=== PATIENT | female | born 1965 | race Caucasian/White ===

== ENCOUNTER 2017-07-16 14:09 | Emergency (ER) | payer OTHER ==
[~2017-07-16] VITALS: Ht 154.9 cm; Wt 77.1 kg
[2017-07-16 14:36] VITALS: BP 155/98
== END 2017-07-16 15:03 | disposition home or self-care (01) ==
LOC: ER 14:09
DX: G89.29 Other chronic pain (principal); M25.511 Pain in right shoulder; Z76.0 Encounter for issue of repeat prescription

== ENCOUNTER 2023-04-21 19:34 | Emergency (ER) | payer MEDICAID, OTHER ==
[~2023-04-21] VITALS: Ht 154.9 cm; Wt 75.0 kg
[2023-04-21 21:37] VITALS: BP 176/98; PULSE 89; RESP 16; TEMP 99.2; O2SAT 98
[2023-04-21] MEDS ORDERED: ACE3T PO (23:33)
[2023-04-21] MEDS: HYDROcodone-ACET 5/325MG TAB PO ONE (23:33)
[2023-04-21] MEDS: BENZOCAINE (DENTAL) 20 % SPRAY 60ML MT ONE (23:33)
[2023-04-21] MEDS ORDERED: CYCL-837 PO (23:33)
[2023-04-21] MEDS ORDERED: DICY10CA PO (23:33)
[2023-04-21] MEDS: ONDANSETRON ODT 4 MG TAB PO ONE (23:33)
[2023-04-21] MEDS ORDERED: AMOX875T4 PO (23:33)
== END 2023-04-21 23:42 | disposition home or self-care (01) ==
LOC: ER 19:34
DX: S02.5XXA Fracture of tooth (traumatic), initial encounter for closed fracture (principal); S16.1XXA Strain of muscle, fascia and tendon at neck level, initial encounter; S29.012A Strain of muscle and tendon of back wall of thorax, initial encounter; I10 Essential (primary) hypertension; Z90.710 Acquired absence of both cervix and uterus; V43.62XA Car passenger injured in collision with other type car in traffic accident, initial encounter; Y93.89 Activity, other specified; Y92.89 Other specified places as the place of occurrence of the external cause; Y99.8 Other external cause status
CPT/HCPCS: 99283; Q0162

== ENCOUNTER 2023-05-04 06:46 | Emergency (ER) | payer MEDICAID, OTHER ==
[~2023-05-04] VITALS: Ht 157.5 cm; Wt 68.0 kg
[~2023-05-04 06:46] MED LIST: ACE3T PO; AMOX875T4 PO; CYCL-837 PO; DICY10CA PO
[2023-05-04] MEDS: SODIUM CHLORIDE 0.9% 1,000 ML IV ONE (07:15)
[2023-05-04 07:40] VITALS: PULSE 71; RESP 14; O2SAT 98
[2023-05-04 07:42] LABS: Hemoglobin 13.2 g/dL (12.2-16.2); Neutrophils # (auto) 4.7 10 ^3/uL (1.6-8.6); White Blood Cell 6.2 10^3/uL (4.4-10.8)
[2023-05-04 07:53] LABS: Basophils # (auto) 0 10 ^3/uL (0-0.2); Basophils % (auto) 0.3 % (0.0-2.0); Eosinophils # (auto) 0.1 10 ^3/uL (0-0.8); Hematocrit 38.8 % (36.0-46.0); Lymphocytes # (auto) 1.1 10 ^3/uL (0.4-5.4); Lymphocytes % (auto) 17.9 % (10.0-50.0); Monocytes # (auto) 0.3 10 ^3/uL (0-1.3); Monocytes % (auto) 5.3 % (0.0-12.0); Neutrophils % (auto) 75.5 % (37.0-80.0); Nucleated Red Blood Cells % 0.1 %; Red Blood Cells 3.66 10^6/uL (4.0-5.20); Red Cell Distribution Width 19.8 % (11.8-14.3)
[2023-05-04 07:59] LABS: Chloride 100 mmol/L (98-107); Potassium 3.6 mmol/L (3.5-5.1); Sodium 136 mmol/L (136-145)
[2023-05-04 08:00] LABS: Anion Gap 11 (5-15); Calcium 9.2 mg/dL (8.5-10.1); Carbon Dioxide 25 mmol/L (20-30)
[2023-05-04 08:05] LABS: BUN/Creatinine Ratio 12.5 (10.0-20.0); Blood Urea Nitrogen 9 mg/dL (9-23); Glucose 84 mg/dL (74-106)
[2023-05-04] MEDS: THIAMINE 100mg/ml INJ (200mg/2ml VIAL) IV ONE (08:06)
[2023-05-04] MEDS: LABETALOL HCL 5 MG/ML 4ML SYRINGE IV ONE (08:06)
[2023-05-04] MEDS: DIPHENOXYLATE W/ATROPINE 2.5 MG TAB PO ONE (08:07)
[2023-05-04] MEDS: LORazepam 2MG/ML-1ML VIAL IV ONE (09:10)
[2023-05-04] MEDS: hydrALAZINE HCL 20 MG/ML VL IV ONE (09:47)
[2023-05-04] MEDS: HYDROcodone-ACET 10/325MG TAB PO ONE (11:10)
[2023-05-04 11:45] VITALS: BP 163/90; PULSE 91; RESP 19; O2SAT 97
[2023-05-06] MEDS ORDERED: ZOFR4T PO (23:04)
[2023-05-06] MEDS ORDERED: ALPR0.25 PO (23:04)
== END 2023-05-04 12:10 | disposition home or self-care (01) ==
LOC: ER 06:46 → EDBD 06:46 → ER 11:58
DX: F10.10 Alcohol abuse, uncomplicated (principal); R10.84 Generalized abdominal pain; R19.7 Diarrhea, unspecified; I10 Essential (primary) hypertension; Z90.710 Acquired absence of both cervix and uterus; Z79.2 Long term (current) use of antibiotics; Z79.899 Other long term (current) drug therapy; Y90.6 Blood alcohol level of 120-199 mg/100 ml
CPT/HCPCS: 36415; 80048; 80320; 85025; 96361; 96374; 96375; 99284; J0360; J2060; J3411; J3490; J7030

== ENCOUNTER 2023-05-19 06:24 | Inpatient (IN) | payer OTHER ==
[~2023-05-19] VITALS: Ht 154.9 cm; Wt 72.7 kg
[~2023-05-19 06:24] MED LIST changes: +ALPR0.25 PO; +ZOFR4T PO
[2023-05-19 07:04] VITALS: PULSE 74; RESP 21; O2SAT 96
[2023-05-19 07:11] LABS: Chloride 103 mmol/L (98-107); Potassium 4.2 mmol/L (3.5-5.1); Sodium 136 mmol/L (136-145)
[2023-05-19 07:12] LABS: Anion Gap 8 (5-15); Calcium 9.2 mg/dL (8.5-10.1); Carbon Dioxide 25 mmol/L (20-30)
[2023-05-19 07:14] LABS: Basophils # (auto) 0 10 ^3/uL (0-0.2); Hemoglobin 12.4 g/dL (12.2-16.2); Monocytes # (auto) 0.7 10 ^3/uL (0-1.3)
[2023-05-19 07:16] LABS: Basophils % (auto) 0.5 % (0.0-2.0); Eosinophils # (auto) 0.2 10 ^3/uL (0-0.8); Eosinophils % (auto) 1.9 % (0.0-7.0); Lymphocytes # (auto) 0.9 10 ^3/uL (0.4-5.4); Lymphocytes % (auto) 10.9 % (10.0-50.0); Mean Corpuscular Hemoglobin 35.8 pg (28.0-32.0); Mean Corpuscular Hgb Conc. 33.5 g/dL (32.0-36.0); Mean Corpuscular Volume 106.7 fL (80.0-100.0); Monocytes % (auto) 8.1 % (0.0-12.0); Neutrophils # (auto) 6.8 10 ^3/uL (1.6-8.6); Neutrophils % (auto) 78.6 % (37.0-80.0); Red Blood Cells 3.46 10^6/uL (4.0-5.20); Red Cell Distribution Width 18.7 % (11.8-14.3); White Blood Cell 8.7 10^3/uL (4.4-10.8)
[2023-05-19 07:17] LABS: Glucose 108 mg/dL (74-106)
[2023-05-19 07:22] LABS: BUN/Creatinine Ratio 6.1 (10.0-20.0); Blood Urea Nitrogen < 5 mg/dL (9-23)
[2023-05-19 07:38] LABS: Lipase 28 U/L (12-53)
[2023-05-19] MEDS: hydrALAZINE HCL 20 MG/ML VL IV ONE (07:38)
[2023-05-19 08:06] LABS: Urine Bacteria None Seen /hpf (None Seen)
[2023-05-19 08:11] LABS: Urine Blood Negative /uL (Negative); Urine Clarity Clear (Clear); Urine Color Colorless (Yellow); Urine Protein, UAD Negative (Negative); Urine Specific Gravity 1.008 (1.001-1.035); Urine Urobilinogen Normal (Negative); Urine WBC 1 /hpf (0 - 5)
[2023-05-19 08:20] VITALS: BP 194/90; RESP 18; O2SAT 98
[2023-05-19 08:22] VITALS: PULSE 65
[2023-05-19] MEDS: PROCHLORPERAZINE EDISYLATE 5 MG/ML 2ML VIAL ONE (08:38)
[2023-05-19] MEDS: hydrALAZINE HCL 20 MG/ML VL ONE (08:38)
[2023-05-19] MEDS: PANTOPRAZOLE 40 MG/10 ML VIAL INJ IV ONE ×2 (08:38→08:40)
[2023-05-19] MEDS: PROCHLORPERAZINE EDISYLATE 5 MG/ML 2ML VIAL IV ONE (08:40)
[2023-05-19] MEDS: SODIUM CHLORIDE 0.9% 1,000 ML IVB ONE (08:41)
[2023-05-19] MEDS ORDERED: NITROGLYCERIN 0.4 MG SL TAB SL PRN (09:15)
[2023-05-19] MEDS ORDERED: LORazepam 2MG/ML-1ML VIAL IV PRN (09:15)
[2023-05-19] MEDS ORDERED: ACETAMINOPHEN 325 MG TAB PO PRN (09:15)
[2023-05-19] MEDS ORDERED: HYDROcodone-ACET 5/325MG TAB PO PRN (09:15)
[2023-05-19] MEDS ORDERED: ONDANSETRON HCL 4 MG/2 ML VIAL IV PRN (09:15)
[2023-05-19] MEDS ORDERED: MORPHINE SULFATE INJ 2 MG/ml SYRG IV PRN (09:15)
[2023-05-19] MEDS ORDERED: hydrALAZINE HCL 20 MG/ML VL IV PRN (09:15)
[2023-05-19] MEDS: ALPRAZolam 0.5 MG TAB ONE (09:26)
[2023-05-19] MEDS: ALPRAZolam 0.25 MG TAB PO SCH (09:30)
[2023-05-19] MEDS: LISINOPRIL 5 MG TAB PO ONE (09:30)
[2023-05-19] MEDS ORDERED: PANTOPRAZOLE 40 MG/10 ML VIAL INJ IV ONE (09:45)
[2023-05-19] MEDS ORDERED: ENOXAPARIN SOD 40 MG/0.4 ML SYRINGE SC SCH (10:00)
[2023-05-19 10:20] LABS: Magnesium 1.8 mg/dL (1.6-2.6)
[2023-05-19] MEDS ORDERED: DICYCLOMINE HCL 10 MG CAP PO SCH (12:00)
[2023-05-19] MEDS ORDERED: CYCLOBENZAPRINE HCL 10 MG TAB PO PRN (18:00)
[2023-05-19] MEDS ORDERED: FOLIC ACID 1 MG, MAGNESIUM SULF SDV 50% 8 MEQ, MULTIPLE VITAMIN 10 ML, THIAMINE INJ 100... INJ SCH (18:00)
[2023-05-20] MEDS ORDERED: LISINOPRIL 5 MG TAB PO SCH (10:00)
[2023-05-20] MEDS ORDERED: PANTOPRAZOLE 40 MG/10 ML VIAL INJ IV SCH (10:00)
== END 2023-05-19 10:59 | disposition left against medical advice (07) | DRG 199 ==
LOC: EDUNIT# 06:24 → EDBD 06:24 → ER 06:24 → TELE 09:04
PROVIDERS: ADMIT Nurse Practitioner Family; ATTEND Nurse Practitioner Family
DX: I16.9 Hypertensive crisis, unspecified (principal); E66.01 Morbid (severe) obesity due to excess calories; K58.9 Irritable bowel syndrome, unspecified; Z53.29 Procedure and treatment not carried out because of patient's decision for other reasons; F10.10 Alcohol abuse, uncomplicated; G89.4 Chronic pain syndrome; T44.3X5A Adverse effect of other parasympatholytics [anticholinergics and antimuscarinics] and spasmolytics, initial encounter; Z68.30 Body mass index [BMI] 30.0-30.9, adult; Z90.710 Acquired absence of both cervix and uterus; Y92.89 Other specified places as the place of occurrence of the external cause
CPT/HCPCS: 36415; 70450; 74176; 80048; 80061; 80320; 81001; 82962; 83690; 83735; 84443; 85025; 93005; C9113; G0378

== ENCOUNTER 2023-05-27 05:41 | Emergency (ER) | payer OTHER ==
[~2023-05-27] VITALS: Ht 154.9 cm; Wt 68.2 kg
[2023-05-27 06:08] VITALS: PULSE 65; RESP 16; O2SAT 98
[2023-05-27] MEDS: hydrALAZINE HCL 20 MG/ML VL IV ONE ×2 (06:15→08:03)
[2023-05-27] MEDS: PROCHLORPERAZINE EDISYLATE 5 MG/ML 2ML VIAL IV ONE (06:24)
[2023-05-27 06:40] LABS: Basophils # (auto) 0.1 10 ^3/uL (0-0.2); Basophils % (auto) 0.9 % (0.0-2.0); Eosinophils # (auto) 0.1 10 ^3/uL (0-0.8); Eosinophils % (auto) 1.6 % (0.0-7.0); Hematocrit 33.2 % (36.0-46.0); Hemoglobin 11.3 g/dL (12.2-16.2); Lymphocytes # (auto) 1.2 10 ^3/uL (0.4-5.4); Lymphocytes % (auto) 16.6 % (10.0-50.0); Mean Corpuscular Hemoglobin 36.4 pg (28.0-32.0); Mean Corpuscular Hgb Conc. 34.1 g/dL (32.0-36.0); Mean Corpuscular Volume 106.6 fL (80.0-100.0); Monocytes # (auto) 0.7 10 ^3/uL (0-1.3); Monocytes % (auto) 9.4 % (0.0-12.0); Neutrophils # (auto) 5.1 10 ^3/uL (1.6-8.6); Neutrophils % (auto) 71.5 % (37.0-80.0); Red Blood Cells 3.12 10^6/uL (4.0-5.20); Red Cell Distribution Width 18.5 % (11.8-14.3); White Blood Cell 7.1 10^3/uL (4.4-10.8)
[2023-05-27 06:51] LABS: Chloride 103 mmol/L (98-107); Potassium 3.9 mmol/L (3.5-5.1); Sodium 135 mmol/L (136-145)
[2023-05-27 06:52] LABS: Anion Gap 10 (5-15); Calcium 9.2 mg/dL (8.7-10.4); Carbon Dioxide 22 mmol/L (20-30)
[2023-05-27 06:55] LABS: INR 1.07 (0.9-1.15); Partial Thromboplastin Time 29.4 SEC (24.5-34.5); Prothrombin Time 11.2 sec (9.3-11.8)
[2023-05-27 06:57] LABS: BUN/Creatinine Ratio 6.4 (10.0-20.0); Blood Urea Nitrogen 9 mg/dL (9-23); Glucose 101 mg/dL (74-106)
[2023-05-27 07:30] VITALS: PULSE 73; RESP 17; O2SAT 98
[2023-05-27] MEDS: MORPHINE SULFATE 4 MG/ML SYR/VIAL IV ONE (08:02)
[2023-05-27 08:14] LABS: Urine Bacteria None Seen /hpf (None Seen)
[2023-05-27] MEDS ORDERED: CHL10C PO (08:40)
[2023-05-27 08:55] LABS: Urine Blood Negative /uL (Negative); Urine Clarity Clear (Clear); Urine Protein, UAD Negative (Negative); Urine Specific Gravity 1.008 (1.001-1.035); Urine Urobilinogen Normal (Negative); Urine WBC 3 /hpf (0 - 5)
[2023-05-27 08:56] LABS: Urine Color Straw (Yellow)
[2023-05-27 09:37] VITALS: BP 158/77; PULSE 80; RESP 17; O2SAT 95
== END 2023-05-27 11:39 | disposition home or self-care (01) ==
LOC: EDBD 05:41 → ER 05:41
DX: R51.9 Headache, unspecified (principal); I10 Essential (primary) hypertension; F10.10 Alcohol abuse, uncomplicated; Z79.899 Other long term (current) drug therapy; Z79.01 Long term (current) use of anticoagulants
CPT/HCPCS: 36415; 70450; 71045; 80048; 81001; 83880; 84484; 85025; 85610; 85730; 93005; 96374; 96375; 96376; 99285; J0360; J0780; J2270

== ENCOUNTER 2023-08-05 03:45 | Emergency (ER) | payer OTHER ==
[~2023-08-05] VITALS: Ht 170.2 cm; Wt 88.6 kg
[~2023-08-05 03:45] MED LIST changes: +CHL10C PO
[2023-08-05 04:41] LABS: Chloride 98 mmol/L (98-107); Potassium 3.4 mmol/L (3.5-5.1); Sodium 133 mmol/L (136-145)
[2023-08-05 04:42] LABS: Anion Gap 16 (5-15); Carbon Dioxide 19 mmol/L (20-30)
[2023-08-05] MEDS: ONDANSETRON HCL 4 MG/2 ML VIAL IV ONE (04:42)
[2023-08-05 04:43] LABS: Calcium 9.6 mg/dL (8.7-10.4)
[2023-08-05] MEDS: SODIUM CHLORIDE 0.9% 1,000 ML IV ONE (04:43)
[2023-08-05] MEDS: LORazepam 2MG/ML-1ML VIAL IV ONE (04:43)
[2023-08-05 04:47] LABS: BUN/Creatinine Ratio 9.1 (10.0-20.0); Blood Urea Nitrogen 7 mg/dL (9-23); Glucose 89 mg/dL (74-106)
[2023-08-05 04:58] LABS: Blood Alcohol 78.4 mg/dL (<10)
[2023-08-05 05:00] VITALS: PULSE 73; RESP 20; O2SAT 92
[2023-08-05 07:30] VITALS: PULSE 96; RESP 21; O2SAT 96
[2023-08-05] MEDS: FOLIC ACID 1 MG, MAGNESIUM SULF SDV 50% 8 MEQ, MULTIPLE VITAMIN 10 ML, THIAMINE INJ 100... INJ ONE (08:55)
[2023-08-05] MEDS: METOPROLOL SUCCINATE XL 50 MG TAB PO ONE (09:33)
[2023-08-05 11:34] VITALS: TEMP 99
[2023-08-05] MEDS ORDERED: CHL25C PO (13:50)
[2023-08-05 15:10] VITALS: BP 189/91; PULSE 71; RESP 16; O2SAT 95
[2023-08-05] MEDS ORDERED: FOLIC ACID 1 MG, MAGNESIUM SULF SDV 50% 8 MEQ, MULTIPLE VITAMIN 10 ML, THIAMINE INJ 100... INJ SCH (18:00)
== END 2023-08-05 15:08 | disposition home or self-care (01) ==
LOC: EDBD 03:45 → EDUNIT# 03:45 → ER 03:48
DX: F10.239 Alcohol dependence with withdrawal, unspecified (principal); I10 Essential (primary) hypertension; Z90.710 Acquired absence of both cervix and uterus; Y90.8 Blood alcohol level of 240 mg/100 ml or more
CPT/HCPCS: 36415; 80048; 80320; 93005; 96361; 96365; 96375; 99284; J2060; J2405; J3411; J3475; J7030

== ENCOUNTER 2023-08-23 15:10 | Emergency (ER) | payer OTHER ==
[~2023-08-23] VITALS: Ht 154.9 cm; Wt 77.0 kg
[~2023-08-23 15:10] MED LIST changes: +CHL25C PO
[2023-08-23 15:24] VITALS: BP 170/97; PULSE 103; RESP 20; O2SAT 98
[2023-08-23] MEDS: SODIUM CHLORIDE 0.9% 1,000 ML IV ONE (15:37)
[2023-08-23 15:58] LABS: Basophils # (auto) 0.2 10 ^3/uL (0-0.2); Eosinophils # (auto) 0.1 10 ^3/uL (0-0.8); Lymphocytes # (auto) 1.6 10 ^3/uL (0.4-5.4); Monocytes # (auto) 0.6 10 ^3/uL (0-1.3)
[2023-08-23 15:59] LABS: Basophils % (auto) 2.1 % (0.0-2.0); Hematocrit 39.2 % (36.0-46.0); Hemoglobin 13.4 g/dL (12.2-16.2); Lymphocytes % (auto) 18.8 % (10.0-50.0); Mean Corpuscular Hemoglobin 39.4 pg (28.0-32.0); Mean Corpuscular Hgb Conc. 34.3 g/dL (32.0-36.0); Mean Corpuscular Volume 114.9 fL (80.0-100.0); Monocytes % (auto) 6.5 % (0.0-12.0); Neutrophils # (auto) 6.1 10 ^3/uL (1.6-8.6); Neutrophils % (auto) 71.6 % (37.0-80.0); Nucleated Red Blood Cells % 0.2 %; Red Blood Cells 3.41 10^6/uL (4.0-5.20); Red Cell Distribution Width 19.4 % (11.8-14.3); White Blood Cell 8.6 10^3/uL (4.4-10.8)
[2023-08-23 16:04] LABS: Chloride 105 mmol/L (98-107); Potassium 4.4 mmol/L (3.5-5.1); Sodium 138 mmol/L (136-145)
[2023-08-23 16:05] LABS: Anion Gap 12 (5-15); Carbon Dioxide 21 mmol/L (20-30)
[2023-08-23 16:06] LABS: Calcium 8.9 mg/dL (8.7-10.4)
[2023-08-23 16:11] LABS: Glucose 112 mg/dL (74-106)
[2023-08-23 16:21] LABS: Blood Alcohol 318.8 mg/dL (<10)
[2023-08-23 16:24] LABS: Anisocytosis Moderate; Macrocytosis Moderate; Polychromasia Slight; Stomatocytes Few
[2023-08-23 16:25] LABS: Large Platelets FEW; Platelet Estimate Adequa
[2023-08-23 16:59] LABS: BUN/Creatinine Ratio 6.5 (10.0-20.0); Blood Urea Nitrogen < 5 mg/dL (9-23)
== END 2023-08-23 19:05 | disposition home or self-care (01) ==
LOC: EDBD 15:10 → ER 15:10
DX: T67.5XXA Heat exhaustion, unspecified, initial encounter (principal); F10.10 Alcohol abuse, uncomplicated; I10 Essential (primary) hypertension; M19.90 Unspecified osteoarthritis, unspecified site; Z90.710 Acquired absence of both cervix and uterus; Z98.890 Other specified postprocedural states; Z79.899 Other long term (current) drug therapy; X58.XXXA Exposure to other specified factors, initial encounter; Y93.89 Activity, other specified; Y92.89 Other specified places as the place of occurrence of the external cause; Y99.8 Other external cause status; Y90.0 Blood alcohol level of less than 20 mg/100 ml
CPT/HCPCS: 36415; 80048; 80320; 85025; 96360; 96361; 99283; J7030

== ENCOUNTER 2023-09-05 14:00 | Inpatient (IN) | payer OTHER ==
[~2023-09-05] VITALS: Ht 162.6 cm; Wt 80.8 kg
[2023-09-05] MEDS: SODIUM CHLORIDE 0.9% 1,000 ML IV ONE ×2 (14:15→20:00)
[2023-09-05 14:53] LABS: Basophils # (auto) 0 10 ^3/uL (0-0.2); Eosinophils # (auto) 0 10 ^3/uL (0-0.8); Mean Corpuscular Volume 113.7 fL (80.0-100.0); Monocytes # (auto) 0.5 10 ^3/uL (0-1.3); Nucleated Red Blood Cells % 0.4 %
[2023-09-05 14:54] LABS: Basophils % (auto) 0.2 % (0.0-2.0); Hematocrit 36.7 % (36.0-46.0); Hemoglobin 13.2 g/dL (12.2-16.2); Lymphocytes # (auto) 0.4 10 ^3/uL (0.4-5.4); Lymphocytes % (auto) 3.7 % (10.0-50.0); Mean Corpuscular Hemoglobin 40.8 pg (28.0-32.0); Mean Corpuscular Hgb Conc. 35.9 g/dL (32.0-36.0); Monocytes % (auto) 4.8 % (0.0-12.0); Neutrophils # (auto) 8.8 10 ^3/uL (1.6-8.6); Neutrophils % (auto) 91.3 % (37.0-80.0); Red Blood Cells 3.23 10^6/uL (4.0-5.20); Red Cell Distribution Width 16.4 % (11.8-14.3); White Blood Cell 9.6 10^3/uL (4.4-10.8)
[2023-09-05 15:08] LABS: Alanine Aminotransferase 87 U/L (7-40); Albumin 4.5 g/dL (3.2-4.8); Alkaline Phosphatase 229 U/L (46-116); Anion Gap 26 (5-15); Aspartate Aminotransferase 471 U/L (13-40); BUN/Creatinine Ratio 12.2 (10.0-20.0); Blood Alcohol 158.2 mg/dL (<10); Blood Urea Nitrogen 12 mg/dL (9-23); Calcium 9.7 mg/dL (8.7-10.4); Carbon Dioxide 12 mmol/L (20-30); Chloride 77 mmol/L (98-107); Glucose 116 mg/dL (74-106); Potassium 3.7 mmol/L (3.5-5.1); Total Protein 7.7 g/dL (5.7-8.2)
[2023-09-05 15:18] LABS: Lactic Acid w/Reflex 5.8 mmol/L (0.4-2.0); Sodium 115 mmol/L (136-145)
[2023-09-05 15:28] LABS: Lipase 69 U/L (12-53)
[2023-09-05 15:40] VITALS: PULSE 89; RESP 18; O2SAT 94
[2023-09-05] MEDS ORDERED: ACETAMINOPHEN 325 MG TAB PO PRN (15:45)
[2023-09-05] MEDS ORDERED: DOCUSATE SOD 100 MG CAP PO PRN (15:45)
[2023-09-05] MEDS ORDERED: HYDROcodone-ACET 5/325MG TAB PO PRN (15:45)
[2023-09-05 16:16] LABS: Chloride 75 mmol/L (98-107); Potassium 3.9 mmol/L (3.5-5.1)
[2023-09-05 16:17] LABS: Anion Gap 27 (5-15); Carbon Dioxide 12 mmol/L (20-30)
[2023-09-05 16:18] LABS: Calcium 9.5 mg/dL (8.7-10.4)
[2023-09-05 16:23] LABS: BUN/Creatinine Ratio 13.1 (10.0-20.0); Blood Urea Nitrogen 13 mg/dL (9-23); Glucose 111 mg/dL (74-106)
[2023-09-05 16:26] LABS: Sodium 114 mmol/L (136-145)
[2023-09-05] MEDS: LACTULOSE 20Gm/30ML SOLN PO ONE (17:12)
[2023-09-05] MEDS: ONDANSETRON HCL 4 MG/2 ML VIAL IV PRN (17:12)
[2023-09-05] MEDS: ENOXAPARIN SOD 40 MG/0.4 ML SYRINGE SC ONE (17:12)
[2023-09-05] MEDS: SODIUM CHL 3% 50 ML IV ONE (17:24)
[2023-09-05 19:41] LABS: Lactic Acid w/Reflex 4.3 mmol/L (0.4-2.0)
[2023-09-05] MEDS: PIPERACILLIN-TAZOB 3.375GM 100 ML IV ONE (20:13)
[2023-09-05] MEDS: SODIUM CHLOR 0.9% PF (SALINE LOCK) 10ML VIAL/SYR IV SCH (21:04)
[2023-09-05 21:23] LABS: Chloride 80 mmol/L (98-107); Potassium 3.5 mmol/L (3.5-5.1)
[2023-09-05 21:24] LABS: Anion Gap 23 (5-15); Carbon Dioxide 15 mmol/L (20-30)
[2023-09-05 21:25] LABS: Calcium 9.6 mg/dL (8.7-10.4)
[2023-09-05 21:30] LABS: Blood Urea Nitrogen 12 mg/dL (9-23); Glucose 91 mg/dL (74-106)
[2023-09-05 21:35] LABS: Sodium 118 mmol/L (136-145)
[2023-09-05] MEDS: LABETALOL HCL 20 MG/4 ML VL IV ONE (21:43)
[2023-09-05] MEDS: ONDANSETRON HCL 4 MG/2 ML VIAL IV ONE (21:43)
[2023-09-05] MEDS: metroNIDAZOLE 500MG/100ML 100 ML IV SCH (22:15)
[2023-09-05 23:11] LABS: Amphetamine Screen, Urine Neg (NEGATIVE); Barbiturate Scree,Urine Neg (NEGATIVE); Benzodiazephine Screen, Urine Pos (NEGATIVE); Cocaine Screen, Urine Neg (NEGATIVE)
[2023-09-05 23:12] LABS: Cannabinoid Screen, Urine Neg (NEGATIVE); Opiate Scree,Urine Neg (NEGATIVE); Phencyclidine Screen, Urine Neg (NEGATIVE)
[2023-09-05 23:13] LABS: Urine Bacteria FEW /hpf (None Seen); Urine Blood 2+ /uL (Negative); Urine Clarity Turbid (Clear); Urine Color Dark-Yellow (Yellow); Urine Hyaline Cast MANY /lpf (0 - 2); Urine Mucus FEW (None Seen); Urine Protein, UAD 2+ (Negative); Urine Urobilinogen OVER mg/dL (Negative); Urine WBC 6 /hpf (0 - 5)
[2023-09-06] MEDS: LORazepam 2MG/ML-1ML VIAL IV PRN (01:44)
[2023-09-06] MEDS: diphenhdrAMINE HCL 50 MG/1 ML VL IV ONE (02:51)
[2023-09-06] MEDS: SODIUM CHLORIDE 1 GM TAB PO ONE (03:24)
[2023-09-06] MEDS: SODIUM CHLORIDE 0.9% 1,000 ML IV SCH (03:30)
[2023-09-06 03:50] LABS: Chloride 84 mmol/L (98-107); Potassium 3.2 mmol/L (3.5-5.1)
[2023-09-06 03:51] LABS: Anion Gap 17 (5-15); Calcium 9.1 mg/dL (8.7-10.4); Carbon Dioxide 18 mmol/L (20-30)
[2023-09-06 03:56] LABS: BUN/Creatinine Ratio 12.3 (10.0-20.0); Blood Urea Nitrogen 14 mg/dL (9-23); Glucose 106 mg/dL (74-106)
[2023-09-06 04:25] LABS: Sodium 119 mmol/L (136-145)
[2023-09-06 07:50] VITALS: PULSE 86; RESP 20; O2SAT 91
[2023-09-06 09:42] LABS: Chloride 87 mmol/L (98-107); Potassium 3.6 mmol/L (3.5-5.1); Sodium 122 mmol/L (136-145)
[2023-09-06 09:43] LABS: Anion Gap 15 (5-15); Carbon Dioxide 20 mmol/L (20-30)
[2023-09-06] MEDS: PANTOPRAZOLE 40 MG/10 ML VIAL INJ IV SCH (09:45)
[2023-09-06] MEDS: cefTRIAXone 1GM/50ML D5W 50 ML IV SCH (09:45)
[2023-09-06 09:48] LABS: BUN/Creatinine Ratio 12.7 (10.0-20.0); Blood Urea Nitrogen 13 mg/dL (9-23); Glucose 103 mg/dL (74-106)
[2023-09-06 11:57] LABS: Alkaline Phosphatase 195 U/L (46-116)
[2023-09-06 11:59] LABS: Alanine Aminotransferase 74 U/L (7-40); Albumin 3.9 g/dL (3.2-4.8); Aspartate Aminotransferase 403 U/L (13-40); Bilirubin, Total 5.1 mg/dL (0.2-1.0); Total Protein 6.8 g/dL (5.7-8.2)
[2023-09-06 12:20] LABS: Basophils # (auto) 0 10 ^3/uL (0-0.2); Basophils % (auto) 0.4 % (0.0-2.0); Eosinophils # (auto) 0 10 ^3/uL (0-0.8); Eosinophils % (auto) 0.1 % (0.0-7.0); Hematocrit 31.4 % (36.0-46.0); Hemoglobin 11.1 g/dL (12.2-16.2); Lymphocytes # (auto) 0.3 10 ^3/uL (0.4-5.4); Mean Corpuscular Hemoglobin 40.1 pg (28.0-32.0); Mean Corpuscular Hgb Conc. 35.5 g/dL (32.0-36.0); Monocytes # (auto) 0.3 10 ^3/uL (0-1.3); Monocytes % (auto) 6.4 % (0.0-12.0); Neutrophils % (auto) 87.1 % (37.0-80.0); Nucleated Red Blood Cells % 0.6 %; Red Blood Cells 2.77 10^6/uL (4.0-5.20); Red Cell Distribution Width 16.1 % (11.8-14.3); White Blood Cell 4.6 10^3/uL (4.4-10.8)
[2023-09-06 12:35] LABS: INR 1.14 (0.9-1.15)
[2023-09-06] MEDS: amLODIPine BESYLATE 5 MG TAB PO ONE ×2 (13:21→19:22)
[2023-09-06 16:44] LABS: Chloride 89 mmol/L (98-107); Potassium 3.2 mmol/L (3.5-5.1); Sodium 120 mmol/L (136-145)
[2023-09-06 16:45] LABS: Anion Gap 16 (5-15); Calcium 8.9 mg/dL (8.7-10.4); Carbon Dioxide 15 mmol/L (20-30)
[2023-09-06 16:50] LABS: BUN/Creatinine Ratio 7.1 (10.0-20.0); Blood Urea Nitrogen 7 mg/dL (9-23); Glucose 114 mg/dL (74-106)
[2023-09-06 17:22] VITALS: BP 147/83; PULSE 78; RESP 16; TEMP 98.9; O2SAT 98
[2023-09-06] MEDS: FOLIC ACID 1 MG, MAGNESIUM SULF SDV 50% 8 MEQ, MULTIPLE VITAMIN 10 ML, THIAMINE INJ 100... INJ SCH (18:36)
[2023-09-06] MEDS ORDERED: SODIUM CHL 3% 500 ML IV ONE (18:45)
[2023-09-06 18:53] VITALS: PULSE 86; RESP 16; O2SAT 96
[2023-09-06 19:30] VITALS: PULSE 93
[2023-09-06 19:40] LABS: Magnesium 2.1 mg/dL (1.6-2.6)
[2023-09-06 19:42] LABS: Phosphorus 0.7 mg/dL (2.4-5.1)
[2023-09-06] MEDS: SODIUM CHL 3% 500 ML IV ONE (19:59)
[2023-09-06 20:00] VITALS: PULSE 100; RESP 19; O2SAT 97
[2023-09-06 21:00] VITALS: BP 157/73; PULSE 93; RESP 21; TEMP 98.4; O2SAT 98
[2023-09-06] MEDS: NEUTRA-PHOS TABLET PO ONE (21:30)
[2023-09-07] VITALS (8 sets, daily range): BP systolic 122–148; BP diastolic 76–86; PULSE 81–104; RESP 18–21; TEMP 98–98.6; O2SAT 96–100
[2023-09-07 01:08] LABS: Chloride 91 mmol/L (98-107); Potassium 2.9 mmol/L (3.5-5.1)
[2023-09-07 01:09] LABS: Anion Gap 15 (5-15); Calcium 8.9 mg/dL (8.7-10.4); Carbon Dioxide 19 mmol/L (20-30)
[2023-09-07 01:14] LABS: BUN/Creatinine Ratio 10.1 (10.0-20.0); Blood Urea Nitrogen 9 mg/dL (9-23); Glucose 107 mg/dL (74-106)
[2023-09-07 01:17] LABS: Sodium 125 mmol/L (136-145)
[2023-09-07] MEDS: SODIUM CHLORIDE 0.9% 1,000 ML IV SCH ×2 (02:46→16:37)
[2023-09-07] MEDS: LACTULOSE 20Gm/30ML SOLN PO SCH ×2 (05:28→10:45)
[2023-09-07 07:30] LABS: Calcium 8.8 mg/dL (8.7-10.4); Chloride 92 mmol/L (98-107); Potassium 2.7 mmol/L (3.5-5.1)
[2023-09-07 07:31] LABS: Anion Gap 18 (5-15); Carbon Dioxide 20 mmol/L (20-30)
[2023-09-07 07:36] LABS: BUN/Creatinine Ratio 11.6 (10.0-20.0); Blood Urea Nitrogen 10 mg/dL (9-23); Glucose 104 mg/dL (74-106)
[2023-09-07 07:38] LABS: Sodium 130 mmol/L (136-145)
[2023-09-07] MEDS: POTASSIUM EFFERVESENT TAB 25 MEQ PO SCH (08:34)
[2023-09-07] MEDS: MULTIPLE VITAMIN TAB PO SCH (08:35)
[2023-09-07] MEDS: FOLIC ACID 1 MG TAB PO SCH (08:35)
[2023-09-07] MEDS: THIAMINE HCL 100 MG TAB PO SCH (08:35)
[2023-09-07 08:41] LABS: Hepatitis B Surface Antigen Negative (Negative)
[2023-09-07] MEDS: amLODIPine BESYLATE 5 MG TAB PO SCH (08:42)
[2023-09-07 09:02] LABS: Hepatitis A Ab IgM Negative
[2023-09-07 09:03] LABS: Hepatitis B Core IgM Negative; Hepatitis C Antibody Negative (Negative)
[2023-09-07] MEDS ORDERED: LORazepam 2MG/ML-1ML VIAL IV PRN (09:30)
[2023-09-07 09:44] LABS: Albumin 3.5 g/dL (3.2-4.8); Bilirubin, Direct 4.1 mg/dL (<0.3); Magnesium 2.1 mg/dL (1.6-2.6); Phosphorus 0.8 mg/dL (2.4-5.1)
[2023-09-07 09:45] LABS: Total Protein 5.8 g/dL (5.7-8.2)
[2023-09-07] MEDS: DESMOPRESSIN ACET 4 MCG/1 ML AMPULE IV SCH (09:45)
[2023-09-07 09:48] LABS: Basophils # (auto) 0 10 ^3/uL (0-0.2); Eosinophils # (auto) 0 10 ^3/uL (0-0.8); Monocytes # (auto) 0.3 10 ^3/uL (0-1.3)
[2023-09-07 09:51] LABS: Basophils % (auto) 0.4 % (0.0-2.0); Eosinophils % (auto) 0.9 % (0.0-7.0); Hematocrit 30.5 % (36.0-46.0); Hemoglobin 10.8 g/dL (12.2-16.2); Lymphocytes # (auto) 0.5 10 ^3/uL (0.4-5.4); Lymphocytes % (auto) 10.6 % (10.0-50.0); Mean Corpuscular Hemoglobin 40.5 pg (28.0-32.0); Mean Corpuscular Hgb Conc. 35.3 g/dL (32.0-36.0); Mean Corpuscular Volume 114.5 fL (80.0-100.0); Monocytes % (auto) 6.4 % (0.0-12.0); Neutrophils # (auto) 4.2 10 ^3/uL (1.6-8.6); Neutrophils % (auto) 81.7 % (37.0-80.0); Nucleated Red Blood Cells % 0.5 %; Red Blood Cells 2.66 10^6/uL (4.0-5.20); Red Cell Distribution Width 16.2 % (11.8-14.3); White Blood Cell 5.2 10^3/uL (4.4-10.8)
[2023-09-07] MEDS: D5W 5% 1,000 ML IV SCH (09:56)
[2023-09-07] MEDS ORDERED: amLODIPine BESYLATE 5 MG TAB PO SCH (10:00)
[2023-09-07] MEDS: POTASSIUM CHLORIDE 60 MEQ, LIDOCAINE 1% (LOCAL ANESTH.) 6 ML in SODIUM CHL 0.9% 500 ML IV ONE (10:04)
[2023-09-07] MEDS: POTASSIUM PHOSPHATE 26.4 MEQ in SODIUM CHL 0.9% 100 ML IV ONE (14:44)
[2023-09-07] MEDS: POTASSIUM EFFERVESENT TAB 25 MEQ GT ONE (14:44)
[2023-09-07 14:45] LABS: Chloride 94 mmol/L (98-107); Potassium 3.9 mmol/L (3.5-5.1); Sodium 130 mmol/L (136-145)
[2023-09-07 14:46] LABS: Anion Gap 14 (5-15); Carbon Dioxide 22 mmol/L (20-30)
[2023-09-07 14:51] LABS: Glucose 110 mg/dL (74-106)
[2023-09-07 14:52] LABS: BUN/Creatinine Ratio 8.4 (10.0-20.0); Blood Urea Nitrogen 7 mg/dL (9-23)
[2023-09-07] MEDS: FOLIC ACID 1 MG, MAGNESIUM SULF SDV 50% 8 MEQ, MULTIPLE VITAMIN 10 ML, THIAMINE INJ 100... INJ SCH (18:50)
[2023-09-07 19:27] LABS: Chloride 96 mmol/L (98-107); Potassium 4.5 mmol/L (3.5-5.1); Sodium 131 mmol/L (136-145)
[2023-09-07 19:28] LABS: Anion Gap 10 (5-15); Calcium 9.1 mg/dL (8.7-10.4); Carbon Dioxide 25 mmol/L (20-30)
[2023-09-07 19:33] LABS: BUN/Creatinine Ratio 7.2 (10.0-20.0); Blood Urea Nitrogen 6 mg/dL (9-23); Glucose 109 mg/dL (74-106)
[2023-09-08] VITALS (8 sets, daily range): BP systolic 138–155; BP diastolic 80–91; PULSE 80–107; RESP 16–19; TEMP 97.9–98.3; O2SAT 94–98
[2023-09-08 06:18] LABS: Alanine Aminotransferase 71 U/L (7-40); Alkaline Phosphatase 206 U/L (46-116); Anion Gap 11 (5-15); Carbon Dioxide 26 mmol/L (20-30); Chloride 96 mmol/L (98-107); Glucose 86 mg/dL (74-106); Potassium 3.4 mmol/L (3.5-5.1); Sodium 133 mmol/L (136-145); White Blood Cell 5.2 10^3/uL (4.4-10.8)
[2023-09-08 06:20] LABS: Albumin 3.5 g/dL (3.2-4.8); Aspartate Aminotransferase 336 U/L (13-40); Bilirubin, Total 5.4 mg/dL (0.2-1.0); Total Protein 6.2 g/dL (5.7-8.2)
[2023-09-08 06:22] LABS: Blood Urea Nitrogen < 5 mg/dL (9-23)
[2023-09-08 06:23] LABS: Hematocrit 29.3 % (36.0-46.0); Hemoglobin 10.3 g/dL (12.2-16.2); Mean Corpuscular Hemoglobin 40.8 pg (28.0-32.0); Mean Corpuscular Hgb Conc. 35.2 g/dL (32.0-36.0); Mean Corpuscular Volume 115.7 fL (80.0-100.0); Red Blood Cells 2.53 10^6/uL (4.0-5.20); Red Cell Distribution Width 16.6 % (11.8-14.3)
[2023-09-08 06:31] LABS: Band Neutrophils % (manual) 0; Basophils % (manual) 0 (0.0-2.0); Blast Cells 0; Eosinophils % (manual) 0 (0-7); Metamyelocytes % 0; Myelocytes % 0; Promyelocytes % 0; Reactive Lymphocytes 0
[2023-09-08 07:36] LABS: Lymphocytes % (manual) 7 (10.0-50.0); Macrocytosis Marked; Monocytes % (manual) 4 (0-12); Platelet Estimate Adequate
[2023-09-08] MEDS: POTASSIUM EFFERVESENT TAB 25 MEQ PO ONE (09:15)
[2023-09-08 09:46] LABS: Magnesium 2.2 mg/dL (1.6-2.6); Phosphorus < 0.3 mg/dL (2.4-5.1)
[2023-09-08] MEDS: ALPRAZolam 0.25 MG TAB PO PRN (10:42)
[2023-09-08] MEDS: LACTULOSE 20Gm/30ML SOLN PO SCH (10:50)
[2023-09-08] MEDS: NEUTRA-PHOS TABLET PO ONE (13:26)
[2023-09-08] MEDS: SODIUM PHOSPHATES 40 MEQ in D5W 5% 250 ML IV ONE (13:26)
[2023-09-08] MEDS: cloNIDine HCL 0.1 MG TAB PO SCH (14:54)
[2023-09-09 05:00] VITALS: BP 137/80; PULSE 93; RESP 18; TEMP 98.2; O2SAT 97
[2023-09-09 08:45] VITALS: BP 130/81; PULSE 89; RESP 16; TEMP 97.7; O2SAT 94
[2023-09-09] MEDS: CEPHALEXIN 250 MG CAP PO SCH (10:44)
[2023-09-09] MEDS: MULTIPLE VITAMINS W/ MINERALS TAB PO SCH (10:44)
[2023-09-09] MEDS: THIAMINE HCL 100 MG TAB PO SCH (10:44)
[2023-09-09] MEDS: FLUoxetine HCL 20 MG CAP PO SCH (10:44)
[2023-09-09] MEDS: FOLIC ACID 1 MG TAB PO SCH (10:44)
[2023-09-09 11:36] LABS: Alanine Aminotransferase 70 U/L (7-40); Alkaline Phosphatase 207 U/L (46-116); Anion Gap 9 (5-15); Calcium 8.6 mg/dL (8.7-10.4); Carbon Dioxide 27 mmol/L (20-30); Chloride 97 mmol/L (98-107); Glucose 133 mg/dL (74-106); Magnesium 1.8 mg/dL (1.6-2.6); Potassium 2.8 mmol/L (3.5-5.1); Sodium 133 mmol/L (136-145)
[2023-09-09 11:37] LABS: Albumin 3.2 g/dL (3.2-4.8); Aspartate Aminotransferase 232 U/L (13-40); Bilirubin, Total 4.8 mg/dL (0.2-1.0); Phosphorus 0.9 mg/dL (2.4-5.1); Total Protein 5.4 g/dL (5.7-8.2)
[2023-09-09 11:46] LABS: BUN/Creatinine Ratio 9.4 (10.0-20.0); Blood Urea Nitrogen < 5 mg/dL (9-23)
[2023-09-09 13:00] VITALS: BP 129/76; PULSE 94; RESP 16; TEMP 97.9; O2SAT 97
[2023-09-09] MEDS: metroNIDAZOLE 500 MG TAB PO SCH (13:57)
[2023-09-09] MEDS ORDERED: POTASSIUM PHOSPHATE 44 MEQ in D5W 5% 250 ML IV ONE (15:00)
[2023-09-09] MEDS: MAGNESIUM SULFATE 1GM/100ML 100 ML IV SCH (16:40)
[2023-09-09 16:56] VITALS: BP 103/72; PULSE 87; RESP 16; TEMP 98.3; O2SAT 99
[2023-09-09] MEDS: POTASSIUM EFFERVESENT TAB 25 MEQ PO ONE (18:30)
[2023-09-09] MEDS: POTASSIUM PHOSPHATE 44 MEQ in SODIUM CHL 0.9% 250 ML IV ONE (18:54)
[2023-09-09 21:00] VITALS: BP 127/74; PULSE 90; RESP 19; TEMP 97.6; O2SAT 98
[2023-09-10] VITALS (7 sets, daily range): BP systolic 92–145; BP diastolic 62–80; PULSE 76–87; RESP 16–18; TEMP 36.4; O2SAT 95–100
[2023-09-10] MEDS: PANTOPRAZOLE 40 MG TAB PO SCH (06:14)
[2023-09-10 06:22] LABS: Alanine Aminotransferase 70 U/L (7-40); Albumin 3.1 g/dL (3.2-4.8); Alkaline Phosphatase 210 U/L (46-116); Anion Gap 6 (5-15); Aspartate Aminotransferase 198 U/L (13-40); Calcium 8.6 mg/dL (8.7-10.4); Carbon Dioxide 27 mmol/L (20-30); Chloride 99 mmol/L (98-107); Glucose 100 mg/dL (74-106); Magnesium 2.2 mg/dL (1.6-2.6); Potassium 3.4 mmol/L (3.5-5.1); Sodium 132 mmol/L (136-145)
[2023-09-10 06:23] LABS: Phosphorus 2.2 mg/dL (2.4-5.1); Total Protein 5.5 g/dL (5.7-8.2)
[2023-09-10 06:26] LABS: BUN/Creatinine Ratio 9.4 (10.0-20.0); Blood Urea Nitrogen < 5 mg/dL (9-23)
[2023-09-10] MEDS: POTASSIUM EFFERVESENT TAB 25 MEQ PO ONE (09:49)
[2023-09-10] MEDS: levoFLOXacin 500 MG TAB PO SCH (09:50)
[2023-09-10] MEDS: LACTULOSE 20Gm/30ML SOLN PO SCH (09:51)
[2023-09-10] MEDS ORDERED: MULTTAB99 PO (12:44)
[2023-09-10] MEDS ORDERED: LEVO500T91 PO (12:44)
[2023-09-10] MEDS ORDERED: MET500T PO (12:44)
[2023-09-10] MEDS ORDERED: FAMO20TA10 PO (12:44)
[2023-09-10] MEDS ORDERED: FLUO1TAB14 PO (12:44)
[2023-09-10] MEDS: SODIUM PHOSPHATES 24 MEQ in SODIUM CHL 0.9% 100 ML IV ONE (12:52)
== END 2023-09-10 18:00 | disposition home or self-care (01) | DRG 812 ==
LOC: ER 14:00 → EDBD 14:00 → TELE 15:40 → TELE-WESTW 09-06 17:12 → WEST WING 09-08 23:21
PROVIDERS: ADMIT Internal Medicine; ATTEND Emergency Medicine
DX: T40.411A Poisoning by fentanyl or fentanyl analogs, accidental (unintentional), initial encounter (principal); G93.40 Encephalopathy, unspecified; D69.6 Thrombocytopenia, unspecified; E87.20 Acidosis, unspecified; S36.119A Unspecified injury of liver, initial encounter; E87.1 Hypo-osmolality and hyponatremia; F10.139 Alcohol abuse with withdrawal, unspecified; F11.10 Opioid abuse, uncomplicated; I10 Essential (primary) hypertension; F41.9 Anxiety disorder, unspecified; E87.6 Hypokalemia; G40.909 Epilepsy, unspecified, not intractable, without status epilepticus; K52.9 Noninfective gastroenteritis and colitis, unspecified; F10.129 Alcohol abuse with intoxication, unspecified; X58.XXXA Exposure to other specified factors, initial encounter; K70.10 Alcoholic hepatitis without ascites; D53.9 Nutritional anemia, unspecified; Z79.2 Long term (current) use of antibiotics; Z79.1 Long term (current) use of non-steroidal anti-inflammatories (NSAID); Z79.899 Other long term (current) drug therapy; Z71.41 Alcohol abuse counseling and surveillance of alcoholic; Y92.89 Other specified places as the place of occurrence of the external cause; Y93.89 Activity, other specified; Y99.8 Other external cause status; Z90.710 Acquired absence of both cervix and uterus; Y90.6 Blood alcohol level of 120-199 mg/100 ml
CPT/HCPCS: 36415; 70450; 74176; 76705; 80048; 80053; 80074; 80076; 80307; 80320; 81001; 82010; 82140; 82248; 82607; 83036; 83605; 83690; 83735; 83930; 83935; 84100; 84132; 84443; 84484; 85007; 85025; 85027; 85610; 87081; 93306; 96360; 96361; 97110; 97116; 97163; 97530; 99291; G0378; J2001; J2405; J2470; J2543; J3490; J7060

== ENCOUNTER 2023-12-04 12:22 | Emergency (ER) | payer MEDICAID ==
[~2023-12-04] VITALS: Ht 154.9 cm; Wt 68.1 kg
[~2023-12-04 12:22] MED LIST changes: -ACE3T PO; -ALPR0.25 PO; -AMOX875T4 PO; -CHL10C PO; -CHL25C PO; -CYCL-837 PO; -DICY10CA PO; +FLUO1TAB14 PO; +HYDR-4902 PO; +LORA-655 PO; +METO1TAB9 PO; +MULTTAB99 PO; +PANT40TA2 PO; -ZOFR4T PO
[2023-12-04 13:01] VITALS: PULSE 96; RESP 16; TEMP 98.7; O2SAT 96
[2023-12-04] MEDS: ASPirin 81 mg TAB PO ONE (13:19)
[2023-12-04] MEDS: SODIUM CHLORIDE 0.9% 1,000 ML IV ONE (13:31)
[2023-12-04 14:14] LABS: Alanine Aminotransferase 58 U/L (7-40); Albumin 3.9 g/dL (3.2-4.8); Alkaline Phosphatase 299 U/L (46-116); Anion Gap 12 (5-15); Aspartate Aminotransferase 284 U/L (13-40); Calcium 9.8 mg/dL (8.7-10.4); Carbon Dioxide 25 mmol/L (20-31); Chloride 94 mmol/L (98-107); Glucose 112 mg/dL (74-106); Potassium 3.3 mmol/L (3.5-5.1); Sodium 131 mmol/L (136-145); Total Protein 7.6 g/dL (5.7-8.2)
[2023-12-04 14:19] LABS: BUN/Creatinine Ratio 6.8 (10.0-20.0); Blood Urea Nitrogen < 5 mg/dL (9-23)
[2023-12-04 14:26] LABS: Basophils # (auto) 0.1 10 ^3/uL (0-0.2); Basophils % (auto) 0.8 % (0.0-2.0); Eosinophils # (auto) 0 10 ^3/uL (0-0.8); Eosinophils % (auto) 0.4 % (0.0-7.0); Hematocrit 40.3 % (36.0-46.0); Lymphocytes # (auto) 0.5 10 ^3/uL (0.4-5.4); Lymphocytes % (auto) 6.8 % (10.0-50.0); Mean Corpuscular Hemoglobin 38.9 pg (28.0-32.0); Mean Corpuscular Hgb Conc. 32.2 g/dL (32.0-36.0); Monocytes # (auto) 0.5 10 ^3/uL (0-1.3); Monocytes % (auto) 7.4 % (0.0-12.0); Neutrophils # (auto) 6.2 10 ^3/uL (1.6-8.6); Neutrophils % (auto) 84.6 % (37.0-80.0); Nucleated Red Blood Cells % 0.5 %; Platelet Count (auto) 269 10^3/uL (140-450); Red Blood Cells 3.33 10^6/uL (4.0-5.20); Red Cell Distribution Width 19.2 % (11.8-14.3); White Blood Cell 7.4 10^3/uL (4.4-10.8)
[2023-12-04 15:18] LABS: Urine Bacteria None Seen /hpf (None Seen)
[2023-12-04] MEDS ORDERED: OMEP20TA PO (15:25)
[2023-12-04] MEDS ORDERED: PROC10TA6 PO (15:25)
[2023-12-04 15:44] LABS: Urine Blood Negative /uL (Negative); Urine Clarity Clear (Clear); Urine Color Light-Yellow (Yellow); Urine Protein, UAD Negative (Negative); Urine Specific Gravity 1.002 (1.001-1.035); Urine Urobilinogen Normal (Negative); Urine WBC <1 /hpf (0 - 5); Urine pH 6.5 (5.0-9.0)
[2023-12-04] MEDS ORDERED: CHL25C PO (16:01)
[2023-12-04] MEDS: ACETAMINOPHEN 325 MG TAB PO ONE (16:07)
[2023-12-04] MEDS: POTASSIUM EFFERVESENT TAB 25 MEQ PO ONE (16:07)
[2023-12-04 16:20] VITALS: BP 157/87; PULSE 95; RESP 17; O2SAT 96
== END 2023-12-04 16:31 | disposition home or self-care (01) ==
LOC: ER 12:22
DX: R07.89 Other chest pain (principal); K52.9 Noninfective gastroenteritis and colitis, unspecified; E87.6 Hypokalemia; R74.8 Abnormal levels of other serum enzymes; F10.239 Alcohol dependence with withdrawal, unspecified; I10 Essential (primary) hypertension; I25.2 Old myocardial infarction; M19.90 Unspecified osteoarthritis, unspecified site; Z79.899 Other long term (current) drug therapy; Z90.710 Acquired absence of both cervix and uterus; Z91.141 Patient's other noncompliance with medication regimen due to financial hardship
CPT/HCPCS: 36415; 71046; 80053; 81001; 83735; 84484; 85025; 93005; 96360; 96361; 99285; J7030

== ENCOUNTER 2024-01-23 02:55 | Emergency (ER) | payer MEDICAID ==
[~2024-01-23] VITALS: Ht 154.9 cm; Wt 68.2 kg
[~2024-01-23 02:55] MED LIST changes: +CHL25C PO; +OMEP20TA PO; +PROC10TA6 PO
--- NOTE | 2024-01-23 03:26 | ED.PDOC ---
Psychiatric HPI Comments 58-year-old female who came to ER via EMS for alcohol withdrawals. Patient is a daily alcohol drinker. Does have history of hypertension and irritable bowel syndrome. States she has been trying to wean off her alcohol, usually takes 6-8 shots of vodka everyday, now she is down to 2-3 shots of vodka daily. For the past few hours she has been having tremors and diarrhea. Blood pressure upon arrival was 203/113 mm Hg. Patient claims she has good compliance to her medications Chief Complaint: Withdrawal Time Seen by MD: 03:25 Primary Care Provider: UNKNOWN Reviewed Notes: Director Camp Notes Information Source: Patient, Emergency Med Personnel Mode of Arrival: EMS Severity: Unable to Care for Self, Unable to Control Self Severity of Pain: Moderate Severity of Mental Status: Moderate Severity of Symptoms: Moderate Timing: Hours Duration: Since onset Prehospital treatment: None Presents with: Anxiety, Unclear Thinking, Alcohol Intoxication Ingestion: ETOH Circumstance: Withdrawal Symptoms Current substance abuse: ETOH History of: ETOH Withdrawl Associated signs and symptoms: Intoxication, ETOH, Agitation, Tremors Past Medical History PAST MEDICAL HISTORY: Arthritis, HTN, Seizures Past Medical History (Other): Irritable bowel syndrome Surgical History: Hysterectomy ENAMEL SPRAYER History: No Pertinent ENAMEL SPRAYER History Family History Family History: Family hx of heart ellen Social History Smoker: Non-Smoker Alcohol: Heavy Drugs: Denies Drug Use Lives In: Home Constitutional: denies: chills, diaphoresis, fatigue, fever, malaise, sweats, weakness, others EENTM: denies: blurred vision, double vision, ear bleeding, ear discharge, ear drainage, ear pain, ear ringing, eye pain, eye redness, hearing loss, mouth pain, mouth swelling, nasal discharge, nose bleeding, nose congestion, nose pain, photophobia, tearing, throat pain, throat swelling, voice changes, others Respiratory: denies: cough, hemoptysis, orthopnea, SOB at rest, shortness of breath, SOB with excertion, stridor, wheezing, others Cardiovascular: denies: chest pain, dizzy spells, diaphoresis, Dyspnea on exertion, edema, irregular heart beat, left arm pain, lightheadedness, palpitations, PND, syncope, others Gastrointestinal: reports: diarrhea; denies: abdomen distended, abdominal pain, blood streaked bowels, constipated, dysphagia, difficulty swallowing, hematemesis, melena, nausea, poor appetite, poor fluid intake, rectal bleeding, rectal pain, vomiting, others Genitourinary: denies: abnormal vagina bleeding, burning, dyspareunia, dysuria, flank pain, frequency, hematuria, incontinence, pain, , vagina discharge, urgency, others Neurological: reports: tremors; denies: dizziness, fainting, headache, left sided numbness, left sided weakness, numbness, paresthesia, pre-existing deficit, right sided numbness, right sided weakness, seizure, speech problems, tingling, weakness, others Musculoskeletal: denies: back pain, gout, joint pain, joint swelling, muscle pain, muscle stiffness, neck pain, others Integumetry: denies: bruises, change in color, change in hair/nails, dryness, laceration, lesions, lumps, rash, wounds, others Allergic/Immunocompromised: denies: Difficulty Healing, Frequent Infections, Hives, Itching, others Hematologic/Lymphatic: denies: anemia, blood clots, easy bleeding, easy bruising, swollen glands, others Endocrine: denies: excessive hunger, excessive sweating, excessive thirst, excessive urination, flushing, intolerance to cold, intolerance to heat, unexplained weight gain, unexplained weight loss, others Psychiatric: denies: anxiety, bipolar disorder, depression, hopeless, panic disorder, schizophrenia, sleepless, suicidal, others Physical Exam General Appearance: Mild Distress, Normal HEENT: Normal ENT Inspection, Pharynx Normal, TMs Normal Neck: Full Range of Motion, Non-Tender, Normal, Normal Inspection Respiratory: Chest Non-Tender, Lungs Clear, No Accessory Muscle Use, No Respiratory Distress, Normal Breath Sounds Cardiovascular: No Edema, No JVD, No Murmur, No Gallop, Normal Peripheral Pulses, Regular Rate/Rhythm Breast Exam: Deferred Gastrointestinal: No Organomegaly, Non Tender, No Pulsatile Mass, Normal Bowel Sounds, Soft Genitalia: Deferred Pelvic: Deferred Rectal: Deferred Extremities: No calf tenderness, Normal capillary refill, Normal inspection, Normal range of motion, Non-tender, No pedal edema Musculoskeletal : Apperance: Normal Neurologic: Alert, other sports official II-XII nml as Tested, No Motor Deficits, Normal Affect, Normal Mood, No Sensory Deficits Cerebellar Function: Normal Reflexes: Normal Skin: Dry, Normal Color, Warm Lymphatic: No Adenopathy EKG EKG : Pulse Rate (adult): 72 Cardiac Rhythm: NSR Was a procedure done? Was a procedure done?: No Psych Differential Dx OD Differential Dx: Alcohol Abuse Intoxication Differential Dx: Alcohol Withdraw Syndrome, Delerium Tremens X-Ray, Labs, Meds, VS Vital Signs Date Time Temp Pulse Resp B/P (MAP) Pulse Ox O2 Delivery O2 Flow Rate FiO2 01/23/24 05:13 69 13 130/80 01/23/24 05:00 98.5 69 13 130/80 (97) 97 98.5 01/23/24 04:36 73 18 159/88 01/23/24 04:00 98.5 71 19 159/88 (111) 96 98.5 01/23/24 03:30 98.5 68 21 181/91 (121) 94 98.5 01/23/24 03:30 68 21 94 Room Air* 0 21 01/23/24 03:26 72 01/23/24 03:06 98.7 81 18 188/100 (129) 99 01/23/24 03:03 72 Lab Test 01/23/24 04:30 Range/Units White Blood Count 7.9 4.4-10.8 10^3/uL Red Blood Count 2.87 L 4.0-5.20 10^6/uL Hemoglobin 11.9 L 12.2-16.2 g/dL Hematocrit 34.1 L 36.0-46.0 % Mean Corpuscular Volume 119.1 H 80.0-100.0 fL Mean Corpuscular Hemoglobin 41.4 H 28.0-32.0 pg Mean Corpuscular Hemoglobin Concent 34.8 32.0-36.0 g/dL Red Cell Distribution Width 20.2 H 11.8-14.3 % Platelet Count 215 140-450 10^3/uL Mean Platelet Volume 7.1 6.9-10.8 fL Neutrophils (%) (Auto) 82.2 H 37.0-80.0 % Lymphocytes (%) (Auto) 10.5 10.0-50.0 % Monocytes (%) (Auto) 5.0 0.0-12.0 % Eosinophils (%) (Auto) 1.6 0.0-7.0 % Basophils (%) (Auto) 0.7 0.0-2.0 % Neutrophils # (Auto) 6.5 1.6-8.6 10 ^3/uL Lymphocytes # (Auto) 0.8 0.4-5.4 10 ^3/uL Monocytes # (Auto) 0.4 0-1.3 10 ^3/uL Eosinophils # (Auto) 0.1 0-0.8 10 ^3/uL Basophils # (Auto) 0.1 0-0.2 10 ^3/uL Nucleated Red Blood Cells 0.1 % Platelet Estimate Adequate Macrocytosis Slight Stomatocytes Few Sodium Level 135 L 136-145 mmol/L Potassium Level 3.6 3.5-5.1 mmol/L Chloride Level 98 98-107 mmol/L Carbon Dioxide Level 26 20-31 mmol/L Anion Gap 11 5-15 Blood Urea Nitrogen 6 L 9-23 mg/dL Creatinine 0.61 0.550-1.02 mg/dL Glomerular Filtration Rate Calc 103 >90 mL/min BUN/Creatinine Ratio 9.8 L 10.0-20.0 Serum Glucose 96 74-106 mg/dL Calcium Level 10.0 8.7-10.4 mg/dL Total Bilirubin 1.6 H 0.2-1.0 mg/dL Aspartate Amino Transferase (AST) 166 H 13-40 U/L Alanine Aminotransferase (ALT) 37 7-40 U/L Alkaline Phosphatase 145 H 46-116 U/L Troponin I High Sensitivity < 3 L </=34 ng/L Total Protein 7.4 5.7-8.2 g/dL Albumin 4.2 3.2-4.8 g/dL Plasma/Serum Blood Alcohol < 3.0 <10 mg/dL Current Medications Medications (Trade) Dose Ordered Sig/Alena Route Start Time Stop Time Status Last Admin Ondansetron HCl (Zofran) 4 mg ONCE ONCE IV 01/23/24 04:15 01/23/24 04:16 DC 01/23/24 04:36 Morphine Sulfate 4 mg ONCE ONCE IV 01/23/24 04:15 01/23/24 04:16 DC 01/23/24 04:36 Chlordiazepoxide HCl (Librium Capsule) 50 mg ONCE ONCE PO 01/23/24 04:15 01/23/24 04:16 DC 01/23/24 04:36 Sodium Chloride 1,450 ml @ 1,450 mls/hr ONCE ONCE IV 01/23/24 04:15 01/23/24 05:14 DC 01/23/24 04:31 Hemoglobin is 12. CMP is normal. Alcohol level is three Troponin is three. EKG shows no signs of ischemia. Patient will be discharged home with Librium Blood pressure is normal Time of 1ST Reevaluation: 03:21 Reevaluation 1ST: Unchanged Patient Education/Counseling: Diagnosis, Treatment Family Education/Counseling: No Family Present Departure 1 Departure Time of Disposition: 05:52 Impression: Primary Impression: Alcohol abuse Additional Impressions: Alcohol withdrawal syndrome Qualified Codes: F10.939 - Alcohol use, unspecified with withdrawal, unspecified Headache due to hypertension Disposition: HOME / SELF CARE / HOMELESS Condition: Stable Additional Instructions: Reassessed patient, vital signs stable. Denies any new symptoms. Patient is able to tolerate PO and ambulate/be mobile at their baseline without concern. Risks and benefits of all medications given or prescribed, if any, discussed. All lab work, imaging and diagnostic studies were reviewed by me. The patient was counseled extensively on my clinical impression, diagnosis, expected course of the disease, and plan, including their follow-up care. Will discharge patient. Patient instructed to follow up with Primary Care Physician within 24-48 hours. Strict return precautions given for further exacerbation of symptoms or for new symptoms. The patient was given the opportunity to ask questions and all questions were answered by myself and the nursing/tech staff. Patient is in agreement with the care plan. The patient verbally expressed understanding of the discharge instructions, including the reasons to return to the Emergency Department. e-Prescriptions Chlordiazepoxide Hcl (Ni-1) (I (Librium) 10 Mg Cap 25 MG PO QIDPRN, #30 CAP Prov: PAULINE HOUSER MD 01/23/24 Discharged With: Self Critical Care Note Critical Care Time?: No Stability Stability form required: No Heart Score Heart Score: Heart Score Response (Comments) Value History N/A 0 EKG N/A 0 Age N/A 0 Risk Factors N/A 0 Troponin N/A 0 Total 0 I personally scribed for PAULINE HOUSER MD ([email or web address]) on 01/23/24 at 03:26. Electronically submitted by Ez Sevilla ([email or web address]). PAULINE HOUSER MD Jan 23, 2024 03:26
[2024-01-23 03:30] VITALS: PULSE 68; RESP 21; O2SAT 94
[2024-01-23] MEDS: SODIUM CHLORIDE 0.9% 1,450 ML IV ONE (04:31)
[2024-01-23] MEDS: MORPHINE SULFATE 4 MG/ML SYR/VIAL IV ONE (04:36)
[2024-01-23] MEDS: chlordiazePOXIDE HCL 25 MG CAP PO ONE (04:36)
[2024-01-23] MEDS: ONDANSETRON HCL 4 MG/2 ML VIAL IV ONE (04:36)
[2024-01-23 04:59] LABS: Basophils # (auto) 0.1 10 ^3/uL (0-0.2); Basophils % (auto) 0.7 % (0.0-2.0); Eosinophils # (auto) 0.1 10 ^3/uL (0-0.8); Hemoglobin 11.9 g/dL (12.2-16.2); Lymphocytes # (auto) 0.8 10 ^3/uL (0.4-5.4); Monocytes # (auto) 0.4 10 ^3/uL (0-1.3); Neutrophils # (auto) 6.5 10 ^3/uL (1.6-8.6); Nucleated Red Blood Cells % 0.1 %
[2024-01-23 05:00] VITALS: TEMP 98.5
[2024-01-23 05:01] LABS: Eosinophils % (auto) 1.6 % (0.0-7.0); Hematocrit 34.1 % (36.0-46.0); Lymphocytes % (auto) 10.5 % (10.0-50.0); Mean Corpuscular Hemoglobin 41.4 pg (28.0-32.0); Mean Corpuscular Hgb Conc. 34.8 g/dL (32.0-36.0); Mean Corpuscular Volume 119.1 fL (80.0-100.0); Neutrophils % (auto) 82.2 % (37.0-80.0); Platelet Count (auto) 215 10^3/uL (140-450); Red Blood Cells 2.87 10^6/uL (4.0-5.20); Red Cell Distribution Width 20.2 % (11.8-14.3); White Blood Cell 7.9 10^3/uL (4.4-10.8)
[2024-01-23 05:13] LABS: Macrocytosis Slight; Platelet Estimate Adequate; Stomatocytes Few
[2024-01-23 05:17] LABS: Alanine Aminotransferase 37 U/L (7-40); Albumin 4.2 g/dL (3.2-4.8); Anion Gap 11 (5-15); BUN/Creatinine Ratio 9.8 (10.0-20.0); Carbon Dioxide 26 mmol/L (20-31); Chloride 98 mmol/L (98-107); Glucose 96 mg/dL (74-106); Potassium 3.6 mmol/L (3.5-5.1); Total Protein 7.4 g/dL (5.7-8.2)
[2024-01-23 05:18] LABS: Alkaline Phosphatase 145 U/L (46-116); Aspartate Aminotransferase 166 U/L (13-40); Bilirubin, Total 1.6 mg/dL (0.2-1.0); Blood Alcohol < 3.0 mg/dL (<10); Blood Urea Nitrogen 6 mg/dL (9-23); Sodium 135 mmol/L (136-145)
[2024-01-23] MEDS ORDERED: CHL10C PO (05:54)
[2024-01-23] MEDS: SODIUM CHLORIDE 0.9% 2,000 ML IV ONE (07:07)
[2024-01-23 07:30] VITALS: BP 149/91; PULSE 70; RESP 16; O2SAT 100
--- NOTE | 2024-01-27 09:43 | ECG ---
[facility] Test Date: 2024-01-23 Test Time: 03:03:25 Pat Name: СЕРГЕЙ RAMIREZ Department: ED Room: Gender: F Office Runner: SHUBHAM : 1965 Requested By: PAULINE HOUSER Order Number: [id number] Reading MD: Stan Christianson Measurements Intervals Waterman Rate: 72 P: 22 NE: 164 QRS: -28 QRSD: 92 T: -5 QT: 407 QTc: 446 Interpretive Statements Sinus rhythm LAE, consider biatrial enlargement Borderline left axis deviation Consider anterior infarct Borderline T abnormalities, inferior leads Electronically Signed On 01-29-2024 9:50:58 PST by Stan Christianson Please click the below link to view image of tracing.
== END 2024-01-23 09:42 | disposition home or self-care (01) ==
LOC: ER 02:55 → EDBD 02:55 → ER 09:42
DX: F10.229 Alcohol dependence with intoxication, unspecified (principal); F10.239 Alcohol dependence with withdrawal, unspecified; F41.9 Anxiety disorder, unspecified; I10 Essential (primary) hypertension; M19.90 Unspecified osteoarthritis, unspecified site; Z90.710 Acquired absence of both cervix and uterus; Y90.8 Blood alcohol level of 240 mg/100 ml or more
CPT/HCPCS: 36415; 80053; 80320; 84484; 85025; 93005; 96361; 96374; 96375; 99285; J2270; J2405; J7030; J7040

== ENCOUNTER → 2024-02-11 | Emergency (ER) | payer MEDICAID ==
[~2024-02-11] MED LIST changes: +BACL10TA PO; +CHL10C PO; +CHLO25CA10 PO; +CHLO25CA9 PO; +DICY10CA PO; +FOLI-119 PO; +IBUP-1456 PO; +LORA-1121 PO; +MET500T PO; +METO-289 PO; +MULT-1018 PO; +THIA100T10 GT; +THIA100T13 PO
== END | disposition left against medical advice (07) ==
LOC: ER 15:34
DX: F10.90 Alcohol use, unspecified, uncomplicated (principal); Z53.21 Procedure and treatment not carried out due to patient leaving prior to being seen by health care provider; Y90.0 Blood alcohol level of less than 20 mg/100 ml

== ENCOUNTER 2024-02-13 17:22 | Inpatient (IN) | payer MEDICAID ==
[~2024-02-13] VITALS: Ht 154.9 cm; Wt 58.9 kg
[~2024-02-13 17:22] MED LIST changes: -BACL10TA PO; -CHLO25CA10 PO; -CHLO25CA9 PO; -DICY10CA PO; -FOLI-119 PO; -IBUP-1456 PO; -LORA-1121 PO; -MET500T PO; -METO-289 PO; -MULT-1018 PO; -THIA100T10 GT; -THIA100T13 PO
--- NOTE | 2024-02-13 18:06 | ED.PDOC ---
GI ASSESSMENT HPI Comments HPI: Poor Historian. 58-year-old female with a history of chronic abdominal pain and chronic diarrhea history IBS presents to emergency department for worsening abdominal pain . Patient went to urgent care and had Imodium and Flagyl prescribed to her. She said the Imodium helped a little bit with her diarrhea. Patient states that these are chronic symptoms but got worse in the last couple of days. She has been seen by GI in the past for this.: VITALS: T:97.5 HR:122 RR:20 O2:97 BP:140/88 SOCIAL HX: CONSUMES HEAVY ETOH, DENIES DRUGS AND TOBACCO USAGE SHX: TOTAL HYSTERECTOMY, KNEE REPLACEMENT PMHX: HTN, IBS, CHRONIC, ABD PAIN ALLERGIES: NKA REVIEW OF SYSTEMS: CONSTITUTIONAL: Denies acute: fever, diaphoresis, chills, generalized weakness. HEAD: Denies acute: headache, photophobia Eyes: Denies acute: Double vision, vision loss, eye pain, eye discharge. EARS: Denies acute: tinnitus, hearing loss, ear discharge, ear pain, THROAT: Denies acute: sore throat, swelling, difficulty swallowing , pain with swallowing, change in voice. NECK: Denies acute: neck pain, neck swelling, stiff neck. HEART: Denies acute : chest pain, palpitations, LUNGS: Denies acute: SOB, wheezing, cough, hemoptysis ABDOMEN: Denies acute: , Nausea, Vomiting, diarrhea, melena , hematemesis, hematochezia SKIN: Denies acute: rash, redness, lesions, itchiness. EXTREMITIES: Denies acute: calf pain, numbness, tingling, weakness, denies pain in extremity. Denies acute: Low back pain. Neuro: Denies acute: focal neurological deficit, motor or sensory focal neurological deficit, tremors, seizure like activity, confusion, dizziness, change in mental status, loss of bowel or bladder function, cauda equina like symptoms. : Denies acute: dysuria, hematuria, flank pain, increase in urinary frequency. PSYCH: Denies acute: hallucination, suicidal ideation, homicidal ideation. FEMALE: Denies acute: abnormal vaginal bleeding, foul odor, unusual discharge. PHYSICAL EXAM: General: no acute distress, awake and alert. Head: normocephalic, atraumatic. Neck: supple, trachea is midline, no swelling. Throat: Normal phonation. Eyes:, no erythema, no purulent discharge, no proptosis, no icterus. Heart: regular rate, regular rhythm, no significant murmur appreciated. Lungs: no apparent respiratory distress, Able to speak in full sentences. No wheezing, no rhonchi, no crackles. No stridors Clear to auscultation bilaterally. Abdomen: Right-sided and lower abdominal tender to palpation, non distended, soft, no guarding, no rebound, + bowel sounds. Neuro: Awake, Alert, oriented to name, self, situation, follows commands GCS=15. Speech is normal. Skin: no petechia, no purpura, no cyanosis, non-pale, not jaundice. Lower extremities: --no - Pitting edema no deformity, no focal swelling, no calf TTP. Makes eye contact. moves all four extremities. Face: no apparent facial droop. Ambulating in the ED independently. Chief Complaint: Abdominal Pain Time Seen by MD: 18:00 Primary Care Provider: UNKNOWN Reviewed Notes: Nurses Notes, Medications, Allergies Allergies: Coded Allergies: NO KNOWN ALLERGIES (Unverified , 04/21/23) Home Meds Active Scripts Chlordiazepoxide Hcl (Ni-1) (I (Librium) 10 Mg Cap, 25 MG PO QIDPRN, #30 CAP Prov:PAULINE HOUSER MD 01/23/24 Chlordiazepoxide Hcl (Librium) 25 Mg Cp, 25 MG PO TID PRN for 5 Days, #15 CAP Prov:MICAELA WASHINGTON MD 12/04/23 Prochlorperazine Maleate (Compazine) 10 Mg Tb, 1 TAB PO TID for 5 Days, #15 TAB 3 Refills Prov:MICAELA WASHINGTON MD 12/04/23 Omeprazole (Gnp Omeprazole) 20 Mg Tab, 1 TAB PO BID for 20 Days, #40 TAB 1 Refill Prov:MICAELA WASHINGTON MD 12/04/23 Pantoprazole Sodium Sesquihydr (Protonix) 40 Mg Tab, 40 MG PO DAILY, #30 TAB 5 Refills Prov:MIMA CASTREJON MD 10/31/23 Lorazepam (Ativan) 0.5 Mg Tab, 1 TAB PO TIDPRN PRN, #30 TAB Prov:MIMA CASTREJON MD 10/31/23 Hydrocodone-Acetaminophen (Hydrocodone Bitartrate/AC 5-325 mg) 1 Tab Tab, 1 TAB PO Q6HPRN PRN, #10 TAB Prov:MIMA CASTREJON MD 10/31/23 Fluoxetine HCl (Pmdd) (Fluoxetine HCl) 20 Mg Tab, 20 MG PO DAILY for 30 Days, #30 TAB 3 Refills Prov:MIMA CASTREJON MD 10/31/23 Multiple Vitamin (Mvi Tab) 1 Tab Tb, 1 TAB PO DAILY for 30 Days, #30 TAB Prov:TUTU GARCIA MD 09/10/23 Reported Medications Metoprolol Succinate (Metoprolol Succinate Er) 100 Mg Tab, 100 MG PO DAILY, TAB 10/30/23 Information Source: Patient Mode of Arrival: Ambulatory Duration: Days Quality: Cramping Vomitus: None Stool: Watery Severity: Mild Recent: None Recent Hx of: None Pain Location: Diffuse Associated sign and symptoms: Diarrhea Was a procedure done? Was a procedure done?: No X-Ray, Labs, Meds, VS Vital Signs Date Time Temp Pulse Resp B/P (MAP) Pulse Ox O2 Delivery O2 Flow Rate FiO2 02/13/24 21:02 75 19 140/74 02/13/24 20:14 118 19 162/90 02/13/24 19:57 85 17 98 Room Air* 0 21 02/13/24 19:54 116 20 162/90 (114) 98 02/13/24 17:59 99.0 123 20 140/88 (105) 97 Lab Test 02/13/24 20:30 02/13/24 18:31 02/13/24 00:00 Range/Units Lactic Acid Level 2.0 2.5 *H 0.4-2.0 mmol/L White Blood Count 14.8 H 4.4-10.8 10^3/uL Red Blood Count 2.82 L 4.0-5.20 10^6/uL Hemoglobin 11.6 L 12.2-16.2 g/dL Hematocrit 33.4 L 36.0-46.0 % Mean Corpuscular Volume 118.4 H 80.0-100.0 fL Mean Corpuscular Hemoglobin 41.1 H 28.0-32.0 pg Mean Corpuscular Hemoglobin Concent 34.7 32.0-36.0 g/dL Red Cell Distribution Width 17.8 H 11.8-14.3 % Platelet Count 263 140-450 10^3/uL Mean Platelet Volume 7.5 6.9-10.8 fL Neutrophils (%) (Auto) 84.8 H 37.0-80.0 % Lymphocytes (%) (Auto) 8.2 L 10.0-50.0 % Monocytes (%) (Auto) 6.2 0.0-12.0 % Eosinophils (%) (Auto) 0.3 0.0-7.0 % Basophils (%) (Auto) 0.5 0.0-2.0 % Neutrophils # (Auto) 12.5 H 1.6-8.6 10 ^3/uL Lymphocytes # (Auto) 1.2 0.4-5.4 10 ^3/uL Monocytes # (Auto) 0.9 0-1.3 10 ^3/uL Eosinophils # (Auto) 0 0-0.8 10 ^3/uL Basophils # (Auto) 0.1 0-0.2 10 ^3/uL Nucleated Red Blood Cells 0.0 % Platelet Estimate Adequate Macrocytosis Marked Sodium Level 137 136-145 mmol/L Potassium Level 2.6 L 3.5-5.1 mmol/L Chloride Level 97 L 98-107 mmol/L Carbon Dioxide Level 29 20-31 mmol/L Anion Gap 11 5-15 Blood Urea Nitrogen 8 L 9-23 mg/dL Creatinine 0.78 0.550-1.02 mg/dL Glomerular Filtration Rate Calc 87 >90 mL/min BUN/Creatinine Ratio 10.3 10.0-20.0 Serum Glucose 98 74-106 mg/dL Calcium Level 9.9 8.7-10.4 mg/dL Magnesium Level 1.5 L 1.6-2.6 mg/dL Total Bilirubin 1.1 H 0.2-1.0 mg/dL Aspartate Amino Transferase (AST) 115 H 13-40 U/L Alanine Aminotransferase (ALT) 21 7-40 U/L Alkaline Phosphatase 177 H 46-116 U/L Ammonia 62 H 11-32 umol/L Troponin I High Sensitivity 5 </=34 ng/L Total Protein 6.9 5.7-8.2 g/dL Albumin 4.0 3.2-4.8 g/dL Lipase 33 12-53 U/L Plasma/Serum Blood Alcohol 63.7 H <10 mg/dL Urine Color Light-yellow Yellow Urine Clarity Clear Clear Urine pH 6.5 5.0-9.0 Urine Specific Kiefer 1.007 1.001-1.035 Urine Protein Negative Negative Urine Ketones Negative Negative Urine Blood Negative Negative /uL Urine Nitrite Negative Negative Urine Bilirubin Negative Negative Urine Urobilinogen Normal Negative mg/dL Urine Leukocyte Esterase 2+ Negative /uL Urine RBC 2 0 - 4 /hpf Urine WBC 5 0 - 5 /hpf Urine Squamous Epithelial Cells Few <5 /hpf Urine Bacteria Few H None Seen /hpf Urine Glucose Normal Normal mg/dL Current Medications Medications (Trade) Dose Ordered Sig/Alena Route Start Time Stop Time Status Last Admin Sodium Chloride 1,000 ml @ 1,000 mls/hr Q1H ONCE IV 02/13/24 18:15 02/13/24 19:14 DC 02/13/24 20:21 Magnesium Sulfate/ Dextrose 100 ml @ 100 mls/hr ONCE ONCE IV 02/13/24 19:30 02/13/24 20:29 DC 02/13/24 20:16 Ceftriaxone Sodium 50 ml @ 100 mls/hr ONCE ONCE IV 02/13/24 19:30 02/13/24 19:59 DC 02/13/24 20:16 Potassium Chloride (Klor-Con Tablet) 60 meq ONCE ONCE PO 02/13/24 19:30 02/13/24 19:46 DC 02/13/24 20:15 Lactulose 60 ml ONCE ONCE PO 02/13/24 19:30 02/13/24 19:46 DC 02/13/24 20:15 Morphine Sulfate 2 mg ONCE ONCE IV 02/13/24 20:00 02/13/24 20:01 DC 02/13/24 20:14 Ondansetron HCl (Zofran) 4 mg ONCE ONCE IV 02/13/24 20:00 02/13/24 20:01 DC 02/13/24 20:22 [place] [address] Ph: [phone] DIAGNOSTIC IMAGING Diagnostic Imaging Report : [id number] Signed PATIENT: СЕРГЕЙ RAMIREZ ACCT: [id number] UNIT: [id number] : 1965 LOC: ER ROOM / BED: / AGE / SEX: 58 / F ADM STATUS: REG ER SERVICE [id number] ORDERING PHYSICIAN: AIDEE VARGAS DO PROCEDURE(s): ABPL - CT AB PEL WO CON-NO ORAL OR IV REASON: ABDOMINAL PAIN ORDER NUMBER(s): [id number], ACCESSION NUMBER(s): [id number] Exam: CT CT AB PEL WO CON-NO ORAL OR IV History: ABDOMINAL PAIN Comparison Study: None available at time of dictation. TECHNIQUE: Multidetector CT of the abdomen was performed from lung bases to pubic symphysis. Imaging was performed without IV contrast. Axial, coronal and sagittal multiplanar reformats were obtained from the axial data set by the technologist. Radiation Dose Information: CT Dose: CTDI volume is 10.2 mGy. Dose-length product is 544.15 mGy*cm FINDINGS: Evaluation of solid organs is limited due to lack of intravenous contrast use. Findings: Lung Bases: No acute or significant lung base finding. Normal heart size. No pleural or pericardial effusion. Liver: Heterogeneous appearance to the liver with air areas of fatty infiltration. Can not exclude metastatic disease without IV contrast. Gallbladder and Biliary Tree: Unremarkable Spleen: Unremarkable Pancreas: The pancreas is grossly normal in appearance. Adrenal Glands: Unremarkable Kidneys: Kidneys are grossly normal without calculi or hydronephrosis. Bladder: Grossly unremarkable for degree of distention. Bowel: The stomach is grossly normal in appearance. Small bowel and colon are normal in caliber and distribution. The appendix is not visualized; however, no secondary findings of acute appendicitis identified. Ascites: Absent Lymphadenopathy: No mesenteric, retroperitoneal or periportal lymphadenopathy. Abdominal Wall and Mesentery: Unremarkable. Vasculature: The visualized abdominal aorta is normal in size and caliber. Evaluation of abdominal and pelvic vessels is limited due to lack of intravenous contrast. Pelvic Organs: Unremarkable Musculoskeletal: No aggressive focal bony lesions, acute fractures or dislocation. Soft tissues: Unremarkable IMPRESSION: 1. Genius liver with patchy areas of fatty infiltration. Can not exclude metastatic disease without IV contrast. If patient is unable to tolerate IV contrast consider MRI. Radiation optimization: All CT scans at this facility use at least one of these dose optimization techniques: automated exposure control mA and/or kV adjustment per patient size (includes targeted exams where dose is matched to clinical indication) or iterative reconstruction. HS:Y ATED BY: LEATHA GARAY Jr., DO DICTATED DATE/TIME: 02/13/241842 SIGNED BY: LEATHA GARAY Jr., SIGNED DATE/TIME: 02/13/241842 CC: Time of 1ST Reevaluation: 18:30 Reevaluation 1ST: Unchanged Patient Education/Counseling: Diagnosis, Treatment Family Education/Counseling: No Family Present Comments Patient presented with withdrawals. Patient was found with the above mentioned diagnosis. the following medications were ordered: NS1L the following tests were ordered: LABS, CT Patient ED course and VS have been stabilized. Patient has been reassessed in the ED and remained in a stable condition. Pertinent incidental findings were discussed with the patient and/or family. Patient/family voices understanding and is agreeable with plan. Patient has been observed in the ED adequate length of time to insure improvement/stability. Escalation of care considered: Consideration of escalation to observation or admission Patient was ADMITTED to the medicine team for further evaluation and treatment of their presentation. Patient was discharged. All the reports of any imaging studies that were ordered by myself were reviewed by myself. Departure 1 Departure Time of Disposition: 19:28 Impression: Primary Impression: Urinary tract infection Additional Impressions: Hypokalemia Hypomagnesemia Abnormal finding on CT scan Hyperammonemia Alcohol abuse Disposition: ADMITTED INPATIENT Admit to: [facility] Condition: Guarded Additional Instructions: [place] [address] Ph: [phone] DIAGNOSTIC IMAGING Diagnostic Imaging Report : [id number] Signed PATIENT: СЕРГЕЙ RAMIREZ ACCT: [id number] UNIT: [id number] : 1965 LOC: ER ROOM / BED: / AGE / SEX: 58 / F ADM STATUS: REG ER SERVICE [id number] ORDERING PHYSICIAN: AIDEE VARGAS DO PROCEDURE(s): ABPL - CT AB PEL WO CON-NO ORAL OR IV REASON: ABDOMINAL PAIN ORDER NUMBER(s): [id number], ACCESSION NUMBER(s): [id number] Exam: CT CT AB PEL WO CON-NO ORAL OR IV History: ABDOMINAL PAIN Comparison Study: None available at time of dictation. TECHNIQUE: Multidetector CT of the abdomen was performed from lung bases to pubic symphysis. Imaging was performed without IV contrast. Axial, coronal and sagittal multiplanar reformats were obtained from the axial data set by the technologist. Radiation Dose Information: CT Dose: CTDI volume is 10.2 mGy. Dose-length product is 544.15 mGy*cm FINDINGS: Evaluation of solid organs is limited due to lack of intravenous contrast use. Findings: Lung Bases: No acute or significant lung base finding. Normal heart size. No pleural or pericardial effusion. Liver: Heterogeneous appearance to the liver with air areas of fatty infiltration. Can not exclude metastatic disease without IV contrast. Gallbladder and Biliary Tree: Unremarkable Spleen: Unremarkable Pancreas: The pancreas is grossly normal in appearance. Adrenal Glands: Unremarkable Kidneys: Kidneys are grossly normal without calculi or hydronephrosis. Bladder: Grossly unremarkable for degree of distention. Bowel: The stomach is grossly normal in appearance. Small bowel and colon are normal in caliber and distribution. The appendix is not visualized; however, no secondary findings of acute appendicitis identified. Ascites: Absent Lymphadenopathy: No mesenteric, retroperitoneal or periportal lymphadenopathy. Abdominal Wall and Mesentery: Unremarkable. Vasculature: The visualized abdominal aorta is normal in size and caliber. Evaluation of abdominal and pelvic vessels is limited due to lack of intravenous contrast. Pelvic Organs: Unremarkable Musculoskeletal: No aggressive focal bony lesions, acute fractures or dislocation. Soft tissues: Unremarkable IMPRESSION: 1. Genius liver with patchy areas of fatty infiltration. Can not exclude metastatic disease without IV contrast. If patient is unable to tolerate IV con trast consider MRI. Radiation optimization: All CT scans at this facility use at least one of these dose optimization techniques: automated exposure control mA and/or kV adjustment per patient size (includes targeted exams where dose is matched to cl inical indication) or iterative reconstruction. HS:Y ATED BY: LEATHA GARAY Jr., DO DICTATED DATE/TIME: 02/13/241842 SIGNED BY: LEATHA GARAY Jr., DO SIGNED DATE/TIME: 02/13/241842 CC: Discharged With: Self Critical Care Note Critical Care Time?: No Heart Score Heart Score: Heart Score Response (Comments) Value History Slightly Suspicious 0 EKG Normal 0 Age 45-64 1 Risk Factors 1 or 2 risk factors 1 Troponin Normal limit 0 Total 2 I personally scribed for AIDEE VARGAS DO ([email or web address]) on 02/13/24 at 18:06. Electronically submitted by Daylin Araujo ([email or web address]). I personally scribed for AIDEE VARGAS DO ([email or web address]) on 02/13/24 at 18:56. Electronically submitted by Daylin Araujo ([email or web address]). I personally scribed for AIDEE VARGAS DO ([email or web address]) on 02/13/24 at 19:24. Electronically submitted by Daylin Araujo ([email or web address]). AIDEE VARGAS DO Feb 13, 2024 18:06
--- NOTE | 2024-02-13 18:46 | DVH ---
Exam: CT CT AB PEL WO CON-NO ORAL OR IV History: ABDOMINAL PAIN Comparison Study: None available at time of dictation. TECHNIQUE: Multidetector CT of the abdomen was performed from lung bases to pubic symphysis. Imaging was performed without IV contrast. Axial, coronal and sagittal multiplanar reformats were obtained fr om the axial data set by the technologist. Radiation Dose Information: CT Dose: CTDI volume is 10.2 mGy. Dose-length product is 544.15 mGy*cm FINDINGS: Evaluation of solid organs is limited due to lack of intravenous contrast use. Findings: Lung Bases: No acute or significant lung base finding. Normal heart size. No pleural or pericardial effusion. Liver: Heterogeneous appearance to the liver with air areas of fatty infiltration. Can not exclude me tastatic disease without IV contrast. Gallbladder and Biliary Tree: Unremarkable Spleen: Unremarkable Pancreas: The pancreas is grossly normal in appearance. Adrenal Glands: Unremarkable Kidneys: Kidneys are grossly normal without calculi or hydronephrosis. Bladder: Grossly unremarkable for degree of distention. Bowel: The stomach is grossly normal in appearance. Small bowel and colon are normal in caliber and d istribution. The appendix is not visualized; however, no secondary findings of acute appendicitis id entified. Ascites: Absent Lymphadenopathy: No mesenteric, retroperitoneal or periportal lymphadenopathy. Abdominal Wall and Mesentery: Unremarkable. Vasculature: The visualized abdominal aorta is normal in size and caliber. Evaluation of abdominal a nd pelvic vessels is limited due to lack of intravenous contrast. Pelvic Organs: Unremarkable Musculoskeletal: No aggressive focal bony lesions, acute fractures or dislocation. Soft tissues: Unremarkable IMPRESSION: 1. Genius liver with patchy areas of fatty infiltration. Can not exclude metastatic disease without I V contrast. If patient is unable to tolerate IV contrast consider MRI. Radiation optimization: All CT scans at this facility use at least one of these dose optimization te chniques: automated exposure control mA and/or kV adjustment per patient size (includes targeted exa ms where dose is matched to clinical indication) or iterative reconstruction. HS:Y
[2024-02-13 18:54] LABS: Basophils # (auto) 0.1 10 ^3/uL (0-0.2); Eosinophils # (auto) 0 10 ^3/uL (0-0.8); Eosinophils % (auto) 0.3 % (0.0-7.0); Lymphocytes # (auto) 1.2 10 ^3/uL (0.4-5.4); Monocytes # (auto) 0.9 10 ^3/uL (0-1.3)
[2024-02-13 18:56] LABS: Basophils % (auto) 0.5 % (0.0-2.0); Hematocrit 33.4 % (36.0-46.0); Hemoglobin 11.6 g/dL (12.2-16.2); Lymphocytes % (auto) 8.2 % (10.0-50.0); Mean Corpuscular Hemoglobin 41.1 pg (28.0-32.0); Mean Corpuscular Hgb Conc. 34.7 g/dL (32.0-36.0); Mean Corpuscular Volume 118.4 fL (80.0-100.0); Monocytes % (auto) 6.2 % (0.0-12.0); Neutrophils # (auto) 12.5 10 ^3/uL (1.6-8.6); Neutrophils % (auto) 84.8 % (37.0-80.0); Platelet Count (auto) 263 10^3/uL (140-450); Red Blood Cells 2.82 10^6/uL (4.0-5.20); Red Cell Distribution Width 17.8 % (11.8-14.3); White Blood Cell 14.8 10^3/uL (4.4-10.8)
[2024-02-13 18:59] LABS: Platelet Estimate Adequate
[2024-02-13 18:59] LABS: Urine Bacteria FEW /hpf (None Seen); Urine Blood Negative /uL (Negative); Urine Clarity Clear (Clear); Urine Color Light-Yellow (Yellow); Urine Protein, UAD Negative (Negative); Urine Specific Gravity 1.007 (1.001-1.035); Urine Squamous Epithelial Cell FEW /hpf (<5); Urine Urobilinogen Normal (Negative); Urine WBC 5 /hpf (0 - 5); Urine pH 6.5 (5.0-9.0)
[2024-02-13 19:00] LABS: Macrocytosis Marked
[2024-02-13 19:11] LABS: Alanine Aminotransferase 21 U/L (7-40); Anion Gap 11 (5-15); BUN/Creatinine Ratio 10.3 (10.0-20.0); Blood Alcohol 63.7 mg/dL (<10); Calcium 9.9 mg/dL (8.7-10.4); Carbon Dioxide 29 mmol/L (20-31); Glucose 98 mg/dL (74-106); Sodium 137 mmol/L (136-145)
[2024-02-13 19:12] LABS: Bilirubin, Total 1.1 mg/dL (0.2-1.0); Total Protein 6.9 g/dL (5.7-8.2)
[2024-02-13 19:15] LABS: Alkaline Phosphatase 177 U/L (46-116); Aspartate Aminotransferase 115 U/L (13-40); Blood Urea Nitrogen 8 mg/dL (9-23); Chloride 97 mmol/L (98-107); Magnesium 1.5 mg/dL (1.6-2.6); Potassium 2.6 mmol/L (3.5-5.1)
[2024-02-13 19:16] LABS: Lactic Acid w/Reflex 2.5 mmol/L (0.4-2.0)
[2024-02-13 19:35] LABS: Lipase 33 U/L (12-53)
[2024-02-13 19:57] VITALS: PULSE 85; RESP 17; O2SAT 98
[2024-02-13] MEDS: MORPHINE SULFATE INJ 2 MG/ml SYRG IV ONE (20:14)
[2024-02-13] MEDS: POTASSIUM CHL 20 Meq TABLET PO ONE (20:15)
[2024-02-13] MEDS: LACTULOSE 20Gm/30ML SOLN PO ONE (20:15)
[2024-02-13] MEDS: MAGNESIUM SULFATE 1GM/100ML 100 ML IV ONE (20:16)
[2024-02-13] MEDS: cefTRIAXone 1GM/50ML D5W 50 ML IV ONE (20:16)
[2024-02-13] MEDS: SODIUM CHLORIDE 0.9% 1,000 ML IV ONE (20:21)
[2024-02-13] MEDS: ONDANSETRON HCL 4 MG/2 ML VIAL IV ONE (20:22)
[2024-02-13] MEDS ORDERED: hydrALAZINE HCL 20 MG/ML VL IV PRN (22:00)
[2024-02-13] MEDS ORDERED: MORPHINE SULFATE INJ 2 MG/ml SYRG IV PRN ×2 (22:00→23:00)
[2024-02-13] MEDS ORDERED: DOCUSATE SOD 100 MG CAP PO PRN (22:00)
[2024-02-13] MEDS ORDERED: ACETAMINOPHEN 325 MG TAB PO PRN (22:00)
[2024-02-13] MEDS ORDERED: ONDANSETRON HCL 4 MG/2 ML VIAL IV PRN (22:00)
--- NOTE | 2024-02-13 22:48 | DVHHP2 ---
History of Present Illness Reason for Visit: Acute abdominal pain History of Present Illness The patient is a 58-year-old female with past medical history of IBS, hypertension, chronic diarrhea, and chronic abdominal pain who presented to [facility] ED with complaint of acute abdominal pain. Patient reports she went to urgent care and was prescribed Imodium and Flagyl, but the Imodium help her a little with her diarrhea, getting worse that prompted this visit. Patient was seen and evaluated in the ED, laboratory data shows WBC 14.8, hemoglobin 11.6, hematocrit 13.4, platelets 263, sodium 137, potassium 2.6, BUN 8, creatinine 0.78, GFR 87, glucose 98, AST 115, ALT 21, ammonia 62, lipase 33, troponin 5, lactic acid 2.5 trending down to 2.0, magnesium 1.5, serum alcohol 63.7, urinalysis positive for urinary tract infection, blood pressure 140/74, heart rate 75, temperature 99.0 F, O2 saturation 98% on room air. Patient was started on IV antibiotic regimen Rocephin, please see medication orders section in the computer. On my assessment, patient denies chest pain, no headache, no dizziness, no shortness of breaths, no nausea or vomiting, no fever, no chills. Patient was admitted for further evaluation and medical management. Past Medical History [place], IBS, CHRONIC ABD PAIN, chronic diarrhea. Past Surgical History Total hysterectomy, knee replacement Family History Reviewed, noncontributory to the management of this case. Past Social History Patient lives at home, drinks alcohol heavily, denies smoking or illicit drugs abuse. Review of Systems Constitutional: Yes: Weakness; No: Fever, Chills, Sweats, Malaise, Other Eyes: No: Pain, Vision change, Conjunctivae inflammation, Eyelid inflammation, Other, Redness ENT: No: Ear pain, Ear discharge, Nose pain, Nose discharge, Nose congestion, Mouth pain, Mouth swelling, Throat pain, Throat swelling, Other Respiratory: No: Cough, Dry, Shortness of breath, SOB with excertion, Wheezing, Hemoptysis, Pleuritic Pain, Sputum, Wheezing, Other Cardiovascular: No: Chest Pain, Palpitations, Orthopnea, Paroxysmal Noc. Dyspnea, Edema, Lt Headedness, Other Gastrointestinal: Abdominal Pain, Diarrhea; No: Nausea, Vomiting, Constipation, Melena, Hematochezia, Other Genitourinary: No Dysuria, No Frequency, No Incontinence, No Hematuria, No Retention, No Other Musculoskeletal: No: other, neck pain, shoulder pain, arm pain, back pain, hand pain, leg pain, foot pain Skin: No: Rash, Lesions, Jaundice, Bruising, Other Neurological: No: Weakness, Numbness, Incoordination, Change in speech, Confusion, Seizures, Other Allergies: Coded Allergies: NO KNOWN ALLERGIES (Unverified , 04/21/23) Medications Current Medications Medications Dose Ordered Sig/Alena Route Start Time Stop Time Status Last Admin Dose Admin Pantoprazole Sodium 40 mg DAILY IV 02/14/24 10:00 Hydralazine HCl 10 mg Q6HP PRN IV 02/13/24 22:00 Metoprolol Tartrate 25 mg BID PO 02/13/24 22:00 Ceftriaxone Sodium 50 ml @ 100 mls/hr DAILY@09 IV 02/14/24 09:00 Lactulose 30 ml Q6HR PO 02/14/24 00:00 Thiamine HCl 100 mg DAILY IV 02/14/24 10:00 Folic Acid 1 mg/ Dextrose 50.2 ml @ 200.8 mls/ hr DAILY INJ 02/14/24 10:00 Multivitamins 1 tab DAILY PO 02/14/24 10:00 Dextrose/Sodium Chloride 1,000 ml @ 75 mls/hr [id number] IV 02/13/24 22:00 Acetaminophen/ Hydrocodone Bitart 1 tab Q4HP PRN PO 02/13/24 22:00 Ondansetron HCl 4 mg Q4HP PRN IV 02/13/24 22:00 Docusate Sodium 100 mg BIDPRN PRN PO 02/13/24 22:00 Acetaminophen 650 mg Q6HP PRN PO 02/13/24 22:00 Morphine Sulfate 2 mg Q4HPRN PRN IV 02/13/24 22:00 Exam Vital Signs Vital Signs Date Time Temp Pulse Resp B/P (MAP) Pulse Ox O2 Delivery O2 Flow Rate FiO2 02/13/24 21:02 75 19 140/74 02/13/24 19:57 98 Room Air* 0 21 02/13/24 17:59 99.0 General Appearance: Alert, Oriented X3, Cooperative, No acute distress HEENT: Atraumatic, PERRLA, EOMI, Mucous membr. moist/pink Respiratory: Clear to auscultation, Normal air movement Cardiovascular: Regular rate, Normal S1, Normal S2, No murmurs Abdominal: Normal bowel sounds, Soft, No hepatospenomegaly, No masses, Other (Reports tenderness) Extremities: No clubbing, No cyanosis, No edema, Normal pulses, No tenderness/swelling Skin: No rashes, No breakdown, No significant lesion Neuro: Normal speech, Normal tone, Sensation intact, Cranial nerves 3-12 NL, Reflexes 2+, Other (Generalized weakness) Psych/Mental Status: Mental status NL, Mood NL Labs/Xrays Labs Test 02/13/24 20:30 02/13/24 18:31 02/13/24 00:00 Range/Units Lactic Acid Level 2.0 0.4-2.0 mmol/L White Blood Count 14.8 H 4.4-10.8 10^3/uL Red Blood Count 2.82 L 4.0-5.20 10^6/uL Hemoglobin 11.6 L 12.2-16.2 g/dL Hematocrit 33.4 L 36.0-46.0 % Mean Corpuscular Volume 118.4 H 80.0-100.0 fL Mean Corpuscular Hemoglobin 41.1 H 28.0-32.0 pg Mean Corpuscular Hemoglobin Concent 34.7 32.0-36.0 g/dL Red Cell Distribution Width 17.8 H 11.8-14.3 % Platelet Count 263 140-450 10^3/uL Mean Platelet Volume 7.5 6.9-10.8 fL Neutrophils (%) (Auto) 84.8 H 37.0-80.0 % Lymphocytes (%) (Auto) 8.2 L 10.0-50.0 % Monocytes (%) (Auto) 6.2 0.0-12.0 % Eosinophils (%) (Auto) 0.3 0.0-7.0 % Basophils (%) (Auto) 0.5 0.0-2.0 % Neutrophils # (Auto) 12.5 H 1.6-8.6 10 ^3/uL Lymphocytes # (Auto) 1.2 0.4-5.4 10 ^3/uL Monocytes # (Auto) 0.9 0-1.3 10 ^3/uL Eosinophils # (Auto) 0 0-0.8 10 ^3/uL Basophils # (Auto) 0.1 0-0.2 10 ^3/uL Nucleated Red Blood Cells 0.0 % Platelet Estimate Adequate Macrocytosis Marked Sodium Level 137 136-145 mmol/L Potassium Level 2.6 L 3.5-5.1 mmol/L Chloride Level 97 L 98-107 mmol/L Carbon Dioxide Level 29 20-31 mmol/L Anion Gap 11 5-15 Blood Urea Nitrogen 8 L 9-23 mg/dL Creatinine 0.78 0.550-1.02 mg/dL Glomerular Filtration Rate Calc 87 >90 mL/min BUN/Creatinine Ratio 10.3 10.0-20.0 Serum Glucose 98 74-106 mg/dL Calcium Level 9.9 8.7-10.4 mg/dL Magnesium Level 1.5 L 1.6-2.6 mg/dL Total Bilirubin 1.1 H 0.2-1.0 mg/dL Aspartate Amino Transferase (AST) 115 H 13-40 U/L Alanine Aminotransferase (ALT) 21 7-40 U/L Alkaline Phosphatase 177 H 46-116 U/L Ammonia 62 H 11-32 umol/L Troponin I High Sensitivity 5 </=34 ng/L Total Protein 6.9 5.7-8.2 g/dL Albumin 4.0 3.2-4.8 g/dL Lipase 33 12-53 U/L Plasma/Serum Blood Alcohol 63.7 H <10 mg/dL Urine Color Light-yellow Yellow Urine Clarity Clear Clear Urine pH 6.5 5.0-9.0 Urine Specific [place] 1.007 1.001-1.035 Urine Protein Negative Negative Urine Ketones Negative Negative Urine Blood Negative Negative /uL Urine Nitrite Negative Negative Urine Bilirubin Negative Negative Urine Urobilinogen Normal Negative mg/dL Urine Leukocyte Esterase 2+ Negative /uL Urine RBC 2 0 - 4 /hpf Urine WBC 5 0 - 5 /hpf Urine Squamous Epithelial Cells Few <5 /hpf Urine Bacteria Few H None Seen /hpf Urine Glucose Normal Normal mg/dL PATIENT: СЕРГЕЙ RAMIREZ ACCT: [id number] UNIT: [id number] : 1965 LOC: ER ROOM / BED: / AGE / SEX: 58 / F ADM STATUS: REG ER SERVICE [id number] ORDERING PHYSICIAN: AIDEE VARGAS DO PROCEDURE(s): ABPL - CT AB PEL WO CON-NO ORAL OR IV REASON: ABDOMINAL PAIN ORDER NUMBER(s): [id number], ACCESSION NUMBER(s): [id number] Exam: CT CT AB PEL WO CON-NO ORAL OR IV History: ABDOMINAL PAIN Comparison Study: None available at time of dictation. TECHNIQUE: Multidetector CT of the abdomen was performed from lung bases to pubic symphysis. Imaging was performed without IV contrast. Axial, coronal and sagittal multiplanar reformats were obtained from the axial data set by the technologist. Radiation Dose Information: CT Dose: CTDI volume is 10.2 mGy. Dose-length product is 544.15 mGy*cm FINDINGS: Evaluation of solid organs is limited due to lack of intravenous contrast use. Findings: Lung Bases: No acute or significant lung base finding. Normal heart size. No pleural or pericardial effusion. Liver: Heterogeneous appearance to the liver with air areas of fatty infiltration. Can not exclude metastatic disease without IV contrast. Gallbladder and Biliary Tree: Unremarkable Spleen: Unremarkable Pancreas: The pancreas is grossly normal in appearance. Adrenal Glands: Unremarkable Kidneys: Kidneys are grossly normal without calculi or hydronephrosis. Bladder: Grossly unremarkable for degree of distention. Bowel: The stomach is grossly normal in appearance. Small bowel and colon are normal in caliber and distribution. The appendix is not visualized; however, no secondary findings of acute appendicitis identified. Ascites: Absent Lymphadenopathy: No mesenteric, retroperitoneal or periportal lymphadenopathy. Abdominal Wall and Mesentery: Unremarkable. Vasculature: The visualized abdominal aorta is normal in size and caliber. Evaluation of abdominal and pelvic vessels is limited due to lack of intravenous contrast. Pelvic Organs: Unremarkable Musculoskeletal: No aggressive focal bony lesions, acute fractures or dislocation. Soft tissues: Unremarkable IMPRESSION: 1. Genius liver with patchy areas of fatty infiltration. Can not exclude metastatic disease without IV contrast. If patient is unable to tolerate IV contrast consider MRI. Assessment/Plan Assessment/Plan Acute abdominal pain Urinary tract infection Electrolyte imbalance Abnormal finding on CT scan Hyperammonemia Alcohol abuse Leukocytosis, unspecified Intractable diarrhea Generalized weakness Plan 1. Admit to telemetry unit 2. Breathing treatment 3. Pain control management 4. IV antibiotic management 5. Management of fluids and electrolytes 6. Consultation for GI/hospitalist 7. Diagnostic test abdomen/pelvis CT 8. DVT prophylaxis-on SCDs 9. Repeat labs CBC, CMP in a.m. 10. Home medication reviewed and reconciled 11. Continue with current medical management 12. Treatment plan discussed with patient and RN. Patient verbalized understanding. Plan discussed with: Patient, Other (RN) My Orders Orders - PARKER NEWTON DNP Procedure Category Date Status Time Pantoprazole PHA 02/14/24 In Process (Protonix) 10:00 Hydralazine Injection PHA 02/13/24 In Process (Apresoline Inject 22:00 Metoprolol Tartrate PHA 02/13/24 In Process Tablet (Lopressor Ta 22:00 Ceftriaxone 1gm/50ml PHA 02/14/24 In Process D5w (Rocephin) 09:00 Urine Bacterial KAROLINE 02/13/24 In Process Culture 21:47 Lactulose Oral PHA 02/14/24 In Process 00:00 Thiamine Inj PHA 02/14/24 In Process 10:00 Folic Acid PHA 02/14/24 In Process 10:00 Multiple Vitamin PHA 02/14/24 In Process Tablet (Mvi Tab) 10:00 * Gi Dvh [employer] Hanging Supervisor CONS 02/13/24 Transmitted 21:47 D5w/Sod Chlo 0.9% PHA 02/13/24 In Process (D5w Ns 0.9%) 22:00 Allergies PABLO 02/13/24 In Process 21:47 Code Status CODE 02/13/24 Transmitted 21:47 Oxygen Per Hour RT 02/13/24 Transmitted 21:47 Hydrocodone-Acet PHA 02/13/24 In Process 5/325mg Tab ([place] 22:00 Ondansetron Hcl PHA 02/13/24 In Process (Zofran) 22:00 Docusate Sodium PHA 02/13/24 In Process Capsule (Colace 22:00 Complete Blood Count LAB 02/14/24 Verified 04:00 Comprehensive LAB 02/14/24 Verified Metabolic Panel 04:00 Condition: Serious PABLO 02/13/24 In Process 21:47 Acetaminophen Tablet PHA 02/13/24 In Process (Tylenol Tablet) 22:00 Clear Liq Diet DIET 02/14/24 Transmitted Breakfast Bedrest With Bathroom PABLO 02/13/24 In Process Privileg 21:47 Morphine Sulfate PHA 02/13/24 In Process Injection 22:00 Sequential PABLO 02/13/24 In Process Compression Device Problem List: (1) Acute abdominal pain (2) Intractable diarrhea (3) Electrolyte imbalance (4) Alcohol abuse (5) Urinary tract infection (6) Hypomagnesemia (7) Abnormal finding on CT scan (8) Leukocytosis, unspecified (9) Generalized weakness Date of Service: Feb 13, 2024 Billing Provider: PARKER NEWTON DNP Common Visit Codes: [id number] INP/OBS CARE (HIGH) PARKER NEWTON DNP Feb 13, 2024 22:48
[2024-02-13] MEDS ORDERED: NITROGLYCERIN 0.4 MG SL TAB SL PRN (23:00)
[2024-02-13] MEDS: FOLIC ACID 1 MG in D5W 5% 50 ML INJ ONE (23:41)
[2024-02-13] MEDS: PANTOPRAZOLE 40 MG/10 ML VIAL INJ IV ONE (23:43)
[2024-02-13] MEDS: METOPROLOL TARTRATE 25 MG TAB PO SCH (23:44)
[2024-02-13] MEDS: HYDROcodone-ACET 5/325MG TAB PO PRN (23:47)
[2024-02-13] MEDS: FOLIC ACID 1 MG TAB PO ONE (23:54)
[2024-02-13] MEDS ORDERED: CHLO25CA9 PO (23:54)
[2024-02-13] MEDS: D5W/SOD CHLO 0.9% 1,000 ML IV SCH (23:55)
[2024-02-14] MEDS: THIAMINE 100mg/ml INJ (200mg/2ml VIAL) IV ONE (00:18)
[2024-02-14 01:20] VITALS: PULSE 85; RESP 17; O2SAT 98
[2024-02-14] MEDS: metroNIDAZOLE 500MG/100ML 100 ML IV SCH (03:00)
[2024-02-14 04:24] LABS: Basophils # (auto) 0.1 10 ^3/uL (0-0.2); Eosinophils # (auto) 0.1 10 ^3/uL (0-0.8); Hemoglobin 10.7 g/dL (12.2-16.2); Lymphocytes # (auto) 0.5 10 ^3/uL (0.4-5.4); Mean Corpuscular Volume 119.8 fL (80.0-100.0)
[2024-02-14 04:30] LABS: Basophils % (auto) 0.8 % (0.0-2.0); Hematocrit 31.3 % (36.0-46.0); Lymphocytes % (auto) 4.5 % (10.0-50.0); Mean Corpuscular Hemoglobin 40.8 pg (28.0-32.0); Mean Corpuscular Hgb Conc. 34.1 g/dL (32.0-36.0); Monocytes # (auto) 0.8 10 ^3/uL (0-1.3); Monocytes % (auto) 7.2 % (0.0-12.0); Neutrophils # (auto) 10.1 10 ^3/uL (1.6-8.6); Neutrophils % (auto) 86.5 % (37.0-80.0); Platelet Count (auto) 222 10^3/uL (140-450); Red Blood Cells 2.61 10^6/uL (4.0-5.20); White Blood Cell 11.7 10^3/uL (4.4-10.8)
[2024-02-14 04:50] LABS: Alanine Aminotransferase 20 U/L (7-40); Anion Gap 11 (5-15); Calcium 9.4 mg/dL (8.7-10.4); Carbon Dioxide 27 mmol/L (20-31); Chloride 101 mmol/L (98-107); Glucose 96 mg/dL (74-106); Sodium 139 mmol/L (136-145)
[2024-02-14 04:52] LABS: Albumin 3.8 g/dL (3.2-4.8); Alkaline Phosphatase 167 U/L (46-116); Blood Urea Nitrogen 8 mg/dL (9-23); Potassium 3.3 mmol/L (3.5-5.1); Total Protein 6.7 g/dL (5.7-8.2)
[2024-02-14 04:53] LABS: Aspartate Aminotransferase 109 U/L (13-40); Bilirubin, Total 1.3 mg/dL (0.2-1.0)
[2024-02-14] MEDS: cefTRIAXone 1GM/50ML D5W 50 ML IV SCH (09:00)
[2024-02-14 10:00] VITALS: BP 123/71; PULSE 75; RESP 18; TEMP 98.4; O2SAT 98
[2024-02-14] MEDS: FOLIC ACID 1 MG in D5W 5% 50 ML INJ SCH (10:00)
--- NOTE | 2024-02-14 11:03 | DVHINCON2 ---
Date of service: Feb 14, 2024 Referring Physician Chiquis Smith Reason for Consultation Elevated ammonia and chronic diarrhea History of Present Illness The patient is a 58-year-old female with past medical history of IBS, hypertension, chronic diarrhea, and chronic abdominal pain who presented to [facility] ED with complaint of acute abdominal pain. Patient reports she went to urgent care and was prescribed Imodium and Flagyl, but the Imodium help her a little with her diarrhea, getting worse that prompted this visit. Patient had mild leukocytosis, elevated lactic acid, elevated alcohol level of 63.7 and evidence of UTI. Patient has been admitted for further management and has been started on IV fluid hydration GI was consulted to evaluate her for possible underlying liver disease and elevated ammonia. She also has a history of chronic diarrhea and IBS. Past Medical History Past Medical History IBS, CHRONIC ABD PAIN, chronic diarrhea. Anxiety Alcohol use Past Surgical History Past Surgical History Total hysterectomy, knee replacement Family History: Cardiovascular disease G8 FATHER, , Age: 59 Chronic obstructive pulmonary disease G8 MOTHER, , Age: 98 Allergies: Coded Allergies: NO KNOWN ALLERGIES (Unverified , 04/21/23) Home Meds Active Scripts Chlordiazepoxide Hcl (Ni-1) (I (Librium) 10 Mg Cap, 25 MG PO QIDPRN, #30 CAP Prov:PAULINE HOUSER MD 01/23/24 Chlordiazepoxide Hcl (Librium) 25 Mg Cp, 25 MG PO TID PRN for 5 Days, #15 CAP Prov:MICAELA WASHINGTON MD 12/04/23 Prochlorperazine Maleate (Compazine) 10 Mg Tb, 1 TAB PO TID for 5 Days, #15 TAB 3 Refills Prov:MICAELA WASHINGTON MD 12/04/23 Omeprazole (Gnp Omeprazole) 20 Mg Tab, 1 TAB PO BID for 20 Days, #40 TAB 1 Refill Prov:MICAELA WASHINGTON MD 12/04/23 Pantoprazole Sodium Sesquihydr (Protonix) 40 Mg Tab, 40 MG PO DAILY, #30 TAB 5 Refills Prov:MIMA CASTREJON MD 10/31/23 Lorazepam (Ativan) 0.5 Mg Tab, 1 TAB PO TIDPRN PRN, #30 TAB Prov:MIMA CASTREJON MD 10/31/23 Hydrocodone-Acetaminophen (Hydrocodone Bitartrate/AC 5-325 mg) 1 Tab Tab, 1 TAB PO Q6HPRN PRN, #10 TAB Prov:MIMA CASTREJON MD 10/31/23 Fluoxetine HCl (Pmdd) (Fluoxetine HCl) 20 Mg Tab, 20 MG PO DAILY for 30 Days, #30 TAB 3 Refills Prov:MIMA CASTREJON MD 10/31/23 Multiple Vitamin (Mvi Tab) 1 Tab Tb, 1 TAB PO DAILY for 30 Days, #30 TAB Prov:TUTU GARCIA MD 09/10/23 Reported Medications Chlordiazepoxide Hcl (Ni-1) (I (Chlordiazepoxide Hcl) 25 Mg Cap, 25 MG PO TIDPRN PRN for ANXIETY, CAP 02/13/24 Metoprolol Succinate (Metoprolol Succinate Er) 100 Mg Tab, 100 MG PO DAILY, TAB 10/30/23 Current Medications Current Medications Medications (Trade) Dose Ordered Sig/Alena Route PRN Reason Start Time Stop Time Status Last Admin Pantoprazole Sodium (Protonix) 40 mg DAILY IV 02/14/24 10:00 Hydralazine HCl (Apresoline Injection) 10 mg Q6HP PRN IV SBP>150 02/13/24 22:00 Metoprolol Tartrate (Lopressor Tablet) 25 mg BID PO 02/13/24 22:00 02/13/24 23:44 Ceftriaxone Sodium 50 ml @ 100 mls/hr DAILY@09 IV 02/14/24 09:00 Lactulose 30 ml Q6HR PO 02/14/24 00:00 02/14/24 06:14 Thiamine HCl 100 mg DAILY IV 02/14/24 10:00 Folic Acid 1 mg/ Dextrose 50.2 ml @ 200.8 mls/ hr DAILY INJ 02/14/24 10:00 Multivitamins (Mvi Tab) 1 tab DAILY PO 02/14/24 10:00 Dextrose/Sodium Chloride 1,000 ml @ 75 mls/hr [id number] IV 02/13/24 22:00 02/13/24 23:55 Acetaminophen/ Hydrocodone Bitart ([place] 5/325MG Tab) 1 tab Q4HP PRN PO MODERATE PAIN (4-6 PAIN SCALE) 02/13/24 22:00 02/14/24 09:40 Ondansetron HCl (Zofran) 4 mg Q4HP PRN IV NAUSEA / VOMITING 02/13/24 22:00 Docusate Sodium (Colace Capsule) 100 mg BIDPRN PRN PO FOR CONSTIPATION 02/13/24 22:00 Acetaminophen (Tylenol Tablet) 650 mg Q6HP PRN PO PAIN SCALE 1-3 OR TEMP>100.4 02/13/24 22:00 Morphine Sulfate 2 mg Q4HPRN PRN IV SEVERE PAIN (7-10 PAIN SCALE) 02/13/24 22:00 Nitroglycerin (Ntrostat Sublingual) 0.4 mg Q5MINP PRN SL FOR CHEST PAIN 02/13/24 23:00 Morphine Sulfate 2 mg Q30M PRN IV FOR CHEST PAIN 02/13/24 23:00 Metronidazole 100 ml @ 100 mls/hr Q8HR IV 02/14/24 03:00 02/14/24 03:00 Vital Signs Vital Signs Date Time Temp Pulse Resp B/P (MAP) Pulse Ox O2 Delivery O2 Flow Rate FiO2 02/14/24 06:00 92 18 127/69 (88) 96 02/14/24 01:20 Room Air* 0 21 02/14/24 00:01 98.7 98.7 Physical Exam General Appearance: Alert, Oriented X3, Cooperative, No acute distress HEENT: Atraumatic, PERRLA, EOMI, Mucous membr. moist/pink Respiratory: Clear to auscultation, Normal air movement Cardiovascular: Regular rate, Normal S1, Normal S2, No murmurs Abdominal: Normal bowel sounds, Soft, No hepatospenomegaly, No masses, Other (Reports tenderness) Extremities: No clubbing, No cyanosis, No edema, Normal pulses, No tenderness/swelling Skin: No rashes, No breakdown, No significant lesion Neuro: Nonfocal , Other (Generalized weakness) Psych/Mental Status: Mental status NL, Mood NL Labs/Diagnostic Data Labs Test 02/14/24 03:39 02/13/24 20:30 02/13/24 18:31 02/13/24 00:00 Range/Units White Blood Count 11.7 H 4.4-10.8 10^3/uL Red Blood Count 2.61 L 4.0-5.20 10^6/uL Hemoglobin 10.7 L 12.2-16.2 g/dL Hematocrit 31.3 L 36.0-46.0 % Mean Corpuscular Volume 119.8 H 80.0-100.0 fL Mean Corpuscular Hemoglobin 40.8 H 28.0-32.0 pg Mean Corpuscular Hemoglobin Concent 34.1 32.0-36.0 g/dL Red Cell Distribution Width 18.0 H 11.8-14.3 % Platelet Count 222 140-450 10^3/uL Mean Platelet Volume 7.9 6.9-10.8 fL Neutrophils (%) (Auto) 86.5 H 37.0-80.0 % Lymphocytes (%) (Auto) 4.5 L 10.0-50.0 % Monocytes (%) (Auto) 7.2 0.0-12.0 % Eosinophils (%) (Auto) 1.0 0.0-7.0 % Basophils (%) (Auto) 0.8 0.0-2.0 % Neutrophils # (Auto) 10.1 H 1.6-8.6 10 ^3/uL Lymphocytes # (Auto) 0.5 0.4-5.4 10 ^3/uL Monocytes # (Auto) 0.8 0-1.3 10 ^3/uL Eosinophils # (Auto) 0.1 0-0.8 10 ^3/uL Basophils # (Auto) 0.1 0-0.2 10 ^3/uL Nucleated Red Blood Cells 0.0 % Sodium Level 139 136-145 mmol/L Potassium Level 3.3 L 3.5-5.1 mmol/L Chloride Level 101 98-107 mmol/L Carbon Dioxide Level 27 20-31 mmol/L Anion Gap 11 5-15 Blood Urea Nitrogen 8 L 9-23 mg/dL Creatinine 0.80 0.550-1.02 mg/dL Glomerular Filtration Rate Calc 85 >90 mL/min BUN/Creatinine Ratio 10.0 10.0-20.0 Serum Glucose 96 74-106 mg/dL Calcium Level 9.4 8.7-10.4 mg/dL Total Bilirubin 1.3 H 0.2-1.0 mg/dL Aspartate Amino Transferase (AST) 109 H 13-40 U/L Alanine Aminotransferase (ALT) 20 7-40 U/L Alkaline Phosphatase 167 H 46-116 U/L Troponin I High Sensitivity 5 </=34 ng/L Total Protein 6.7 5.7-8.2 g/dL Albumin 3.8 3.2-4.8 g/dL Lactic Acid Level 2.0 0.4-2.0 mmol/L Platelet Estimate Adequate Macrocytosis Marked Magnesium Level 1.5 L 1.6-2.6 mg/dL Ammonia 62 H 11-32 umol/L Lipase 33 12-53 U/L Plasma/Serum Blood Alcohol 63.7 H <10 mg/dL Urine Color Light-yellow Yellow Urine Clarity Clear Clear Urine pH 6.5 5.0-9.0 Urine Specific [place] 1.007 1.001-1.035 Urine Protein Negative Negative Urine Ketones Negative Negative Urine Blood Negative Negative /uL Urine Nitrite Negative Negative Urine Bilirubin Negative Negative Urine Urobilinogen Normal Negative mg/dL Urine Leukocyte Esterase 2+ Negative /uL Urine RBC 2 0 - 4 /hpf Urine WBC 5 0 - 5 /hpf Urine Squamous Epithelial Cells Few <5 /hpf Urine Bacteria Few H None Seen /hpf Urine Glucose Normal Normal mg/dL Microbiology Date/Time Source Procedure Growth Status 02/13/24 22:30 Voided Urine Urine Culture - Preliminary Resulted CT SCAN ABD PELVIS IMPRESSION: 1. Heterogenous liver with patchy areas of fatty infiltration. Can not exclude metastatic disease without IV contrast. If patient is unable to tolerate IV contrast consider MRI. Problems(with codes): (1) Intractable diarrhea (2) Leukocytosis, unspecified (3) Generalized weakness (4) Acute abdominal pain (5) Abnormal finding on CT scan (6) Alcohol abuse (7) Urinary tract infection (8) Electrolyte imbalance (9) Hyperammonemia (10) Elevated liver enzymes Plan/Recommendation Plan Patient likely has underlying chronic liver disease due to chronic alcohol intake with fatty changes noted on the CT I will order a right upper quadrant ultrasound and then consider ordering an MRI for further evaluation Check hepatitis panel, serum alpha fetoprotein, CEA level Continue to monitor ammonia level. Patient appears to have chronic diarrhea already so we will cut back on lactulose for now Diarrhea possibly related to mucosal edema of the intestinal tract Check stool for WBC Director Inpatient Headache Program patient about discontinuing alcohol intake Plan discussed with: Other (None) SAUNDRA PERRIN MD Feb 14, 2024 11:03
[2024-02-14] MEDS: MULTIPLE VITAMIN TAB PO SCH (11:42)
[2024-02-14] MEDS: THIAMINE 100mg/ml INJ (200mg/2ml VIAL) IV SCH (11:43)
[2024-02-14] MEDS: PANTOPRAZOLE 40 MG/10 ML VIAL INJ IV SCH (11:51)
--- NOTE | 2024-02-14 13:01 | DVH ---
INDICATION: elevated liver tests ; abnormal CT TECHNIQUE: Multiple real-time sonographic images were obtained of the right upper quadrant. COMPARISON: US ABDOMEN LIMITED on DOS: 09/05/23, CT abdomen and pelvis 02/13/2024 FINDINGS: The liver demonstrates increased in echotexture without focal mass lesions. The liver measu res 15.8 cm. There is no intrahepatic or extrahepatic ductal dilatation. The common duct is not seen. Gallbladder sludge is noted. The gallbladder wall measures 0.1 cm and is within normal limits. The right kidney measures 10.4 cm. The right kidney is normal in contour, size, and shape. The echo genicity is normal. There is no hydronephrosis. The pancreas is not well visualized due to overlying bowel gas. IMPRESSION: 1. Gallbladder sludge without evidence of acute cholecystitis. 2. Hepatic steatosis versus parenchymal dysfunction.
[2024-02-14] MEDS: POTASSIUM EFFERVESENT TAB 25 MEQ PO ONE (13:34)
[2024-02-14 14:00] VITALS: BP 106/59; PULSE 64; RESP 18; TEMP 97.7; O2SAT 99
--- NOTE | 2024-02-14 19:48 | DVHPNRES ---
Progress Note Date Seen: Feb 14, 2024 Resident Creating Document: KRISHNA VELEZ RESIDENT Medical Necessity Reason Pt with a Central, PICC or Fol: No Subjective Review of Systems 58-year-old female patient with past medical history of irritable bowel syndrome, hypertension chronic diarrhea, chronic abdominal pain who presented to the emergency department with a chief complaint of acute abdominal pain. Patient reports she went to the urgent care and was prescribed Flagyl and Imodium. Initial labs showed elevated lactic acid, leukocytosis and alcohol level of 63.7 with evidence of UTI for which the patient was started on lactulose, antibiotics. And she was recommended to stay hospitalized to monitor for alcohol withdrawal symptoms. Per patient she was previously hospitalized due to alcohol withdrawal symptoms and delirium tremens 1 year ago at [facility]. GI was consulted to evaluate for possible underlying liver disease and elevated ammonia levels. There is likely an underlying chronic liver disease due to chronic alcohol intake with fatty changes noted on CT 4 which and right upper quadrant up ultrasound and then an MRI were ordered. Hepatitis panel, serum alpha-fetoprotein and CEA level was also ordered. We will continue the monitoring this patient, ammonia levels. Due to chronic diarrhea , we are going to hold lactulose. Patient reports: Feels better Changes from previous H/P or p: Changes Review of Systems: HEENT:Normal, CVS:Normal, RESPIRATORY:Normal, GI:Abnormal, :Normal, NEURO:Normal Objective vital signs Vital Sign Date Time Temp Pulse Resp B/P (MAP) Pulse Ox O2 Delivery O2 Flow Rate FiO2 02/14/24 14:00 97.7 64 18 106/59 (75) 99 97.7 02/14/24 01:20 Room Air* 0 21 Total Intake and Output 02/13/24 02/13/24 02/14/24 15:00 23:00 07:00 Intake Total 1150 ml 631.25 ml Balance 1150 ml 631.25 ml medications Current Medications Medications Dose Ordered Sig/Alena Route Start Time Stop Time Status Last Admin Dose Admin Pantoprazole Sodium 40 mg DAILY IV 02/14/24 10:00 02/14/24 11:51 40 MG Hydralazine HCl 10 mg Q6HP PRN IV 02/13/24 22:00 Metoprolol Tartrate 25 mg BID PO 02/13/24 22:00 02/14/24 11:45 25 MG Ceftriaxone Sodium 50 ml @ 100 mls/hr DAILY@09 IV 02/14/24 09:00 02/14/24 09:00 100 MLS/HR Thiamine HCl 100 mg DAILY IV 02/14/24 10:00 02/14/24 11:43 100 MG Folic Acid 1 mg/ Dextrose 50.2 ml @ 200.8 mls/ hr DAILY INJ 02/14/24 10:00 Multivitamins 1 tab DAILY PO 02/14/24 10:00 02/14/24 11:42 1 TAB Dextrose/Sodium Chloride 1,000 ml @ 75 mls/hr [id number] IV 02/13/24 22:00 02/14/24 11:20 75 MLS/HR Acetaminophen/ Hydrocodone Bitart 1 tab Q4HP PRN PO 02/13/24 22:00 02/14/24 17:09 1 TAB Ondansetron HCl 4 mg Q4HP PRN IV 02/13/24 22:00 Docusate Sodium 100 mg BIDPRN PRN PO 02/13/24 22:00 Acetaminophen 650 mg Q6HP PRN PO 02/13/24 22:00 Morphine Sulfate 2 mg Q4HPRN PRN IV 02/13/24 22:00 Nitroglycerin 0.4 mg Q5MINP PRN SL 02/13/24 23:00 Morphine Sulfate 2 mg Q30M PRN IV 02/13/24 23:00 Metronidazole 100 ml @ 100 mls/hr Q8HR IV 02/14/24 03:00 02/14/24 14:00 100 MLS/HR Lactulose 30 ml BID PO 02/14/24 22:00 Examination: GENERAL:Normal, HEENT:Normal, NECK:Normal, LUNGS:Normal, CVS:Normal, ABDOMEN:Normal, MSK:Normal, SKIN:Normal, NEURO:Normal, :Normal laboratory and microbiology Laboratory Tests 02/14/24 03:39 Test 02/14/24 03:39 Range/Units Serum Glucose 96 74-106 mg/dL Microbiology Date/Time Source Procedure Growth Status 02/13/24 22:30 Voided Urine Urine Culture - Preliminary Resulted Problem List/Assessment/Plan Problem List/Assessment/Plan #Acute abdominal pain likely due to alcoholic liver disease #Steatohepatitis #Acute on chronic diarrhea likely due to irritable bowel syndrome #Hyperammonemia -admit to telemetry -GI consult -monitor for withdrawal symptoms -PT INR -AFP serum -Carcinoembryonic antigen -Abdomen limited ultrasound #History of alcohol abuse -alcohol cessation counseling #Urinary tract infection -IV antibiotics #Abnormal findings on CT . Can not exclude metastatic disease -MRI with and without contrast #Transaminitis likely due to alcohol liver disease -monitor Case discussed with Dr. Meyer Goals of care discussed with the patient for 26 minutes Code status: Full code Plan discussed with: Patient Date of Service: Feb 14, 2024 Billing Provider: ANN NUNEZ MD Common Visit Codes: [id number] INP/OBS CARE(HIGH) KRISHNA VELEZ RESIDENT Feb 14, 2024 19:48 ANN NUNEZ MD Feb 16, 2024 20:28
[2024-02-14] MEDS: LACTULOSE 20Gm/30ML SOLN PO SCH ×2 (22:35)
[2024-02-15 06:52] LABS: INR 1.22 (0.9-1.15); Prothrombin Time 12.7 sec (9.3-11.8)
[2024-02-15 06:54] LABS: Alanine Aminotransferase 16 U/L (7-40); Albumin 3.6 g/dL (3.2-4.8); Anion Gap 8 (5-15); BUN/Creatinine Ratio 7.4 (10.0-20.0); Calcium 9.6 mg/dL (8.7-10.4); Carbon Dioxide 29 mmol/L (20-31); Chloride 100 mmol/L (98-107); Glucose 90 mg/dL (74-106); Potassium 3.5 mmol/L (3.5-5.1); Sodium 137 mmol/L (136-145)
[2024-02-15 06:55] LABS: Bilirubin, Total 1.2 mg/dL (0.2-1.0); Total Protein 6.5 g/dL (5.7-8.2)
[2024-02-15 07:02] LABS: Alkaline Phosphatase 144 U/L (46-116); Aspartate Aminotransferase 70 U/L (13-40); Blood Urea Nitrogen 5 mg/dL (9-23)
[2024-02-15] MEDS: GADOTERATE MEG 10 MMOL/20ml INJ (0.5MMOL/ml) IV ONE (07:59)
[2024-02-15 08:02] LABS: Basophils # (auto) 0 10 ^3/uL (0-0.2); Basophils % (auto) 0.5 % (0.0-2.0); Eosinophils # (auto) 0.2 10 ^3/uL (0-0.8); Eosinophils % (auto) 2.4 % (0.0-7.0); Hematocrit 30.8 % (36.0-46.0); Hemoglobin 10.7 g/dL (12.2-16.2); Lymphocytes # (auto) 0.3 10 ^3/uL (0.4-5.4); Lymphocytes % (auto) 4.1 % (10.0-50.0); Mean Corpuscular Hemoglobin 41.9 pg (28.0-32.0); Mean Corpuscular Hgb Conc. 34.6 g/dL (32.0-36.0); Mean Corpuscular Volume 121.1 fL (80.0-100.0); Monocytes # (auto) 0.5 10 ^3/uL (0-1.3); Monocytes % (auto) 7.8 % (0.0-12.0); Neutrophils # (auto) 5.8 10 ^3/uL (1.6-8.6); Neutrophils % (auto) 85.2 % (37.0-80.0); Nucleated Red Blood Cells % 0.1 %; Platelet Count (auto) 187 10^3/uL (140-450); Red Blood Cells 2.54 10^6/uL (4.0-5.20); Red Cell Distribution Width 17.5 % (11.8-14.3); White Blood Cell 6.8 10^3/uL (4.4-10.8)
[2024-02-15 09:04] VITALS: BP 119/80; PULSE 88; RESP 20; TEMP 97.9; O2SAT 92
[2024-02-15 09:08] LABS: Hepatitis B Core Total AB Negative (Negative)
--- NOTE | 2024-02-15 12:13 | DVH ---
EXAM: MRI ABDOMEN WITH CONTRAST COMPARISON: None INDICATION: abnormal ct poss liver mass . TECHNIQUE: MRI abdomen was performed with and without intravenous contrast. 10 cc of Gadavist given FINDINGS: Visualized lower thorax: Limited imaging of the thorax demonstrates no suspicious pleural or parenchy mal disease. Liver: The liver is normal in size with hypertrophy of the left lobe.. Heterogeneous signal intensit y within the liver fairly well-demarcated between segments 5 and 6 in the remaining portions of the l iver. On postcontrast images no discrete areas of enhancement are present Gallbladder: No evidence of cholelithiasis or gallbladder wall thickening. Biliary system: There is no intrahepatic or extrahepatic bile duct dilatation. Spleen: Normal in morphology and signal intensity. Pancreas: Normal in morphology and signal intensity. Adrenal glands: Normal in morphology and signal intensity. Kidneys: The kidneys are symmetric in size and appearance with no suspicious lesions. No hydronephros is. Urinary tract: The ureters, as visualized, are normal in course and caliber. The bladder is within no rmal limits. GI tract: The bowel, as visualized, is within normal limits. Pelvis: Unremarkable pelvic organs. Peritoneum: No ascites. Lymph nodes: No enlarged lymph nodes. Vascular: Normal caliber of the abdominal aorta. Musculoskeletal: The bone marrow signal intensity is within normal limits. IMPRESSION: 1. Liver is overall normal in size with hypertrophy of the left lobe and heterogeneous signal intensi ty without focally enhancing mass lesions. I favor this representing regional fatty infiltration possibly superimposed upon chronic hepatocellu lar disease.
[2024-02-15] MEDS ORDERED: chlordiazePOXIDE HCL 5 MG CAP PO PRN (12:30)
[2024-02-15 12:43] LABS: Hepatitis A Total Antibody Positive (Negative); Hepatitis B Surface Antibody Negative (Negative); Hepatitis B Surface Antigen Negative (Negative); Hepatitis C Antibody Negative (Negative)
--- NOTE | 2024-02-15 12:50 | DVHPN2 ---
Progress Note - Dictate Date Seen: Feb 15, 2024 Medical Necessity Reason Pt with a Central, PICC or Fol: No Subjective Patient seen at bedside in fast track H 8 She is complaining of some jitteriness and withdrawal symptoms Patient does not want to take too much [place] She has chronic pain issues with the shoulders and that is why she drinks Previously patient had insurance but after her 's she lost her insurance She used to be with pain management in the past She said she has had extensive workup done for her diarrhea including an EGD and colonoscopy in [place] about four years ago Diarrhea is better today but she is moving her bowels due to use of lactulose Leukocytosis has improved Liver enzymes are trending down vital signs Vital Sign Date Time Temp Pulse Resp B/P (MAP) Pulse Ox O2 Delivery O2 Flow Rate FiO2 02/15/24 10:12 87 120/69 02/15/24 09:04 97.9 20 92 97.9 02/14/24 23:15 Room Air* 0 21 Total Intake and Output 02/14/24 02/14/24 02/15/24 15:00 23:00 07:00 Intake Total 400 ml Balance 400 ml medications Current Medications Medications Dose Ordered Sig/Alena Route Start Time Stop Time Status Last Admin Dose Admin Pantoprazole Sodium 40 mg DAILY IV 02/14/24 10:00 02/14/24 11:51 40 MG Hydralazine HCl 10 mg Q6HP PRN IV 02/13/24 22:00 Metoprolol Tartrate 25 mg BID PO 02/13/24 22:00 02/15/24 09:12 25 MG Ceftriaxone Sodium 50 ml @ 100 mls/hr DAILY@09 IV 02/14/24 09:00 02/14/24 09:00 100 MLS/HR Thiamine HCl 100 mg DAILY IV 02/14/24 10:00 02/14/24 11:43 100 MG Folic Acid 1 mg/ Dextrose 50.2 ml @ 200.8 mls/ hr DAILY INJ 02/14/24 10:00 Multivitamins 1 tab DAILY PO 02/14/24 10:00 02/15/24 09:12 1 TAB Dextrose/Sodium Chloride 1,000 ml @ 75 mls/hr [id number] IV 02/13/24 22:00 02/15/24 00:45 75 MLS/HR Acetaminophen/ Hydrocodone Bitart 1 tab Q4HP PRN PO 02/13/24 22:00 02/15/24 06:32 1 TAB Ondansetron HCl 4 mg Q4HP PRN IV 02/13/24 22:00 Docusate Sodium 100 mg BIDPRN PRN PO 02/13/24 22:00 Acetaminophen 650 mg Q6HP PRN PO 02/13/24 22:00 Morphine Sulfate 2 mg Q4HPRN PRN IV 02/13/24 22:00 Nitroglycerin 0.4 mg Q5MINP PRN SL 02/13/24 23:00 Morphine Sulfate 2 mg Q30M PRN IV 02/13/24 23:00 Metronidazole 100 ml @ 100 mls/hr Q8HR IV 02/14/24 03:00 02/15/24 05:49 100 MLS/HR Lactulose 30 ml BID PO 02/14/24 22:00 02/15/24 09:11 30 ML Chlordiazepoxide HCl 10 mg TIDP PRN PO 02/15/24 12:30 objective General Appearance: Alert, Oriented X3, Cooperative, No acute distress HEENT: Atraumatic, PERRLA, EOMI, Mucous membr. moist/pink Respiratory: Clear to auscultation, Normal air movement Cardiovascular: Regular rate, Normal S1, Normal S2, No murmurs Abdominal: Normal bowel sounds, Soft, No hepatospenomegaly, No masses, Other (Reports tenderness) Extremities: No clubbing, No cyanosis, No edema, Normal pulses, No tenderness/swelling Skin: No rashes, No breakdown, No significant lesion Neuro: Nonfocal , Other , mild tremors Psych/Mental Status: Mental status NL, Mood NL laboratory and microbiology Laboratory Tests 02/15/24 05:10 Test 02/15/24 05:10 Range/Units Serum Glucose 90 74-106 mg/dL MRI ABD IMPRESSION: 1. Liver is overall normal in size with hypertrophy of the left lobe and heterogeneous signal intensity without focally enhancing mass lesions. I favor this representing regional fatty infiltration possibly superimposed upon chronic hepatocellular disease. LIVER USG IMPRESSION: 1. Gallbladder sludge without evidence of acute cholecystitis. 2. Hepatic steatosis versus parenchymal dysfunction. Problems(with codes): (1) Diarrhea (2) Elevated liver enzymes (3) Intractable diarrhea (4) Leukocytosis, unspecified (5) Generalized weakness (6) Acute abdominal pain (7) Alcohol abuse (8) Abnormal finding on CT scan Prognosis Plan Patient will be given IV Ativan and then started on Librium 10 mg p.o. Q three times a day as needed for her anxiety and withdrawals Continue supportive care IV fluid hydration Regular diet Monitor labs Patient was counseled about discontinuing alcohol I will review records from [facility] Plan discussed with: Patient, Other (ER Nurse) SAUNDRA PERRIN MD Feb 15, 2024 12:50
[2024-02-15] MEDS: LORazepam 2MG/ML-1ML VIAL IV ONE (13:07)
[2024-02-15] MEDS ORDERED: LORazepam 2MG/ML-1ML VIAL IV PRN (13:15)
--- NOTE | 2024-02-15 18:21 | DVHPNRES ---
Progress Note Date Seen: Feb 15, 2024 Resident Creating Document: KRISHNA VELEZ RESIDENT Medical Necessity Reason Pt with a Central, PICC or Fol: No Subjective Review of Systems 58-year-old female patient with past medical history of irritable bowel syndrome, hypertension chronic diarrhea, chronic abdominal pain who presented to the emergency department with a chief complaint of acute abdominal pain. Patient reports she went to the urgent care and was prescribed Flagyl and Imodium. Initial labs showed elevated lactic acid, leukocytosis and alcohol level of 63.7 with evidence of UTI for which the patient was started on lactulose, antibiotics. And she was recommended to stay hospitalized to monitor for alcohol withdrawal symptoms. Per patient she was previously hospitalized due to alcohol withdrawal symptoms and delirium tremens 1 year ago at [facility]. GI was consulted to evaluate for possible underlying liver disease and elevated ammonia levels. There is likely an underlying chronic liver disease due to chronic alcohol intake with fatty changes noted on CT for which and right upper quadrant up ultrasound and then an MRI were ordered. Hepatitis panel, serum alpha-fetoprotein and CEA level was also ordered. We will continue the monitoring this patient, ammonia levels. Hepatitis a antibodies were positive. MRI of the liver showed: - Liver is overall normal in size with hypertrophy of the left lobe and heterogeneous signal intensity without focally enhancing mass lesions. - Fatty liver infiltration possibly superimposed upon chronic hepatocellular disease. For alcohol withdrawals symptoms: - Patient will be given IV Ativan and then started on Librium 10 mg p.o. Q3 times a day as needed for her anxiety and withdrawals Patient reports: Feels better Changes from previous H/P or p: Changes Objective vital signs Vital Sign Date Time Temp Pulse Resp B/P (MAP) Pulse Ox O2 Delivery O2 Flow Rate FiO2 02/15/24 14:46 Room Air* 0 21 02/15/24 14:00 78 17 115/66 (82) 98 02/15/24 09:04 97.9 97.9 Total Intake and Output 02/14/24 02/14/24 02/15/24 15:00 23:00 07:00 Intake Total 400 ml Balance 400 ml medications Current Medications Medications Dose Ordered Sig/Alena Route Start Time Stop Time Status Last Admin Dose Admin Pantoprazole Sodium 40 mg DAILY IV 02/14/24 10:00 02/14/24 11:51 40 MG Hydralazine HCl 10 mg Q6HP PRN IV 02/13/24 22:00 Metoprolol Tartrate 25 mg BID PO 02/13/24 22:00 02/15/24 09:12 25 MG Ceftriaxone Sodium 50 ml @ 100 mls/hr DAILY@09 IV 02/14/24 09:00 02/14/24 09:00 100 MLS/HR Thiamine HCl 100 mg DAILY IV 02/14/24 10:00 02/15/24 13:24 100 MG Folic Acid 1 mg/ Dextrose 50.2 ml @ 200.8 mls/ hr DAILY INJ 02/14/24 10:00 02/15/24 13:26 200.8 MLS/HR Multivitamins 1 tab DAILY PO 02/14/24 10:00 02/15/24 09:12 1 TAB Dextrose/Sodium Chloride 1,000 ml @ 75 mls/hr [id number] IV 02/13/24 22:00 02/15/24 14:11 75 MLS/HR Acetaminophen/ Hydrocodone Bitart 1 tab Q4HP PRN PO 02/13/24 22:00 02/15/24 17:15 1 TAB Ondansetron HCl 4 mg Q4HP PRN IV 02/13/24 22:00 Docusate Sodium 100 mg BIDPRN PRN PO 02/13/24 22:00 Acetaminophen 650 mg Q6HP PRN PO 02/13/24 22:00 Morphine Sulfate 2 mg Q4HPRN PRN IV 02/13/24 22:00 Nitroglycerin 0.4 mg Q5MINP PRN SL 02/13/24 23:00 Morphine Sulfate 2 mg Q30M PRN IV 02/13/24 23:00 Metronidazole 100 ml @ 100 mls/hr Q8HR IV 02/14/24 03:00 02/15/24 05:49 100 MLS/HR Lactulose 30 ml BID PO 02/14/24 22:00 02/15/24 09:11 30 ML Chlordiazepoxide HCl 10 mg TIDP PRN PO 02/15/24 12:30 Lorazepam 0.5 mg Q4HR PRN IV 02/15/24 13:15 Examination Examination General Appearance: Alert, Oriented X3, Cooperative, No acute distress Respiratory: Clear to auscultation, Normal air movement Cardiovascular: Regular rate, Normal S1, Normal S2 Abdominal: Normal bowel sounds Extremities: No cyanosis, No edema, Normal pulses, No tenderness/swelling Skin: No rashes, No breakdown Neuro: Normal gait, Normal speech, Strength at 5/5 X4 ext, Normal tone, Sensation intact, Cranial nerves 3-12 NL, Reflexes 2+ Psych/Mental Status: Mental status NL, Mood NL laboratory and microbiology Laboratory Tests 02/15/24 05:10 Test 02/15/24 05:10 Range/Units Serum Glucose 90 74-106 mg/dL Microbiology Date/Time Source Procedure Growth Status 02/13/24 22:30 Voided Urine Urine Culture - Preliminary Resulted Problem List/Assessment/Plan Problem List/Assessment/Plan #Acute abdominal pain likely due to alcoholic liver disease #Steatohepatitis #Acute on chronic diarrhea likely due to irritable bowel syndrome #Hyperammonemia - Admit to telemetry - GI consult - Monitor for withdrawal symptoms - Ativan IV for alcohol withdrawal - IV fluids #History of alcohol abuse - Alcohol cessation counseling #Urinary tract infection - IV antibiotics #Abnormal findings on CT . Can not exclude metastatic disease - MRI - Fatty infiltration possibly superimposed upon chronic hepatocellular disease. #Transaminitis likely due to alcohol liver disease - monitor Case discussed with Dr. Orantse Goals of care discussed with the patient for 26 minutes Code status: Full code Plan discussed with: Patient My Orders My Orders Orders - KRISHNA VELEZ Procedure Category Date Status Time Abdomen With Contrast MRI 02/14/24 Resulted 19:28 Lorazepam 2mg/Ml Inj PHA 02/15/24 In Process (Ativan Inj) 13:15 Date of Service: Feb 15, 2024 Billing Provider: ALEX ORANTES MD Common Visit Codes: [id number] INP/OBS CARE(HIGH) Secondary Visit Codes: [id number] CARE PLAN 30 MINUTES KRISHNA VELEZ Feb 15, 2024 18:21 ALEX ORANTES MD Feb 15, 2024 19:42
[2024-02-15 20:00] VITALS: PULSE 93; O2SAT 97
[2024-02-15 20:55] VITALS: BP 116/68; PULSE 93; RESP 18; TEMP 98.1; O2SAT 97
[2024-02-15 21:00] VITALS: BP_SYST 114; BP_SYST 115; BP_DIAS 54; BP_DIAS 77; PULSE 70; PULSE 94; RESP 16; RESP 17; TEMP 98.1; TEMP 98.5; O2SAT 98; O2SAT 99
[2024-02-15] MEDS ORDERED: METO-289 PO (22:53)
[2024-02-15] MEDS ORDERED: DICY10CA PO (22:53)
[2024-02-15] MEDS ORDERED: MET500T PO (22:53)
[2024-02-16 01:00] VITALS: BP 107/72; PULSE 87; RESP 16; TEMP 98.7; O2SAT 96
[2024-02-16 05:00] VITALS: BP 113/77; PULSE 77; RESP 18; TEMP 98.2; O2SAT 97
[2024-02-16 07:35] LABS: Basophils # (auto) 0 10 ^3/uL (0-0.2); Basophils % (auto) 0.6 % (0.0-2.0); Eosinophils # (auto) 0.3 10 ^3/uL (0-0.8); Eosinophils % (auto) 3.4 % (0.0-7.0); Hematocrit 26.6 % (36.0-46.0); Hemoglobin 9.2 g/dL (12.2-16.2); Lymphocytes # (auto) 0.4 10 ^3/uL (0.4-5.4); Lymphocytes % (auto) 5.4 % (10.0-50.0); Mean Corpuscular Hemoglobin 41.9 pg (28.0-32.0); Mean Corpuscular Hgb Conc. 34.7 g/dL (32.0-36.0); Mean Corpuscular Volume 120.8 fL (80.0-100.0); Monocytes # (auto) 0.9 10 ^3/uL (0-1.3); Monocytes % (auto) 11.7 % (0.0-12.0); Neutrophils % (auto) 78.9 % (37.0-80.0); Platelet Count (auto) 177 10^3/uL (140-450); Red Cell Distribution Width 17.6 % (11.8-14.3); White Blood Cell 7.6 10^3/uL (4.4-10.8)
[2024-02-16 07:36] LABS: Macrocytosis Marked; Platelet Estimate Adequate
[2024-02-16 08:00] VITALS: PULSE 74
[2024-02-16 08:04] LABS: Chloride 102 mmol/L (98-107); Potassium 4.1 mmol/L (3.5-5.1); Sodium 137 mmol/L (136-145)
[2024-02-16 08:05] LABS: Anion Gap 9 (5-15); Calcium 8.9 mg/dL (8.7-10.4); Carbon Dioxide 26 mmol/L (20-31)
[2024-02-16 08:10] LABS: Glucose 97 mg/dL (74-106)
[2024-02-16 08:11] LABS: BUN/Creatinine Ratio 7.1 (10.0-20.0)
[2024-02-16 08:21] LABS: Blood Urea Nitrogen 5 mg/dL (9-23)
[2024-02-16 08:44] VITALS: BP 121/61; PULSE 77; RESP 18; TEMP 97.8; O2SAT 94
[2024-02-16] MEDS ORDERED: FOLI-119 PO (12:23)
[2024-02-16] MEDS ORDERED: CHLO25CA10 PO (12:23)
[2024-02-16] MEDS ORDERED: THIA100T13 PO (12:23)
[2024-02-16] MEDS ORDERED: MULTTAB99 PO (12:23)
[2024-02-16 13:11] VITALS: BP 133/83; PULSE 77; RESP 20; TEMP 98.2; O2SAT 99
--- NOTE | 2024-02-16 17:19 | DVHDSRES ---
Discharge Summary Date of Admission Resident Creating Document: KRISHNA VELEZ RESIDENT Feb 13, 2024 at 22:47 Date of Discharge: Feb 16, 2024 Admitting Diagnosis Acute abdominal pain Labs/Diagnostic Data: Laboratory Results Test 02/16/24 06:30 02/16/24 06:29 02/15/24 05:10 02/14/24 03:39 Stool for White Cells Moderate White Blood Count 7.6 10^3/uL (4.4-10.8) Red Blood Count 2.20 10^6/uL (4.0-5.20) Hemoglobin 9.2 g/dL (12.2-16.2) Hematocrit 26.6 % (36.0-46.0) Mean Corpuscular Volume 120.8 fL (80.0-100.0) Mean Corpuscular Hemoglobin 41.9 pg (28.0-32.0) Mean Corpuscular Hemoglobin Concent 34.7 g/dL (32.0-36.0) Red Cell Distribution Width 17.6 % (11.8-14.3) Platelet Count 177 10^3/uL (140-450) Mean Platelet Volume 8.1 fL (6.9-10.8) Neutrophils (%) (Auto) 78.9 % (37.0-80.0) Lymphocytes (%) (Auto) 5.4 % (10.0-50.0) Monocytes (%) (Auto) 11.7 % (0.0-12.0) Eosinophils (%) (Auto) 3.4 % (0.0-7.0) Basophils (%) (Auto) 0.6 % (0.0-2.0) Neutrophils # (Auto) 6.0 10 ^3/uL (1.6-8.6) Lymphocytes # (Auto) 0.4 10 ^3/uL (0.4-5.4) Monocytes # (Auto) 0.9 10 ^3/uL (0-1.3) Eosinophils # (Auto) 0.3 10 ^3/uL (0-0.8) Basophils # (Auto) 0 10 ^3/uL (0-0.2) Nucleated Red Blood Cells 0.0 % Platelet Estimate Adequate Macrocytosis Marked Sodium Level 137 mmol/L (136-145) Potassium Level 4.1 mmol/L (3.5-5.1) Chloride Level 102 mmol/L (98-107) Carbon Dioxide Level 26 mmol/L (20-31) Anion Gap 9 (5-15) Blood Urea Nitrogen 5 mg/dL (9-23) Creatinine 0.70 mg/dL (0.550-1.02) Glomerular Filtration Rate Calc 100 mL/min (>90) BUN/Creatinine Ratio 7.1 (10.0-20.0) Serum Glucose 97 mg/dL (74-106) Calcium Level 8.9 mg/dL (8.7-10.4) Prothrombin Time 12.7 sec (9.3-11.8) Prothrombin Time INR 1.22 (0.9-1.15) Total Bilirubin 1.2 mg/dL (0.2-1.0) Aspartate Amino Transferase (AST) 70 U/L (13-40) Alanine Aminotransferase (ALT) 16 U/L (7-40) Alkaline Phosphatase 144 U/L (46-116) Total Protein 6.5 g/dL (5.7-8.2) Albumin 3.6 g/dL (3.2-4.8) Carcinoembryonic Antigen 3.23 ng/mL (<=5.0) Hepatitis A Antibody Total Positive (Negative) Hepatitis B Surface Antigen Negative (Negative) Hepatitis B Surface Antibody Negative (Negative) Hepatitis B Core Total Antibody Negative (Negative) Hepatitis C Antibody Negative (Negative) Troponin I High Sensitivity 5 ng/L (</=34) Test 02/13/24 20:30 02/13/24 18:31 02/13/24 00:00 Lactic Acid Level 2.0 mmol/L (0.4-2.0) Magnesium Level 1.5 mg/dL (1.6-2.6) Ammonia 62 umol/L (11-32) Lipase 33 U/L (12-53) Plasma/Serum Blood Alcohol 63.7 mg/dL (<10) Urine Color Light-yellow (Yellow) Urine Clarity Clear (Clear) Urine pH 6.5 (5.0-9.0) Urine Specific [place] 1.007 (1.001-1.035) Urine Protein Negative (Negative) Urine Ketones Negative (Negative) Urine Blood Negative /uL (Negative) Urine Nitrite Negative (Negative) Urine Bilirubin Negative (Negative) Urine Urobilinogen Normal mg/dL (Negative) Urine Leukocyte Esterase 2+ /uL (Negative) Urine RBC 2 /hpf (0 - 4) Urine WBC 5 /hpf (0 - 5) Urine Squamous Epithelial Cells Few /hpf (<5) Urine Bacteria Few /hpf (None Seen) Urine Glucose Normal mg/dL (Normal) Other Laboratory Tests 02/16/24 06:29 Brief Hx & Hospital Course: Hospital Course: The patient is a 57-year-old female with a history of irritable bowel syndrome, hypertension, chronic diarrhea, chronic abdominal pain, and chronic alcohol use who presented with acute abdominal pain. Initial labs revealed elevated lactate, leukocytosis, and an ammonia level of 63.7, prompting treatment with lactulose and antibiotics (Flagyl and Imodium). She was admitted for monitoring of alcohol withdrawal symptoms, as she had a history of tremors and withdrawal 1 year ago.Further evaluation with GI consult and imaging suggested chronic liver disease with possible fatty liver. A CT scan showed fatty infiltration superimposed on chronic hepatocellular disease. MRI revealed hepatomegaly with hypertrophy of the left lobe and heterogeneous signal intensity without focal mass lesions. Hepatitis A antibodies were positive, indicating prior exposure. Hepatitis panel, alpha-fetoprotein, and CEA levels were also ordered to further evaluate liver disease. For alcohol withdrawal symptoms, the patient was started on Ativan and transitioned to Librium (10 mg PO every 8 hours as needed). Her symptoms improved during the hospital stay, and she reports feeling better at discharge. Follow-Up Recommendations: 1. GI Clinic: For further evaluation of liver disease and management of chronic hepatic conditions. 2. Primary Care Physician (PCP): For continued monitoring of withdrawal symptoms and management of comorbidities. 3. Alcohol Counseling: Strongly recommend enrollment in an outpatient alcohol cessation program to prevent further hepatic deterioration. Condition at Discharge: Stable and improved. The patient reports feeling better and understands discharge instructions. Case discussed with Goals of care discussed with the patient for 28 minutes. Operations or Procedures [address] [address] Ph: [phone] DIAGNOSTIC IMAGING Diagnostic Imaging Report : [id number] Signed PATIENT: СЕРГЕЙ RAMIREZ ACCT: [id number] UNIT: [id number] : 1965 LOC: ER ROOM / BED: / AGE / SEX: 58 / F ADM STATUS: REG ER SERVICE [id number] ORDERING PHYSICIAN: AIDEE VARGAS DO PROCEDURE(s): ABPL - CT AB PEL WO CON-NO ORAL OR IV REASON: ABDOMINAL PAIN ORDER NUMBER(s): [id number], ACCESSION NUMBER(s): [id number] Exam: CT CT AB PEL WO CON-NO ORAL OR IV History: ABDOMINAL PAIN Comparison Study: None available at time of dictation. TECHNIQUE: Multidetector CT of the abdomen was performed from lung bases to pubic symphysis. Imaging was performed without IV contrast. Axial, coronal and sagittal multiplanar reformats were obtained from the axial data set by the technologist. Radiation Dose Information: CT Dose: CTDI volume is 10.2 mGy. Dose-length product is 544.15 mGy*cm FINDINGS: Evaluation of solid organs is limited due to lack of intravenous contrast use. Findings: Lung Bases: No acute or significant lung base finding. Normal heart size. No pleural or pericardial effusion. Liver: Heterogeneous appearance to the liver with air areas of fatty infiltration. Can not exclude metastatic disease without IV contrast. Gallbladder and Biliary Tree: Unremarkable Spleen: Unremarkable Pancreas: The pancreas is grossly normal in appearance. Adrenal Glands: Unremarkable Kidneys: Kidneys are grossly normal without calculi or hydronephrosis. Bladder: Grossly unremarkable for degree of distention. Bowel: The stomach is grossly normal in appearance. Small bowel and colon are normal in caliber and distribution. The appendix is not visualized; however, no secondary findings of acute appendicitis identified. Ascites: Absent Lymphadenopathy: No mesenteric, retroperitoneal or periportal lymphadenopathy. Abdominal Wall and Mesentery: Unremarkable. Vasculature: The visualized abdominal aorta is normal in size and caliber. Evaluation of abdominal and pelvic vessels is limited due to lack of intravenous contrast. Pelvic Organs: Unremarkable Musculoskeletal: No aggressive focal bony lesions, acute fractures or dislocation. Soft tissues: Unremarkable IMPRESSION: 1. Genius liver with patchy areas of fatty infiltration. Can not exclude metastatic disease without IV contrast. If patient is unable to tolerate IV contrast consider MRI. Radiation optimization: All CT scans at this facility use at least one of these dose optimization techniques: automated exposure control mA and/or kV adjustment per patient size (includes targeted exams where dose is matched to clinical indication) or iterative reconstruction. HS:Y ATED BY: LEATHA GARAY Jr., DO DICTATED DATE/TIME: 02/13/241842 SIGNED BY: LEATHA GARAY Jr., DO SIGNED DATE/TIME: 02/13/241842 CC: [place] [id number] Ph: [phone] DIAGNOSTIC IMAGING Diagnostic Imaging Report : [id number] Signed PATIENT: СЕРГЕЙ RAMIREZ ACCT: [id number] UNIT: [id number] : 1965 LOC: TELE ROOM / BED: [address] [place] [address] AGE / SEX: 58 / F ADM STATUS: ADM IN SERVICE 1054 ORDERING PHYSICIAN: SAUNDRA PERRIN MD PROCEDURE(s): ABDL - ABDOMEN LIMITED REASON: elevated liver tests ; abnormal CT ORDER NUMBER(s): [id number], ACCESSION NUMBER(s): [id number] INDICATION: elevated liver tests ; abnormal CT TECHNIQUE: Multiple real-time sonographic images were obtained of the right upper quadrant. COMPARISON: US ABDOMEN LIMITED on DOS: 09/05/23, CT abdomen and pelvis 02/13/2024 FINDINGS: The liver demonstrates increased in echotexture without focal mass lesions. The liver measures 15.8 cm. There is no intrahepatic or extrahepatic ductal dilatation. The common duct is not seen. Gallbladder sludge is noted. The gallbladder wall measures 0.1 cm and is within normal limits. The right kidney measures 10.4 cm. The right kidney is normal in contour, size, and shape. The echogenicity is normal. There is no hydronephrosis. The pancreas is not well visualized due to overlying bowel gas. IMPRESSION: 1. Gallbladder sludge without evidence of acute cholecystitis. 2. Hepatic steatosis versus parenchymal dysfunction. ATED BY: CARLOS EDUARDO GERBER MD DICTATED DATE/TIME: 02/14/24 125 SIGNED BY: CARLOS EDUARDO GERBER MD SIGNED DATE/TIME: 02/14/241258 CC: [address] [address] Ph: [phone] DIAGNOSTIC IMAGING Diagnostic Imaging Report : [id number] Signed PATIENT: СЕРГЕЙ RAMIREZ ACCT: [id number] UNIT: [id number] : 1965 LOC: TELE ROOM / BED: 1029-ERT / A AGE / SEX: 58 / F ADM STATUS: ADM IN SERVICE 27 ORDERING PHYSICIAN: KRISHNA VELEZ RESIDENT PROCEDURE(s): PAULA - ABDOMEN WITH CONTRAST REASON: ORDER NUMBER(s): [id number], ACCESSION NUMBER(s): [id number] EXAM: MRI ABDOMEN WITH CONTRAST COMPARISON: None INDICATION: abnormal ct poss liver mass . TECHNIQUE: MRI abdomen was performed with and without intravenous contrast. 10 cc of Gadavist given FINDINGS: Visualized lower thorax: Limited imaging of the thorax demonstrates no suspicious pleural or parenchymal disease. Liver: The liver is normal in size with hypertrophy of the left lobe.. Heterogeneous signal intensity within the liver fairly well-demarcated between segments 5 and 6 in the remaining portions of the liver. On postcontrast images no discrete areas of enhancement are present Gallbladder: No evidence of cholelithiasis or gallbladder wall thickening. Biliary system: There is no intrahepatic or extrahepatic bile duct dilatation. Spleen: Normal in morphology and signal intensity. Pancreas: Normal in morphology and signal intensity. Adrenal glands: Normal in morphology and signal intensity. Kidneys: The kidneys are symmetric in size and appearance with no suspicious lesions. No hydronephrosis. Urinary tract: The ureters, as visualized, are normal in course and caliber. The bladder is within normal limits. GI tract: The bowel, as visualized, is within normal limits. Pelvis: Unremarkable pelvic organs. Peritoneum: No ascites. Lymph nodes: No enlarged lymph nodes. Vascular: Normal caliber of the abdominal aorta. Musculoskeletal: The bone marrow signal intensity is within normal limits. IMPRESSION: 1. Liver is overall normal in size with hypertrophy of the left lobe and heterogeneous signal intensity without focally enhancing mass lesions. I favor this representing regional fatty infiltration possibly superimposed upon chronic hepatocellular disease. ATED BY: LEATHA TURK MD DICTATED DATE/TIME: 02/15/241209 SIGNED BY: LEATHA TURK MD SIGNED DATE/TIME: 02/15/24 121 CC: Condition at Discharge: Fair Final Diagnosis/Problems List alcohol withdrawal acute abdominal pain likely due to IBS Chronic diarrhea Hepatic steatosis alcohol abuse Discharge Disposition: Home SNF Discharge Will this Physician continue t: No Discharge Instruct/Medications Diet: Cardiac 2g Na,low cholest Activity: No Restrictions, As Tolerated Follow Up/Referral: follow up wth PCP within 2 weeks follow up with GI within 2 weeks Medications: script to pharmacy Discharge Statement: "Patient was advised to return to the ER or call 911 if any headaches, dizziness, shortness of breath, chest pain, abdominal pain, bleeding, fevers, or worsening of medical condition. Patient was counseled about treatment plan, medications, possible side effects, patientverbalized understanding. All questions were answered to the best of my ability. This discharge took greater then 30 minutes in planning, reviewing documentation, counseling the patient, and discussing with other team members." ASSESSMENT ASSESSMENT Assessment alcohol withdrawal acute abdominal pain likely due to IBS Chronic diarrhea Hepatic steatosis alcohol abuse Date of Service: Feb 16, 2024 Billing Provider: ALEX CORMIER MD Common Visit Codes: 13647-RCP/OBS DISCH DAY >30min KRISHNA VELEZ RESIDENT Feb 16, 2024 17:19 ALEX CORMIER MD Feb 16, 2024 20:27
--- NOTE | 2024-02-16 20:20 | DVHPN2 ---
Progress Note - Dictate Date Seen: Feb 16, 2024 (Late entry Patient seen at 2:00 p.m.) Medical Necessity Reason Pt with a Central, PICC or Fol: No Subjective No new complaints Patient is feeling better She is tolerating a diet She has chronic pain issues with the shoulders and that is why she drinks Previously patient had insurance but after her 's she lost her insurance She used to be with pain management in the past She said she has had extensive workup done for her diarrhea including an EGD and colonoscopy in [place] about four years ago Diarrhea is better today but she is moving her bowels due to use of lactulose Leukocytosis has improved Liver enzymes are trending down vital signs Vital Sign Date Time Temp Pulse Resp B/P (MAP) Pulse Ox O2 Delivery O2 Flow Rate FiO2 02/16/24 13:11 98.2 77 20 133/83 (100) 99 98.2 02/16/24 08:00 Room Air* 0 21 Total Intake and Output 02/15/24 02/15/24 02/16/24 15:00 23:00 07:00 Intake Total 50 ml 225 ml 300 ml Balance 50 ml 225 ml 300 ml objective General Appearance: Alert, Oriented X3, Cooperative, No acute distress HEENT: Atraumatic, PERRLA, EOMI, Mucous membr. moist/pink Respiratory: Clear to auscultation, Normal air movement Cardiovascular: Regular rate, Normal S1, Normal S2, No murmurs Abdominal: Normal bowel sounds, Soft, No hepatospenomegaly, No masses, Other (Reports tenderness) Extremities: No clubbing, No cyanosis, No edema, Normal pulses, No tenderness/swelling Skin: No rashes, No breakdown, No significant lesion Neuro: Nonfocal , Other , mild tremors Psych/Mental Status: Mental status NL, Mood NL laboratory and microbiology Laboratory Tests 02/16/24 06:29 Test 02/16/24 06:29 Range/Units Serum Glucose 97 74-106 mg/dL Problems(with codes): (1) Diarrhea (2) Elevated liver enzymes (3) Leukocytosis, unspecified (4) Generalized weakness (5) Abnormal finding on CT scan (6) Alcohol abuse (7) Urinary tract infection Prognosis Plan Discharge planning is in progress Patient was counseled against drinking alcohol She will follow up in my office in 2-4 weeks for ongoing management of chronic liver disease Reviewed records from [facility] Plan discussed with: Patient SAUNDRA PERRIN MD Feb 16, 2024 20:20
[2024-02-17] MEDS ORDERED: CHLO25CA10 PO (21:12)
[2024-02-17] MEDS ORDERED: MULTTAB99 PO (21:12)
[2024-02-17] MEDS ORDERED: FOLI-119 PO (21:12)
[2024-02-17] MEDS ORDERED: THIA100T13 PO (21:12)
[2024-02-17] MEDS ORDERED: LORA-1121 PO (21:12)
== END 2024-02-16 14:06 | disposition home or self-care (01) | DRG 254 ==
LOC: ER 17:22 → TELE 22:47 → TELE-CENTR 22:48
PROVIDERS: ADMIT Internal Medicine Geriatric Medicine; ATTEND Emergency Medicine
PROC: 05HB33Z Insertion of Infusion Device into Right Basilic Vein, Percutaneous Approach (ICD-10-PCS; principal; 2024-02-15)
PROC: B54MZZA Ultrasonography of Right Upper Extremity Veins, Guidance (ICD-10-PCS; 2024-02-15)
DX: K58.0 Irritable bowel syndrome with diarrhea (principal); E72.20 Disorder of urea cycle metabolism, unspecified; E87.20 Acidosis, unspecified; K75.81 Nonalcoholic steatohepatitis (NASH); E83.42 Hypomagnesemia; N30.00 Acute cystitis without hematuria; I10 Essential (primary) hypertension; E87.6 Hypokalemia; F10.10 Alcohol abuse, uncomplicated; R74.01 Elevation of levels of liver transaminase levels; F41.9 Anxiety disorder, unspecified; G89.29 Other chronic pain; Y90.3 Blood alcohol level of 60-79 mg/100 ml; Z90.710 Acquired absence of both cervix and uterus; Z82.49 Family history of ischemic heart disease and other diseases of the circulatory system; Z82.5 Family history of asthma and other chronic lower respiratory diseases; Z79.899 Other long term (current) drug therapy
CPT/HCPCS: 36415; 74176; 74181; 76705; 80048; 80053; 80320; 81001; 82105; 82140; 82378; 83605; 83690; 83735; 84484; 85025; 85048; 85610; 86704; 86706; 86708; 86803; 87086; 87340; G0378; J2405; J2470; J3490; J7060

== ENCOUNTER 2024-02-17 20:18 | Emergency (ER) | payer MEDICAID, OTHER ==
[~2024-02-17] VITALS: Ht 154.9 cm; Wt 68.2 kg
[~2024-02-17 20:18] MED LIST changes: -CHL10C PO; -CHL25C PO; +CHLO25CA10 PO; -FLUO1TAB14 PO; +FOLI-119 PO; -HYDR-4902 PO; -LORA-655 PO; -METO1TAB9 PO; -OMEP20TA PO; -PANT40TA2 PO; -PROC10TA6 PO; +THIA100T13 PO
--- NOTE | 2024-02-17 21:02 | ED.PDOC ---
History of Present Illness HPI Comments 58 year old female brought in by EMS presents to the ED with a chief complaint of alcohol withdrawal onset today. Patient states she was discharged from [facility] yesterday, was prescribed medication and tried to pick it up last night and this morning and was told they do not have that specific medication. Patient states she got anxious and had 3 vodka shots about 2 hours ago. 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 Patient is also experiencing bilateral shoulder pain and is requesting [place]. Past medical history of HTN, arthritis, seizures. Denies headache, shortness of breath, chest pain, nausea, vomiting, diarrhea, abdominal pain. No other symptoms or modifying factors present at this time. Chief Complaint: Withdrawal Time Seen by MD: 20:48 Primary Care Provider: UNKNOWN Reviewed Notes: Medications, Allergies Allergies: Coded Allergies: NO KNOWN ALLERGIES (Unverified , 04/21/23) Home Meds Active Scripts Lorazepam (ATIVAN TABLET) 0.5 Mg Tb, 1 TAB PO TID PRN, #30 TAB prn alcohol withdrawal symptoms Prov:BERTRAND SIU MD 02/17/24 Multiple Vitamin (Mvi Tab) 1 Tab Tb, 1 TAB PO DAILY, #30 TAB Prov:BERTRAND SIU MD 02/17/24 Folic Acid (Folic Acid) 1 Mg Tab, 1 MG PO DAILY, #30 TAB Prov:BERTRAND SIU MD 02/17/24 Thiamine HCl (Thiamine Hydrochloride) 100 Mg Tab, 100 MG PO DAILY, #30 TAB Prov:BERTRAND SIU MD 02/17/24 Chlordiazepoxide HCl (Chlordiazepoxide Hydrochl) 25 Mg Cap, 25 MG PO Q8HP PRN, #30 CAP prn alcohol withdrawal symptoms Prov:BERTRAND SIU MD 02/17/24 Discontinued Reported Medications Metronidazole (Metronidazole) 500 Mg Tab, 1 TAB PO DAILY 02/15/24 Dicyclomine Hcl (BENTYL CAPSULE) 10 Mg Cp, 10 MG PO DAILY PRN for IBS muscle cramps, CAP 02/15/24 Metoprolol Succinate (Metoprolol Succinate Er) 50 Mg Tab, 1 TAB PO BID 02/15/24 Chlordiazepoxide Hcl (Ni-1) (I (Chlordiazepoxide Hcl) 25 Mg Cap, 25 MG PO TIDPRN PRN for ANXIETY, CAP 02/13/24 Information Source: Patient, Emergency Med Personnel Mode of Arrival: EMS Severity: Moderate Timing: Hours Duration: Intermittent Prehospital treatment: None Past Medical History PAST MEDICAL HISTORY: Arthritis, HTN, Seizures Surgical History: Hysterectomy PATIENT CARE History: No Pertinent PATIENT CARE History Family History Family History: Family hx of heart ellen Social History Smoker: Non-Smoker Alcohol: Heavy Drugs: Denies Drug Use Lives In: Home Constitutional: denies: chills, diaphoresis, fatigue, fever, malaise, sweats, weakness, others EENTM: denies: blurred vision, double vision, ear bleeding, ear discharge, ear drainage, ear pain, ear ringing, eye pain, eye redness, hearing loss, mouth pain, mouth swelling, nasal discharge, nose bleeding, nose congestion, nose pain, photophobia, tearing, throat pain, throat swelling, voice changes, others Respiratory: denies: cough, hemoptysis, orthopnea, SOB at rest, shortness of breath, SOB with excertion, stridor, wheezing, others Cardiovascular: denies: chest pain, dizzy spells, diaphoresis, Dyspnea on exertion, edema, irregular heart beat, left arm pain, lightheadedness, palpitations, PND, syncope, others Gastrointestinal: denies: abdomen distended, abdominal pain, blood streaked bowels, constipated, diarrhea, dysphagia, difficulty swallowing, hematemesis, melena, nausea, poor appetite, poor fluid intake, rectal bleeding, rectal pain, vomiting, others Genitourinary: denies: abnormal vagina bleeding, burning, dyspareunia, dysuria, flank pain, frequency, hematuria, incontinence, pain, , vagina discharge, urgency, others Neurological: denies: dizziness, fainting, headache, left sided numbness, left sided weakness, numbness, paresthesia, pre-existing deficit, right sided numbness, right sided weakness, seizure, speech problems, tingling, tremors, weakness, others Musculoskeletal: reports: others (bilateral shoulder pain); denies: back pain, gout, joint pain, joint swelling, muscle pain, muscle stiffness, neck pain Integumetry: denies: bruises, change in color, change in hair/nails, dryness, laceration, lesions, lumps, rash, wounds, others Allergic/Immunocompromised: denies: Difficulty Healing, Frequent Infections, Hives, Itching, others Hematologic/Lymphatic: denies: anemia, blood clots, easy bleeding, easy bruising, swollen glands, others Endocrine: denies: excessive hunger, excessive sweating, excessive thirst, excessive urination, flushing, intolerance to cold, intolerance to heat, unexplained weight gain, unexplained weight loss, others Psychiatric: reports: anxiety, others (Alcohol withdraw); denies: bipolar disorder, depression, hopeless, panic disorder, schizophrenia, sleepless, suicidal All Other Systems: Reviewed and Negative Physical Exam General Appearance: No Apparent Distress HEENT: Other (Pupils symmetric, no facial asymmetry, moist mucous membranes) Neck: Full Range of Motion, Normal Inspection Respiratory: Lungs Clear, No Accessory Muscle Use, No Respiratory Distress, Normal Breath Sounds Cardiovascular: No Edema, No JVD, Regular Rate/Rhythm Breast Exam: Deferred Gastrointestinal: Non Tender, Soft Genitalia: Deferred Pelvic: Deferred Rectal: Deferred Extremities: Normal inspection, Normal range of motion, Non-tender, No pedal edema Neurologic: Alert (Oriented x4), Normal Affect, Other (Ambulatory without difficulty. Non tremulous. Appears anxious.) Cerebellar Function: NOT DONE Reflexes: NOT DONE Skin: Dry, Normal Color, Warm Lymphatic: NOT DONE Was a procedure done? Was a procedure done?: No Differential Dx Considerations may include: Early alcohol withdrawal, anxiety, among others X-Ray, Labs, Meds, VS Vital Signs Date Time Temp Pulse Resp B/P (MAP) Pulse Ox O2 Delivery O2 Flow Rate FiO2 02/18/24 02:50 88 16 137/75 (95) 98 02/17/24 22:48 98.3 85 16 125/87 (100) 100 98.3 02/17/24 22:47 Room Air* 0 21 02/17/24 20:33 98.0 84 16 131/85 (100) 94 Current Medications Medications (Trade) Dose Ordered Sig/Alena Route Start Time Stop Time Status Last Admin Lorazepam (Ativan Inj) 2 mg ONCE ONCE IM 02/17/24 21:00 02/17/24 21:01 DC 02/17/24 22:57 Chlordiazepoxide HCl (Librium Capsule) 50 mg ONCE ONCE PO 02/17/24 21:00 02/17/24 21:01 DC 02/17/24 22:56 Acetaminophen/ Hydrocodone Bitart ([place] 10/325MG Tab) 1 tab ONCE ONCE PO 02/17/24 21:00 02/17/24 21:01 DC 02/17/24 22:56 X-Ray, Labs, Meds, VS Comment 58-year-old female with a history of alcohol dependence, arthritis, hypertension and seizures brought in by EMS complaining of early alcohol withdrawal symptoms. Patient states she drank 3 shots prior to coming to the hospital. Vitals unremarkable Exam unremarkable. Patient is alert, oriented x4, does not appear tremulous, is not tachycardic, however she does appear anxious. Rhythm strip independently interpreted by me: Sinus rhythm, rate 84, no ectopy. Patient treated with the following in the ED: Ativan 2 mg IM, Librium 50 mg p.o., [place] 5/325 mg p.o. On re-evaluation, patient states she feels better. Vitals were stable. She is not tremulous and otherwise well-appearing. Hospitalization was considered, however patient had rapid improvement of her symptoms with treatment in the ED, and I no longer feel hospitalization is necessary. Patient appears stable for outpatient treatment and close follow-up with her primary physician. I will renew her previous prescription to a [facility] pharmacy so that she may resume her benzodiazepines. Time of 1ST Reevaluation: 21:18 Reevaluation 1ST: Unchanged Patient Education/Counseling: Diagnosis, Treatment, Prognosis Family Education/Counseling: No Family Present Departure 1 Departure Time of Disposition: 22:00 Impression: Primary Impression: Alcohol withdrawal Qualified Codes: F10.930 - Alcohol use, unspecified with withdrawal, uncomplicated Disposition: HOME / SELF CARE / HOMELESS Condition: Stable Additional Instructions: I have renewed your prescription to [facility] pharmacy. Follow-up with your primary doctor in 1-2 days. Return to ER for persistent or worsening symptoms. e-Prescriptions Lorazepam (ATIVAN TABLET) 0.5 Mg Tb 1 TAB PO TID PRN, #30 TAB prn alcohol withdrawal symptoms Prov: BERTRAND SIU MD 02/17/24 Multiple Vitamin (Mvi Tab) 1 Tab Tb 1 TAB PO DAILY, #30 TAB Prov: BERTRAND SIU MD 02/17/24 Folic Acid (Folic Acid) 1 Mg Tab 1 MG PO DAILY, #30 TAB Prov: BERTRAND SIU MD 02/17/24 Thiamine HCl (Thiamine Hydrochloride) 100 Mg Tab 100 MG PO DAILY, #30 TAB Prov: BERTRAND SIU MD 02/17/24 Chlordiazepoxide HCl (Chlordiazepoxide Hydrochl) 25 Mg Cap 25 MG PO Q8HP PRN, #30 CAP prn alcohol withdrawal symptoms Prov: BERTRAND SIU MD 02/17/24 Discharged With: Relative Critical Care Note Critical Care Time?: No Stability Stability form required: No Heart Score Heart Score: Heart Score Response (Comments) Value History N/A 0 EKG N/A 0 Age N/A 0 Risk Factors N/A 0 Troponin N/A 0 Total 0 I personally scribed for BERTRAND SIU MD ([email or web address]) on 02/17/24 at 21:02. Electronically submitted by Ritu Sagastume ([email or web address]). BERTRAND SIU MD Feb 17, 2024 21:02
[2024-02-17] MEDS ORDERED: LORA-1121 PO (21:12)
[2024-02-17] MEDS ORDERED: MULTTAB99 PO (21:12)
[2024-02-17] MEDS ORDERED: CHLO25CA10 PO (21:12)
[2024-02-17] MEDS ORDERED: FOLI-119 PO (21:12)
[2024-02-17] MEDS ORDERED: THIA100T13 PO (21:12)
[2024-02-17 22:48] VITALS: TEMP 98.3
[2024-02-17] MEDS: HYDROcodone-ACET 10/325MG TAB PO ONE (22:56)
[2024-02-17] MEDS: chlordiazePOXIDE HCL 25 MG CAP PO ONE (22:56)
[2024-02-17] MEDS: LORazepam 2MG/ML-1ML VIAL IM ONE (22:57)
[2024-02-18 02:50] VITALS: BP 137/75; PULSE 88; RESP 16; O2SAT 98
== END 2024-02-17 21:19 | disposition home or self-care (01) ==
LOC: ER 20:18 → EDBD 20:18 → ER 21:19
DX: F10.939 Alcohol use, unspecified with withdrawal, unspecified (principal); M25.511 Pain in right shoulder; M25.512 Pain in left shoulder; I10 Essential (primary) hypertension; M19.90 Unspecified osteoarthritis, unspecified site; Z90.710 Acquired absence of both cervix and uterus; Z79.899 Other long term (current) drug therapy; Y90.0 Blood alcohol level of less than 20 mg/100 ml
CPT/HCPCS: 96372; 99283; J2060

== ENCOUNTER 2024-02-25 04:33 | Emergency (ER) | payer MEDICAID ==
[~2024-02-25] VITALS: Ht 152.4 cm; Wt 64.5 kg
[~2024-02-25 04:33] MED LIST changes: +LORA-1121 PO
[2024-02-25 04:50] VITALS: BP 139/83; PULSE 66; RESP 16; O2SAT 94
--- NOTE | 2024-02-25 06:28 | ED.PDOC ---
Juan M. trauma (HPI) HPI Comments A 58 YEAR OLD FEMALE PRESENTS TO THE ED WITH CHIEF COMPLAINT OF FALL. PATIENT REPORTS THAT SHE HAD BEEN SLEEPING ON A TOP BUNK AT HOME, BUT WHEN GETTING OUT OF BED SHE HAD ACCIDENTALLY FELL OFF OF IT AND INJURED HER LEFT LOWER BACK YESTERDAY MORNING. PATIENT RELAYS THAT THE PAIN RADIATES DOWN HER LEFT THIGH. PATIENT STATES SHE ATTEMPTED TO RIDE HER HORSE YESTERDAY, BUT WAS NOT ABLE TO LIFT HER LEG UP. PATIENT DENIES ANY SADDLE ANESTHESIA, NUMBNESS, WEAKNESS, HEAD INJURY, LOC, DIZZINESS, OR NECK INJURY. NO OTHER SYMPTOMS REPORTED AT THIS TIME OF CARE. Chief Complaint: Fall Injury Time Seen by MD: 06:20 Primary Care Provider: UNKNOWN Reviewed notes: Nurses Notes, Medications, Allergies Allergies: Coded Allergies: NO KNOWN ALLERGIES (Unverified , 04/21/23) Home Meds Active Scripts Baclofen (Baclofen) 10 Mg Tab, 10 MG PO BID, #20 TAB Prov:CONCHA MICHEL 02/25/24 Ibuprofen (Ibuprofen) 800 Mg Tab, 1 TAB PO TID, #30 TAB Prov:CONCHA MICHEL 02/25/24 Lorazepam (ATIVAN TABLET) 0.5 Mg Tb, 1 TAB PO TID PRN, #30 TAB prn alcohol withdrawal symptoms Prov:BERTRAND SIU MD 02/17/24 Multiple Vitamin (Mvi Tab) 1 Tab Tb, 1 TAB PO DAILY, #30 TAB Prov:BERTRAND SIU MD 02/17/24 Folic Acid (Folic Acid) 1 Mg Tab, 1 MG PO DAILY, #30 TAB Prov:BERTRAND SIU MD 02/17/24 Thiamine HCl (Thiamine Hydrochloride) 100 Mg Tab, 100 MG PO DAILY, #30 TAB Prov:BERTRAND SIU MD 02/17/24 Chlordiazepoxide HCl (Chlordiazepoxide Hydrochl) 25 Mg Cap, 25 MG PO Q8HP PRN, #30 CAP prn alcohol withdrawal symptoms Prov:BERTRAND SIU MD 02/17/24 Information Source: Patient, Emergency Med Personnel Mode of Arrival: EMS Severity: Moderate Timing: Days Duration: Since onset Prehospital treatment: None Location: Back, (L) Leg Mechanism: Fall Associated signs and symtoms: None Past Medical History PAST MEDICAL HISTORY: Arthritis, HTN, Seizures Surgical History: Hysterectomy IMAGING TECH History: No Pertinent IMAGING TECH History Family History Family History: Reviewed,noncontributory to illness, Family hx of heart ellen Social History Smoker: Non-Smoker Alcohol: Heavy Drugs: Denies Drug Use Lives In: Home Constitutional: denies: chills, diaphoresis, fatigue, fever, malaise, sweats, weakness, others EENTM: denies: blurred vision, double vision, ear bleeding, ear discharge, ear drainage, ear pain, ear ringing, eye pain, eye redness, hearing loss, mouth pain, mouth swelling, nasal discharge, nose bleeding, nose congestion, nose pain, photophobia, tearing, throat pain, throat swelling, voice changes, others Respiratory: denies: cough, hemoptysis, orthopnea, SOB at rest, shortness of breath, SOB with excertion, stridor, wheezing, others Cardiovascular: denies: chest pain, dizzy spells, diaphoresis, Dyspnea on exertion, edema, irregular heart beat, left arm pain, lightheadedness, palpitations, PND, syncope, others Gastrointestinal: denies: abdomen distended, abdominal pain, blood streaked bowels, constipated, diarrhea, dysphagia, difficulty swallowing, hematemesis, melena, nausea, poor appetite, poor fluid intake, rectal bleeding, rectal pain, vomiting, others Genitourinary: denies: abnormal vagina bleeding, burning, dyspareunia, dysuria, flank pain, frequency, hematuria, incontinence, pain, , vagina discharge, urgency, others Neurological: denies: dizziness, fainting, headache, left sided numbness, left sided weakness, numbness, paresthesia, pre-existing deficit, right sided numbness, right sided weakness, seizure, speech problems, tingling, tremors, weakness, others Musculoskeletal: reports: back pain, muscle pain, others (LEFT LEG PAIN); denies: gout, joint pain, joint swelling, muscle stiffness, neck pain Integumetry: denies: bruises, change in color, change in hair/nails, dryness, laceration, lesions, lumps, rash, wounds, others Allergic/Immunocompromised: denies: Difficulty Healing, Frequent Infections, Hives, Itching, others Hematologic/Lymphatic: denies: anemia, blood clots, easy bleeding, easy bruising, swollen glands, others Endocrine: denies: excessive hunger, excessive sweating, excessive thirst, excessive urination, flushing, intolerance to cold, intolerance to heat, unexplained weight gain, unexplained weight loss, others Psychiatric: denies: anxiety, bipolar disorder, depression, hopeless, panic disorder, schizophrenia, sleepless, suicidal, others All Other Systems: Reviewed and Negative Physical Exam General Appearance: No Apparent Distress, Normal HEENT: Normal ENT Inspection, PERRL/EOMI Neck: Full Range of Motion, Non-Tender, Normal, Normal Inspection Respiratory: Chest Non-Tender, Lungs Clear, No Accessory Muscle Use, No Respiratory Distress, Normal Breath Sounds Cardiovascular: No Edema, No JVD, No Murmur, No Gallop, Normal Peripheral Pulses, Regular Rate/Rhythm Breast Exam: Deferred Gastrointestinal: No Organomegaly, Non Tender, No Pulsatile Mass, Normal Bowel Sounds, Soft Genitalia: Deferred Pelvic: Deferred Rectal: Deferred Extremities: No calf tenderness, Normal capillary refill, Normal inspection, Normal range of motion, Non-tender, No pedal edema Musculoskeletal : Location: Left Extremity Location: Back Apperance: Tenderness: Moderate (TENDERNESS AND MUSCLE SPASM ON LOWER BACK, NO BONY TENDERNESS, SWELLING AND DEFORMITY. 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 Was a procedure done?: No Differential Diagnosis Multiple Trauma: Fractures, Spine Injury, Abrasions, Contusion X-Ray, Labs, Meds, VS Vital Signs Date Time Temp Pulse Resp B/P (MAP) Pulse Ox O2 Delivery O2 Flow Rate FiO2 02/25/24 04:50 98.2 66 16 139/83 (101) 94 Current Medications Medications (Trade) Dose Ordered Sig/Alena Route Start Time Stop Time Status Last Admin Acetaminophen/ Hydrocodone Bitart ([place] 5/325MG Tab) 1 tab ONCE ONCE PO 02/25/24 06:30 02/25/24 06:31 DC 02/25/24 06:33 X-Ray, Labs, Meds, VS Comment EXTERNAL MEDICAL RECORDS REVIEWED: 02/17/24 FOR ETOH ABUSE INDEPENDENT HISTORIANS: [NONE] SOCIAL DETERMINANTS OF HEALTH: HEAVY ETOH LABS ORDERED: NONE REVIEWED AND INTERPRETED RESULTS: L-SPINE XR L-SPINE XR: INTERPRETED BY ME. NO ACUTE FINDINGS. NO FRACTURES OR DISLOCATION. DEGENERATIVE CHANGES NOTED FROM L5-S1. PENDING RADIOLOGIST REPORT. IMAGING ORDERED: L-SPINE XR TREATMENTS ORDERED: [place] 5/325 PO PROCEDURES PERFORMED: NONE CRITICAL CARE TIME: NONE BASED ON HISTORY OF PRESENT ILLNESS, AND PHYSICAL EXAM, PATIENT WILL BE DISCHARGED HOME. DISCUSSED PLAN FOR DISCHARGE HOME WITH RX MOTRIN AND BACLOFEN. MEDICATION WARNINGS GIVEN. SHARED DECISION MAKING: DISCUSSED WITH PATIENT THAT THEIR WORKUP WAS NORMAL. PATIENT INSTRUCTED TO FOLLOW UP WITH PRIMARY CARE PROVIDER IN 1-2 DAYS FOR RE- EVALUATION OF SYMPTOMS. PATIENT VERBALIZES UNDERSTANDING TO RETURN TO ED FOR NEW OR WORSENING SYMPTOMS OR IF FOLLOW UP WITH PCP CANNOT BE OBTAINED. PATIENT FEELS COMFORTABLE GOING HOME AT THIS TIME. ALL QUESTIONS ADDRESSED AT TIME OF DISCHARGE. WHEN XR REPORT CAME IN NOTING POSSIBLE LUCENCY THROUGH THE RIGHT L3 TRANSVERSE PROCESS, THE RADIOLOGIST RECOMMENDED CT FOR FURTHER EVALUATION. I ATTEMPTED TO CONTACT THE PATIENT BEFORE THEY LEFT THE ED, BUT THEY HAD ALREADY LEFT. CALLED PATIENT'S NUMBER ON FILE AND SPOKE WITH THE PATIENT'S SISTER, ADVISING THEM TO HAVE THE PATIENT COME BACK INTO THE ED FOR THE CT L-SPINE STUDY. Time of 1ST Reevaluation: 07:00 Reevaluation 1ST: Improved Patient Education/Counseling: Diagnosis, Treatment, Need For Follow Up Family Education/Counseling: Diagnosis, Treatment, Need For Follow Up Medical Screening: No EMC Exist At This Time Departure 1 Departure Time of Disposition: 07:00 Impression: Primary Impression: Low back strain Qualified Codes: S39.012A - Strain of muscle, fascia and tendon of lower back, initial encounter Additional Impressions: Degenerative disc disease at L5-S1 level Lumbar radiculopathy Disposition: HOME / SELF CARE / HOMELESS Condition: Stable Additional Instructions: FOLLOW-UP WITH PCP IN 1 TO 2 DAYS. TAKE MEDICATIONS PRESCRIBED. RETURN TO ED FOR ANY NEW OR WORSENING SYMPTOMS. e-Prescriptions Baclofen (Baclofen) 10 Mg Tab 10 MG PO BID, #20 TAB Prov: CONCHA MICHEL 02/25/24 Ibuprofen (Ibuprofen) 800 Mg Tab 1 TAB PO TID, #30 TAB Prov: CONCHA MICHEL 02/25/24 Discharged With: Self, Relative Critical Care Note Critical Care Time?: No Stability Stability form required: No Heart Score Heart Score: Heart Score Response (Comments) Value History N/A 0 EKG N/A 0 Age N/A 0 Risk Factors N/A 0 Troponin N/A 0 Total 0 I personally scribed for CONCHA MICHEL ([email or web address]) on 02/25/24 at 06:28. Enriqueta ctronically submitted by Miah Wheatley ([email or web address]). I personally scribed for CONCHA MICHEL ([email or web address]) on 02/25/24 at 06:43. Elect ronically submitted by Miah Wheatley ([email or web address]). I personally scribed for CONCHA MICHEL ([email or web address]) on 02/25/24 at 06:53. Electro nically submitted by Miah Wheatley ([email or web address]). CONCHA MICHEL Feb 25, 2024 06:28
[2024-02-25] MEDS: HYDROcodone-ACET 5/325MG TAB PO ONE (06:33)
[2024-02-25] MEDS ORDERED: IBUP-1456 PO (06:53)
[2024-02-25] MEDS ORDERED: BACL10TA PO (06:53)
--- NOTE | 2024-02-25 07:05 | DVH ---
INDICATION: FALL COMPARISON: None TECHNIQUE: 2 views of the lumbar spine were obtained. FINDINGS: There is a lucency through the right L3 transverse process. No evidence of high-grade compression def ormity. The lumbar vertebral alignment is normal. There is intervertebral disc space narrowing at L5-S1. Facet arthropathy at L5-S1. The paravertebral soft tissues are grossly unremarkable. IMPRESSION: 1. Lucency through the right L3 transverse process for which a fracture is not excluded. A CT of the lumbar spine is recommended for further evaluation. 2. Degenerative changes in the lower lumbar spine.
== END 2024-02-25 06:58 | disposition home or self-care (01) ==
LOC: EDBD 04:33 → ER 04:33
DX: S39.012A Strain of muscle, fascia and tendon of lower back, initial encounter (principal); M51.16 Intervertebral disc disorders with radiculopathy, lumbar region; M53.3 Sacrococcygeal disorders, not elsewhere classified; M47.26 Other spondylosis with radiculopathy, lumbar region; I10 Essential (primary) hypertension; R56.9 Unspecified convulsions; M19.90 Unspecified osteoarthritis, unspecified site; Z90.710 Acquired absence of both cervix and uterus; W17.89XA Other fall from one level to another, initial encounter; Y93.89 Activity, other specified; Y92.009 Unspecified place in unspecified non-institutional (private) residence as the place of occurrence of the external cause; Y99.8 Other external cause status
CPT/HCPCS: 72100

== ENCOUNTER 2024-02-25 08:10 | Emergency (ER) | payer MEDICAID ==
[~2024-02-25] VITALS: Ht 152.4 cm; Wt 71.3 kg
[~2024-02-25 08:10] MED LIST changes: +BACL10TA PO; +IBUP-1456 PO
--- NOTE | 2024-02-25 08:49 | ED.PDOC ---
Juan M. trauma (HPI) HPI Comments A 58 YEAR OLD FEMALE PRESENTS TO THE ED WITH CHIEF COMPLAINT OF FALL. PATIENT REPORTS THAT SHE HAD BEEN SLEEPING ON A TOP BUNK AT HOME, BUT WHEN GETTING OUT OF BED SHE HAD ACCIDENTALLY FELL OFF OF IT AND INJURED HER LEFT LOWER BACK YESTERDAY MORNING. PATIENT RELAYS THAT THE PAIN RADIATES DOWN HER LEFT THIGH. PATIENT STATES SHE ATTEMPTED TO RIDE HER HORSE YESTERDAY, BUT WAS NOT ABLE TO LIFT HER LEG UP. PATIENT REPORTS SHE WAS CALLED BACK TO THE ED HAVE A CT PERFORMED TO RULE OUT FRACTURE OF HER SPINE. PATIENT DENIES ANY SADDLE ANESTHESIA, NUMBNESS, WEAKNESS, HEAD INJURY, LOC, DIZZINESS, OR NECK INJURY. NO OTHER SYMPTOMS REPORTED AT THIS TIME OF CARE. Chief Complaint: Fall Injury Time Seen by MD: 08:28 Primary Care Provider: UNKNOWN Reviewed notes: Nurses Notes, Medications, Allergies Allergies: Coded Allergies: NO KNOWN ALLERGIES (Unverified , 04/21/23) Home Meds Active Scripts Baclofen (Baclofen) 10 Mg Tab, 10 MG PO BID, #20 TAB Prov:CONCHA MICHEL 02/25/24 Ibuprofen (Ibuprofen) 800 Mg Tab, 1 TAB PO TID, #30 TAB Prov:CONCHA MICHEL 02/25/24 Lorazepam (ATIVAN TABLET) 0.5 Mg Tb, 1 TAB PO TID PRN, #30 TAB prn alcohol withdrawal symptoms Prov:BERTRAND SIU MD 02/17/24 Multiple Vitamin (Mvi Tab) 1 Tab Tb, 1 TAB PO DAILY, #30 TAB Prov:BERTRAND SIU MD 02/17/24 Folic Acid (Folic Acid) 1 Mg Tab, 1 MG PO DAILY, #30 TAB Prov:BERTRAND SIU MD 02/17/24 Thiamine HCl (Thiamine Hydrochloride) 100 Mg Tab, 100 MG PO DAILY, #30 TAB Prov:BERTRAND SIU MD 02/17/24 Chlordiazepoxide HCl (Chlordiazepoxide Hydrochl) 25 Mg Cap, 25 MG PO Q8HP PRN, #30 CAP prn alcohol withdrawal symptoms Prov:BERTRAND SIU MD 02/17/24 Information Source: Patient Mode of Arrival: Ambulatory Severity: Moderate Timing: Days Duration: Since onset Prehospital treatment: None Location: Back Location of laceration: None Mechanism: Fall Associated signs and symtoms: None Past Medical History PAST MEDICAL HISTORY: Arthritis, HTN, Seizures Surgical History: Hysterectomy INVESTIGATOR CLAIMS History: No Pertinent INVESTIGATOR CLAIMS History Family History Family History: Reviewed,noncontributory to illness, Family hx of heart lelen Social History Smoker: Non-Smoker Alcohol: Heavy Drugs: Denies Drug Use Lives In: Home Constitutional: denies: chills, diaphoresis, fatigue, fever, malaise, sweats, weakness, others EENTM: denies: blurred vision, double vision, ear bleeding, ear discharge, ear drainage, ear pain, ear ringing, eye pain, eye redness, hearing loss, mouth pain, mouth swelling, nasal discharge, nose bleeding, nose congestion, nose pain, photophobia, tearing, throat pain, throat swelling, voice changes, others Respiratory: denies: cough, hemoptysis, orthopnea, SOB at rest, shortness of breath, SOB with excertion, stridor, wheezing, others Cardiovascular: denies: chest pain, dizzy spells, diaphoresis, Dyspnea on exertion, edema, irregular heart beat, left arm pain, lightheadedness, palpitations, PND, syncope, others Gastrointestinal: denies: abdomen distended, abdominal pain, blood streaked bowels, constipated, diarrhea, dysphagia, difficulty swallowing, hematemesis, melena, nausea, poor appetite, poor fluid intake, rectal bleeding, rectal pain, vomiting, others Genitourinary: denies: abnormal vagina bleeding, burning, dyspareunia, dysuria, flank pain, frequency, hematuria, incontinence, pain, , vagina discharge, urgency, others Neurological: denies: dizziness, fainting, headache, left sided numbness, left sided weakness, numbness, paresthesia, pre-existing deficit, right sided numbness, right sided weakness, seizure, speech problems, tingling, tremors, weakness, others Musculoskeletal: reports: back pain, muscle pain; denies: gout, joint pain, joint swelling, muscle stiffness, neck pain, others Integumetry: denies: bruises, change in color, change in hair/nails, dryness, laceration, lesions, lumps, rash, wounds, others Allergic/Immunocompromised: denies: Difficulty Healing, Frequent Infections, Hives, Itching, others Hematologic/Lymphatic: denies: anemia, blood clots, easy bleeding, easy bruising, swollen glands, others Endocrine: denies: excessive hunger, excessive sweating, excessive thirst, excessive urination, flushing, intolerance to cold, intolerance to heat, unexplained weight gain, unexplained weight loss, others Psychiatric: denies: anxiety, bipolar disorder, depression, hopeless, panic disorder, schizophrenia, sleepless, suicidal, others All Other Systems: Reviewed and Negative Physical Exam General Appearance: No Apparent Distress, Normal HEENT: Normal ENT Inspection, PERRL/EOMI Neck: Full Range of Motion, Non-Tender, Normal, Normal Inspection Respiratory: Chest Non-Tender, Lungs Clear, No Accessory Muscle Use, No Respiratory Distress, Normal Breath Sounds Cardiovascular: No Edema, No JVD, No Murmur, No Gallop, Normal Peripheral Pulses, Regular Rate/Rhythm Breast Exam: Deferred Gastrointestinal: No Organomegaly, Non Tender, No Pulsatile Mass, Normal Bowel Sounds, Soft Genitalia: Deferred Pelvic: Deferred Rectal: Deferred Extremities: No calf tenderness, Normal capillary refill, Normal inspection, Normal range of motion, Non-tender, No pedal edema Musculoskeletal : Location: Bilateral Apperance: Tenderness: Moderate (TENDERNESS LOWER BACK, NO BONY TENDERNESS, SWELLING AND DEFORMITY. 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 Was a procedure done?: No Differential Diagnosis Multiple Trauma: Fractures, Contusion X-Ray, Labs, Meds, VS Vital Signs Date Time Temp Pulse Resp B/P (MAP) Pulse Ox O2 Delivery O2 Flow Rate FiO2 02/25/24 08:50 70 16 97 Room Air 02/25/24 08:50 98.2 70 16 155/80 (105) 97 98.2 02/25/24 08:21 98.2 70 16 155/80 (105) 97 CT L-SPINE: FINDINGS: The alignment and curvature of the lumbar spine are preserved. The vertebral bodies are normal in height. There is intervertebral disc space narrowing and desiccation at L5-S1. The intervertebral disc spaces are otherwise maintained. There are broad-based posterior disc bulges at L3-L4, L4-L5 and L5-S1. Bilateral neural foraminal stenosis at L5-S1. There is no evidence of significant spinal stenosis. The prevertebral soft tissues are unremarkable. Paraspinal muscles are also within normal limits. There is fat stranding in the ventral abdominal cavity also seen on prior CT of the abdomen pelvis from 02/12/2023. IMPRESSION: 1. No fracture or malalignment in the lumbar spine. 2. Degenerative changes in the lumbar spine. X-Ray, Labs, Meds, VS Comment EXTERNAL MEDICAL RECORDS REVIEWED: 02/25/24 FOR LOW BACK STRAIN INDEPENDENT HISTORIANS: [NONE] SOCIAL DETERMINANTS OF HEALTH: ETOH LABS ORDERED: NONE REVIEWED AND INTERPRETED RESULTS: NONE IMAGING ORDERED: CT L-SPINE TREATMENTS ORDERED: NONE PROCEDURES PERFORMED: NONE BASED ON HISTORY OF PRESENT ILLNESS, AND PHYSICAL EXAM, PATIENT WILL BE DISCHARGED HOME. DISCUSSED PLAN FOR DISCHARGE HOME WITH RX IBUPROFEN AND BACLOFEN. MEDICATION WARNINGS GIVEN. SHARED DECISION MAKING: DISCUSSED WITH PATIENT THAT THEIR WORKUP WAS NORMAL. PATIENT INSTRUCTED TO FOLLOW UP WITH PRIMARY CARE PROVIDER IN 1-2 DAYS FOR RE- EVALUATION OF SYMPTOMS. PATIENT VERBALIZES UNDERSTANDING TO RETURN TO ED FOR NEW OR WORSENING SYMPTOMS OR IF FOLLOW UP WITH PCP CANNOT BE OBTAINED. PATIENT FEELS COMFORTABLE GOING HOME AT THIS TIME. ALL QUESTIONS ADDRESSED AT TIME OF DISCHARGE. Images Reviewed?: Images reviewed and evaluated by me Time of 1ST Reevaluation: 09:30 Reevaluation 1ST: Improved Patient Education/Counseling: Diagnosis, Treatment, Need For Follow Up Family Education/Counseling: Diagnosis, Treatment, No Family Present Medical Screening: No EMC Exist At This Time Departure 1 Departure Time of Disposition: 09:30 Impression: Primary Impression: Low back strain Qualified Codes: S39.012D - Strain of muscle, fascia and tendon of lower back, subsequent encounter Additional Impressions: Degenerative disc disease at L5-S1 level Lumbar radiculopathy Disposition: HOME / SELF CARE / HOMELESS Condition: Stable Additional Instructions: FOLLOW-UP WITH PCP IN 1 TO 2 DAYS. TAKE MEDICATIONS PRESCRIBED. RETURN TO ED FOR ANY NEW OR WORSENING SYMPTOMS. Discharged With: Self, Relative Critical Care Note Critical Care Time?: No Stability Stability form required: No Heart Score Heart Score: Heart Score Response (Comments) Value History N/A 0 EKG N/A 0 Age N/A 0 Risk Factors N/A 0 Troponin N/A 0 Total 0 I personally scribed for CONCHA MICHEL ([email or web address]) on 02/25/24 at 08:49. Electronically submitted by Miah Wheatley ([email or web address]). I personally scribed for CONCHA MICHEL ([email or web address]) on 02/25/24 at 09:00. E lectronically submitted by Miah Wheatley ([email or web address]). CONCHA MICHEL Feb 25, 2024 08:49
[2024-02-25 08:50] VITALS: BP 155/80; PULSE 70; RESP 16; TEMP 98.2; O2SAT 97
--- NOTE | 2024-02-25 08:56 | DVH ---
CLINICAL INDICATION: 58 years old, Female; FALL, PER X-RAY, POSSIBLE FX. TECHNIQUE: CT of the lumbar spine was performed without intravenous contrast. Sagittal and coronal re formatted images are provided. All CT scans at this medical facility are performed using dose modula tion techniques as appropriate to a performed exam including the following: Automated exposure contro l was utilized; adjustment of the MA and/or KV according to patient size; and use of iterative recons truction technique. COMPARISON: Radiographs of the lumbar spine performed same date. CT Dose: CTDI volume is 22.27 mGy. Dose-length product is 685.0 mGy*cm FINDINGS: The alignment and curvature of the lumbar spine are preserved. The vertebral bodies are normal in hei ght. There is intervertebral disc space narrowing and desiccation at L5-S1. The intervertebral disc spaces are otherwise maintained. There are broad-based posterior disc bulges at L3-L4, L4-L5 and L5-S 1. Bilateral neural foraminal stenosis at L5-S1. There is no evidence of significant spinal stenosis. The prevertebral soft tissues are unremarkable. Paraspinal muscles are also within normal limits. There is fat stranding in the ventral abdominal cavity also seen on prior CT of the abdomen pelvis fr om 02/12/2023. IMPRESSION: 1. No fracture or malalignment in the lumbar spine. 2. Degenerative changes in the lumbar spine.
== END 2024-02-25 09:24 | disposition home or self-care (01) ==
LOC: ER 08:10
DX: S39.012A Strain of muscle, fascia and tendon of lower back, initial encounter (principal); M51.379 Other intervertebral disc degeneration, lumbosacral region without mention of lumbar back pain or lower extremity pain; M54.16 Radiculopathy, lumbar region; I10 Essential (primary) hypertension; M19.90 Unspecified osteoarthritis, unspecified site; F10.90 Alcohol use, unspecified, uncomplicated; Z90.710 Acquired absence of both cervix and uterus; Z79.1 Long term (current) use of non-steroidal anti-inflammatories (NSAID); Z79.899 Other long term (current) drug therapy; W06.XXXA Fall from bed, initial encounter; Y93.89 Activity, other specified; Y92.098 Other place in other non-institutional residence as the place of occurrence of the external cause; Y99.8 Other external cause status; Y90.0 Blood alcohol level of less than 20 mg/100 ml
CPT/HCPCS: 72131

== ENCOUNTER 2024-02-26 02:19 | Emergency (ER) | payer MEDICAID ==
[~2024-02-26] VITALS: Ht 152.4 cm; Wt 68.0 kg
[2024-02-26 02:20] VITALS: BP 159/88; PULSE 88; RESP 24; O2SAT 95
--- NOTE | 2024-02-26 02:35 | ED.PDOC ---
Juan M. trauma (HPI) HPI Comments 58-year-old female who came to ER via EMS due to fall injury. Patient has history of alcoholism. Was seen twice yesterday for fall injury from falling off her bed and complaining of lower back pains. Patient had another fall again where she tripped off her dog and fell face first. No loss of consciousness noted. Patient concerned why she keeps falling all the time. 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 Allergies: Coded Allergies: NO KNOWN ALLERGIES (Unverified , 04/21/23) Home Meds Active Scripts Baclofen (Baclofen) 10 Mg Tab, 10 MG PO BID, #20 TAB Prov:CONCHA MICHEL 02/25/24 Ibuprofen (Ibuprofen) 800 Mg Tab, 1 TAB PO TID, #30 TAB Prov:CONCHA MICHEL 02/25/24 Lorazepam (ATIVAN TABLET) 0.5 Mg Tb, 1 TAB PO TID PRN, #30 TAB prn alcohol withdrawal symptoms Prov:BERTRAND SIU MD 02/17/24 Multiple Vitamin (Mvi Tab) 1 Tab Tb, 1 TAB PO DAILY, #30 TAB Prov:BERTRAND SIU MD 02/17/24 Folic Acid (Folic Acid) 1 Mg Tab, 1 MG PO DAILY, #30 TAB Prov:BERTRAND SIU MD 02/17/24 Thiamine HCl (Thiamine Hydrochloride) 100 Mg Tab, 100 MG PO DAILY, #30 TAB Prov:BERTRAND SIU MD 02/17/24 Chlordiazepoxide HCl (Chlordiazepoxide Hydrochl) 25 Mg Cap, 25 MG PO Q8HP PRN, #30 CAP prn alcohol withdrawal symptoms Prov:BERTRAND SIU MD 02/17/24 Information Source: Patient, Emergency Med Personnel Mode of Arrival: EMS Severity: Mild Timing: Hours Duration: Since onset Prehospital treatment: None Location: Face Mechanism: Fall Associated signs and symtoms: ETOH, Headache Past Medical History PAST MEDICAL HISTORY: Arthritis, HTN, Seizures Surgical History: Hysterectomy 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 INSTALL 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: No 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 Family History Family History: Reviewed,noncontributory to illness, Family hx of heart ellen Social History Smoker: Non-Smoker Alcohol: Heavy Drugs: Denies Drug Use Lives In: Home Constitutional: reports: weakness; denies: chills, diaphoresis, fatigue, fever, malaise, sweats, others EENTM: denies: blurred vision, double vision, ear bleeding, ear discharge, ear drainage, ear pain, ear ringing, eye pain, eye redness, hearing loss, mouth pain, mouth swelling, nasal discharge, nose bleeding, nose congestion, nose pain, photophobia, tearing, throat pain, throat swelling, voice changes, others Respiratory: denies: cough, hemoptysis, orthopnea, SOB at rest, shortness of breath, SOB with excertion, stridor, wheezing, others Cardiovascular: denies: chest pain, dizzy spells, diaphoresis, Dyspnea on exertion, edema, irregular heart beat, left arm pain, lightheadedness, palpitations, PND, syncope, others Gastrointestinal: denies: abdomen distended, abdominal pain, blood streaked bowels, constipated, diarrhea, dysphagia, difficulty swallowing, hematemesis, melena, nausea, poor appetite, poor fluid intake, rectal bleeding, rectal pain, vomiting, others Genitourinary: denies: abnormal vagina bleeding, burning, dyspareunia, dysuria, flank pain, frequency, hematuria, incontinence, pain, , vagina discharge, urgency, others Neurological: reports: headache; denies: dizziness, fainting, left sided numbness, left sided weakness, numbness, paresthesia, pre-existing deficit, right sided numbness, right sided weakness, seizure, speech problems, tingling, tremors, weakness, others Musculoskeletal: denies: back pain, gout, joint pain, joint swelling, muscle pain, muscle stiffness, neck pain, others Integumetry: denies: bruises, change in color, change in hair/nails, dryness, laceration, lesions, lumps, rash, wounds, others Allergic/Immunocompromised: denies: Difficulty Healing, Frequent Infections, Hives, Itching, others Hematologic/Lymphatic: denies: anemia, blood clots, easy bleeding, easy bruising, swollen glands, others Endocrine: denies: excessive hunger, excessive sweating, excessive thirst, excessive urination, flushing, intolerance to cold, intolerance to heat, unexplained weight gain, unexplained weight loss, others Psychiatric: denies: anxiety, bipolar disorder, depression, hopeless, panic disorder, schizophrenia, sleepless, suicidal, others Physical Exam General Appearance: No Apparent Distress, Normal HEENT: Normal ENT Inspection, Pharynx Normal, TMs Normal Neck: Full Range of Motion, Non-Tender, Normal, Normal Inspection Respiratory: Chest Non-Tender, Lungs Clear, No Accessory Muscle Use, No Respiratory Distress, Normal Breath Sounds Cardiovascular: No Edema, No JVD, No Murmur, No Gallop, Normal Peripheral Pulses, Regular Rate/Rhythm Breast Exam: Deferred Gastrointestinal: No Organomegaly, Non Tender, No Pulsatile Mass, Normal Bowel Sounds, Soft Genitalia: Deferred Pelvic: Deferred Rectal: Deferred Extremities: No calf tenderness, Normal capillary refill, Normal inspection, Normal range of motion, Non-tender, No pedal edema Musculoskeletal : Apperance: Normal Neurologic: Alert, fire extinguisher repairer II-XII nml as Tested, No Motor Deficits, Normal Affect, Normal Mood, No Sensory Deficits Cerebellar Function: Normal Reflexes: Normal Skin: Dry, Normal Color, Warm Lymphatic: No Adenopathy Was a procedure done? Was a procedure done?: No Differential Diagnosis Multiple Trauma: Closed Head Injury, Fractures X-Ray, Labs, Meds, VS Vital Signs Date Time Temp Pulse Resp B/P (MAP) Pulse Ox O2 Delivery O2 Flow Rate FiO2 02/26/24 02:20 98.0 88 24 159/88 (111) 95 PROCEDURE(s): HWOCT - HEAD WITHOUT CONTRAST REASON: fall ORDER NUMBER(s): [id number], ACCESSION NUMBER(s): [id number] Examination: HWOCT CLINICAL INDICATION: Fall. COMPARISON: None. CONTRAST USED: None. TECHNIQUE: The examination was performed obtaining 5 mm slices without contrast. CT scan was done according to ALARA (As Low as Reasonably Achievable). Multiplanar reconstructions were obtained. FINDINGS: SUPRATENTORIAL BRAIN: Cerebral Hemispheres: There is no midline shift or mass effect, intra or extra- axial fluid collections or hemorrhage. Prominent sulcal - gyral pattern and cisternal spaces in both cerebral hemis pheres suggestive of cerebral atrophy, likely age-related. Periventricular White Matter/Basal Ganglia: Diffuse hypodensities noted in periventricular deep white matter of bilateral cerebral hemispheres, suggestive of chronic periventricular ischemic changes. No abnormal areas of altered attenuation within the basal ganglia. POSTERIOR FOSSA: The brainstem is unremarkable. Prominent cerebellar folia suggestive of cerebellar atrophy, likely age-related. VENTRICULAR SYSTEM: The ventricular system is normal in size. There is no evidence of hydrocephalus or transependymal flow of cerebrospinal fluid. SKULL BASE AND PARASELLAR REGION: The skull base is normal with no parasellar masses or abnormalities identified. CALVARIUM AND SCALP REGION: No abnormality is seen. PARANASAL SINUSES: No significant inflammatory changes are identified in the visualized paranasal sinuses. Dental prostheses noted giving adjacent streak artifacts. IMPRESSION: 1. No obvious intracranial injury or skull vault fracture. 2. Chronic periventricular ischemic changes. 3. Cerebral and cerebellar atrophy, likely age-related. 4. Chronic and/or ancillary findings as described above. 5. Advised further evaluation with MRI brain without contrast if clinically indicated. Time of 1ST Reevaluation: 02:31 Reevaluation 1ST: Unchanged Patient Education/Counseling: Diagnosis, Treatment Family Education/Counseling: No Family Present Departure 1 Departure Time of Disposition: 05:39 (Patient with a history of alcoholism who felt today. CT is benign.) Impression: Primary Impression: Alcohol intoxication Qualified Codes: F10.920 - Alcohol use, unspecified with intoxication, uncomplicated Additional Impression: Fall Qualified Codes: W19.XXXA - Unspecified fall, initial encounter Disposition: 07 LEFT AWOL/ELOPED Condition: Fair Critical Care Note Critical Care Time?: No Stability Stability form required: No Heart Score Heart Score: Heart Score Response (Comments) Value History N/A 0 EKG N/A 0 Age N/A 0 Risk Factors N/A 0 Troponin N/A 0 Total 0 I personally scribed for JON RUBY MD ([email or web address]) on 02/26/24 at 02:35. Electronically submitted by Ez Sevilla ([email or web address]). I personally scribed for JON RUBY MD ([email or web address]) on 02/26/24 at 03:35. Electr onically submitted by Ez Sevilla ([email or web address]). JON RUBY MD Feb 26, 2024 02:35
--- NOTE | 2024-02-26 03:27 | DVH ---
Examination: HWOCT CLINICAL INDICATION: Fall. COMPARISON: None. CONTRAST USED: None. TECHNIQUE: The examination was performed obtaining 5 mm slices without contrast. CT scan was done ac cording to ALARA (As Low as Reasonably Achievable). Multiplanar reconstructions were obtained. FINDINGS: SUPRATENTORIAL BRAIN: Cerebral Hemispheres: There is no midline shift or mass effect, intra or extra-axial fluid collection s or hemorrhage. Prominent sulcal - gyral pattern and cisternal spaces in both cerebral hemispheres suggestive of cere bral atrophy, likely age-related. Periventricular White Matter/Basal Ganglia: Diffuse hypodensities noted in periventricular deep white matter of bilateral cerebral hemispheres, suggestive of chronic periventricular ischemic changes. No abnormal areas of altered attenuation within the basal ganglia. POSTERIOR FOSSA: The brainstem is unremarkable. Prominent cerebellar folia suggestive of cerebellar atrophy, likely age-related. VENTRICULAR SYSTEM: The ventricular system is normal in size. There is no evidence of hydrocephalus o r transependymal flow of cerebrospinal fluid. SKULL BASE AND PARASELLAR REGION: The skull base is normal with no parasellar masses or abnormalitie s identified. CALVARIUM AND SCALP REGION: No abnormality is seen. PARANASAL SINUSES: No significant inflammatory changes are identified in the visualized paranasal si nuses. Dental prostheses noted giving adjacent streak artifacts. IMPRESSION: 1. No obvious intracranial injury or skull vault fracture. 2. Chronic periventricular ischemic changes. 3. Cerebral and cerebellar atrophy, likely age-related. 4. Chronic and/or ancillary findings as described above. 5. Advised further evaluation with MRI brain without contrast if clinically indicated. Electronically Signed 02/26/2024 03:26 Kunal Ansari
[2024-02-26] MEDS ORDERED: SODIUM CHLORIDE 0.9% 1,000 ML IVB ONE (06:30)
[2024-02-27] MEDS ORDERED: MULT-1018 PO (12:32)
[2024-02-27] MEDS ORDERED: THIA100T10 GT (12:32)
== END 2024-02-26 04:30 | disposition left against medical advice (07) ==
LOC: ER 02:19 → EDBD 02:19 → ER 04:30
DX: F10.129 Alcohol abuse with intoxication, unspecified (principal); M54.50 Low back pain, unspecified; R51.9 Headache, unspecified; I10 Essential (primary) hypertension; M19.90 Unspecified osteoarthritis, unspecified site; Z90.710 Acquired absence of both cervix and uterus; Z79.1 Long term (current) use of non-steroidal anti-inflammatories (NSAID); Z79.899 Other long term (current) drug therapy; W01.0XXA Fall on same level from slipping, tripping and stumbling without subsequent striking against object, initial encounter; Y93.89 Activity, other specified; Y92.89 Other specified places as the place of occurrence of the external cause; Y99.8 Other external cause status; Y90.0 Blood alcohol level of less than 20 mg/100 ml
CPT/HCPCS: 70450

== ENCOUNTER 2024-02-27 10:17 | Emergency (ER) | payer MEDICAID ==
[~2024-02-27] VITALS: Ht 154.9 cm; Wt 54.5 kg
[2024-02-27 10:56] VITALS: BP 131/70; PULSE 88; RESP 18; TEMP 98.1; O2SAT 95
--- NOTE | 2024-02-27 10:56 | ED.PDOC ---
History of Present Illness HPI Comments 58 y/o F, with Hx of arthritis, HTN, seizures, and alcohol abuse, is BIBA for c/o dizziness, back pain, and abrasion wound to face, today. Per EMS report, patient was brought, due to still endorsing on having facial pain, chronic back pain and recurrent falls. Patient denies having alchol but smell of alcohol. Patient presented overnight for the same issue earlier in the morning but eloped. Patient was noted by EMS staff to have admitted to drinking heavy amounts of vodka, this morning, following leaving the hospital. She denies having any headache, weakness, facial pain, or other associated symptoms or modifiers at this time. She denies weakness. Denies modifying factors. I am unclear as to what she is requesting Chief Complaint: Back Pain Time Seen by MD: 10:35 Primary Care Provider: UNKNOWN Reviewed Notes: Nurses Notes, Medications, Allergies Allergies: Coded Allergies: NO KNOWN ALLERGIES (Unverified , 04/21/23) Home Meds Active Scripts Baclofen (Baclofen) 10 Mg Tab, 10 MG PO BID, #20 TAB Prov:CONCHA MICHEL 02/25/24 Ibuprofen (Ibuprofen) 800 Mg Tab, 1 TAB PO TID, #30 TAB Prov:CONCHA MICHEL 02/25/24 Lorazepam (ATIVAN TABLET) 0.5 Mg Tb, 1 TAB PO TID PRN, #30 TAB prn alcohol withdrawal symptoms Prov:BERTRAND SIU MD 02/17/24 Multiple Vitamin (Mvi Tab) 1 Tab Tb, 1 TAB PO DAILY, #30 TAB Prov:BERTRAND SIU MD 02/17/24 Folic Acid (Folic Acid) 1 Mg Tab, 1 MG PO DAILY, #30 TAB Prov:BERTRAND SIU MD 02/17/24 Thiamine HCl (Thiamine Hydrochloride) 100 Mg Tab, 100 MG PO DAILY, #30 TAB Prov:BERTRAND SIU MD 02/17/24 Chlordiazepoxide HCl (Chlordiazepoxide Hydrochl) 25 Mg Cap, 25 MG PO Q8HP PRN, #30 CAP prn alcohol withdrawal symptoms Prov:BERTRAND SUI MD 02/17/24 Information Source: Patient, Emergency Med Personnel Mode of Arrival: EMS Severity: Moderate Timing: Hours Duration: Since onset Prehospital treatment: 12 Lead EKG, Top Carrier Past Medical History PAST MEDICAL HISTORY: Arthritis, HTN, Seizures Surgical History: Hysterectomy 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 Family History Family History: Reviewed,noncontributory to illness, Family hx of heart ellen Social History Smoker: Non-Smoker Alcohol: Heavy Drugs: Denies Drug Use Lives In: Home Neurological: reports: dizziness Musculoskeletal: reports: back pain Integumetry: reports: wounds (abrasion wound to bridge of nose ) All Other Systems: Reviewed and Negative Physical Exam General Appearance: No Apparent Distress, Normal, Other (alcohol odor) HEENT: Normal ENT Inspection, Pharynx Normal, TMs Normal Neck: Full Range of Motion, Non-Tender, Normal, Normal Inspection Respiratory: Chest Non-Tender, Lungs Clear, No Accessory Muscle Use, No Respiratory Distress, Normal Breath Sounds Cardiovascular: No Edema, No JVD, No Murmur, No Gallop, Normal Peripheral Pulses, Regular Rate/Rhythm Breast Exam: Deferred Gastrointestinal: No Organomegaly, Non Tender, No Pulsatile Mass, Normal Bowel Sounds, Soft Genitalia: Deferred Pelvic: Deferred Rectal: Deferred Extremities: No calf tenderness, Normal capillary refill, Normal inspection, Normal range of motion, Non-tender, No pedal edema Musculoskeletal : Apperance: Normal Neurologic: Alert, microgrinder 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 Was a procedure done?: No Differential Dx Considerations may include: Alcohol intoxication, abrasion, contusions, closed head injury, intracranial bleed, fractures X-Ray, Labs, Meds, VS Vital Signs Date Time Temp Pulse Resp B/P (MAP) Pulse Ox O2 Delivery O2 Flow Rate FiO2 02/27/24 10:56 98.1 88 18 131/70 (90) 95 98.1 02/27/24 10:23 88 18 02/27/24 10:23 98.1 88 18 131/76 (94) 95 Lab Test 02/27/24 11:06 02/27/24 10:57 Range/Units White Blood Count 9.4 4.4-10.8 10^3/uL Red Blood Count 2.96 L 4.0-5.20 10^6/uL Hemoglobin 11.8 L 12.2-16.2 g/dL Hematocrit 35.5 L 36.0-46.0 % Mean Corpuscular Volume 120.0 H 80.0-100.0 fL Mean Corpuscular Hemoglobin 40.0 H 28.0-32.0 pg Mean Corpuscular Hemoglobin Concent 33.3 32.0-36.0 g/dL Red Cell Distribution Width 17.9 H 11.8-14.3 % Platelet Count 410 140-450 10^3/uL Mean Platelet Volume 7.6 6.9-10.8 fL Neutrophils (%) (Auto) 74.3 37.0-80.0 % Lymphocytes (%) (Auto) 15.1 10.0-50.0 % Monocytes (%) (Auto) 7.0 0.0-12.0 % Eosinophils (%) (Auto) 3.2 0.0-7.0 % Basophils (%) (Auto) 0.4 0.0-2.0 % Neutrophils # (Auto) 7.0 1.6-8.6 10 ^3/uL Lymphocytes # (Auto) 1.4 0.4-5.4 10 ^3/uL Monocytes # (Auto) 0.7 0-1.3 10 ^3/uL Eosinophils # (Auto) 0.3 0-0.8 10 ^3/uL Basophils # (Auto) 0 0-0.2 10 ^3/uL Nucleated Red Blood Cells 0.0 % Sodium Level 141 136-145 mmol/L Potassium Level 4.3 3.5-5.1 mmol/L Chloride Level 107 98-107 mmol/L Carbon Dioxide Level 27 20-31 mmol/L Anion Gap 7 5-15 Blood Urea Nitrogen < 5 L 9-23 mg/dL Creatinine 0.70 0.550-1.02 mg/dL Glomerular Filtration Rate Calc 100 >90 mL/min BUN/Creatinine Ratio 7.1 L 10.0-20.0 Serum Glucose 107 H 74-106 mg/dL Calcium Level 10.0 8.7-10.4 mg/dL Total Bilirubin 0.5 0.2-1.0 mg/dL Aspartate Amino Transferase (AST) 123 H 13-40 U/L Alanine Aminotransferase (ALT) 30 7-40 U/L Alkaline Phosphatase 240 H 46-116 U/L Total Protein 7.8 5.7-8.2 g/dL Albumin 4.3 3.2-4.8 g/dL Plasma/Serum Blood Alcohol 70.3 H <10 mg/dL Urine Color Colorless Yellow Urine Clarity Clear Clear Urine pH 6.5 5.0-9.0 Urine Specific [place] 1.004 1.001-1.035 Urine Protein Negative Negative Urine Ketones Negative Negative Urine Blood Negative Negative /uL Urine Nitrite Negative Negative Urine Bilirubin Negative Negative Urine Urobilinogen Normal Negative mg/dL Urine Leukocyte Esterase Negative Negative /uL Urine RBC 1 0 - 4 /hpf Urine WBC 2 0 - 5 /hpf Urine Squamous Epithelial Cells Few <5 /hpf Urine Bacteria None seen None Seen /hpf Urine Glucose Normal Normal mg/dL Urine Opiates Screen Neg NEGATIVE Urine Fentanyl Screen Neg NEGATIVE Urine Barbiturates Screen Neg NEGATIVE Urine Phencyclidine Screen Neg NEGATIVE Urine Amphetamines Screen Neg NEGATIVE Urine Benzodiazepines Screen Pos NEGATIVE Urine Cocaine Screen Neg NEGATIVE Urine Cannabinoids Screen Neg NEGATIVE Time of 1ST Reevaluation: 11:05 Reevaluation 1ST: Unchanged Patient Education/Counseling: Diagnosis, Treatment Family Education/Counseling: No Family Present Departure 1 Departure Time of Disposition: 12:25 Impression: Primary Impression: Facial abrasion Additional Impressions: Alcohol intoxication Transaminitis Disposition: 01 HOME / SELF CARE / HOMELESS Condition: Good Discharged With: Self Critical Care Note Critical Care Time?: No Stability Stability form required: No Heart Score Heart Score: Heart Score Response (Comments) Value History N/A 0 EKG N/A 0 Age N/A 0 Risk Factors N/A 0 Troponin N/A 0 Total 0 I personally scribed for KEEGAN MÉNDEZ MD ([email or web address]) on 02/27/24 at 10:56. Electronically submitted by Giovanni Kessler ([email or web address]). KEEGAN MÉNDEZ MD Feb 27, 2024 10:56
[2024-02-27 11:17] LABS: Urine Bacteria None Seen /hpf (None Seen)
[2024-02-27 11:22] LABS: Basophils # (auto) 0 10 ^3/uL (0-0.2); Eosinophils # (auto) 0.3 10 ^3/uL (0-0.8); Hematocrit 35.5 % (36.0-46.0); Lymphocytes # (auto) 1.4 10 ^3/uL (0.4-5.4); White Blood Cell 9.4 10^3/uL (4.4-10.8)
[2024-02-27 11:23] LABS: Basophils % (auto) 0.4 % (0.0-2.0); Eosinophils % (auto) 3.2 % (0.0-7.0); Hemoglobin 11.8 g/dL (12.2-16.2); Lymphocytes % (auto) 15.1 % (10.0-50.0); Mean Corpuscular Hgb Conc. 33.3 g/dL (32.0-36.0); Monocytes # (auto) 0.7 10 ^3/uL (0-1.3); Neutrophils % (auto) 74.3 % (37.0-80.0); Platelet Count (auto) 410 10^3/uL (140-450); Red Blood Cells 2.96 10^6/uL (4.0-5.20); Red Cell Distribution Width 17.9 % (11.8-14.3)
[2024-02-27 11:44] LABS: Urine Blood Negative /uL (Negative); Urine Clarity Clear (Clear); Urine Color Colorless (Yellow); Urine Protein, UAD Negative (Negative); Urine Specific Gravity 1.004 (1.001-1.035); Urine Squamous Epithelial Cell FEW /hpf (<5); Urine Urobilinogen Normal (Negative); Urine WBC 2 /hpf (0 - 5); Urine pH 6.5 (5.0-9.0)
--- NOTE | 2024-02-27 11:50 | DVH ---
EXAM: CT HEAD WITHOUT CONTRAST INDICATION: headache, recurrent falls TECHNIQUE: CT of the head without intravenous contrast. Radiation dose : 1. Head: CT Dose: CTDI volume is 118 mGy. Dose-length product is 2465 mGy*cm The dose indicators for CT are the volume computed tomography (CT) dose index (CTDIvol) and the dose length product (DLP), and are measured in units of mGy and mGy-cm, respectively. These indicators are not patient dose, but values generated from the CT scanner acquisition factors. The report includes radiation exposure data for exposures received during this examination. COMPARISON: CT HEAD WITHOUT CONTRAST on DOS: 02/26/24, CT HEAD WITHOUT CONTRAST on DOS: 09/05/23, CT HE AD WITHOUT CONTRAST on DOS: 05/27/23, CT HEAD WITHOUT CONTRAST on DOS: 05/19/23 FINDINGS: There is no evidence of acute intracranial hemorrhage, extra-axial collection, mass effect, midline s hift, herniation or hydrocephalus. The ventricles, sulci and cisterns are age appropriate. The jacinto-white differentiation is intact. Patchy periventricular and subcortical white matter hypoattenuation is nonspecific but may be related to small vessel ischemic disease. The visualized paranasal sinuses and mastoid air cells are clear. The surrounding soft tissues and osseous structures are unremarkable. IMPRESSION: 1. Partially empty erik. 2. Mild diffuse cortical atrophy 3. No intracranial hemorrhage or extra-axial fluid collections 4. No significant change from the prior study of 08/16/2023 Radiation optimization: All CT scans at this facility use at least one of these dose optimization sada hniques: Automated exposure control mA and/or kV adjustment per patient size (includes targeted exams where dose is matched to clinical indication) or iterative reconstruction.
--- NOTE | 2024-02-27 11:52 | DVH ---
HISTORY: facial pain s/p fall TECHNIQUE: Nonenhanced axial images through the facial bones with coronal and sagittal MPR. Radiation dose Information: CT Dose: CTDI volume is 118 mGy. Dose-length product is 2465 mGy*cm COMPARISON: None FINDINGS: Mandible: Unremarkable Maxilla: Unremarkable Zygomatic arches: Unremarkable Nasal bone: Unremarkable Orbits: Unremarkable Sinuses: Clear Facial swelling: None IMPRESSION: 1. No acute facial fractures. Radiation optimization: All CT scans at this facility use at least one of these dose optimization sada hniques: Automated exposure control mA and/or kV adjustment per patient size (includes targeted exams where dose is matched to clinical indication) or iterative reconstruction.
[2024-02-27 11:55] LABS: Amphetamine Screen, Urine Neg (NEGATIVE); Barbiturate Scree,Urine Neg (NEGATIVE); Benzodiazephine Screen, Urine Pos (NEGATIVE); Cannabinoid Screen, Urine Neg (NEGATIVE); Cocaine Screen, Urine Neg (NEGATIVE); Opiate Scree,Urine Neg (NEGATIVE); Phencyclidine Screen, Urine Neg (NEGATIVE)
[2024-02-27 12:01] LABS: Alanine Aminotransferase 30 U/L (7-40); Albumin 4.3 g/dL (3.2-4.8); Anion Gap 7 (5-15); Bilirubin, Total 0.5 mg/dL (0.2-1.0); Blood Alcohol 70.3 mg/dL (<10); Carbon Dioxide 27 mmol/L (20-31); Chloride 107 mmol/L (98-107); Potassium 4.3 mmol/L (3.5-5.1); Sodium 141 mmol/L (136-145); Total Protein 7.8 g/dL (5.7-8.2)
[2024-02-27 12:02] LABS: Alkaline Phosphatase 240 U/L (46-116); Aspartate Aminotransferase 123 U/L (13-40); BUN/Creatinine Ratio 7.1 (10.0-20.0); Blood Urea Nitrogen < 5 mg/dL (9-23); Glucose 107 mg/dL (74-106)
[2024-02-27] MEDS ORDERED: THIA100T10 GT (12:32)
[2024-02-27] MEDS ORDERED: MULT-1018 PO (12:32)
== END 2024-02-27 12:41 | disposition home or self-care (01) ==
LOC: EDBD 10:17 → ER 10:17 → EDUNIT# 10:17 → ER 12:40
DX: S00.81XA Abrasion of other part of head, initial encounter (principal); F10.129 Alcohol abuse with intoxication, unspecified; R74.01 Elevation of levels of liver transaminase levels; I10 Essential (primary) hypertension; M19.90 Unspecified osteoarthritis, unspecified site; Z90.710 Acquired absence of both cervix and uterus; X58.XXXA Exposure to other specified factors, initial encounter; Y93.89 Activity, other specified; Y92.89 Other specified places as the place of occurrence of the external cause; Y99.8 Other external cause status; Y90.9 Presence of alcohol in blood, level not specified
CPT/HCPCS: 36415; 70450; 70486; 80053; 80307; 80320; 81001; 85025

== ENCOUNTER 2024-03-07 10:10 | Emergency (ER) | payer MEDICAID ==
[~2024-03-07] VITALS: Ht 152.4 cm; Wt 68.2 kg
[~2024-03-07 10:10] MED LIST changes: +MULT-1018 PO; +THIA100T10 GT
--- NOTE | 2024-03-07 10:45 | ED.PDOC ---
History of Present Illness HPI Comments 58 y/o F brought in by ambulance presents to the ED for CC of suicide. Per EMS, patient's son called emergency medical services due to patient being heavily intoxicated and wanting to . Patient comments on only having two shots of alcohol. Patient states, "can't I just be euthanized like a dog". Patient visibly in emotional distress and no other medical history is obtainable at this time. Chief Complaint: Suicidal Time Seen by MD: 10:30 Primary Care Provider: UNKNOWN Reviewed Notes: Nurses Notes, Intervention Analyst Notes, Medications, Allergies Allergies: Coded Allergies: NO KNOWN ALLERGIES (Unverified , 04/21/23) Home Meds Active Scripts Thiamine Hcl (VITAMIN B-1) 100 Mg Tb, 100 MG GT DAILY, #90 TAB Prov:KEEGAN MÉNDEZ MD 02/27/24 Multiple Vitamin (Multivitamins) Tab, 1 TAB PO DAILY, #90 TAB 3 Refills Prov:KEEGAN MÉNDEZ MD 02/27/24 Baclofen (Baclofen) 10 Mg Tab, 10 MG PO BID, #20 TAB Prov:CONCHA MICHEL 02/25/24 Ibuprofen (Ibuprofen) 800 Mg Tab, 1 TAB PO TID, #30 TAB Prov:CONCHA MICHEL 02/25/24 Lorazepam (ATIVAN TABLET) 0.5 Mg Tb, 1 TAB PO TID PRN, #30 TAB prn alcohol withdrawal symptoms Prov:BERTRAND SIU MD 02/17/24 Multiple Vitamin (Mvi Tab) 1 Tab Tb, 1 TAB PO DAILY, #30 TAB Prov:BERTRAND SIU MD 02/17/24 Folic Acid (Folic Acid) 1 Mg Tab, 1 MG PO DAILY, #30 TAB Prov:BERTRAND SIU MD 02/17/24 Thiamine HCl (Thiamine Hydrochloride) 100 Mg Tab, 100 MG PO DAILY, #30 TAB Prov:BERTRAND SIU MD 02/17/24 Chlordiazepoxide HCl (Chlordiazepoxide Hydrochl) 25 Mg Cap, 25 MG PO Q8HP PRN, #30 CAP prn alcohol withdrawal symptoms Prov:BERTRAND SIU MD 02/17/24 Information Source: Patient, Emergency Med Personnel Mode of Arrival: EMS Severity: Mild Timing: Hours Duration: Since onset Prehospital treatment: None Past Medical History PAST MEDICAL HISTORY: Arthritis, HTN, Seizures Surgical History: Hysterectomy NEW MEDIA STRATEGIST History: No Pertinent NEW MEDIA STRATEGIST History Family History Family History: Reviewed,noncontributory to illness, Family hx of heart ellen Social History Smoker: Non-Smoker Alcohol: Heavy Drugs: Denies Drug Use Lives In: Home Constitutional: denies: chills, diaphoresis, fatigue, fever, malaise, sweats, weakness, others EENTM: denies: blurred vision, double vision, ear bleeding, ear discharge, ear drainage, ear pain, ear ringing, eye pain, eye redness, hearing loss, mouth pain, mouth swelling, nasal discharge, nose bleeding, nose congestion, nose p ain, photophobia, tearing, throat pain, throat swelling, voice changes, others Respiratory: denies: cough, hemoptysis, orthopnea, SOB at rest, shortness of breath, SOB with excertion, stridor, wheezing, others Cardiovascular: denies: chest pain, dizzy spells, diaphoresis, Dyspnea on exertion, edema, irregular heart beat, left arm pain, lightheadedness, palpitations, PND, syncope, others Gastrointestinal: denies: abdomen distended, abdominal pain, blood streaked bowels, constipated, diarrhea, dysphagia, difficulty swallowing, hematemesis, melena, nausea, poor appetite, poor fluid intake, rectal bleeding, rectal pain, vomiting, others Genitourinary: denies: abnormal vagina bleeding, burning, dyspareunia, dysuria, flank pain, frequency, hematuria, incontinence, pain, , vagina discharge, urgency, others Neurological: denies: dizziness, fainting, headache, left sided numbness, left sided weakness, numbness, paresthesia, pre-existing deficit, right sided numbness, right sided weakness, seizure, speech problems, tingling, tremors, weakness, others Musculoskeletal: denies: back pain, gout, joint pain, joint swelling, muscle pain, muscle stiffness, neck pain, others Integumetry: denies: bruises, change in color, change in hair/nails, dryness, laceration, lesions, lumps, rash, wounds, others Allergic/Immunocompromised: denies: Difficulty Healing, Frequent Infections, Hives, Itching, others Hematologic/Lymphatic: denies: anemia, blood clots, easy bleeding, easy bruising, swollen glands, others Endocrine: denies: excessive hunger, excessive sweating, excessive thirst, excessive urination, flushing, intolerance to cold, intolerance to heat, unexplained weight gain, unexplained weight loss, others Psychiatric: reports: suicidal; denies: anxiety, bipolar disorder, depression, hopeless, panic disorder, schizophrenia, sleepless, others All Other Systems: Reviewed and Negative Physical Exam General Appearance: Moderate Distress HEENT: Normal ENT Inspection, Pharynx Normal, TMs Normal Neck: Full Range of Motion, Non-Tender, Normal, Normal Inspection Respiratory: Chest Non-Tender, Lungs Clear, No Accessory Muscle Use, No Respiratory Distress, Normal Breath Sounds Cardiovascular: No Edema, No JVD, No Murmur, No Gallop, Normal Peripheral Pulses, Regular Rate/Rhythm Breast Exam: Deferred Gastrointestinal: No Organomegaly, Non Tender, No Pulsatile Mass, Normal Bowel Sounds, Soft Genitalia: Deferred Pelvic: Deferred Rectal: Deferred Extremities: No calf tenderness, Normal capillary refill, Normal inspection, Normal range of motion, Non-tender, No pedal edema Musculoskeletal : Apperance: Normal Neurologic: Alert, electric shovel operator II-XII nml as Tested, No Motor Deficits, Normal Affect, Normal Mood, No Sensory Deficits Cerebellar Function: Normal Reflexes: Normal Skin: Dry, Normal Color, Warm Peripheral Pulses: 3+ Radial (R), 3+ Radial (L) Lymphatic: No Adenopathy Was a procedure done? Was a procedure done?: No Differential Dx Considerations may include: Suicidal ideation Anxiety X-Ray, Labs, Meds, VS Vital Signs Date Time Temp Pulse Resp B/P (MAP) Pulse Ox O2 Delivery O2 Flow Rate FiO2 03/07/24 11:39 97.9 80 16 124/74 (91) 99 97.9 03/07/24 10:58 100 19 98 Room Air* 0 21 03/07/24 10:15 98 18 98 Room Air 0 03/07/24 10:15 98.2 98 18 127/84 (98) 98 Lab Test 03/07/24 11:05 Range/Units Plasma/Serum Blood Alcohol 269.5 H <10 mg/dL Current Medications Medications (Trade) Dose Ordered Sig/Alena Route Start Time Stop Time Status Last Admin Thiamine HCl 100 mg ONCE ONCE IV 03/07/24 10:45 03/07/24 10:46 DC 03/07/24 11:11 Sodium Chloride 1,000 ml @ 1,000 mls/hr Q1H ONCE IV 03/07/24 10:45 03/07/24 11:44 DC 03/07/24 11:11 Acetaminophen/ Hydrocodone Bitart ([place] 5/325MG Tab) 1 tab ONCE ONCE PO 03/07/24 11:45 03/07/24 11:46 DC 03/07/24 11:44 Patient alert. Anxious. States that she wants to end her life. Vitals stable. Has been here many times for similar symptom. Alcohol level elevated. Was given thiamine. Establish intravenous access. Was given fluids. Medically cleared. Psychiatric evaluation. Time of 1ST Reevaluation: 11:00 Reevaluation 1ST: Unchanged Patient Education/Counseling: Diagnosis, Treatment Family Education/Counseling: No Family Present Departure 1 Departure Time of Disposition: 12:04 Impression: Primary Impression: Suicidal ideation Additional Impression: Alcohol intoxication Qualified Codes: F10.920 - Alcohol use, unspecified with intoxication, uncomplicated Disposition: 30 STILL A PATIENT Condition: Good Critical Care Note Critical Care Time?: No Stability Stability form required: No Heart Score Heart Score: Heart Score Response (Comments) Value History N/A 0 EKG N/A 0 Age N/A 0 Risk Factors N/A 0 Troponin N/A 0 Total 0 I personally scribed for SERGIO SMITH MD ([email or web address]) on 03/07/24 at 10:45. Electronically submitted by Daylin Araujo ([email or web address]). SERGIO SMITH MD Mar 07, 2024 10:45
[2024-03-07 10:58] VITALS: PULSE 100; RESP 19; O2SAT 98
[2024-03-07] MEDS: THIAMINE 100mg/ml INJ (200mg/2ml VIAL) IV ONE (11:11)
[2024-03-07] MEDS: SODIUM CHLORIDE 0.9% 1,000 ML IV ONE (11:11)
[2024-03-07 11:39] VITALS: BP 124/74; PULSE 80; RESP 16; TEMP 97.9; O2SAT 99
[2024-03-07] MEDS: HYDROcodone-ACET 5/325MG TAB PO ONE (11:44)
--- NOTE | 2024-03-07 16:19 | DVHINCON2 ---
Date of Service if different f: Mar 07, 2024 Time of Service: 15:54 Consultation ([facility]) Consulting Physician: PHAN DURAN MD Labs Laboratory Tests Test 03/07/24 11:05 Plasma/Serum Blood Alcohol 269.5 mg/dL (<10) Appearance: Stated age Psychomotor activity: WNL Behavioral: Cooperative Eye contact: Appropriate Speech: WNL Affect: Mood Congruent Mood: Depressed, Dysphoric Thought processes: Linear/Goal-directed Thought content: WNL Suicidal ideations: Present Homicidal ideations: Absent Orientation: Person, Place, Time, Situation Memory intact: Recent Intellect: Average Abstractability: WNL Concentration: Adequate Attention: Adequate Insight: Fair Vitals Vital Signs Date Time Temp Pulse Resp B/P (MAP) Pulse Ox O2 Delivery O2 Flow Rate FiO2 03/07/24 11:39 97.9 80 16 124/74 (91) 99 97.9 03/07/24 10:58 Room Air* 0 21 Treatment plan discussed: With staff Medication adjusted: No Labs ordered: No Psychotherapy provided: No Type: Voluntary History of Present Illness Reason for Consult : psychiatric evaluation PER ED PHYSICIAN:58 y/o F brought in by ambulance presents to the ED for CC of suicide. Per EMS, patient's son called emergency medical services due to patient being heavily intoxicated and wanting to . Patient comments on only having two shots of alcohol. Patient states, "can't I just be euthanized like a dog". Patient visibly in emotional distress and no other medical history is obtainable at this time. PSYCHIATRIST HPI: The patient was seen and evaluated at [facility] ED via telepsychiatry platform. 58 yr old female reported "I think I just go tired of it." I have been drinking the past two years since my . She stated she is supposed to retire March 12, but didn't get her certificate in time, so that was delayed. She noted that she has significant back pain and her son was upset by her delay in care home. She said she is tired with all the p ain. She has seen a PCP who will get her a referral to a pain management clinic. She was on pain management for several years in the past. She stated she has been falling a lot recently. She reported having a couple shots of alcohol at 430 in the morning. She noted that she has had alcoholic hallucinations in the past. She reported she has been drinking less than she had in the past. Now she typically drinks about 5-6 shots a night. She denied having HI/AVH. Past Psychiatric History : No h/o hospitalization or suicide attempt. Current medications: metoprolol, baclofen, tylenol Past Medical History : IBS, hypertension Substance Use: Alcohol-drinks about 6 shots of alcohol daily. Denied other drug use. Social History : Lives in [place] [facility] with son. 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 DIAGNOSIS: ALCOHOL USE DISORDER, SEVERE, WITH INTOXICATION; UNSPECIFIED DEPRESSIVE DISORDER Formulation: This 58 yr old female appears to suffer from alcohol use disorder and some depression. She is currently suicidal so may benefit from observation overnight and reassessment in morning. She does not warrant inpatient hospitalization. Plan: 1. Recommend observing overnight and reevaluate in morning. If patient is no longer suicidal, then she may be discharged home. Recommend social service consult to give alcohol rehab resources to patient. 2. Legal-voluntary. 3. Medications: no medications indicated at this time. Monitor for alcohol withdrawal. 4. Case discussed with ED COCO Lanza. 5. Please recontact psychiatry for further follow up or reevaluation. Assessment/Diagnosis/Plan Reviewed: Labs, Medications, Previous Orders PHAN DURAN MD Mar 07, 2024 15:57
[2024-03-07 17:39] LABS: Opiate Scree,Urine Neg (NEGATIVE); Urine Bacteria FEW /hpf (None Seen); Urine Blood Negative /uL (Negative); Urine Clarity Clear (Clear); Urine Color Light-Yellow (Yellow); Urine Mucus FEW (None Seen); Urine Protein, UAD Negative (Negative); Urine Specific Gravity 1.015 (1.001-1.035); Urine Squamous Epithelial Cell FEW /hpf (<5); Urine Urobilinogen Normal (Negative); Urine WBC 1 /HPF (0-5); Urine pH 5.5 (5.0-9.0)
[2024-03-07 17:47] LABS: Amphetamine Screen, Urine Neg (NEGATIVE); Barbiturate Scree,Urine Neg (NEGATIVE); Benzodiazephine Screen, Urine Pos (NEGATIVE); Cannabinoid Screen, Urine Neg (NEGATIVE); Cocaine Screen, Urine Neg (NEGATIVE); Phencyclidine Screen, Urine Neg (NEGATIVE)
[2024-03-07] MEDS: traMADol HCL 50 MG TAB PO PRN (18:09)
== END 2024-03-07 18:41 | disposition left against medical advice (07) ==
LOC: ER 10:10 → EDBD 10:10 → ER 18:41
DX: R45.851 Suicidal ideations (principal); F10.229 Alcohol dependence with intoxication, unspecified; I10 Essential (primary) hypertension; Z79.899 Other long term (current) drug therapy; Z90.710 Acquired absence of both cervix and uterus
CPT/HCPCS: 36415; 80307; 80320; 81001; 96361; 96374; 99285; J3411; J7030

== ENCOUNTER 2024-03-12 19:06 | Emergency (ER) | payer MEDICAID ==
[~2024-03-12] VITALS: Ht 152.4 cm; Wt 69.0 kg
--- NOTE | 2024-03-12 19:24 | ED.PDOC ---
History of Present Illness HPI Comments 58-year-old female came to ER for full injury. Patient had a trip and fall earlier today and landed badly on her lower back/ buttocks area. No head trauma or loss of consciousness noted. Patient is still able to ambulate after the fall. Patient states she has been having recurrent falls recently. Patient is a known heavy alcohol drinker. Chief Complaint: Lower Extremity Time Seen by MD: 19:24 Primary Care Provider: UNKNOWN Reviewed Notes: Matrix Inspector Notes Allergies: Coded Allergies: NO KNOWN ALLERGIES (Unverified , 04/21/23) Home Meds Active Scripts Thiamine Hcl (VITAMIN B-1) 100 Mg Tb, 100 MG GT DAILY, #90 TAB Prov:KEEGAN MÉNDEZ MD 02/27/24 Multiple Vitamin (Multivitamins) Tab, 1 TAB PO DAILY, #90 TAB 3 Refills Prov:KEEGAN MÉNDEZ MD 02/27/24 Baclofen (Baclofen) 10 Mg Tab, 10 MG PO BID, #20 TAB Prov:CONCHA MICHEL 02/25/24 Ibuprofen (Ibuprofen) 800 Mg Tab, 1 TAB PO TID, #30 TAB Prov:CONCHA MICHEL 02/25/24 Lorazepam (ATIVAN TABLET) 0.5 Mg Tb, 1 TAB PO TID PRN, #30 TAB prn alcohol withdrawal symptoms Prov:BERTRAND SIU MD 02/17/24 Multiple Vitamin (Mvi Tab) 1 Tab Tb, 1 TAB PO DAILY, #30 TAB Prov:BERTRAND SIU MD 02/17/24 Folic Acid (Folic Acid) 1 Mg Tab, 1 MG PO DAILY, #30 TAB Prov:BERTRAND SIU MD 02/17/24 Thiamine HCl (Thiamine Hydrochloride) 100 Mg Tab, 100 MG PO DAILY, #30 TAB Prov:BERTRAND SIU MD 02/17/24 Chlordiazepoxide HCl (Chlordiazepoxide Hydrochl) 25 Mg Cap, 25 MG PO Q8HP PRN, #30 CAP prn alcohol withdrawal symptoms Prov:BERTRAND SIU MD 02/17/24 Information Source: Patient Mode of Arrival: EMS Severity: Moderate Timing: Hours Duration: Since onset Past Medical History PAST MEDICAL HISTORY: Anxiety, Arthritis, HTN, Seizures Surgical History: Hysterectomy HIRED HELP History: No Pertinent HIRED HELP History Family History Family History: Reviewed,noncontributory to illness, Family hx of heart ellen Social History Smoker: Non-Smoker Alcohol: Heavy Drugs: Denies Drug Use Lives In: Home Constitutional: denies: chills, diaphoresis, fatigue, fever, malaise, sweats, weakness, others EENTM: denies: blurred vision, double vision, ear bleeding, ear discharge, ear drainage, ear pain, ear ringing, eye pain, eye redness, hearing loss, mouth pain, mouth swelling, nasal discharge, nose bleeding, nose congestion, nose pain, photophobia, tearing, throat pain, throat swelling, voice changes, others Respiratory: denies: cough, hemoptysis, orthopnea, SOB at rest, shortness of breath, SOB with excertion, stridor, wheezing, others Cardiovascular: denies: chest pain, dizzy spells, diaphoresis, Dyspnea on exertion, edema, irregular heart beat, left arm pain, lightheadedness, palpitations, PND, syncope, others Gastrointestinal: denies: abdomen distended, abdominal pain, blood streaked bowels, constipated, diarrhea, dysphagia, difficulty swallowing, hematemesis, melena, nausea, poor appetite, poor fluid intake, rectal bleeding, rectal pain, vomiting, others Genitourinary: denies: abnormal vagina bleeding, burning, dyspareunia, dysuria, flank pain, frequency, hematuria, incontinence, pain, , vagina discharge, urgency, others Neurological: denies: dizziness, fainting, headache, left sided numbness, left sided weakness, numbness, paresthesia, pre-existing deficit, right sided numbness, right sided weakness, seizure, speech problems, tingling, tremors, w eakness, others Musculoskeletal: reports: back pain (Lower); denies: gout, joint pain, joint swelling, muscle pain, muscle stiffness, neck pain, others Integumetry: denies: bruises, change in color, change in hair/nails, dryness, laceration, lesions, lumps, rash, wounds, others Allergic/Immunocompromised: denies: Difficulty Healing, Frequent Infections, Hives, Itching, others Hematologic/Lymphatic: denies: anemia, blood clots, easy bleeding, easy bruising, swollen glands, others Endocrine: denies: excessive hunger, excessive sweating, excessive thirst, excessive urination, flushing, intolerance to cold, intolerance to heat, unexp lained weight gain, unexplained weight loss, others Psychiatric: denies: anxiety, bipolar disorder, depression, hopeless, panic disorder, schizophrenia, sleepless, suicidal, others Physical Exam General Appearance: Mild Distress, Normal HEENT: Normal ENT Inspection, Pharynx Normal, TMs Normal Neck: Full Range of Motion, Non-Tender, Normal, Normal Inspection Respiratory: Chest Non-Tender, Lungs Clear, No Accessory Muscle Use, No Respiratory Distress, Normal Breath Sounds Cardiovascular: No Edema, No JVD, No Murmur, No Gallop, Normal Peripheral Pulses, Regular Rate/Rhythm Breast Exam: Deferred Gastrointestinal: No Organomegaly, Non Tender, No Pulsatile Mass, Normal Bowel Sounds, Soft Genitalia: Deferred Pelvic: Deferred Rectal: Deferred Extremities: No calf tenderness, Normal capillary refill, Normal inspection, Normal range of motion, Non-tender, No pedal edema Musculoskeletal : Extremity Location: Back (Mild lumbar tenderness with full range of motion) Apperance: Normal Neurologic: Alert, cooper helper II-XII nml as Tested, No Motor Deficits, Normal Affect, Normal Mood, No Sensory Deficits Cerebellar Function: Normal Reflexes: Normal Skin: Dry, Normal Color, Warm Lymphatic: No Adenopathy Was a procedure done? Was a procedure done?: No Differential Dx Considerations may include: Fall injury, fracture, dislocation, alcohol intoxication X-Ray, Labs, Meds, VS Vital Signs Date Time Temp Pulse Resp B/P (MAP) Pulse Ox O2 Delivery O2 Flow Rate FiO2 03/12/24 21:14 97.7 03/12/24 21:06 97.7 94 16 127/93 (104) 98 97.7 03/12/24 21:06 94 16 98 Room Air 03/12/24 19:07 98.2 94 12 139/93 (108) 94 Current Medications Medications (Trade) Dose Ordered Sig/Alena Route Start Time Stop Time Status Last Admin Ibuprofen (Motrin Tablet) 800 mg ONCE ONCE PO 03/12/24 19:30 03/12/24 19:31 DC 03/12/24 21:14 EXAM: CT LS SPINE WO CONTRAST INDICATION: fall EXAM DATE: 03/12/2024 07:27 PM COMPARISON: CT LS SPINE WO CONTRAST on DOS: 02/25/24 TECHNIQUE: Multiple axial CT images of the lumbar spine were obtained using bone algorithm. Axial and coronal reformatting was done. Bone and soft tissue windows were reviewed. Radiation Dose Information: CT Dose: CTDI volume is 18.84 mGy. Dose-length product is 602.16 mGy*cm Findings: There are 5 nonrib-bearing lumbar vertebrae. There is no evidence of an acute fracture or spondylolisthesis. The vertebral body heights are well-maintained. No evidence of degenerative disc disease. No neuroforaminal narrowing. No spinal canal stenosis. The alignment is within normal limits. The paraspinal soft tissues appear within normal limits. The visualized portions of the abdomen are unremarkable. T12-L1: Normal L1-L2: Normal L2-L3: Normal L3-L4: Normal L4-L5: Normal L5-S1: Normal Impression: 1. No evidence of an acute fracture. The patient now alcohol on her breath and has several fall from drinking. She will be discharged with ibuprofen. Time of 1ST Reevaluation: 19:19 Reevaluation 1ST: Unchanged Patient Education/Counseling: Diagnosis, Treatment Family Education/Counseling: No Family Present Departure 1 Departure Time of Disposition: 21:53 Impression: Primary Impression: Alcohol abuse Additional Impressions: Fall Qualified Codes: W19.XXXA - Unspecified fall, initial encounter Lumbar sprain Qualified Codes: S33.5XXA - Sprain of ligaments of lumbar spine, initial encounter Disposition: HOME / SELF CARE / HOMELESS Condition: Stable Additional Instructions: Reassessed patient, vital signs stable. Denies any new symptoms. Patient is able to tolerate PO and ambulate/be mobile at their baseline without concern. Risks and benefits of all medications given or prescribed, if any, discussed. All lab work, imaging and diagnostic studies were reviewed by me. The patient was counseled extensively on my clinical impression, diagnosis, expected course of the disease, and plan, including their follow-up care. Will discharge patient. Patient instructed to follow up with Primary Care Physician within 24-48 hours. Strict return precautions given for further exacerbation of symptoms or for new symptoms. The patient was given the opportunity to ask questions and all questions were answered by myself and the nursing/tech staff. Patient is in agreement with the care plan. The patient verbally expressed understanding of the discharge instructions, including the reasons to return to the Emergency Department. Discharged With: Self Critical Care Note Critical Care Time?: No Stability Stability form required: No Heart Score Heart Score: Heart Score Response (Comments) Value History N/A 0 EKG N/A 0 Age N/A 0 Risk Factors N/A 0 Troponin N/A 0 Total 0 I personally scribed for PAULINE HOUSER MD ([email or web address]) on 03/12/24 at 19:24. Electronically submitted by Ez Sevilla ([email or web address]). I personally scribed for PAULINE HOUSER MD ([email or web address]) on 03/12/24 at 20:37. Electronically submitted by Ez Sevilla ([email or web address]). PAULINE HOUSER MD Mar 12, 2024 19:24
--- NOTE | 2024-03-12 20:17 | DVH ---
EXAM: CT LS SPINE WO CONTRAST INDICATION: fall EXAM DATE: 03/12/2024 07:27 PM COMPARISON: CT LS SPINE WO CONTRAST on DOS: 02/25/24 TECHNIQUE: Multiple axial CT images of the lumbar spine were obtained using bone algorithm. Axial and coronal reformatting was done. Bone and soft tissue windows were reviewed. Radiation Dose Information: CT Dose: CTDI volume is 18.84 mGy. Dose-length product is 602.16 mGy*cm Findings: There are 5 nonrib-bearing lumbar vertebrae. There is no evidence of an acute fracture or spondylolisthesis. The vertebral body heights are well-m aintained. No evidence of degenerative disc disease. No neuroforaminal narrowing. No spinal canal stenosis. The alignment is within normal limits. The paraspinal soft tissues appear within normal limits. The v isualized portions of the abdomen are unremarkable. T12-L1: Normal L1-L2: Normal L2-L3: Normal L3-L4: Normal L4-L5: Normal L5-S1: Normal Impression: 1. No evidence of an acute fracture.
[2024-03-12 21:06] VITALS: BP 127/93; PULSE 94; RESP 16; O2SAT 98
[2024-03-12 21:14] VITALS: TEMP 97.7
[2024-03-12] MEDS: IBUPROFEN 800 MG TAB PO ONE (21:14)
== END 2024-03-12 22:56 | disposition home or self-care (01) ==
LOC: ER 19:06 → EDBD 19:06 → ER 22:54
DX: S33.5XXA Sprain of ligaments of lumbar spine, initial encounter (principal); F10.10 Alcohol abuse, uncomplicated; I10 Essential (primary) hypertension; F41.9 Anxiety disorder, unspecified; Z90.710 Acquired absence of both cervix and uterus; Z79.1 Long term (current) use of non-steroidal anti-inflammatories (NSAID); Z79.899 Other long term (current) drug therapy; W01.0XXA Fall on same level from slipping, tripping and stumbling without subsequent striking against object, initial encounter; Y93.89 Activity, other specified; Y92.89 Other specified places as the place of occurrence of the external cause; Y99.8 Other external cause status
CPT/HCPCS: 72131

== ENCOUNTER 2024-03-17 18:58 | Emergency (ER) | payer MEDICAID ==
[~2024-03-17] VITALS: Ht 152.4 cm; Wt 68.0 kg
[2024-03-17 19:10] VITALS: BP 148/86; PULSE 90; RESP 20; O2SAT 94
--- NOTE | 2024-03-17 19:23 | ED.PDOC ---
Psychiatric HPI Comments 58-year-old female came to emergency room via EMS due to alcohol intoxication. Patient known chronic alcoholic. Seen here multiple times for alcoholism. Complaining that she fell off her bunk bed again, landing badly in her back. Approximately 4 ft fall. Patient able to ambulate after the fall. Has been dri nking alcohol again today. Patient is depressed, stating her 2 years ago, she wishes to be euthanized along with her dog. She denies any history of suicide attempts. Chief Complaint: ETOH Time Seen by MD: 19:10 Primary Care Provider: UNKNOWN Reviewed Notes: Psych Tech Notes Information Source: Patient, Emergency Med Personnel Mode of Arrival: EMS Severity: Unable to Care for Self, Unable to Control Self Severity of Pain: Moderate Severity of Mental Status: Moderate Severity of Symptoms: Moderate Timing: Hours Duration: Since onset Presents with: Depression, Anxiety, Unclear Thinking, Bizarre Behavior, Suicidal Ideation, Alcohol Intoxication Ingestion: ETOH Circumstance: Medical Clearance, Causing a Disturbance Current substance abuse: ETOH Stressors: Family, Relationships History of: Anxiety, Alcoholism Associated signs and symptoms: Depression, Hopeless, Anxiety, Intoxication, ETOH Review of Systems REVIEW OF SYSTEMS: No fever, no chills, or fatigue (+) alcohol intoxication HEENT: No sore throat, no earache, no congestion, no neck pain. Cardiac: No chest pain. No palpitations. Lungs: No shortness of breath, no cough. GI: No nausea, no vomiting, no diarrhea, no constipation, no abdominal pain : No dysuria, frequency, or urgency. No hematuria. Musculoskeletal: No joint pain , no joint swelling, no extremity edema. Skin: No rash, no itching. Neuro: No headache, no dizziness, no weakness Vital Signs Vital Signs Date Time Temp Pulse Resp B/P (MAP) Pulse Ox O2 Delivery O2 Flow Rate FiO2 03/17/24 19:10 98.7 90 20 148/86 (106) 94 Physical Exam General: Awake, alert and oriented. No acute distress. Skin: Skin in warm, dry and intact. Appropriate color for ethnicity. Nailbeds pink with no cyanosis. HEENT: The head is normocephalic and atraumatic. Conjunctivae are clear without exudates or hemorrhage. Sclera is non-icteric. EOM are intact. No signs of nystagmus. Eyelids are normal in appearance without swelling or lesions. Oral mucosa is pink and moist Neck: The neck is supple with normal range of motion. No JVD. Cardiac: Heart rate and rhythm are normal. No murmurs, gallops, or rubs are auscultated. Respiratory: No signs of respiratory distress. Lung sounds are clear in all lobes bilaterally without rales, ronchi, or wheezes. Abdominal: Abdomen is soft, non-tender without distention. Bowel sounds are present and normoactive in all four quadrants. Back: Patient reports left lower back tenderness to palpation Neurological: The patient is awake, alert and oriented to person, place. She is moving all remedies spontaneously. Psychiatric: Patient is tearful with depressed mood Past Medical History PAST MEDICAL HISTORY: Anxiety, Arthritis, HTN, Seizures Surgical History: Hysterectomy RESEARCH ADVISOR History: No Pertinent RESEARCH ADVISOR History Family History Family History: Reviewed,noncontributory to illness, Family hx of heart ellen Social History Smoker: Non-Smoker Alcohol: Heavy Drugs: Denies Drug Use Lives In: Home Was a procedure done? Was a procedure done?: No Psych Differential Dx OD Differential Dx: Suicidal Attempt, Suicidal Gesture Suicidal Differential Dx: Alcohol Abuse, Anxiety, Depression, Personality Disorder, Substance Abuse Other Differentail Dx Lumbar fracture, pelvic fracture, other X-Ray, Labs, Meds, VS Vital Signs Date Time Temp Pulse Resp B/P (MAP) Pulse Ox O2 Delivery O2 Flow Rate FiO2 03/17/24 19:10 98.7 90 20 148/86 (106) 94 Lab Test 03/17/24 18:47 Range/Units White Blood Count 8.8 4.4-10.8 10^3/uL Red Blood Count 3.29 L 4.0-5.20 10^6/uL Hemoglobin 12.9 12.2-16.2 g/dL Hematocrit 37.6 36.0-46.0 % Mean Corpuscular Volume 114.3 H 80.0-100.0 fL Mean Corpuscular Hemoglobin 39.3 H 28.0-32.0 pg Mean Corpuscular Hemoglobin Concent 34.4 32.0-36.0 g/dL Red Cell Distribution Width 15.6 H 11.8-14.3 % Platelet Count 271 140-450 10^3/uL Mean Platelet Volume 6.9 6.9-10.8 fL Neutrophils (%) (Auto) 69.7 37.0-80.0 % Lymphocytes (%) (Auto) 19.7 10.0-50.0 % Monocytes (%) (Auto) 7.7 0.0-12.0 % Eosinophils (%) (Auto) 2.3 0.0-7.0 % Basophils (%) (Auto) 0.6 0.0-2.0 % Neutrophils # (Auto) 6.1 1.6-8.6 10 ^3/uL Lymphocytes # (Auto) 1.7 0.4-5.4 10 ^3/uL Monocytes # (Auto) 0.7 0-1.3 10 ^3/uL Eosinophils # (Auto) 0.2 0-0.8 10 ^3/uL Basophils # (Auto) 0.1 0-0.2 10 ^3/uL Nucleated Red Blood Cells 0.1 % Sodium Level 143 136-145 mmol/L Potassium Level 3.7 3.5-5.1 mmol/L Chloride Level 106 98-107 mmol/L Carbon Dioxide Level 25 20-31 mmol/L Anion Gap 12 5-15 Blood Urea Nitrogen 8 L 9-23 mg/dL Creatinine 0.76 0.550-1.02 mg/dL Glomerular Filtration Rate Calc 90 >90 mL/min BUN/Creatinine Ratio 10.5 10.0-20.0 Serum Glucose 96 74-106 mg/dL Calcium Level 9.6 8.7-10.4 mg/dL Total Bilirubin 0.3 0.2-1.0 mg/dL Aspartate Amino Transferase (AST) 179 H 13-40 U/L Alanine Aminotransferase (ALT) 43 H 7-40 U/L Alkaline Phosphatase 244 H 46-116 U/L Total Protein 7.6 5.7-8.2 g/dL Albumin 4.4 3.2-4.8 g/dL Plasma/Serum Blood Alcohol 298.5 H <10 mg/dL CT LS SPINE WO CONTRAST FINDINGS: 5 [id number] lumbar type vertebral bodies. Vertebral body heights are maintained. Alignment is preserved. There is no acute fracture. There is marked degenerative disc space narrowing at L5-S1. Mild degenerative bilateral neural foraminal stenosis at L5-S1. No high-grade spinal stenosis. The posterior paraspinal soft tissues are intact. There is mild calcified plaque in the visualized aortoiliac vessels. The visualized bowel loops are normal caliber. No hydronephrosis or nephrolithiasis. IMPRESSION: 1. No acute fracture or traumatic malalignment. 2. Marked degenerative disc space narrowing at L5-S1. 3. Mild degenerative bilateral neural foraminal stenosis at L5-S1 PROCEDURE(s): PL2CT - PELVIS WO CONTRAST CLINICAL HISTORY: Fall, low back pain, TECHNIQUE: CT of the pelvis was performed without intravenous contrast. This exam was performed according to our departmental dose optimization program. Up-to-date CT equipment and radiation dose reduction techniques are utilized as appropriate. [Radimetrics Exposure Report] CTDI: [CTDIvol] DLP: 351.8 WID: COMPARISON: None FINDINGS: Normal mineralization and alignment. Hip joint spaces are maintained. Sacroiliac joints are maintained . No acute fracture. Muscle bundles about the pelvis are intact. Soft tissue scarring in the anterior pelvis abdominal wall. The pelvic bowel loops are normal caliber. Moderate urinary bladder distention without wall thickening. Mild calcified plaque in the infrarenal abdominal aorta and bilateral iliac vessels. Prior hysterectomy. No pelvic lymphadenopathy IMPRESSION: 1. No acute pelvis fracture. 2. No noncontrast evidence of acute abnormality Time of 1ST Reevaluation: 19:18 Reevaluation 1ST: Unchanged Patient Education/Counseling: Diagnosis, Treatment Family Education/Counseling: No Family Present Departure 1 Departure Time of Disposition: 00:00 Impression: Primary Impression: Elevated liver function tests Additional Impressions: Alcohol intoxication Suicidal ideation Eloped from emergency department Disposition: 07 LEFT AWOL/ELOPED Condition: Other Comments I was not informed that patient had eloped from the emergency department. Critical Care Note Critical Care Time?: No Stability Stability form required: No I personally scribed for FRANCISCO JAVIER VASQUEZ MD ([email or web address]) on 03/17/24 at 19:23. Electronically submitted by Ez Sevilla ([email or web address]). I personally scribed for FRANCISCO JAVIER VASQUEZ MD ([email or web address]) on 03/17/24 at 22:19. Electronically submitted by Ez Sevilla ([email or web address]). FRANCISCO JAVIER VASQUEZ MD Mar 17, 2024 19:23
[2024-03-17 20:05] LABS: Basophils # (auto) 0.1 10 ^3/uL (0-0.2); Basophils % (auto) 0.6 % (0.0-2.0); Eosinophils # (auto) 0.2 10 ^3/uL (0-0.8); Eosinophils % (auto) 2.3 % (0.0-7.0); Hematocrit 37.6 % (36.0-46.0); Hemoglobin 12.9 g/dL (12.2-16.2); Lymphocytes # (auto) 1.7 10 ^3/uL (0.4-5.4); Lymphocytes % (auto) 19.7 % (10.0-50.0); Mean Corpuscular Hemoglobin 39.3 pg (28.0-32.0); Mean Corpuscular Hgb Conc. 34.4 g/dL (32.0-36.0); Mean Corpuscular Volume 114.3 fL (80.0-100.0); Monocytes # (auto) 0.7 10 ^3/uL (0-1.3); Monocytes % (auto) 7.7 % (0.0-12.0); Neutrophils # (auto) 6.1 10 ^3/uL (1.6-8.6); Neutrophils % (auto) 69.7 % (37.0-80.0); Nucleated Red Blood Cells % 0.1 %; Platelet Count (auto) 271 10^3/uL (140-450); Red Blood Cells 3.29 10^6/uL (4.0-5.20); Red Cell Distribution Width 15.6 % (11.8-14.3); White Blood Cell 8.8 10^3/uL (4.4-10.8)
[2024-03-17 20:21] LABS: Albumin 4.4 g/dL (3.2-4.8); Anion Gap 12 (5-15); BUN/Creatinine Ratio 10.5 (10.0-20.0); Calcium 9.6 mg/dL (8.7-10.4); Carbon Dioxide 25 mmol/L (20-31); Chloride 106 mmol/L (98-107); Glucose 96 mg/dL (74-106); Potassium 3.7 mmol/L (3.5-5.1); Sodium 143 mmol/L (136-145)
[2024-03-17 20:22] LABS: Bilirubin, Total 0.3 mg/dL (0.2-1.0); Total Protein 7.6 g/dL (5.7-8.2)
[2024-03-17 20:29] LABS: Alanine Aminotransferase 43 U/L (7-40); Alkaline Phosphatase 244 U/L (46-116); Aspartate Aminotransferase 179 U/L (13-40); Blood Alcohol 298.5 mg/dL (<10); Blood Urea Nitrogen 8 mg/dL (9-23)
--- NOTE | 2024-03-17 20:53 | DVH ---
CLINICAL HISTORY: Fall, low back pain, TECHNIQUE: CT of the pelvis was performed without intravenous contrast. This exam was performed acco rding to our departmental dose optimization program. Up-to-date CT equipment and radiation dose reduc tion techniques are utilized as appropriate. [Radimetrics Exposure Report] CTDI: [CTDIvol] DLP: 351.8 WID: COMPARISON: None FINDINGS: Normal mineralization and alignment. Hip joint spaces are maintained. Sacroiliac joints are maintain ed . No acute fracture. Muscle bundles about the pelvis are intact. Soft tissue scarring in the ante rior pelvis abdominal wall. The pelvic bowel loops are normal caliber. Moderate urinary bladder diste ntion without wall thickening. Mild calcified plaque in the infrarenal abdominal aorta and bilateral iliac vessels. Prior hysterectomy. No pelvic lymphadenopathy IMPRESSION: 1. No acute pelvis fracture. 2. No noncontrast evidence of acute abnormality
--- NOTE | 2024-03-17 20:58 | DVH ---
CLINICAL HISTORY: fall low back pain TECHNIQUE: CT of the lumbar spine was performed without intravenous contrast. This exam was performed according to our departmental dose optimization program. Up-to-date CT equipment and radiation dose reduction techniques are utilized as appropriate. CTDI: [CTDIvol] DLP: 660.29 WID: COMPARISON: CT LS SPINE WO CONTRAST on DOS: 03/12/24, FINDINGS: 5 [id number] lumbar type vertebral bodies. Vertebral body heights are maintained. Alignment is preserved. There is no acute fracture. There is marked degenerative disc space narrowing at L5-S1. Mi ld degenerative bilateral neural foraminal stenosis at L5-S1. No high-grade spinal stenosis. The post erior paraspinal soft tissues are intact. There is mild calcified plaque in the visualized aortoiliac vessels. The visualized bowel loops are normal caliber. No hydronephrosis or nephrolithiasis. IMPRESSION: 1. No acute fracture or traumatic malalignment. 2. Marked degenerative disc space narrowing at L5-S1. 3. Mild degenerative bilateral neural foraminal stenosis at L5-S1
[2024-03-17] MEDS: ACETAMINOPHEN 325 MG TAB PO ONE (23:06)
== END 2024-03-17 23:36 | disposition left against medical advice (07) ==
LOC: EDBD 18:58 → ER 18:58
DX: F10.129 Alcohol abuse with intoxication, unspecified (principal); R45.851 Suicidal ideations; R79.89 Other specified abnormal findings of blood chemistry; I10 Essential (primary) hypertension; F41.9 Anxiety disorder, unspecified; M19.90 Unspecified osteoarthritis, unspecified site; Z53.29 Procedure and treatment not carried out because of patient's decision for other reasons; Z90.710 Acquired absence of both cervix and uterus; Y90.0 Blood alcohol level of less than 20 mg/100 ml
CPT/HCPCS: 36415; 72131; 72192; 80053; 80320; 85025

== ENCOUNTER 2024-03-20 17:54 | Emergency (ER) | payer MEDICAID ==
[~2024-03-20] VITALS: Ht 152.4 cm; Wt 68.2 kg
[~2024-03-20 17:54] MED LIST changes: +CHL10C PO; +CHL25C PO; +CHLO25CA9 PO; +DICY10CA PO; +FLUO1TAB14 PO; +HYDR-4902 PO; +LORA-655 PO; +MET500T PO; +METO-289 PO; +METO1TAB9 PO; +OMEP20TA PO; +PANT40TA2 PO; +PROC10TA6 PO
[2024-03-20 18:23] VITALS: BP 129/76; PULSE 95; RESP 18; O2SAT 98
== END 2024-03-20 19:59 | disposition left against medical advice (07) ==
LOC: EDBD 17:54 → ER 17:54
DX: M54.59 Other low back pain (principal); Z53.21 Procedure and treatment not carried out due to patient leaving prior to being seen by health care provider

== ENCOUNTER 2024-03-22 13:41 | Emergency (ER) | payer MEDICAID ==
[~2024-03-22] VITALS: Ht 162.6 cm; Wt 70.0 kg
[~2024-03-22 13:41] MED LIST changes: -CHL10C PO; -CHL25C PO; -CHLO25CA9 PO; -DICY10CA PO; -FLUO1TAB14 PO; -HYDR-4902 PO; -LORA-655 PO; -MET500T PO; -METO-289 PO; -METO1TAB9 PO; -OMEP20TA PO; -PANT40TA2 PO; -PROC10TA6 PO
[2024-03-22 13:50] VITALS: BP 159/60; PULSE 95; RESP 22; O2SAT 95
--- NOTE | 2024-03-22 13:58 | ED.PDOC ---
History of Present Illness HPI Comments 58 y/o F, [place], presents to the ED for CC of ETOH intoxication. Patient is poor historian, states that she has only had a couple of shooters today (03/22/24). Patient states "my two years ago and I'm tired". No other medical history obtainable at this time due to intoxication. Time Seen by MD: 13:30 Primary Care Provider: UNKNOWN Reviewed Notes: Nurses Notes, Medications, Allergies Allergies: Coded Allergies: NO KNOWN ALLERGIES (Unverified , 04/21/23) Home Meds Active Scripts Thiamine Hcl (VITAMIN B-1) 100 Mg Tb, 100 MG GT DAILY, #90 TAB Prov:KEEGAN MÉNDEZ MD 02/27/24 Multiple Vitamin (Multivitamins) Tab, 1 TAB PO DAILY, #90 TAB 3 Refills Prov:KEEGAN MÉNDEZ MD 02/27/24 Baclofen (Baclofen) 10 Mg Tab, 10 MG PO BID, #20 TAB Prov:CONCHA MICHEL 02/25/24 Ibuprofen (Ibuprofen) 800 Mg Tab, 1 TAB PO TID, #30 TAB Prov:CONCHA MICHEL 02/25/24 Lorazepam (ATIVAN TABLET) 0.5 Mg Tb, 1 TAB PO TID PRN, #30 TAB prn alcohol withdrawal symptoms Prov:BERTRAND SIU MD 02/17/24 Multiple Vitamin (Mvi Tab) 1 Tab Tb, 1 TAB PO DAILY, #30 TAB Prov:BERTRAND SIU MD 02/17/24 Folic Acid (Folic Acid) 1 Mg Tab, 1 MG PO DAILY, #30 TAB Prov:BERTRAND SIU MD 02/17/24 Thiamine HCl (Thiamine Hydrochloride) 100 Mg Tab, 100 MG PO DAILY, #30 TAB Prov:BERTRAND SIU MD 02/17/24 Chlordiazepoxide HCl (Chlordiazepoxide Hydrochl) 25 Mg Cap, 25 MG PO Q8HP PRN, #30 CAP prn alcohol withdrawal symptoms Prov:BERTRAND SIU MD 02/17/24 Information Source: Patient Mode of Arrival: EMS Severity: Mild Timing: Days Duration: Since onset Prehospital treatment: None Past Medical History PAST MEDICAL HISTORY: Anxiety, Arthritis, HTN, Seizures Surgical History: Hysterectomy CLINICAL EDUCATION ASSISTANT History: No Pertinent CLINICAL EDUCATION ASSISTANT History Family History Family History: Reviewed,noncontributory to illness, Family hx of heart ellen Social History Smoker: Non-Smoker Alcohol: Heavy Drugs: Denies Drug Use Lives In: Home Constitutional: denies: chills, diaphoresis, fatigue, fever, malaise, sweats, weakness, others EENTM: denies: blurred vision, double vision, ear bleeding, ear discharge, ear drainage, ear pain, ear ringing, eye pain, eye redness, hearing loss, mouth pain, mouth swelling, nasal discharge, nose bleeding, nose congestion, nose pain, photophobia, tearing, throat pain, throat swelling, voice changes, others Respiratory: denies: cough, hemoptysis, orthopnea, SOB at rest, shortness of breath, SOB with excertion, stridor, wheezing, others Cardiovascular: denies: chest pain, dizzy spells, diaphoresis, Dyspnea on exertion, edema, irregular heart beat, left arm pain, lightheadedness, palpitations, PND, syncope, others Gastrointestinal: denies: abdomen distended, abdominal pain, blood streaked bowels, constipated, diarrhea, dysphagia, difficulty swallowing, hematemesis, melena, nausea, poor appetite, poor fluid intake, rectal bleeding, rectal pain, vomiting, others Genitourinary: denies: abnormal vagina bleeding, burning, dyspareunia, dysuria, flank pain, frequency, hematuria, incontinence, pain, , vagina discharge, urgency, others Neurological: denies: dizziness, fainting, headache, left sided numbness, left sided weakness, numbness, paresthesia, pre-existing deficit, right sided num bness, right sided weakness, seizure, speech problems, tingling, tremors, weakness, others Musculoskeletal: reports: back pain; denies: gout, joint pain, joint swelling, muscle pain, muscle stiffness, neck pain, others Integumetry: denies: bruises, change in color, change in hair/nails, dryness, laceration, lesions, lumps, rash, wounds, others Hematologic/Lymphatic: denies: anemia, blood clots, easy bleeding, easy bruisin g, swollen glands, others Endocrine: denies: excessive hunger, excessive sweating, excessive thirst, excessive urination, flushing, intolerance to cold, intolerance to heat, unexplained weight gain, unexplained weight loss, others Psychiatric: denies: anxiety, bipolar disorder, depression, hopeless, panic disorder, schizophrenia, sleepless, suicidal, others Unable to Obtain due to: Other (intoxication) Physical Exam General Appearance: Other (Alcohol on the breath) HEENT: Normal ENT Inspection, Pharynx Normal, TMs Normal Neck: Full Range of Motion, Non-Tender, Normal, Normal Inspection Respiratory: Chest Non-Tender, Lungs Clear, No Accessory Muscle Use, No Respiratory Distress, Normal Breath Sounds Cardiovascular: No Edema, No JVD, No Murmur, No Gallop, Normal Peripheral Pulses, Regular Rate/Rhythm Breast Exam: Deferred Gastrointestinal: No Organomegaly, Non Tender, No Pulsatile Mass, Normal Bowel Sounds, Soft Genitalia: Deferred Pelvic: Deferred Rectal: Deferred Extremities: No calf tenderness, Normal capillary refill, Normal inspection, Normal range of motion, Non-tender, No pedal edema Musculoskeletal : Apperance: Normal Neurologic: Alert, shipping agent II-XII nml as Tested, No Motor Deficits, Normal Affect, Normal Mood, No Sensory Deficits Cerebellar Function: Normal Reflexes: Normal Skin: Dry, Normal Color, Warm Lymphatic: No Adenopathy Was a procedure done? Was a procedure done?: No Differential Dx Considerations may include: Alcohol intoxication X-Ray, Labs, Meds, VS Vital Signs Date Time Temp Pulse Resp B/P (MAP) Pulse Ox O2 Delivery O2 Flow Rate FiO2 03/22/24 13:50 97.6 95 22 159/60 (93) 95 Lab Test 03/22/24 14:00 Range/Units Plasma/Serum Blood Alcohol Pending It seems that the patient was eloped from the department's Time of 1ST Reevaluation: 14:00 Reevaluation 1ST: Unchanged Patient Education/Counseling: Diagnosis, Treatment, Prognosis Family Education/Counseling: No Family Present Additional Information - I reviewed the following notes from patient's past medical encounters: 03/20/24 DX: BACK PAIN, 03/17/24 DX: ELEVATED LIVER FUNCTION, 03/12/24 DX: ALCOHOL ABUSE - The following tests were ordered, and results were reviewed by me: BLOOD ALCOHOL - Additional information was gathered from interviewing the following independent Historian:EMS - I discussed treatments and results with medical personnel and: PATIENT Departure 1 Departure Time of Disposition: 17:46 Impression: Primary Impression: Alcohol intoxication Qualified Codes: F10.920 - Alcohol use, unspecified with intoxication, uncomplicated Disposition: 07 LEFT AWOL/ELOPED Condition: Fair Critical Care Note Critical Care Time?: No Stability Stability form required: No Heart Score Heart Score: Heart Score Response (Comments) Value History N/A 0 EKG N/A 0 Age N/A 0 Risk Factors N/A 0 Troponin N/A 0 Total 0 I personally scribed for CHOLO ROMERO MD ([email or web address]) on 03/22/24 at 13:58. Electronically submitted by Daylin Araujo ([email or web address]). I personally scribed for CHOLO ROMERO MD ([email or web address]) on 03/22/24 at 15:20. Electronically submitted by Daylin Araujo ([email or web address]). CHOLO ROMERO MD Mar 22, 2024 13:58
[2024-03-22] MEDS ORDERED: SODIUM CHLORIDE 0.9% 1,000 ML IV ONE (14:00)
[2024-03-22] MEDS ORDERED: KETOROLAC TROMETH 30 MG/ML 1ML VIAL IV ONE (14:00)
== END 2024-03-22 21:38 | disposition left against medical advice (07) ==
LOC: ER 13:41 → EDBD 13:41 → ER 21:38
DX: F10.129 Alcohol abuse with intoxication, unspecified (principal); I10 Essential (primary) hypertension; Z79.899 Other long term (current) drug therapy; Z90.710 Acquired absence of both cervix and uterus
CPT/HCPCS: 36415; 80320

== ENCOUNTER 2024-03-24 02:42 | Inpatient (IN) | payer MEDICAID ==
[~2024-03-24] VITALS: Ht 152.4 cm; Wt 72.4 kg
[2024-03-24] VITALS (7 sets, daily range): BP systolic 148–170; BP diastolic 70–78; PULSE 73–97; RESP 17–98; TEMP 98–99.5; O2SAT 93–98
[2024-03-24] MEDS: FOLIC ACID 1 MG, MAGNESIUM SULF SDV 50% 8 MEQ, MULTIPLE VITAMIN 10 ML, THIAMINE INJ 100... INJ ONE (03:00)
--- NOTE | 2024-03-24 03:04 | ED.PDOC ---
Altered Mental Status HPI Comments 58 year old female brought in by EMS presents to the ED with a chief complaint of ETOH withdrawal onset today (03/24/2024.) Patient states she had 1 shot of vodka 03/23/2024 around 08:00 and a few hours ago began experiencing visual hallucinations, sees objects flying around and is also shaking. Last time patient was going through ETOH withdrawal she states experienced a seizure. Patient was seen in this ED on 03/22/2024 for alcohol intoxication. She states she does not want to drink anymore, wants resources. PMHx anxiety, arthritis, HTN, seizures. Denies chest pain, shortness of breath, suicidal ideation, homicidal ideation, nausea, vomiting, diarrhea. No other symptoms or modifying factors present at this time. Chief Complaint: ETOH Time Seen by MD: 02:51 Primary Care Provider: UNKNOWN Reviewed Notes: Medications, Allergies Allergies: Coded Allergies: NO KNOWN ALLERGIES (Unverified , 04/21/23) Home Meds Active Scripts Thiamine Hcl (VITAMIN B-1) 100 Mg Tb, 100 MG GT DAILY, #90 TAB Prov:KEEGAN MÉDNEZ MD 02/27/24 Multiple Vitamin (Multivitamins) Tab, 1 TAB PO DAILY, #90 TAB 3 Refills Prov:KEEGAN MÉNDEZ MD 02/27/24 Baclofen (Baclofen) 10 Mg Tab, 10 MG PO BID, #20 TAB Prov:CONCHA MICHEL 02/25/24 Ibuprofen (Ibuprofen) 800 Mg Tab, 1 TAB PO TID, #30 TAB Prov:CONCHA MICHEL 02/25/24 Lorazepam (ATIVAN TABLET) 0.5 Mg Tb, 1 TAB PO TID PRN, #30 TAB prn alcohol withdrawal symptoms Prov:BERTRAND SIU MD 02/17/24 Multiple Vitamin (Mvi Tab) 1 Tab Tb, 1 TAB PO DAILY, #30 TAB Prov:BERTRAND SIU MD 02/17/24 Folic Acid (Folic Acid) 1 Mg Tab, 1 MG PO DAILY, #30 TAB Prov:BERTRAND SIU MD 02/17/24 Thiamine HCl (Thiamine Hydrochloride) 100 Mg Tab, 100 MG PO DAILY, #30 TAB Prov:BERTRAND SIU MD 02/17/24 Chlordiazepoxide HCl (Chlordiazepoxide Hydrochl) 25 Mg Cap, 25 MG PO Q8HP PRN, #30 CAP prn alcohol withdrawal symptoms Prov:BERTRAND SIU MD 02/17/24 Information Source: Patient, Emergency Med Personnel Mode of Arrival: EMS Severity: Moderate Timing: Hours Duration: Since onset Prehospital treatment: None Recent: Other (alcohol withdraw, visual hallucinations) History of: Seizure Past Medical History PAST MEDICAL HISTORY: Anxiety, Arthritis, HTN, Seizures Surgical History: Hysterectomy SEO CONSULTANT History: No Pertinent SEO CONSULTANT History Family History Family History: Reviewed,noncontributory to illness, Family hx of heart ellen Social History Smoker: Non-Smoker Alcohol: Heavy Drugs: Denies Drug Use Lives In: Home Constitutional: denies: chills, diaphoresis, fatigue, fever, malaise, sweats, weakness, others EENTM: denies: blurred vision, double vision, ear bleeding, ear discharge, ear drainage, ear pain, ear ringing, eye pain, eye redness, hearing loss, mouth pain, mouth swelling, nasal discharge, nose bleeding, nose congestion, nose pain, photophobia, tearing, throat pain, throat swelling, voice changes, others Respiratory: denies: cough, hemoptysis, orthopnea, SOB at rest, shortness of breath, SOB with excertion, stridor, wheezing, others Cardiovascular: denies: chest pain, dizzy spells, diaphoresis, Dyspnea on exertion, edema, irregular heart beat, left arm pain, lightheadedness, palpitations, PND, syncope, others Gastrointestinal: denies: abdomen distended, abdominal pain, blood streaked bowels, constipated, diarrhea, dysphagia, difficulty swallowing, hematemesis, melena, nausea, poor appetite, poor fluid intake, rectal bleeding, rectal pain, vomiting, others Genitourinary: denies: abnormal vagina bleeding, burning, dyspareunia, dysuria, flank pain, frequency, hematuria, incontinence, pain, , vagina discharge, urgency, others Neurological: reports: others (withdraws, shaking); denies: dizziness, fainting, headache, left sided numbness, left sided weakness, numbness, paresthesia, pre-existing deficit, right sided numbness, right sided weakness, seizure, speech problems, tingling, tremors, weakness Musculoskeletal: denies: back pain, gout, joint pain, joint swelling, muscle pain, muscle stiffness, neck pain, others Integumetry: denies: bruises, change in color, change in hair/nails, dryness, laceration, lesions, lumps, rash, wounds, others Allergic/Immunocompromised: denies: Difficulty Healing, Frequent Infections, Hives, Itching, others Hematologic/Lymphatic: denies: anemia, blood clots, easy bleeding, easy bruising, swollen glands, others Endocrine: denies: excessive hunger, excessive sweating, excessive thirst, excessive urination, flushing, intolerance to cold, intolerance to heat, unexplained weight gain, unexplained weight loss, others Psychiatric: reports: others (hallucinations ); denies: anxiety, bipolar disorder, depression, hopeless, panic disorder, schizophrenia, sleepless, suicidal All Other Systems: Reviewed and Negative Physical Exam General Appearance: Mild Distress HEENT: PERRL/EOMI Neck: Full Range of Motion, Non-Tender, Normal Inspection Respiratory: Lungs Clear, No Accessory Muscle Use, No Respiratory Distress, Normal Breath Sounds Cardiovascular: No Edema, No JVD, Regular Rate/Rhythm Breast Exam: Deferred Gastrointestinal: Non Tender, Soft Genitalia: Deferred Pelvic: Deferred Rectal: Deferred Extremities: Normal inspection, Normal range of motion, Non-tender, No pedal edema Neurologic: Alert (Oriented x4), Normal Affect, Other (Anxious. Tremulous. Ambulatory. No gross focal deficit.) Cerebellar Function: NOT DONE Reflexes: NOT DONE Skin: Dry, Normal Color, Warm Lymphatic: NOT DONE Was a procedure done? Was a procedure done?: No Differential Diagnosis (ALOC) Differential Diagnosis: Dehydration, Hypoglycemia, Encephalopathy, Sepsis, ETOH Intoxication, Other (Alcohol withdrawal, electrolyte imbalance, among others) X-Ray, Labs, Meds, VS Vital Signs Date Time Temp Pulse Resp B/P (MAP) Pulse Ox O2 Delivery O2 Flow Rate FiO2 03/24/24 02:53 97.8 92 20 152/71 (98) 99 Lab Test 03/24/24 03:14 Range/Units White Blood Count 6.8 4.4-10.8 10^3/uL Red Blood Count 3.03 L 4.0-5.20 10^6/uL Hemoglobin 12.0 L 12.2-16.2 g/dL Hematocrit 34.0 L 36.0-46.0 % Mean Corpuscular Volume 112.2 H 80.0-100.0 fL Mean Corpuscular Hemoglobin 39.5 H 28.0-32.0 pg Mean Corpuscular Hemoglobin Concent 35.2 32.0-36.0 g/dL Red Cell Distribution Width 15.1 H 11.8-14.3 % Platelet Count 199 140-450 10^3/uL Mean Platelet Volume 6.7 L 6.9-10.8 fL Neutrophils (%) (Auto) 78.1 37.0-80.0 % Lymphocytes (%) (Auto) 13.9 10.0-50.0 % Monocytes (%) (Auto) 6.5 0.0-12.0 % Eosinophils (%) (Auto) 0.3 0.0-7.0 % Basophils (%) (Auto) 1.2 0.0-2.0 % Neutrophils # (Auto) 5.3 1.6-8.6 10 ^3/uL Lymphocytes # (Auto) 0.9 0.4-5.4 10 ^3/uL Monocytes # (Auto) 0.4 0-1.3 10 ^3/uL Eosinophils # (Auto) 0 0-0.8 10 ^3/uL Basophils # (Auto) 0.1 0-0.2 10 ^3/uL Nucleated Red Blood Cells 0.0 % Sodium Level 139 136-145 mmol/L Potassium Level 4.1 3.5-5.1 mmol/L Chloride Level 102 98-107 mmol/L Carbon Dioxide Level 23 20-31 mmol/L Anion Gap 14 5-15 Blood Urea Nitrogen 9 9-23 mg/dL Creatinine 0.63 0.550-1.02 mg/dL Glomerular Filtration Rate Calc 102 >90 mL/min BUN/Creatinine Ratio 14.3 10.0-20.0 Serum Glucose 74 74-106 mg/dL Calcium Level 9.3 8.7-10.4 mg/dL Plasma/Serum Blood Alcohol Pending X-Ray, Labs, Meds, VS Comment 58-year-old female with a history of alcohol dependence, hypertension, arthritis and alcohol withdrawal seizures brought in by EMS complaining of tremulousness due to alcohol withdrawal Vitals remarkable for BP 152/71 Exam remarkable for tremulousness Rhythm strip independently interpreted by me: Sinus rhythm, rate 92, no ectopy. CBC & basic metabolic panel unremarkable, alcohol level pending Patient treated with the following in the ED: Ativan 1 mg IV, Librium 50 mg p.o., banana bag IV On re-evaluation, patient is less tremulous. Vitals are stable. Plan is to admit the patient for treatment of alcohol withdrawal. Time of 1ST Reevaluation: 03:21 Reevaluation 1ST: Unchanged Patient Education/Counseling: Diagnosis, Treatment, Prognosis Family Education/Counseling: No Family Present Additional Information The following tests were ordered, and results were reviewed by me: CBC, DRUG SCREEN, UA, BLOOD ALCOHOL, EKG, BMP Additional Information was gathered from interviewing the following independent historians: EMS I discussed treatment and results with medical personnel and: patient, Departure 1 Departure Time of Disposition: 03:32 Impression: Primary Impression: Alcohol withdrawal Qualified Codes: F10.931 - Alcohol use, unspecified with withdrawal delirium Disposition: ADMITTED INPATIENT [facility] Condition: Guarded Critical Care Note Critical Care Time?: No Stability Stability form required: No Heart Score Heart Score: Heart Score Response (Comments) Value History N/A 0 EKG N/A 0 Age N/A 0 Risk Factors N/A 0 Troponin N/A 0 Total 0 I personally scribed for BERTRAND SIU MD ([email or web address]) on 03/24/24 at 03:04. Electronically submitted by Ritu Sagastume ([email or web address]). I personally scribed for BERTRAND SIU MD ([email or web address]) on 03/24/24 at 03:05. Electronically submitted by Ritu Sagastume ([email or web address]). BERTRAND SIU MD Mar 24, 2024 03:04
[2024-03-24 03:35] LABS: Chloride 102 mmol/L (98-107); Potassium 4.1 mmol/L (3.5-5.1); Sodium 139 mmol/L (136-145)
[2024-03-24 03:36] LABS: Anion Gap 14 (5-15); Calcium 9.3 mg/dL (8.7-10.4); Carbon Dioxide 23 mmol/L (20-31)
[2024-03-24 03:38] LABS: Basophils # (auto) 0.1 10 ^3/uL (0-0.2); Basophils % (auto) 1.2 % (0.0-2.0); Eosinophils # (auto) 0 10 ^3/uL (0-0.8); Eosinophils % (auto) 0.3 % (0.0-7.0); Lymphocytes # (auto) 0.9 10 ^3/uL (0.4-5.4); Lymphocytes % (auto) 13.9 % (10.0-50.0); Mean Corpuscular Hemoglobin 39.5 pg (28.0-32.0); Mean Corpuscular Hgb Conc. 35.2 g/dL (32.0-36.0); Mean Corpuscular Volume 112.2 fL (80.0-100.0); Monocytes # (auto) 0.4 10 ^3/uL (0-1.3); Monocytes % (auto) 6.5 % (0.0-12.0); Neutrophils # (auto) 5.3 10 ^3/uL (1.6-8.6); Neutrophils % (auto) 78.1 % (37.0-80.0); Platelet Count (auto) 199 10^3/uL (140-450); Red Blood Cells 3.03 10^6/uL (4.0-5.20); Red Cell Distribution Width 15.1 % (11.8-14.3); White Blood Cell 6.8 10^3/uL (4.4-10.8)
[2024-03-24 03:41] LABS: Glucose 74 mg/dL (74-106)
[2024-03-24 04:00] LABS: Blood Urea Nitrogen 9 mg/dL (9-23)
[2024-03-24 04:15] LABS: BUN/Creatinine Ratio 14.3 (10.0-20.0)
[2024-03-24 04:29] LABS: Blood Alcohol 226.4 mg/dL (<10)
--- NOTE | 2024-03-24 05:25 | DVHHP2 ---
History of Present Illness Reason for Visit: Alcohol withdrawal History of Present Illness 58-year-old female presents for evaluation of possible alcohol withdrawal. Patient reports experiencing tremors, visual hallucinations and presented for further evaluation due to history of seizure activity during alcohol withdrawal. Patient's alcohol level on admission is 226. Denies chest pain or palpitations. Vital signs are within normal limits. Denies abdominal pain, nausea or vomiting. Past Medical History Hypertension and anxiety Past Surgical History Hysterectomy Family History Noncontributory Smoke: No ALCOHOL: heavy Drugs: None Lives: with Family Review of Systems Review of Systems Review of systems are currently negative otherwise addressed in HPI. Allergies: Coded Allergies: NO KNOWN ALLERGIES (Unverified , 04/21/23) Exam Vital Signs Vital Signs Date Time Temp Pulse Resp B/P (MAP) Pulse Ox O2 Delivery O2 Flow Rate FiO2 03/24/24 02:53 97.8 92 20 152/71 (98) 99 Exam Gen: 58-year-old female in no apparent distress Skin: Warm, dry, normal color and texture, no rash. HEENT: Normocephalic atraumatic, mucous membranes moist and pink. Neck: Cervical and supraclavicular nodes normal without enlargement, trachea is midline, thyroid gland is normal without masses. Pulmonary: Clear to auscultation and percussion bilaterally. Cardiac: Regular rate and rhythm. No murmur Abdomen: Soft, nontender, nondistended, bowel sounds present all 4 quadrants, no guarding, no rigidity, no organomegaly. Extremities: No cyanosis, clubbing, no edema Neuro: Cranial nerves II through XII grossly intact, normal affect and speech, no focal motor deficits. Labs/Xrays Labs Test 03/24/24 03:14 Range/Units White Blood Count 6.8 4.4-10.8 10^3/uL Red Blood Count 3.03 L 4.0-5.20 10^6/uL Hemoglobin 12.0 L 12.2-16.2 g/dL Hematocrit 34.0 L 36.0-46.0 % Mean Corpuscular Volume 112.2 H 80.0-100.0 fL Mean Corpuscular Hemoglobin 39.5 H 28.0-32.0 pg Mean Corpuscular Hemoglobin Concent 35.2 32.0-36.0 g/dL Red Cell Distribution Width 15.1 H 11.8-14.3 % Platelet Count 199 140-450 10^3/uL Mean Platelet Volume 6.7 L 6.9-10.8 fL Neutrophils (%) (Auto) 78.1 37.0-80.0 % Lymphocytes (%) (Auto) 13.9 10.0-50.0 % Monocytes (%) (Auto) 6.5 0.0-12.0 % Eosinophils (%) (Auto) 0.3 0.0-7.0 % Basophils (%) (Auto) 1.2 0.0-2.0 % Neutrophils # (Auto) 5.3 1.6-8.6 10 ^3/uL Lymphocytes # (Auto) 0.9 0.4-5.4 10 ^3/uL Monocytes # (Auto) 0.4 0-1.3 10 ^3/uL Eosinophils # (Auto) 0 0-0.8 10 ^3/uL Basophils # (Auto) 0.1 0-0.2 10 ^3/uL Nucleated Red Blood Cells 0.0 % Sodium Level 139 136-145 mmol/L Potassium Level 4.1 3.5-5.1 mmol/L Chloride Level 102 98-107 mmol/L Carbon Dioxide Level 23 20-31 mmol/L Anion Gap 14 5-15 Blood Urea Nitrogen 9 9-23 mg/dL Creatinine 0.63 0.550-1.02 mg/dL Glomerular Filtration Rate Calc 102 >90 mL/min BUN/Creatinine Ratio 14.3 10.0-20.0 Serum Glucose 74 74-106 mg/dL Calcium Level 9.3 8.7-10.4 mg/dL Plasma/Serum Blood Alcohol 226.4 H <10 mg/dL Assessment/Plan Assessment/Plan Assessment Alcohol intoxication Hypertension Plan Admit the patient [facility] to the hospitalist Blaine Virkium Alcohol counseling Resume home medications Continue treatment per orders. Plan discussed with: Patient My Orders Orders - TUTU BRITTCNP Procedure Category Date Status Time Librium 50mg Po Q8hr PHA 03/24/24 Verified Day 1 05:30 Librium 50mg Po Q12hr PHA 03/25/24 Verified Day 2 10:00 Librium 25mg Po Q12hr PHA 03/26/24 Verified X Day 3 10:00 Librium 25mg Po Qam PHA 03/27/24 Verified Day 4 07:00 Basic Metabolic Panel LAB 03/25/24 Verified 04:00 Banana Bag Ns PHA 03/24/24 Verified 10:00 Admit ADMIT 03/24/24 Verified 05:17 Temazepam (Restoril) PHA 03/24/24 Verified 05:30 Ondansetron Hcl PHA 03/24/24 Verified (Zofran) 05:30 Cardiac DIET 03/24/24 Verified Diet-2gna,Lofat,Lochol Breakfast Condition: Stable PABLO 03/24/24 Verified 05:17 Bedrest With Bathroom PABLO 03/24/24 Verified Privileg 05:17 Metoprolol Tartrate PHA 03/24/24 Verified Tablet (Lopressor Ta 10:00 Date of Service: Mar 24, 2024 Billing Provider: TUTU BRITT Common Visit Codes: [id number] INP/OBS CARE (MOD) TUTU BRITT Mar 24, 2024 05:25
[2024-03-24] MEDS ORDERED: ONDANSETRON HCL 4 MG/2 ML VIAL IV PRN (05:30)
[2024-03-24] MEDS: chlordiazePOXIDE HCL 25 MG CAP PO SCH (05:30)
[2024-03-24] MEDS: chlordiazePOXIDE HCL 25 MG CAP PO ONE (05:56)
[2024-03-24] MEDS: LORazepam 2MG/ML-1ML VIAL IV ONE (05:56)
[2024-03-24 07:39] LABS: Urine Bacteria None Seen /hpf (None Seen)
[2024-03-24] MEDS: LOPERAMIDE HCL 2 MG CAP/TAB PO ONE (07:51)
[2024-03-24 07:53] LABS: Urine Blood Negative /uL (Negative); Urine Clarity Clear (Clear); Urine Color Yellow (Yellow); Urine Protein, UAD TRACE (Negative); Urine Specific Gravity 1.019 (1.001-1.035); Urine Squamous Epithelial Cell FEW /hpf (<5); Urine Urobilinogen 3 mg/dL (Negative); Urine WBC 12 /HPF (0-5)
[2024-03-24 09:11] LABS: Cocaine Screen, Urine Neg (NEGATIVE)
[2024-03-24] MEDS: METOPROLOL TARTRATE 25 MG TAB PO SCH (09:44)
[2024-03-24] MEDS: LOPERAMIDE HCL 2 MG CAP/TAB PO PRN (09:45)
[2024-03-24 10:27] LABS: Barbiturate Scree,Urine Neg (NEGATIVE); Benzodiazephine Screen, Urine Pos (NEGATIVE); Cannabinoid Screen, Urine Neg (NEGATIVE)
[2024-03-24] MEDS: FOLIC ACID 1 MG, MAGNESIUM SULF SDV 50% 8 MEQ, MULTIPLE VITAMIN 10 ML, THIAMINE INJ 100... INJ SCH (10:27)
[2024-03-24 13:02] LABS: Opiate Scree,Urine Neg (NEGATIVE); Phencyclidine Screen, Urine Neg (NEGATIVE)
--- NOTE | 2024-03-24 13:06 | DVHPN2 ---
Subjective She has been drinking heavily for 2 years She has stopped drinking yesterday morning She is going through withdrawal now Changes from previous H/P or p: Changes Objective Vitals Vital Signs Date Time Temp Pulse Resp B/P (MAP) Pulse Ox O2 Delivery O2 Flow Rate FiO2 03/24/24 10:03 98.2 94 18 165/78 (107) 98 98.2 03/24/24 08:48 Room Air* 0 21 General Appearance: Alert, Oriented X3, Cooperative Lungs: Clear to auscultation Cardiovascular: Regular rate, Normal S1 Abdomen: Normal bowel sounds, Soft Extremities: No edema Medications Current Medications Medications Dose Ordered Sig/Alena Route Start Time Stop Time Status Last Admin Dose Admin Chlordiazepoxide HCl 50 mg Q8H PO 03/24/24 05:30 03/24/24 21:31 Chlordiazepoxide HCl 50 mg Q12HR PO 03/25/24 10:00 03/25/24 22:01 Chlordiazepoxide HCl 25 mg Q12HR PO 03/26/24 10:00 03/26/24 22:01 Chlordiazepoxide HCl 25 mg QAM PO 03/27/24 07:00 03/27/24 07:01 Folic Acid 1 mg/ Magnesium Sulfate 8 meq/ Multivitamins 10 ml/Thiamine HCl 100 mg/Sodium Chloride 1,013.2 ml @ 126.247 mls/hr DAILY@1800 INJ 03/24/24 10:00 03/24/24 10:27 126.247 MLS/HR Temazepam 15 mg QHSP PRN PO 03/24/24 05:30 Ondansetron HCl 4 mg Q4HP PRN IV 03/24/24 05:30 Metoprolol Tartrate 25 mg BID PO 03/24/24 10:00 03/24/24 09:44 25 MG Loperamide HCl 2 mg PRN PRN PO 03/24/24 07:45 03/24/24 09:45 2 MG Laboratory Results Laboratory Tests 03/24/24 03:14 Chemistry Test 03/24/24 03:14 Albumin Pending Calcium Level 9.3 mg/dL (8.7-10.4) Magnesium Level Pending Total Protein Pending LFT Test 03/24/24 03:14 Alanine Aminotransferase (ALT) Pending Alkaline Phosphatase Pending Aspartate Amino Transferase (AST) Pending Direct Bilirubin Pending Total Bilirubin Pending Urinalysis Test 03/24/24 07:25 Urine Color Yellow (Yellow) Urine Clarity Clear (Clear) Urine pH 7.0 (5.0-9.0) Urine Specific [place] 1.019 (1.001-1.035) Urine Protein Trace (Negative) H Urine Ketones 2+ (Negative) H Urine Blood Negative /uL (Negative) Urine Nitrite Negative (Negative) Urine Bilirubin Negative (Negative) Urine Urobilinogen 3 mg/dL (Negative) H Urine Leukocyte Esterase 1+ /uL (Negative) Urine RBC 2 /hpf (0 - 4) Urine Microscopic WBC 12 /HPF (0-5) H Urine Squamous Epithelial Cells Few /hpf (<5) Urine Bacteria None seen /hpf (None Seen) Urine Glucose Normal mg/dL (Normal) Assessment/Plan Assessment/Plan Alcohol intoxication Alcohol withdrawal Hypertension Anxiety diarrhea Plan IV fluids with banana bag Multivitamins Librium Imodium for diarrhea p.r.n. Monitor closely Plan discussed with: Patient My Orders Orders - ALEX CORMIER MD Procedure Category Date Status Time Hepatic Panel LAB 03/24/24 In Process 12:38 Magnesium LAB 03/24/24 In Process 12:38 Date of Service: Mar 24, 2024 Billing Provider: ALEX CORMIER MD Common Visit Codes: [id number] INP/OBS CARE(HIGH) ALEX CORMIER MD Mar 24, 2024 13:06
[2024-03-24 13:07] LABS: Albumin 4.5 g/dL (3.2-4.8); Bilirubin, Total 1.1 mg/dL (0.2-1.0)
[2024-03-24 13:08] LABS: Total Protein 7.6 g/dL (5.7-8.2)
[2024-03-24 13:09] LABS: Bilirubin, Direct 0.5 mg/dL (<0.3)
[2024-03-24 14:04] LABS: Amphetamine Screen, Urine Neg (NEGATIVE)
[2024-03-24] MEDS ORDERED: METO-289 (17:19)
[2024-03-24] MEDS: TEMAZEPAM 15 MG CAP PO PRN (22:32)
[2024-03-25] VITALS (10 sets, daily range): BP systolic 148–165; BP diastolic 73–91; PULSE 40–80; RESP 14–18; TEMP 97.9–98.7; O2SAT 93–100
[2024-03-25 07:35] LABS: Basophils # (auto) 0 10 ^3/uL (0-0.2); Hemoglobin 11.3 g/dL (12.2-16.2); Lymphocytes # (auto) 0.5 10 ^3/uL (0.4-5.4); Monocytes # (auto) 0.3 10 ^3/uL (0-1.3); White Blood Cell 3.9 10^3/uL (4.4-10.8)
[2024-03-25 07:36] LABS: Basophils % (auto) 0.9 % (0.0-2.0); Eosinophils # (auto) 0 10 ^3/uL (0-0.8); Eosinophils % (auto) 1.1 % (0.0-7.0); Hematocrit 33.4 % (36.0-46.0); Lymphocytes % (auto) 12.8 % (10.0-50.0); Mean Corpuscular Hemoglobin 37.8 pg (28.0-32.0); Mean Corpuscular Hgb Conc. 33.8 g/dL (32.0-36.0); Mean Corpuscular Volume 111.9 fL (80.0-100.0); Monocytes % (auto) 7.3 % (0.0-12.0); Neutrophils % (auto) 77.9 % (37.0-80.0); Nucleated Red Blood Cells % 0.1 %; Platelet Count (auto) 120 10^3/uL (140-450); Red Blood Cells 2.98 10^6/uL (4.0-5.20); Red Cell Distribution Width 15.4 % (11.8-14.3)
[2024-03-25 07:43] LABS: Albumin 4.3 g/dL (3.2-4.8); Alkaline Phosphatase 258 U/L (46-116); Anion Gap 9 (5-15); Aspartate Aminotransferase 177 U/L (13-40); BUN/Creatinine Ratio 13.1 (10.0-20.0); Blood Urea Nitrogen 8 mg/dL (9-23); Carbon Dioxide 27 mmol/L (20-31); Chloride 98 mmol/L (98-107); Glucose 116 mg/dL (74-106); Lipase 29 U/L (12-53); Potassium 3.9 mmol/L (3.5-5.1); Sodium 134 mmol/L (136-145)
[2024-03-25 07:44] LABS: Bilirubin, Total 2.1 mg/dL (0.2-1.0); Total Protein 7.2 g/dL (5.7-8.2)
[2024-03-25 07:53] LABS: Alanine Aminotransferase 36 U/L (7-40)
[2024-03-25] MEDS: chlordiazePOXIDE HCL 25 MG CAP PO SCH (09:42)
--- NOTE | 2024-03-25 11:42 | DVHPN2 ---
Subjective He is still having some anxiety and tremors Blood pressure is high Changes from previous H/P or p: Changes Objective Vitals Vital Signs Date Time Temp Pulse Resp B/P (MAP) Pulse Ox O2 Delivery O2 Flow Rate FiO2 03/25/24 09:43 79 157/94 03/25/24 08:57 97.9 16 97 97.9 03/25/24 08:00 Room Air* 0 21 Intake/Output Intake and Output 03/25/24 07:00 Intake Total 1304.988 ml Balance 1304.988 ml Intake Oral 800 ml IV Total 504.988 ml # Voids 5 General Appearance: Alert, Oriented X3, Cooperative Lungs: Clear to auscultation Cardiovascular: Regular rate, Normal S1 Abdomen: Normal bowel sounds, Soft Extremities: No edema Medications Current Medications Medications Dose Ordered Sig/Alena Route Start Time Stop Time Status Last Admin Dose Admin Chlordiazepoxide HCl 50 mg Q12HR PO 03/25/24 10:00 03/25/24 22:01 03/25/24 09:42 50 MG Chlordiazepoxide HCl 25 mg Q12HR PO 03/26/24 10:00 03/26/24 22:01 Chlordiazepoxide HCl 25 mg QAM PO 03/27/24 07:00 03/27/24 07:01 Folic Acid 1 mg/ Magnesium Sulfate 8 meq/ Multivitamins 10 ml/Thiamine HCl 100 mg/Sodium Chloride 1,013.2 ml @ 126.247 mls/hr DAILY@1800 INJ 03/24/24 10:00 03/24/24 10:27 126.247 MLS/HR Temazepam 15 mg QHSP PRN PO 03/24/24 05:30 03/24/24 22:32 15 MG Ondansetron HCl 4 mg Q4HP PRN IV 03/24/24 05:30 Metoprolol Tartrate 25 mg BID PO 03/24/24 10:00 03/25/24 09:43 25 MG Loperamide HCl 2 mg PRN PRN PO 03/24/24 07:45 03/25/24 08:13 2 MG Laboratory Results Laboratory Tests 03/25/24 07:05 Chemistry Test 03/25/24 07:05 Albumin 4.3 g/dL (3.2-4.8) Calcium Level 10.0 mg/dL (8.7-10.4) Magnesium Level 2.0 mg/dL (1.6-2.6) Total Protein 7.2 g/dL (5.7-8.2) Lipid panel Test 03/25/24 07:05 Lipase 29 U/L (12-53) LFT Test 03/25/24 07:05 Alanine Aminotransferase (ALT) 36 U/L (7-40) Alkaline Phosphatase 258 U/L (46-116) H Aspartate Amino Transferase (AST) 177 U/L (13-40) H Total Bilirubin 2.1 mg/dL (0.2-1.0) H Urinalysis Test 03/24/24 07:25 Urine Color Yellow (Yellow) Urine Clarity Clear (Clear) Urine pH 7.0 (5.0-9.0) Urine Specific [place] 1.019 (1.001-1.035) Urine Protein Trace (Negative) H Urine Ketones 2+ (Negative) H Urine Blood Negative /uL (Negative) Urine Nitrite Negative (Negative) Urine Bilirubin Negative (Negative) Urine Urobilinogen 3 mg/dL (Negative) H Urine Leukocyte Esterase 1+ /uL (Negative) Urine RBC 2 /hpf (0 - 4) Urine Microscopic WBC 12 /HPF (0-5) H Urine Squamous Epithelial Cells Few /hpf (<5) Urine Bacteria None seen /hpf (None Seen) Urine Glucose Normal mg/dL (Normal) Assessment/Plan Assessment/Plan Alcohol intoxication Alcohol withdrawal Hypertension Anxiety diarrhea Plan IV fluids with banana bag Multivitamins Librium Imodium for diarrhea p.r.n. Monitor closely 03/25/2024: Continue IV fluids continue vitamins Continue Librium p.r.n. Add Ativan IV p.r.n. Continue metoprolol Temazepam p.r.n. for sleep Add lisinopril 20 mg daily for better control of her hypertension Monitor the patient closely The rest of the management will depend on the hospital course Plan discussed with: Patient My Orders Orders - ALEX CORMIER MD Procedure Category Date Status Time * Phlebotomist Medical Lab Assistant CONS 03/24/24 Transmitted Consult Date of Service: Mar 25, 2024 Billing Provider: ALEX CORMIER MD Common Visit Codes: [id number] INP/OBS CARE(HIGH) ALEX CORMIER MD Mar 25, 2024 11:42
[2024-03-25] MEDS: LISINOPRIL 20 MG TAB PO ONE (11:49)
[2024-03-25] MEDS: LORazepam 2MG/ML-1ML VIAL IV PRN (12:53)
[2024-03-25] MEDS: ACETAMINOPHEN 325 MG TAB PO PRN (20:50)
[2024-03-26] VITALS (8 sets, daily range): BP systolic 111–145; BP diastolic 55–89; PULSE 48–82; RESP 16–18; TEMP 97.7–98.3; O2SAT 96–98
[2024-03-26] MEDS: chlordiazePOXIDE HCL 25 MG CAP PO SCH (09:06)
[2024-03-26] MEDS: LISINOPRIL 20 MG TAB PO SCH (09:07)
--- NOTE | 2024-03-26 12:00 | DVHPN2 ---
Subjective Doing better Less tremors Less anxiety Changes from previous H/P or p: Changes Objective Vitals Vital Signs Date Time Temp Pulse Resp B/P (MAP) Pulse Ox O2 Delivery O2 Flow Rate FiO2 03/26/24 09:07 135/80 03/26/24 09:07 73 03/26/24 08:44 97.8 18 96 97.8 03/26/24 08:00 Room Air* 0 21 Intake/Output Intake and Output 03/26/24 07:00 Intake Total 4973.2 ml Output Total 1100 ml Balance 3873.2 ml Intake Oral 3960 ml IV Total 1013.2 ml Output Urine Total 1100 ml # Voids 10 General Appearance: Alert, Oriented X3, Cooperative Lungs: Clear to auscultation Cardiovascular: Regular rate, Normal S1 Abdomen: Normal bowel sounds, Soft Extremities: No edema Medications Current Medications Medications Dose Ordered Sig/Alena Route Start Time Stop Time Status Last Admin Dose Admin Chlordiazepoxide HCl 25 mg Q12HR PO 03/26/24 10:00 03/26/24 22:01 03/26/24 09:06 25 MG Chlordiazepoxide HCl 25 mg QAM PO 03/27/24 07:00 03/27/24 07:01 Folic Acid 1 mg/ Magnesium Sulfate 8 meq/ Multivitamins 10 ml/Thiamine HCl 100 mg/Sodium Chloride 1,013.2 ml @ 126.247 mls/hr DAILY@1800 INJ 03/24/24 10:00 03/25/24 18:29 126.247 MLS/HR Temazepam 15 mg QHSP PRN PO 03/24/24 05:30 03/25/24 21:38 15 MG Ondansetron HCl 4 mg Q4HP PRN IV 03/24/24 05:30 Metoprolol Tartrate 25 mg BID PO 03/24/24 10:00 03/26/24 09:07 25 MG Loperamide HCl 2 mg PRN PRN PO 03/24/24 07:45 03/25/24 08:13 2 MG Lorazepam 0.5 mg Q6HP PRN IV 03/25/24 11:45 03/26/24 10:36 0.5 MG Lisinopril 20 mg DAILY PO 03/26/24 10:00 03/26/24 09:07 20 MG Acetaminophen 650 mg Q6HP PRN PO 03/25/24 20:00 03/25/24 20:50 650 MG Laboratory Results Laboratory Tests 03/25/24 07:05 Urinalysis Test 03/24/24 07:25 Urine Color Yellow (Yellow) Urine Clarity Clear (Clear) Urine pH 7.0 (5.0-9.0) Urine Specific [place] 1.019 (1.001-1.035) Urine Protein Trace (Negative) H Urine Ketones 2+ (Negative) H Urine Blood Negative /uL (Negative) Urine Nitrite Negative (Negative) Urine Bilirubin Negative (Negative) Urine Urobilinogen 3 mg/dL (Negative) H Urine Leukocyte Esterase 1+ /uL (Negative) Urine RBC 2 /hpf (0 - 4) Urine Microscopic WBC 12 /HPF (0-5) H Urine Squamous Epithelial Cells Few /hpf (<5) Urine Bacteria None seen /hpf (None Seen) Urine Glucose Normal mg/dL (Normal) Assessment/Plan Assessment/Plan Alcohol intoxication Alcohol withdrawal Hypertension Anxiety diarrhea Plan IV fluids with banana bag Multivitamins Librium Imodium for diarrhea p.r.n. Monitor closely 03/25/2024: Continue IV fluids continue vitamins Continue Librium p.r.n. Add Ativan IV p.r.n. Continue metoprolol Temazepam p.r.n. for sleep Add lisinopril 20 mg daily for better control of her hypertension Monitor the patient closely The rest of the management will depend on the hospital course 03/26/2024: Continue the current management Blood pressure is better Continue Librium and Ativan p.r.n. Monitor closely Plan discussed with: Patient Date of Service: Mar 26, 2024 Billing Provider: ALEX CORMIER MD Common Visit Codes: [id number] INP/OBS CARE(HIGH) ALEX CORMIER MD Mar 26, 2024 12:00
[2024-03-27 01:00] VITALS: BP 138/86; PULSE 75; RESP 18; TEMP 97.7; O2SAT 93
[2024-03-27 05:00] VITALS: BP 125/81; PULSE 71; RESP 18; TEMP 97.9; O2SAT 93
[2024-03-27] MEDS: chlordiazePOXIDE HCL 25 MG CAP PO SCH (06:10)
[2024-03-27 06:54] LABS: Anion Gap 9 (5-15); BUN/Creatinine Ratio 13.6 (10.0-20.0); Calcium 9.7 mg/dL (8.7-10.4); Carbon Dioxide 24 mmol/L (20-31); Chloride 104 mmol/L (98-107); Glucose 101 mg/dL (74-106); Magnesium 2.1 mg/dL (1.6-2.6); Sodium 137 mmol/L (136-145)
[2024-03-27 06:56] LABS: Alanine Aminotransferase 42 U/L (7-40); Alkaline Phosphatase 211 U/L (46-116); Aspartate Aminotransferase 161 U/L (13-40); Bilirubin, Total 1.1 mg/dL (0.2-1.0); Blood Urea Nitrogen 8 mg/dL (9-23); Total Protein 6.7 g/dL (5.7-8.2)
[2024-03-27 09:11] VITALS: BP 139/74; PULSE 76; RESP 18; TEMP 98; O2SAT 94
[2024-03-27] MEDS ORDERED: LISI20TA56 PO (11:05)
[2024-03-27] MEDS ORDERED: METO-289 PO (11:06)
--- NOTE | 2024-03-27 11:08 | DVHDS2 ---
Discharge Summary Date of Admission Mar 24, 2024 at 05:17 Date of Discharge: Mar 27, 2024 Labs/Diagnostic Data: Laboratory Results Test 03/27/24 05:54 03/25/24 07:05 03/24/24 07:25 03/24/24 03:14 Sodium Level 137 mmol/L (136-145) Potassium Level 4.0 mmol/L (3.5-5.1) Chloride Level 104 mmol/L (98-107) Carbon Dioxide Level 24 mmol/L (20-31) Anion Gap 9 (5-15) Blood Urea Nitrogen 8 mg/dL (9-23) Creatinine 0.59 mg/dL (0.550-1.02) Glomerular Filtration Rate Calc 104 mL/min (>90) BUN/Creatinine Ratio 13.6 (10.0-20.0) Serum Glucose 101 mg/dL (74-106) Calcium Level 9.7 mg/dL (8.7-10.4) Magnesium Level 2.1 mg/dL (1.6-2.6) Total Bilirubin 1.1 mg/dL (0.2-1.0) Aspartate Amino Transferase (AST) 161 U/L (13-40) Alanine Aminotransferase (ALT) 42 U/L (7-40) Alkaline Phosphatase 211 U/L (46-116) Total Protein 6.7 g/dL (5.7-8.2) Albumin 4.0 g/dL (3.2-4.8) White Blood Count 3.9 10^3/uL (4.4-10.8) Red Blood Count 2.98 10^6/uL (4.0-5.20) Hemoglobin 11.3 g/dL (12.2-16.2) Hematocrit 33.4 % (36.0-46.0) Mean Corpuscular Volume 111.9 fL (80.0-100.0) Mean Corpuscular Hemoglobin 37.8 pg (28.0-32.0) Mean Corpuscular Hemoglobin Concent 33.8 g/dL (32.0-36.0) Red Cell Distribution Width 15.4 % (11.8-14.3) Platelet Count 120 10^3/uL (140-450) Mean Platelet Volume 7.0 fL (6.9-10.8) Neutrophils (%) (Auto) 77.9 % (37.0-80.0) Lymphocytes (%) (Auto) 12.8 % (10.0-50.0) Monocytes (%) (Auto) 7.3 % (0.0-12.0) Eosinophils (%) (Auto) 1.1 % (0.0-7.0) Basophils (%) (Auto) 0.9 % (0.0-2.0) Neutrophils # (Auto) 3.0 10 ^3/uL (1.6-8.6) Lymphocytes # (Auto) 0.5 10 ^3/uL (0.4-5.4) Monocytes # (Auto) 0.3 10 ^3/uL (0-1.3) Eosinophils # (Auto) 0 10 ^3/uL (0-0.8) Basophils # (Auto) 0 10 ^3/uL (0-0.2) Nucleated Red Blood Cells 0.1 % Lipase 29 U/L (12-53) Urine Color Yellow (Yellow) Urine Clarity Clear (Clear) Urine pH 7.0 (5.0-9.0) Urine Specific [place] 1.019 (1.001-1.035) Urine Protein Trace (Negative) Urine Ketones 2+ (Negative) Urine Blood Negative /uL (Negative) Urine Nitrite Negative (Negative) Urine Bilirubin Negative (Negative) Urine Urobilinogen 3 mg/dL (Negative) Urine Leukocyte Esterase 1+ /uL (Negative) Urine RBC 2 /hpf (0 - 4) Urine Microscopic WBC 12 /HPF (0-5) Urine Squamous Epithelial Cells Few /hpf (<5) Urine Bacteria None seen /hpf (None Seen) Urine Glucose Normal mg/dL (Normal) Urine Opiates Screen Neg (NEGATIVE) Urine Fentanyl Screen Neg (NEGATIVE) Urine Barbiturates Screen Neg (NEGATIVE) Urine Phencyclidine Screen Neg (NEGATIVE) Urine Amphetamines Screen Neg (NEGATIVE) Urine Benzodiazepines Screen Pos (NEGATIVE) Urine Cocaine Screen Neg (NEGATIVE) Urine Cannabinoids Screen Neg (NEGATIVE) Direct Bilirubin 0.5 mg/dL (<0.3) Plasma/Serum Blood Alcohol 226.4 mg/dL (<10) Other Laboratory Tests 03/27/24 05:54 03/25/24 07:05 Brief Hx & Hospital Course: Final diagnoses: Alcohol intoxication Alcohol withdrawal Hypertension Anxiety diarrhea 58-year-old female who was admitted for alcohol intoxication and then withdrawal Her blood pressure was high She was treated with p.o. Librium and IV Ativan and p.r.n. blood pressure medications She was started on lisinopril and was continued on metoprolol Overall she has improved and her tremors are better and her anxiety is better and therefore she will be discharged home today to continue lisinopril and metoprolol at home Follow up with her primary care physician as soon as possible She says she will quit drinking and she has a phone number for alcoholic rehab that she will follow up with Condition at Discharge: Stable Final Diagnosis/Problems List Alcohol intoxication Alcohol withdrawal Hypertension Anxiety diarrhea Discharge Disposition: Home SNF Discharge Will this Physician continue t: No Discharge Statement: "Patient was advised to return to the ER or call 911 if any headaches, dizziness, shortness of breath, chest pain, abdominal pain, bleeding, fevers, or worsening of medical condition. Patient was counseled about treatment plan, medications, possible side effects, patientverbalized understanding. All questions were answered to the best of my ability. This discharge took greater then 30 minutes in planning, reviewing documentation, counseling the patient, and discussing with other team members." ASSESSMENT ASSESSMENT Assessment Date of Service: Mar 27, 2024 Billing Provider: ALEX CORMIER MD Common Visit Codes: 53946-BAQ/OBS DISCH DAY >30min ALEX CORMIER MD Mar 27, 2024 11:08
[2024-03-27 13:00] VITALS: BP 154/78; PULSE 64; RESP 18; TEMP 97.8; O2SAT 97
[2024-03-27 13:17] VITALS: BP 135/80; PULSE 73; RESP 18; TEMP 97.8; O2SAT 96
[2024-03-27] MEDS ORDERED: FOLIC ACID 1 MG TAB PO ONE (18:00)
[2024-03-27] MEDS ORDERED: MULTIPLE VITAMIN TAB PO ONE (18:00)
[2024-03-27] MEDS ORDERED: THIAMINE HCL 100 MG TAB PO ONE (18:00)
[2024-03-28] MEDS ORDERED: MULTIPLE VITAMIN TAB PO SCH (10:00)
[2024-03-28] MEDS ORDERED: FOLIC ACID 1 MG TAB PO SCH (10:00)
[2024-03-28] MEDS ORDERED: MAGNESIUM OXIDE 400 MG TAB PO SCH (10:00)
[2024-03-28] MEDS ORDERED: THIAMINE HCL 100 MG TAB PO SCH (10:00)
== END 2024-03-27 13:50 | disposition home or self-care (01) | DRG 816 ==
LOC: ER 02:42 → EDBD 02:42 → OVERFLOW 05:17 → CENTRAL 15:45
PROVIDERS: ADMIT Internal Medicine Geriatric Medicine; ATTEND Internal Medicine Geriatric Medicine
DX: T51.0X1A Toxic effect of ethanol, accidental (unintentional), initial encounter (principal); G92.8 Other toxic encephalopathy; F10.131 Alcohol abuse with withdrawal delirium; R25.1 Tremor, unspecified; F10.129 Alcohol abuse with intoxication, unspecified; F41.9 Anxiety disorder, unspecified; I10 Essential (primary) hypertension; Z90.710 Acquired absence of both cervix and uterus; Z79.899 Other long term (current) drug therapy; Y90.7 Blood alcohol level of 200-239 mg/100 ml
CPT/HCPCS: 36415; 80048; 80053; 80076; 80307; 80320; 81001; 83690; 83735; 85025; G0378

== ENCOUNTER 2024-04-02 18:50 | Emergency (ER) | payer MEDICAID ==
[~2024-04-02] VITALS: Ht 167.6 cm; Wt 72.7 kg
[~2024-04-02 18:50] MED LIST changes: -BACL10TA PO; -CHLO25CA10 PO; -FOLI-119 PO; -IBUP-1456 PO; +LISI20TA56 PO; -LORA-1121 PO; +METO-289; +METO-289 PO; -MULT-1018 PO; -MULTTAB99 PO; -THIA100T10 GT; -THIA100T13 PO
[2024-04-02 18:54] VITALS: BP 143/86; PULSE 98; RESP 16; O2SAT 98
--- NOTE | 2024-04-02 19:19 | ECG ---
[facility] Test Date: 2024-04-02 Test Time: 18:57:47 Pat Name: СЕРГЕЙ CASE Department: ER Room: Gender: F Wedger: SANJIV : 1965 Requested By: EMERGENCY EMERGENCY Order Number: [id number] Reading MD: Measurements Intervals [place] Rate: 94 P: 37 NC: 166 QRS: -37 QRSD: 96 T: 11 QT: 360 QTc: 451 Interpretive Statements Sinus rhythm Left axis deviation Consider anterior infarct Please click the below link to view image of tracing.
[2024-04-02] MEDS ORDERED: LOPERAMIDE HCL 2 MG CAP/TAB PO ONE (19:30)
[2024-04-02] MEDS ORDERED: ONDANSETRON ODT 4 MG TAB PO ONE (19:30)
[2024-04-02] MEDS ORDERED: FAMOTIDINE 20 MG TAB PO ONE (19:30)
--- NOTE | 2024-04-02 19:33 | ED.PDOC ---
History of Present Illness HPI Comments 59 y/o F, with a history fo anxiety, arthritis, HTN, IBS, seizures, hysterectomy, and polysubstance abuse, is BIBA for abdominal pain, nausea, diarrhea, and alcohol intoxication, today. Patient is a poor historian and endorses on recent episode onset of chronic abdominal pain and watery diarrhea from her IBS for the past 2x days, that worsened following consumption of a "jug of rubbing alcohol," earlier, this evening, after getting into a verbal altercation with her son regarding euthanizing a family pet and becoming distressed. She denies any vomiting, blood-streaked stools, urinary symptoms, fever, or chills at this time. Chief Complaint: Abdominal Pain Time Seen by MD: 19:20 Primary Care Provider: UNKNOWN Reviewed Notes: Nurses Notes, Drugless Doctor Notes, Medications, Allergies Allergies: Coded Allergies: NO KNOWN ALLERGIES (Unverified , 04/21/23) Home Meds Active Scripts Famotidine (PEPCID TABLET) 20 Mg Tb, 1 TAB PO BID PRN for 30 Days, #60 TAB 5 Refills Prov:RICKEY ORTIZ MD 04/02/24 Ondansetron HCl (Ondansetron Hydrochloride) 8 Mg Tab, 8 MG PO Q6HP PRN for 10 Days, #40 TAB Prov:RICKEY ORTIZ MD 04/02/24 Metoprolol Succinate (Metoprolol Succinate Er) 50 Mg Tab, 1 TAB PO DAILY, #30 TAB 5 Refills Prov:ALEX CORMIER MD 03/27/24 Lisinopril (Lisinopril) 20 Mg Tab, 20 MG PO DAILY for 30 Days, #30 TAB 5 Refills Prov:ALEX CORMIER MD 03/27/24 Reported Medications Metoprolol Succinate (Metoprolol Succinate Er) 50 Mg Tab, 1 BID 03/24/24 Information Source: Patient, Emergency Med Personnel Mode of Arrival: EMS Severity: Moderate Timing: Days Duration: Since onset Prehospital treatment: 12 Lead EKG, Administrative Judge Past Medical History PAST MEDICAL HISTORY: Anxiety, Arthritis, HTN, Seizures Past Medical History (Other): IBS Surgical History: Hysterectomy LATHER APPRENTICE History: No Pertinent LATHER APPRENTICE History Family History Family History: Reviewed,noncontributory to illness, Family hx of heart ellen Social History Smoker: Non-Smoker Alcohol: Heavy Drugs: Other (fentanyl) Lives In: Home All Other Systems: Reviewed and Negative (negative unless otherwise stated in HPI) Physical Exam General Appearance: No Apparent Distress, Normal, Other (inebriated affect, tearful affect, disheveled ) HEENT: Normal ENT Inspection, Pharynx Normal, TMs Normal Neck: Full Range of Motion, Non-Tender, Normal, Normal Inspection Respiratory: Chest Non-Tender, Lungs Clear, No Accessory Muscle Use, No Respiratory Distress, Normal Breath Sounds Cardiovascular: No Edema, No JVD, No Murmur, No Gallop, Normal Peripheral Puls es, Regular Rate/Rhythm Breast Exam: Deferred Gastrointestinal: No Organomegaly, Non Tender, No Pulsatile Mass, Normal Bowel Sounds, Soft Genitalia: Deferred Pelvic: Deferred Rectal: Deferred Extremities: No calf tenderness, Normal capillary refill, Normal inspection, Normal range of motion, Non-tender, No pedal edema Musculoskeletal : Apperance: Normal Neurologic: Alert, edge runner II-XII nml as Tested, No Motor Deficits, Normal Affect, Normal Mood, No Sensory Deficits Cerebellar Function: Normal Reflexes: Normal Skin: Dry, Normal Color, Warm Lymphatic: No Adenopathy Was a procedure done? Was a procedure done?: No Differential Dx Considerations may include: IBS, gastritis, gastroenteritis, substance abuse, alcohol intoxication, electrolyte imbalance, dehydration, acute abdomen X-Ray, Labs, Meds, VS Vital Signs Date Time Temp Pulse Resp B/P (MAP) Pulse Ox O2 Delivery O2 Flow Rate FiO2 04/02/24 18:54 98.6 98 16 143/86 (105) 98 Lab Test 04/02/24 19:24 Range/Units White Blood Count 6.7 4.4-10.8 10^3/uL Red Blood Count 3.45 L 4.0-5.20 10^6/uL Hemoglobin 13.0 12.2-16.2 g/dL Hematocrit 38.1 36.0-46.0 % Mean Corpuscular Volume 110.7 H 80.0-100.0 fL Mean Corpuscular Hemoglobin 37.8 H 28.0-32.0 pg Mean Corpuscular Hemoglobin Concent 34.2 32.0-36.0 g/dL Red Cell Distribution Width 15.9 H 11.8-14.3 % Platelet Count 327 140-450 10^3/uL Mean Platelet Volume 6.7 L 6.9-10.8 fL Neutrophils (%) (Auto) 71.7 37.0-80.0 % Lymphocytes (%) (Auto) 17.5 10.0-50.0 % Monocytes (%) (Auto) 8.3 0.0-12.0 % Eosinophils (%) (Auto) 1.6 0.0-7.0 % Basophils (%) (Auto) 0.9 0.0-2.0 % Neutrophils # (Auto) 4.8 1.6-8.6 10 ^3/uL Lymphocytes # (Auto) 1.2 0.4-5.4 10 ^3/uL Monocytes # (Auto) 0.6 0-1.3 10 ^3/uL Eosinophils # (Auto) 0.1 0-0.8 10 ^3/uL Basophils # (Auto) 0.1 0-0.2 10 ^3/uL Nucleated Red Blood Cells 0.2 % Sodium Level 142 # 136-145 mmol/L Potassium Level 3.2 L 3.5-5.1 mmol/L Chloride Level 105 98-107 mmol/L Carbon Dioxide Level 23 20-31 mmol/L Anion Gap 14 5-15 Blood Urea Nitrogen < 5 L 9-23 mg/dL Creatinine 0.59 0.550-1.02 mg/dL Glomerular Filtration Rate Calc 103 >90 mL/min BUN/Creatinine Ratio 8.5 L 10.0-20.0 Serum Glucose 88 74-106 mg/dL Calcium Level 9.4 8.7-10.4 mg/dL Total Bilirubin 0.4 0.2-1.0 mg/dL Aspartate Amino Transferase (AST) 142 H 13-40 U/L Alanine Aminotransferase (ALT) 48 H 7-40 U/L Alkaline Phosphatase 255 H 46-116 U/L Total Protein 7.8 5.7-8.2 g/dL Albumin 4.5 3.2-4.8 g/dL Lipase 34 12-53 U/L Salicylates Level < 3.0 -30 mg/dL Acetaminophen Level < 2.0 L 10.0-20.0 UG/ML Plasma/Serum Blood Alcohol 313.6 H <10 mg/dL Time of 1ST Reevaluation: 19:50 Reevaluation 1ST: Unchanged Time of 2ND Reevaluation: 22:00 Reevaluation 2ND: Improved Patient Education/Counseling: Diagnosis, Treatment Family Education/Counseling: No Family Present Departure 1 Departure Time of Disposition: 22:12 Impression: Primary Impression: Alcohol abuse Additional Impression: Alcoholic gastritis Disposition: HOME / SELF CARE / HOMELESS Condition: Stable e-Prescriptions Famotidine (PEPCID TABLET) 20 Mg Tb 1 TAB PO BID PRN for 30 Days, #60 TAB 5 Refills Prov: RICKEY ORTIZ MD 04/02/24 Ondansetron HCl (Ondansetron Hydrochloride) 8 Mg Tab 8 MG PO Q6HP PRN for 10 Days, #40 TAB Prov: RICKEY ORTIZ MD 04/02/24 Discharged With: Self Comments Abdominal Pain and Nausea in Setting of Alcohol Use Chief Complaint: Upset stomach and nausea after alcohol consumption History of Present Illness: 59-year-old female with known history of alcohol abuse presents to the ED with complaints of upset stomach and nausea following alcohol consumption today. Patient is experiencing significant emotional distress due to family situation involving her son's fentanyl abuse and financial exploitation. Initial laboratory studies revealed hypokalemia and elevated liver enzymes with significantly elevated blood alcohol level. Review of Systems: Constitutional: No fever reported Gastrointestinal: Positive for nausea, upset stomach Neurological: Alert and oriented Psychiatric: Emotional distress noted Physical Exam: General: Alert, GCS 15 Neurological: Ambulatory with steady gait Abdomen: Nontender on reevaluation Lab Results: Potassium: 3.2 (Low) Liver Function Tests: - AST: 142 - ALT: 48 - Alkaline Phosphatase: 255 Lipase: 34 (Normal) Blood Alcohol Level: 313 Acetaminophen Level: Negative Aspirin Level: Negative Imaging and Other Relevant Results: No imaging studies documented Medical Decision Making: Summary Statement: 59-year-old female with history of alcohol abuse presenting with acute gastric symptoms after alcohol consumption, complicated by hypokalemia and elevated liver enzymes. Problem List: 1. Alcoholic gastritis 2. Hypokalemia 3. Alcohol intoxication 4. Elevated liver enzymes 5. Psychosocial stressors Differential Diagnosis: Alcoholic gastritis, Acute alcohol intoxication, Electrolyte imbalance, Acute hepatitis, Peptic ulcer disease ED Course: Patient received oral potassium replacement for hypokalemia, Zofran and Pepcid for gastric symptoms. Patient improved with treatment, tolerating oral fluids, and demonstrated clinical improvement with stable gait and normal mentation. Assessment and Plan: 1. Alcoholic Gastritis: - Treated with Pepcid and Zofran in ED with improvement - Discharge with prescription for Pepcid and Zofran - Patient education provided regarding alcohol cessation 2. Hypokalemia: - Oral potassium replacement initiated - Patient educated on oral potassium replacement 3. Alcohol Use Disorder: - Patient counseled on risks of continued alcohol use - Recommend follow-up with primary care for substance abuse management 4. Psychosocial Issues: - Consider social work referral for family situation - Recommend counseling and support services Billing Information: ICD-10: K29.30 - Alcoholic gastritis without bleeding ICD-10: F10.20 - Alcohol dependence, uncomplicated ICD-10: E87.6 - Hypokalemia ICD-10: Z63.72 - Alcoholic family member affecting care Critical Care Note Critical Care Time?: No Stability Stability form required: No Heart Score Heart Score: Heart Score Response (Comments) Value History N/A 0 EKG N/A 0 Age N/A 0 Risk Factors N/A 0 Troponin N/A 0 Total 0 I personally scribed for RICKEY ORTIZ MD ([email or web address]) on 04/02/24 at 19:33. Electronically submitted by Giovanni Kessler ([email or web address]). RICKEY ORTIZ MD Apr 02, 2024 19:33
[2024-04-02 19:52] LABS: Basophils # (auto) 0.1 10 ^3/uL (0-0.2); Eosinophils # (auto) 0.1 10 ^3/uL (0-0.8); Monocytes # (auto) 0.6 10 ^3/uL (0-1.3)
[2024-04-02 19:53] LABS: Basophils % (auto) 0.9 % (0.0-2.0); Eosinophils % (auto) 1.6 % (0.0-7.0); Hematocrit 38.1 % (36.0-46.0); Lymphocytes # (auto) 1.2 10 ^3/uL (0.4-5.4); Lymphocytes % (auto) 17.5 % (10.0-50.0); Mean Corpuscular Hemoglobin 37.8 pg (28.0-32.0); Mean Corpuscular Hgb Conc. 34.2 g/dL (32.0-36.0); Mean Corpuscular Volume 110.7 fL (80.0-100.0); Monocytes % (auto) 8.3 % (0.0-12.0); Neutrophils # (auto) 4.8 10 ^3/uL (1.6-8.6); Neutrophils % (auto) 71.7 % (37.0-80.0); Nucleated Red Blood Cells % 0.2 %; Platelet Count (auto) 327 10^3/uL (140-450); Red Blood Cells 3.45 10^6/uL (4.0-5.20); Red Cell Distribution Width 15.9 % (11.8-14.3); White Blood Cell 6.7 10^3/uL (4.4-10.8)
[2024-04-02 20:12] LABS: Albumin 4.5 g/dL (3.2-4.8); Anion Gap 14 (5-15); Calcium 9.4 mg/dL (8.7-10.4); Carbon Dioxide 23 mmol/L (20-31); Chloride 105 mmol/L (98-107); Glucose 88 mg/dL (74-106); Lipase 34 U/L (12-53); Sodium 142 mmol/L (136-145)
[2024-04-02 20:13] LABS: Bilirubin, Total 0.4 mg/dL (0.2-1.0); Total Protein 7.8 g/dL (5.7-8.2)
[2024-04-02 20:14] LABS: Acetaminophen < 2.0 UG/ML (10.0-20.0); Alanine Aminotransferase 48 U/L (7-40); Alkaline Phosphatase 255 U/L (46-116); Aspartate Aminotransferase 142 U/L (13-40); BUN/Creatinine Ratio 8.5 (10.0-20.0); Blood Urea Nitrogen < 5 mg/dL (9-23); Potassium 3.2 mmol/L (3.5-5.1); Salicylate < 3.0 mg/dL (-30)
[2024-04-02 20:47] LABS: Blood Alcohol 313.6 mg/dL (<10)
[2024-04-02] MEDS ORDERED: POTASSIUM CHL 20 Meq TABLET PO ONE (21:30)
[2024-04-02] MEDS ORDERED: FAMO20TA10 PO (21:59)
[2024-04-02] MEDS ORDERED: ONDA-180 PO (21:59)
== END 2024-04-02 23:22 | disposition home or self-care (01) ==
LOC: EDUNIT# 18:50 → EDBD 18:50 → ER 18:50
DX: K29.20 Alcoholic gastritis without bleeding (principal); F10.10 Alcohol abuse, uncomplicated; I10 Essential (primary) hypertension; Z90.710 Acquired absence of both cervix and uterus; Z87.19 Personal history of other diseases of the digestive system; Z79.899 Other long term (current) drug therapy; Y90.8 Blood alcohol level of 240 mg/100 ml or more
CPT/HCPCS: 36415; 80053; 80320; 80329; 83690; 85025; 93005

== ENCOUNTER 2024-04-10 17:45 | Inpatient (IN) | payer MEDICAID ==
[~2024-04-10] VITALS: Ht 152.4 cm; Wt 76.6 kg
[~2024-04-10 17:45] MED LIST changes: +FAMO20TA10 PO; +ONDA-180 PO
--- NOTE | 2024-04-10 18:42 | ED.PDOC ---
GI ASSESSMENT HPI Comments 59 yo female with PMHx of IBS and HTN, presents to the ED for a chief complaint of lower abdominal pain and multiple episodes of diarrhea that started 2 days ago. Patient reports symptoms feel similar to previous IBD flare ups. Patient denies any nausea, vomiting, fever, chills. Per triage, patient admitted to consuming alcohol earlier today. Chief Complaint: Abdominal Pain Time Seen by MD: 18:23 Primary Care Provider: UNKNOWN Reviewed Notes: Nurses Notes, Medications, Allergies Allergies: Coded Allergies: NO KNOWN ALLERGIES (Unverified , 04/21/23) Home Meds Active Scripts Famotidine (PEPCID TABLET) 20 Mg Tb, 1 TAB PO BID PRN for 30 Days, #60 TAB 5 Refills Prov:RICKEY ORTIZ MD 04/02/24 Ondansetron HCl (Ondansetron Hydrochloride) 8 Mg Tab, 8 MG PO Q6HP PRN for 10 Days, #40 TAB Prov:RICKEY ORTIZ MD 04/02/24 Metoprolol Succinate (Metoprolol Succinate Er) 50 Mg Tab, 1 TAB PO DAILY, #30 TAB 5 Refills Prov:ALEX CORMIER MD 03/27/24 Lisinopril (Lisinopril) 20 Mg Tab, 20 MG PO DAILY for 30 Days, #30 TAB 5 Refills Prov:ALEX CORMIER MD 03/27/24 Reported Medications Metoprolol Succinate (Metoprolol Succinate Er) 50 Mg Tab, 1 BID 03/24/24 Information Source: Patient Mode of Arrival: EMS Timing: Hours Duration: Since onset Quality: Sharp Vomitus: None Stool: Loose Severity: Moderate Recent: Ingestion of ETOH Recent Hx of: None Pain Location: Suprapubic Modifying Factors: Nothing Associated sign and symptoms: Diarrhea, Abdominal Pain Past Medical History PAST MEDICAL HISTORY: Anxiety, Arthritis, HTN, Seizures Past Medical History (Other): IBS Surgical History: Hysterectomy 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 History Family History Family History: Reviewed,noncontributory to illness, Family hx of heart ellen Social History Smoker: Non-Smoker Alcohol: Heavy Drugs: Other Lives In: Home Constitutional: denies: chills, diaphoresis, fatigue, fever, malaise, sweats, weakness, others EENTM: denies: blurred vision, double vision, ear bleeding, ear discharge, ear drainage, ear pain, ear ringing, eye pain, eye redness, hearing loss, mouth pain, mouth swelling, nasal discharge, nose bleeding, nose congestion, nose pain, photophobia, tearing, throat pain, throat swelling, voice changes, others Respiratory: denies: cough, hemoptysis, orthopnea, SOB at rest, shortness of breath, SOB with excertion, stridor, wheezing, others Cardiovascular: denies: chest pain, dizzy spells, diaphoresis, Dyspnea on exertion, edema, irregular heart beat, left arm pain, lightheadedness, palpitations, PND, syncope, others Gastrointestinal: reports: abdominal pain, diarrhea; denies: abdomen distended, blood streaked bowels, constipated, dysphagia, difficulty swallowing, hematemesis, melena, nausea, poor appetite, poor fluid intake, rectal bleeding, rectal pain, vomiting, others Genitourinary: denies: abnormal vagina bleeding, burning, dyspareunia, dysuria, flank pain, frequency, hematuria, incontinence, pain, , vagina discharge, urgency, others Neurological: denies: dizziness, fainting, headache, left sided numbness, left sided weakness, numbness, paresthesia, pre-existing deficit, right sided numbn ess, right sided weakness, seizure, speech problems, tingling, tremors, weakness, others Musculoskeletal: denies: back pain, gout, joint pain, joint swelling, muscle pain, muscle stiffness, neck pain, others Integumetry: denies: bruises, change in color, change in hair/nails, dryness, laceration, lesions, lumps, rash, wounds, others Allergic/Immunocompromised: denies: Difficulty Healing, Frequent Infections, Hives, Itching, others Hematologic/Lymphatic: denies: anemia, blood clots, easy bleeding, easy bruising, swollen glands, others Endocrine: denies: excessive hunger, excessive sweating, excessive thirst, excessive urination, flushing, intolerance to cold, intolerance to heat, unexplained weight gain, unexplained weight loss, others Psychiatric: denies: anxiety, bipolar disorder, depression, hopeless, panic disorder, schizophrenia, sleepless, suicidal, others All Other Systems: Reviewed and Negative Physical Exam General Appearance: Mild Distress HEENT: PERRL/EOMI, Other (dry mucous membranes) Neck: Full Range of Motion, Normal Inspection Respiratory: Lungs Clear, No Accessory Muscle Use, No Respiratory Distress, Normal Breath Sounds Cardiovascular: No Edema, No JVD, Regular Rate/Rhythm Breast Exam: Deferred Gastrointestinal: LLQ, RLQ, Soft, Suprapubic, Tenderness Genitalia: Deferred Pelvic: Deferred Rectal: Deferred Extremities: Normal inspection, Normal range of motion, Non-tender, No pedal edema Neurologic: Alert (oriented x 4), Normal Affect, Normal Mood, Other (ambulatory. no gross focal deficit.) Cerebellar Function: NOT DONE Reflexes: NOT DONE Skin: Dry, Pallor, Warm Lymphatic: NOT DONE Was a procedure done? Was a procedure done?: No GI differential Dx Differential Diagnosis: Diverticular disease, Gastroenteritis, Hepatitis, Inflammatory BD, Ischemic Bowel, UTI, Dehydration, Electrolyte Imbalance, Food Poisoning, Bacterial, Viral, Hypovolemia, Renal Failure, Stress Ulcer X-Ray, Labs, Meds, VS Vital Signs Date Time Temp Pulse Resp B/P (MAP) Pulse Ox O2 Delivery O2 Flow Rate FiO2 04/10/24 18:49 95 16 123/67 (85) 95 04/10/24 18:49 95 16 95 Room Air* 0 21 04/10/24 18:03 97.8 94 18 136/66 (89) 98 Lab Test 04/10/24 20:57 04/10/24 18:36 Range/Units Lactic Acid Level Pending 2.6 *H 0.4-2.0 mmol/L White Blood Count 6.8 4.4-10.8 10^3/uL Red Blood Count 3.46 L 4.0-5.20 10^6/uL Hemoglobin 12.9 12.2-16.2 g/dL Hematocrit 37.5 36.0-46.0 % Mean Corpuscular Volume 108.4 H 80.0-100.0 fL Mean Corpuscular Hemoglobin 37.4 H 28.0-32.0 pg Mean Corpuscular Hemoglobin Concent 34.5 32.0-36.0 g/dL Red Cell Distribution Width 16.2 H 11.8-14.3 % Platelet Count 240 140-450 10^3/uL Mean Platelet Volume 6.7 L 6.9-10.8 fL Neutrophils (%) (Auto) 78.9 37.0-80.0 % Lymphocytes (%) (Auto) 11.0 10.0-50.0 % Monocytes (%) (Auto) 7.2 0.0-12.0 % Eosinophils (%) (Auto) 2.0 0.0-7.0 % Basophils (%) (Auto) 0.9 0.0-2.0 % Neutrophils # (Auto) 5.3 1.6-8.6 10 ^3/uL Lymphocytes # (Auto) 0.7 0.4-5.4 10 ^3/uL Monocytes # (Auto) 0.5 0-1.3 10 ^3/uL Eosinophils # (Auto) 0.1 0-0.8 10 ^3/uL Basophils # (Auto) 0.1 0-0.2 10 ^3/uL Nucleated Red Blood Cells 0.0 % Sodium Level 139 136-145 mmol/L Potassium Level 4.3 3.5-5.1 mmol/L Chloride Level 103 98-107 mmol/L Carbon Dioxide Level 20 20-31 mmol/L Anion Gap 16 H 5-15 Blood Urea Nitrogen 11 9-23 mg/dL Creatinine 0.76 0.550-1.02 mg/dL Glomerular Filtration Rate Calc 90 >90 mL/min BUN/Creatinine Ratio 14.5 10.0-20.0 Serum Glucose 102 74-106 mg/dL Calcium Level 8.9 8.7-10.4 mg/dL Total Bilirubin 0.3 0.2-1.0 mg/dL Aspartate Amino Transferase (AST) 213 H 13-40 U/L Alanine Aminotransferase (ALT) 48 H 7-40 U/L Alkaline Phosphatase 326 H 46-116 U/L Troponin I High Sensitivity 10 </=34 ng/L Total Protein 7.8 5.7-8.2 g/dL Albumin 4.5 3.2-4.8 g/dL Plasma/Serum Blood Alcohol 3.5 <10 mg/dL Current Medications Medications (Trade) Dose Ordered Sig/Alena Route Start Time Stop Time Status Last Admin Sodium Chloride 1,000 ml @ 1,000 mls/hr Q1H ONCE IV 04/10/24 18:30 04/10/24 19:29 DC 04/10/24 18:47 Ondansetron HCl (Zofran) 4 mg ONCE ONCE IV 04/10/24 18:30 04/10/24 18:31 DC 04/10/24 18:45 Loperamide HCl (Imodium Capsule) 4 mg ONCE ONCE PO 04/10/24 18:30 04/10/24 18:31 DC 04/10/24 18:45 PROCEDURE(s): ABPL - CT AB PEL WO CON-NO ORAL OR IV REASON: low abd pain diarrhea ORDER NUMBER(s): [id number], ACCESSION NUMBER(s): [id number] Exam: CT CT AB PEL WO CON-NO ORAL OR IV History: low abd pain diarrhea Comparison Study: None available at time of dictation. TECHNIQUE: Multidetector CT of the abdomen was performed from lung bases to pubic symphysis. Imaging was performed without IV contrast. Axial, coronal and sagittal multiplanar reformats were obtained from the axial data set by the technologist. Radiation Dose Information: CT Dose: CTDI volume is 10.08 mGy. Dose-length product is 533.86 mGy*cm FINDINGS: Evaluation of solid organs is limited due to lack of intravenous contrast use. Findings: Lung Bases: No acute or significant lung base finding. Normal heart size. No pleural or pericardial effusion. Liver: Triangular shaped area of low-density in the right lobe of the liver with tissue density measuring 13.7 hounsfield units. The tissue density normal more normal-appearing hepatic parenchyma is 35.99 this does suggest area of fatty infiltration however without IV contrast metastatic disease can not be excluded. There are other areas of decreased attenuation in the right lobe of the liver again metastatic disease versus fatty infiltration or both differential. If patient is unable to tolerate IV contrast recommend MRI. Liver measures 16 0.3 cm in length enlarged caudate lobe of the liver Gallbladder and Biliary Tree: Unremarkable Spleen: Unremarkable Pancreas: The pancreas is grossly normal in appearance. Adrenal Glands: Unremarkable Kidneys: Kidneys are grossly normal without calculi or hydronephrosis. Bladder: Grossly unremarkable for degree of distention. Bowel: The stomach is grossly normal in appearance. No findings of bowel obstruction. There is a 7 cm long segment of mucosal thickening and luminal narrowing in the right colon above the cecum. The appendix is not visualized; however, no secondary findings of acute appendicitis identified. Ascites: Absent Lymphadenopathy: No mesenteric, retroperitoneal or periportal lymphadenopathy. Abdominal Wall and Mesentery: Unremarkable. Vasculature: The visualized abdominal aorta is normal in size and caliber. Evaluation of abdominal and pelvic vessels is limited due to lack of intravenous contrast. Pelvic Organs: Unremarkable Musculoskeletal: No aggressive focal bony lesions, acute fractures or dislocation. Soft tissues: Unremarkable IMPRESSION: 1. Enlarged liver with heterogeneous areas of decreased attenuation in the parenchyma. This may represent focal areas of fatty infiltration or neoplasm. Recommend CT scan of the abdomen and pelvis with IV contrast. If patient is unable to tolerate IV contrast recommend MRI. 2. 7 cm long segment in the right colon above the cecum of mucosal thickening of the wall and luminal narrowing. This may represent segmental inflammatory bowel disease other possibility such as neoplasm is in the differential. Further evaluation of this portion of the colon with contrast enema, colonoscopy, follow-up CT with oral contrast May also be helpful. Radiation optimization: All CT scans at this facility use at least one of these dose optimization techniques: automated exposure control mA and/or kV adjustment per patient size (includes targeted exams where dose is matched to clinical indication) or iterative reconstruction. HS:Y X-Ray, Labs, Meds, VS Comment 59 yo female with PMHx of IBS and HTN, presents to the ED for a chief complaint of lower abdominal pain and multiple episodes of diarrhea that started 2 days ago Vitals unremarkable Exam remarkable for generalized lower abdominal tenderness to palpation. No rebound or guarding. Nontender to percussion. Rhythm strip independently interpreted by me: Sinus rhythm, rate 95, no ectopy. CT abdomen and pelvis: IMPRESSION: 1. Enlarged liver with heterogeneous areas of decreased attenuation in the parenchyma. This may represent focal areas of fatty infiltration or neoplasm. Recommend CT scan of the abdomen and pelvis with IV contrast. If patient is unable to tolerate IV contrast recommend MRI. 2. 7 cm long segment in the right colon above the cecum of mucosal thickening of the wall and luminal narrowing. This may represent segmental inflammatory bowel disease other possibility such as neoplasm is in the differential. Further evaluation of this portion of the colon with contrast enema, colonoscopy, follow-up CT with oral contrast May also be helpful. CBC unremarkable, metabolic panel remarkable for CO2 16, AST 213, ALT 48, alkaline phos 326, 2 serial troponins negative, lactate 2.6, 2.4 on repeat, alcohol 3.5, UA pending Patient treated with the following in the ED: 1 L 0.9 normal saline IV bolus, morphine 4 mg IV, Zofran 4 mg IV, Imodium 4 mg p.o. On re-evaluation, patient states her symptoms have somewhat improved. Vitals were stable. Plan is to admit the patient for pain control, IV hydration, and GI evaluation. Time of 1ST Reevaluation: 18:39 Reevaluation 1ST: Unchanged Patient Education/Counseling: Diagnosis, Treatment, Prognosis Family Education/Counseling: No Family Present Departure 1 Departure Time of Disposition: 21:00 Impression: Primary Impression: IBD (inflammatory bowel disease) Additional Impressions: Abdominal pain Qualified Codes: R10.30 - Lower abdominal pain, unspecified Diarrhea Qualified Codes: R19.7 - Diarrhea, unspecified Transaminitis Elevated lactic acid level Disposition: ADMITTED INPATIENT Admit to: Med Surg Condition: Guarded Critical Care Note Critical Care Time?: No Stability Stability form required: No Heart Score Heart Score: Heart Score Response (Comments) Value History N/A 0 EKG N/A 0 Age N/A 0 Risk Factors N/A 0 Troponin N/A 0 Total 0 I personally scribed for BERTRAND SIU MD ([facility]) on 04/10/24 at 18:42. Electronically submitted by May Duogn ([facility]). BERTRAND SIU MD Apr 10, 2024 18:42
[2024-04-10] MEDS: ONDANSETRON HCL 4 MG/2 ML VIAL IV ONE (18:45)
[2024-04-10] MEDS: LOPERAMIDE HCL 2 MG CAP/TAB PO ONE (18:45)
[2024-04-10 18:46] LABS: Basophils # (auto) 0.1 10 ^3/uL (0-0.2); Basophils % (auto) 0.9 % (0.0-2.0); Eosinophils # (auto) 0.1 10 ^3/uL (0-0.8); Hematocrit 37.5 % (36.0-46.0); Hemoglobin 12.9 g/dL (12.2-16.2); Lymphocytes # (auto) 0.7 10 ^3/uL (0.4-5.4); Mean Corpuscular Hemoglobin 37.4 pg (28.0-32.0); Mean Corpuscular Hgb Conc. 34.5 g/dL (32.0-36.0); Mean Corpuscular Volume 108.4 fL (80.0-100.0); Monocytes # (auto) 0.5 10 ^3/uL (0-1.3); Monocytes % (auto) 7.2 % (0.0-12.0); Neutrophils # (auto) 5.3 10 ^3/uL (1.6-8.6); Neutrophils % (auto) 78.9 % (37.0-80.0); Platelet Count (auto) 240 10^3/uL (140-450); Red Blood Cells 3.46 10^6/uL (4.0-5.20); Red Cell Distribution Width 16.2 % (11.8-14.3); White Blood Cell 6.8 10^3/uL (4.4-10.8)
[2024-04-10] MEDS: SODIUM CHLORIDE 0.9% 1,000 ML IV ONE ×2 (18:47→22:00)
[2024-04-10] MEDS: MORPHINE SULFATE 4 MG/ML SYR/VIAL IV ONE (18:47)
[2024-04-10 18:49] VITALS: PULSE 95; RESP 16; O2SAT 95
[2024-04-10 19:09] LABS: Albumin 4.5 g/dL (3.2-4.8); Anion Gap 16 (5-15); BUN/Creatinine Ratio 14.5 (10.0-20.0); Bilirubin, Total 0.3 mg/dL (0.2-1.0); Blood Urea Nitrogen 11 mg/dL (9-23); Calcium 8.9 mg/dL (8.7-10.4); Carbon Dioxide 20 mmol/L (20-31); Chloride 103 mmol/L (98-107); Glucose 102 mg/dL (74-106); Potassium 4.3 mmol/L (3.5-5.1); Sodium 139 mmol/L (136-145); Total Protein 7.8 g/dL (5.7-8.2)
[2024-04-10 19:14] LABS: Alanine Aminotransferase 48 U/L (7-40); Alkaline Phosphatase 326 U/L (46-116); Aspartate Aminotransferase 213 U/L (13-40)
[2024-04-10 19:16] LABS: Lactic Acid w/Reflex 2.6 mmol/L (0.4-2.0)
--- NOTE | 2024-04-10 21:09 | DVH ---
Exam: CT CT AB PEL WO CON-NO ORAL OR IV History: low abd pain diarrhea Comparison Study: None available at time of dictation. TECHNIQUE: Multidetector CT of the abdomen was performed from lung bases to pubic symphysis. Imaging was performed without IV contrast. Axial, coronal and sagittal multiplanar reformats were obtained fr om the axial data set by the technologist. Radiation Dose Information: CT Dose: CTDI volume is 10.08 mGy. Dose-length product is 533.86 mGy*cm FINDINGS: Evaluation of solid organs is limited due to lack of intravenous contrast use. Findings: Lung Bases: No acute or significant lung base finding. Normal heart size. No pleural or pericardial effusion. Liver: Triangular shaped area of low-density in the right lobe of the liver with tissue density measu ring 13.7 hounsfield units. The tissue density normal more normal-appearing hepatic parenchyma is 35. 99 this does suggest area of fatty infiltration however without IV contrast metastatic disease can no t be excluded. There are other areas of decreased attenuation in the right lobe of the liver again me tastatic disease versus fatty infiltration or both differential. If patient is unable to tolerate IV contrast recommend MRI. Liver measures 16 0.3 cm in length enlarged caudate lobe of the liver Gallbladder and Biliary Tree: Unremarkable Spleen: Unremarkable Pancreas: The pancreas is grossly normal in appearance. Adrenal Glands: Unremarkable Kidneys: Kidneys are grossly normal without calculi or hydronephrosis. Bladder: Grossly unremarkable for degree of distention. Bowel: The stomach is grossly normal in appearance. No findings of bowel obstruction. There is a 7 cm long segment of mucosal thickening and luminal narrowing in the right colon above the cecum. The ap pendix is not visualized; however, no secondary findings of acute appendicitis identified. Ascites: Absent Lymphadenopathy: No mesenteric, retroperitoneal or periportal lymphadenopathy. Abdominal Wall and Mesentery: Unremarkable. Vasculature: The visualized abdominal aorta is normal in size and caliber. Evaluation of abdominal a nd pelvic vessels is limited due to lack of intravenous contrast. Pelvic Organs: Unremarkable Musculoskeletal: No aggressive focal bony lesions, acute fractures or dislocation. Soft tissues: Unremarkable IMPRESSION: 1. Enlarged liver with heterogeneous areas of decreased attenuation in the parenchyma. This may repre sent focal areas of fatty infiltration or neoplasm. Recommend CT scan of the abdomen and pelvis with IV contrast. If patient is unable to tolerate IV contrast recommend MRI. 2. 7 cm long segment in the right colon above the cecum of mucosal thickening of the wall and yuan nal narrowing. This may represent segmental inflammatory bowel disease other possibility such as whitley plasm is in the differential. Further evaluation of this portion of the colon with contrast enema, co lonoscopy, follow-up CT with oral contrast May also be helpful. Radiation optimization: All CT scans at this facility use at least one of these dose optimization techniques: automated expos ure control mA and/or kV adjustment per patient size (includes targeted exams where dose is matched to clinical indication) or iterative reconstruction. HS:Y
[2024-04-10] MEDS ORDERED: MORPHINE SULFATE INJ 2 MG/ml SYRG IV PRN (22:00)
[2024-04-10 22:40] LABS: Erythrocyte Sedimentation Rate 33 mm/hr (0-20)
[2024-04-10] MEDS: FOLIC ACID 1 MG, MULTIPLE VITAMIN 10 ML, MAGNESIUM SULF SDV 50% 8 MEQ, THIAMINE INJ 100... INJ SCH (22:44)
[2024-04-10 23:17] VITALS: BP 150/72; PULSE 102; RESP 17; TEMP 98.2; O2SAT 96
[2024-04-11 01:00] VITALS: BP 169/96; PULSE 126; RESP 18; TEMP 98.3; O2SAT 92
[2024-04-11] MEDS: LOPERAMIDE HCL 2 MG CAP/TAB PO ONE ×2 (01:05→12:29)
[2024-04-11] MEDS: ONDANSETRON HCL 4 MG/2 ML VIAL IV PRN (01:06)
[2024-04-11] MEDS: LORazepam 2MG/ML-1ML VIAL IV PRN ×2 (01:06→09:11)
--- NOTE | 2024-04-11 03:40 | DVHHPRES ---
History of Present Illness Resident Creating Document: ADEN ROBLES RESIDENT Reason for Visit: intractable abdominal pain History of Present Illness 59-year-old female with a past medical history of hypertension, irritable bowel syndrome (IBS), and chronic alcoholism, currently on lisinopril, metoprolol, and Librium, presents with abdominal pain that started two days ago. She also reports multiple episodes of diarrhea, nausea, and vomiting. The pain is localized to the suprapubic region and is described as moderate in intensity. She denies any fever or chills. She has a history of IBS and states that these symptoms feel similar to previous flare-ups. CT abdomen and pelvis revealed an enlarged liver with a previously known hepatic lesion. However, there is new mucosal thickening and luminal narrowing in the right colon above the cecum, measuring approximately 7 cm. Prior MRI of the abdomen showed no focal liver mass, but heterogeneous liver signal, possibly due to regional fatty infiltration or chronic hepatocellular disease. Given these findings, further evaluation with a CT with IV contrast is planned. Last drink was today: 4 shots of vodka Past Medical History: Hypertension Irritable Bowel Syndrome Chronic Alcoholism Anxiety Past Surgical History: Hysterectomy Medications: Lisinopril 20 mg PO daily Metoprolol Succinate 50 mg PO daily Chlordiazepoxide Famotidine 20 mg PO BID PRN Allergies: No known allergies Social History: Smoking: Non-smoker Alcohol: Chronic use Drugs: None Review of Systems Review of Systems Constitutional: Denies fever, chills, night sweats GI: Reports diarrhea, abdominal pain, nausea, and vomiting : No dysuria, hematuria CV: No chest pain, palpitations Pulmonary: No shortness of breath, cough Allergies: Coded Allergies: NO KNOWN ALLERGIES (Unverified , 04/21/23) Medications Current Medications Medications Dose Ordered Sig/Alena Route Start Time Stop Time Status Last Admin Dose Admin Folic Acid 1 mg/ Multivitamins 10 ml/Magnesium Sulfate 8 meq/ Thiamine HCl 100 mg/Dextrose 1,013.2 ml @ 125.001 mls/hr DAILY@1800 INJ 04/10/24 21:45 04/10/24 22:44 125.001 MLS/HR Morphine Sulfate 1 mg Q6HP PRN IV 04/10/24 22:00 Lorazepam 2 mg Q1HP PRN IV 04/11/24 01:00 04/11/24 01:06 2 MG Ondansetron HCl 4 mg Q4HPRN PRN IV 04/11/24 01:00 04/11/24 01:06 4 MG Chlordiazepoxide HCl 25 mg Q8HPRN PRN PO 04/11/24 01:15 Lisinopril 20 mg DAILY PO 04/11/24 03:30 Metoprolol Succinate 50 mg DAILY PO 04/11/24 03:30 Ciprofloxacin 200 ml @ 200 mls/hr Q8HR IV 04/11/24 04:00 Metronidazole 100 ml @ 100 mls/hr Q8HR IV 04/11/24 04:00 Exam Vital Signs Vital Signs Date Time Temp Pulse Resp B/P (MAP) Pulse Ox O2 Delivery O2 Flow Rate FiO2 04/11/24 01:00 98.3 126 18 169/96 (120) 92 98.3 04/10/24 23:17 Room Air* 0 21 Exam General: Well-appearing, no acute distress Abdomen: Soft, non-distended, mild suprapubic tenderness, no rebound or guarding CV: Regular rate and rhythm, no murmurs Pulm: Clear to auscultation bilaterally Neuro: No focal deficits Skin: No rashes, jaundice noted Labs/Xrays Labs Test 04/10/24 21:52 04/10/24 20:57 04/10/24 18:36 Range/Units Erythrocyte Sedimentation Rate 33 H 0-20 mm/hr C-Reactive Protein High Sensitivity 2.44 H <1.0 mg/dL Lipase 41 12-53 U/L Lactic Acid Level 2.4 *H 0.4-2.0 mmol/L White Blood Count 6.8 4.4-10.8 10^3/uL Red Blood Count 3.46 L 4.0-5.20 10^6/uL Hemoglobin 12.9 12.2-16.2 g/dL Hematocrit 37.5 36.0-46.0 % Mean Corpuscular Volume 108.4 H 80.0-100.0 fL Mean Corpuscular Hemoglobin 37.4 H 28.0-32.0 pg Mean Corpuscular Hemoglobin Concent 34.5 32.0-36.0 g/dL Red Cell Distribution Width 16.2 H 11.8-14.3 % Platelet Count 240 140-450 10^3/uL Mean Platelet Volume 6.7 L 6.9-10.8 fL Neutrophils (%) (Auto) 78.9 37.0-80.0 % Lymphocytes (%) (Auto) 11.0 10.0-50.0 % Monocytes (%) (Auto) 7.2 0.0-12.0 % Eosinophils (%) (Auto) 2.0 0.0-7.0 % Basophils (%) (Auto) 0.9 0.0-2.0 % Neutrophils # (Auto) 5.3 1.6-8.6 10 ^3/uL Lymphocytes # (Auto) 0.7 0.4-5.4 10 ^3/uL Monocytes # (Auto) 0.5 0-1.3 10 ^3/uL Eosinophils # (Auto) 0.1 0-0.8 10 ^3/uL Basophils # (Auto) 0.1 0-0.2 10 ^3/uL Nucleated Red Blood Cells 0.0 % Sodium Level 139 136-145 mmol/L Potassium Level 4.3 3.5-5.1 mmol/L Chloride Level 103 98-107 mmol/L Carbon Dioxide Level 20 20-31 mmol/L Anion Gap 16 H 5-15 Blood Urea Nitrogen 11 9-23 mg/dL Creatinine 0.76 0.550-1.02 mg/dL Glomerular Filtration Rate Calc 90 >90 mL/min BUN/Creatinine Ratio 14.5 10.0-20.0 Serum Glucose 102 74-106 mg/dL Calcium Level 8.9 8.7-10.4 mg/dL Total Bilirubin 0.3 0.2-1.0 mg/dL Aspartate Amino Transferase (AST) 213 H 13-40 U/L Alanine Aminotransferase (ALT) 48 H 7-40 U/L Alkaline Phosphatase 326 H 46-116 U/L Troponin I High Sensitivity 10 </=34 ng/L Total Protein 7.8 5.7-8.2 g/dL Albumin 4.5 3.2-4.8 g/dL Plasma/Serum Blood Alcohol 3.5 <10 mg/dL Assessment/Plan Assessment/Plan Imaging & Lab Results: CT Abdomen/Pelvis: without contrast Enlarged liver with heterogeneous attenuation No new focal hepatic masses New findin cm segment of mucosal thickening and luminal narrowing in the right colon above the cecum ? differential includes segmental inflammatory bowel disease vs. neoplasm MRI Abdomen (prior study): No focal liver masses, mild heterogeneous liver signal Likely regional fatty infiltration vs. chronic hepatocellular disease Assessment & Plan: 59-year-old female with history of hypertension, IBS, and chronic alcohol use presenting with abdominal pain, diarrhea, nausea, and vomiting. New CT findings of right colon thickening and luminal narrowing raise concern for segmental inflammatory bowel disease vs. neoplasm. Enlarged liver with known hepatic lesion appears stable. #Rule out neoplasm #Possible sepsis due to acute gastroenteritis #Intractable abdominal pain #Hypertensive urgency #Transaminitis #Possible fatty liver #Chronic hepatocellular disease #Possible alcohol withdrawal Admit Banana bag NS CT scan with contrast 7 am Start cipro + metronidazole CIWA score more than 8: lorazepam + librium Restart lisinopril + metoprolol home meds GI consult due to possible colon neoplasm and transaminitis Labs am Case discussed with Dr Mota Plan discussed with: Patient, Other My Orders Orders - ADEN ROBLES RESIDENT Procedure Category Date Status Time Admit ADMIT 04/10/24 Transmitted 21:26 Stool Occult Blood LAB 04/10/24 Logged 21:26 Carbohydrate Antigen LAB 04/10/24 In Process 19-9 Carcinoembryonic LAB 04/10/24 In Process Antigen 21:26 Afp Serum Tumor Marker LAB 04/10/24 In Process 21:26 Full Liq Diet DIET 04/11/24 Transmitted Breakfast Npo After Midnight DIET 04/11/24 Transmitted Breakfast Mri Abdomen W And Wo MRI 04/10/24 Logged 21:26 Folic Acid... PHA 04/10/24 In Process 21:45 Ct Abd Pelvis W CT 04/11/24 Logged Con-Oral & Iv 07:00 Morphine Sulfate PHA 04/10/24 In Process Injection 22:00 * Gi Dvh Oyster Culler CONS 04/10/24 Transmitted 21:56 Mrsa Screen KAROLINE 04/11/24 Uncollected 00:06 Chlordiazepoxide Hcl PHA 04/11/24 In Process Capsule (Librium Ca 01:15 Urinalysis LAB 04/11/24 Logged 01:12 Drug Screen LAB 04/11/24 Logged 01:12 Lisinopril Tablet PHA 04/11/24 In Process (Zestril Tablet) 03:30 Metoprolol Xl PHA 04/11/24 In Process Succinate (Toprol Xl) 03:30 Ciprofloxacin PHA 04/11/24 In Process 400mg/200ml (Cipro Iv) 04:00 Metronidazole PHA 04/11/24 In Process 500mg/100ml (Flagyl 04:00 Sodium Chloride 0.9% PHA 04/11/24 In Process 03:30 Date of Service: Apr 10, 2024 Billing Provider: BEATRIZ MOTA MD Common Visit Codes: [id number] INP/OBS CARE (HIGH) ADEN ROBLES RESIDENT Apr 11, 2024 03:40 BEATRIZ MOTA MD Apr 11, 2024 10:37
[2024-04-11] MEDS: metroNIDAZOLE 500MG/100ML 100 ML IV SCH (03:55)
[2024-04-11] MEDS: METOPROLOL SUCCINATE XL 50 MG TAB PO SCH (03:57)
[2024-04-11] MEDS: LISINOPRIL 20 MG TAB PO SCH (03:57)
[2024-04-11] MEDS: SODIUM CHLORIDE 0.9% 1,000 ML IV ONE (03:58)
[2024-04-11 05:00] VITALS: BP 165/85; PULSE 112; RESP 18; TEMP 98.9; O2SAT 93
[2024-04-11] MEDS: CIPROFLOXACIN 400MG/200ML 200 ML IV SCH (05:11)
[2024-04-11] MEDS: chlordiazePOXIDE HCL 25 MG CAP PO PRN (05:27)
[2024-04-11 05:34] LABS: Urine Bacteria None Seen /hpf (None Seen)
[2024-04-11 06:17] LABS: Urine Blood Negative /uL (Negative); Urine Clarity Clear (Clear); Urine Color Yellow (Yellow); Urine Hyaline Cast FEW /lpf (0 - 2); Urine Protein, UAD 1+ (Negative); Urine Squamous Epithelial Cell FEW /hpf (<5); Urine Urobilinogen Normal (Negative); Urine WBC 4 /HPF (0-5); Urine pH 5.5 (5.0-9.0)
[2024-04-11 06:44] LABS: Amphetamine Screen, Urine Neg (NEGATIVE); Barbiturate Scree,Urine Neg (NEGATIVE); Benzodiazephine Screen, Urine Pos (NEGATIVE); Cannabinoid Screen, Urine Neg (NEGATIVE); Cocaine Screen, Urine Neg (NEGATIVE); Opiate Scree,Urine Neg (NEGATIVE); Phencyclidine Screen, Urine Neg (NEGATIVE)
[2024-04-11 06:45] LABS: Mean Corpuscular Hemoglobin 36.9 pg (28.0-32.0); Mean Corpuscular Hgb Conc. 34.2 g/dL (32.0-36.0); Platelet Count (auto) 173 10^3/uL (140-450); Red Blood Cells 3.24 10^6/uL (4.0-5.20); Red Cell Distribution Width 16.6 % (11.8-14.3); White Blood Cell 7.9 10^3/uL (4.4-10.8)
[2024-04-11 07:07] LABS: Albumin 4.4 g/dL (3.2-4.8); Anion Gap 14 (5-15); BUN/Creatinine Ratio 15.1 (10.0-20.0); Blood Urea Nitrogen 11 mg/dL (9-23); Calcium 9.2 mg/dL (8.7-10.4); Carbon Dioxide 21 mmol/L (20-31); Chloride 106 mmol/L (98-107); Potassium 4.4 mmol/L (3.5-5.1); Sodium 141 mmol/L (136-145); Total Protein 7.3 g/dL (5.7-8.2)
[2024-04-11 07:08] LABS: Bilirubin, Total 0.7 mg/dL (0.2-1.0)
[2024-04-11 07:10] LABS: Alanine Aminotransferase 43 U/L (7-40); Alkaline Phosphatase 278 U/L (46-116); Aspartate Aminotransferase 154 U/L (13-40); Glucose 144 mg/dL (74-106)
[2024-04-11 07:46] LABS: Band Neutrophils % (manual) 0; Basophils % (manual) 0 (0.0-2.0); Blast Cells 0; Eosinophils % (manual) 0 (0-7); Metamyelocytes % 0; Myelocytes % 0; Promyelocytes % 0; Reactive Lymphocytes 0
[2024-04-11 09:00] VITALS: BP 179/92; PULSE 84; RESP 18; TEMP 98; O2SAT 94
[2024-04-11] MEDS ORDERED: LORazepam 2MG/ML-1ML VIAL IV PRN (09:00)
--- NOTE | 2024-04-11 09:11 | DVHPNRES ---
Progress Note Date Seen: Apr 11, 2024 Resident Creating Document: BEHZAD BAILEY RESIDENT Medical Necessity Reason Pt with a Central, PICC or Fol: No Subjective Review of Systems Patient is a 59-year-old female with past medical history of hypertension, IBS- diarrhea type, alcohol use disorder, who came in due to abdominal pain and alcohol withdrawal. According to the patient, she has been experiencing abdominal pain for the last 19 years, however, over the last few days her abdominal pain has been worsening and associated with recurrent vomiting and diarrhea episodes. Per patient, her last drink was on 04/10/2024 at 8:00 a.m.. Currently patient rates her abdominal pain as 8/10, had 6 episodes of diarrhea overnight and multiple episodes of vomiting. Per patient she had a colonoscopy 5 years ago which was unremarkable. Past surgical history: Hysterectomy, right knee surgery, bilateral shoulder surgery Home medications: Lisinopril, metoprolol Past Hospitalization: Discharged from the [facility] 10 days ago for alcohol withdrawal Social & Personal history: Patient lives in a trailer in the backyard of her sister's house. Denies smoking, drinks 1 bottle of vodka daily for the last 2 years. Denies using drugs. Allergies: Denies Patient seen and examined at bedside. Patient is alert and oriented to time, place person and responding to all questions. General: Fatigue, unintentional weight loss of 50 lb in the last 12 months Eyes: No Pain, No Vision change, No Conjunctivae inflammation, No Eyelid inflammation, No Other, No Redness ENT: No Ear pain, No Ear discharge, No Nose pain, No Nose discharge, No Nose congestion, No Mouth pain, No Mouth swelling, No Throat pain, No Throat swelling, No Other Cardiovascular: No Chest Pain, No Palpitations, No Orthopnea, No Paroxysmal No Dyspnea, No Edema, No Lt Headedness, No Other Respiratory: No Cough, No Dry, No Shortness of breath, No SOB with exertion, No Wheezing, No Hemoptysis, No Pleuritic Pain, No Sputum, No Other Gastrointestinal: Nausea, Vomiting, Abdominal Pain, Diarrhea, No Constipation, No Melena, No Hematochezia, No Other Genitourinary: No Dysuria, No Frequency, No Incontinence, No Hematuria, No Retention, No Other Musculoskeletal: No other, No neck pain, No shoulder pain, No arm pain, No back pain, No hand pain, No leg pain, No foot pain Skin: No Rash, No Lesions, No Jaundice, No Bruising, No Other Objective vital signs Vital Sign Date Time Temp Pulse Resp B/P (MAP) Pulse Ox O2 Delivery O2 Flow Rate FiO2 04/11/24 05:00 98.9 112 18 165/85 (111) 93 98.9 04/10/24 23:17 Room Air* 0 21 Total Intake and Output 04/10/24 04/10/24 04/11/24 15:00 23:00 07:00 Intake Total 1000 ml 0 ml Balance 1000 ml 0 ml medications Current Medications Medications Dose Ordered Sig/Alena Route Start Time Stop Time Status Last Admin Dose Admin Folic Acid 1 mg/ Multivitamins 10 ml/Magnesium Sulfate 8 meq/ Thiamine HCl 100 mg/Dextrose 1,013.2 ml @ 125.001 mls/hr DAILY@1800 INJ 04/10/24 21:45 04/10/24 22:44 125.001 MLS/HR Ondansetron HCl 4 mg Q4HPRN PRN IV 04/11/24 01:00 04/11/24 01:06 4 MG Lisinopril 20 mg DAILY PO 04/11/24 03:30 04/11/24 03:57 20 MG Metoprolol Succinate 50 mg DAILY PO 04/11/24 03:30 04/11/24 03:57 50 MG Ciprofloxacin 200 ml @ 200 mls/hr Q8HR IV 04/11/24 04:00 04/11/24 05:11 200 MLS/HR Metronidazole 100 ml @ 100 mls/hr Q8HR IV 04/11/24 04:00 04/11/24 03:55 100 MLS/HR Lorazepam 2 mg Q2HP PRN IV 04/11/24 09:15 Examination General Appearance: Cooperative. Well developed. Well nourished. CIWA score 21 Head Exam: Normal inspection Neck Exam: Normal inspection. Non-tender. Normal alignment Pulmonary/Respiratory: Chest non-tender. Clear bilateral breath sounds, no crackles, no wheezing. Cardiovascular/Chest: Regular rate and rhythm. No murmurs. No JVD. Peripheral Pulses: 2+ Radial (R). 2+ Radial (L). 2+ Pedal (R). 2+ Pedal (L) Abdominal Exam: Normal bowel sounds. Soft. normal abdomen, no visible veins, g eneralized lower abdominal tenderness to palpation. No hepatospenomegaly. No masses Ankle Exam: Negative ankle edema Lower extremities: Negative lower extremity edema Neuro/Mental Status: A&O x4. Coherent. Thoughts/Psych: Patient already to have some delusions versus hallucinations Skin Exam: Normal inspection. Normal color. Warm. Dry laboratory and microbiology Laboratory Tests 04/11/24 06:02 Test 04/11/24 06:02 Range/Units Serum Glucose 144 H 74-106 mg/dL Labs and/or images reviewed: Labs reviewed by me, Image(s) reviewed by me Problem List/Assessment/Plan Problem List/Assessment/Plan Toxic metabolic encephalopathy secondary to alcohol Alcohol withdrawal, CIWA score 21 Alcohol use disorder - IV NS 3 L - IV banana bag - IV lorazepam 2 mg q.2 hours as needed - IV Zofran - IV thiamine 100 mg daily - multivitamin Enterocolitis versus IBS-D - CT abdomen pelvis: Enlarged liver with heterogeneous areas of decreased attenuation in the parenchyma. This may represent focal areas of fatty infiltration or neoplasm. Recommend CT scan of the abdomen and pelvis with IV contrast. If patient is unable to tolerate IV contrast recommend MRI. 7 cm long segment in the right colon above the cecum of mucosal thickening of the wall and luminal narrowing. This may represent segmental inflammatory bowel disease other possibility such as neoplasm is in the differential. Further evaluation of this portion of the colon with contrast enema, colonoscopy, follow-up CT with oral contrast May also be helpful. - CT abdomen pelvis with IV contrast, pt refusing - loperamide 4 mg p.o. once - IV ciprofloxacin, IV metronidazole - ordered stool occult blood, stool WBCs - consulted GI Hypertension - resumed home medication lisinopril 20 mg daily - resumed home medication metoprolol succinate 50 mg Goals of care: Full code, discussed for >16 minutes on 04/11/2024 Plan discussed with patient Plan discussed with Dr. Nunez Plan discussed with: Patient, Other (RN) My Orders My Orders Orders - BEHZAD BAILEY Procedure Category Date Status Time Lorazepam 2mg/Ml Inj PHA 04/11/24 In Process (Ativan Inj) 09:15 Date of Service: Apr 11, 2024 Billing Provider: ANN NUNEZ MD Common Visit Codes: [id number] INP/OBS CARE(HIGH) BEHZAD BAILEY Apr 11, 2024 09:11 ANN NUNEZ MD Apr 12, 2024 16:20
[2024-04-11 09:41] LABS: Lymphocytes % (manual) 5 (10.0-50.0); Macrocytosis Moderate; Monocytes % (manual) 7 (0-12); Platelet Estimate Adequate
[2024-04-11] MEDS ORDERED: MULTIPLE VITAMIN TAB PO ONE (10:30)
[2024-04-11] MEDS: THIAMINE 100mg/ml INJ (200mg/2ml VIAL) IV SCH (12:29)
[2024-04-11 13:00] VITALS: BP 178/92; PULSE 74; RESP 20; TEMP 98.3; O2SAT 98
--- NOTE | 2024-04-11 13:05 | DVHINCON2 ---
GI Consult Consult Note GI consult note Date of Consultation: 04/11/2024 Chief Complaint: Rule out colon malignancy Referring Physician: Dr. Nunn H&P: 59-year-old female with PMH of hypertension, irritable bowel syndrome, chronic alcoholism presented to ER with abdominal pain in the periumbilical area for the past two days Patient also complains of nausea and vomiting, no hematemesis, last episode of emesis this a.m. Patient complains of loose stool about 10 times every day, dark brown to yellow in color. No melena or red blood in stool SP colonoscopy five years ago negative per patient done in [place] Patient admits to heavy alcohol use, last use yesterday Past Medical History: Irritable Bowel Syndrome Chronic Alcoholism Anxiety Past Surgical History: Hysterectomy Social History: NO smoking, heavy drinking ETOH Family History: Noncontributory Review of Systems: Constitutional: no fever, chill, weight loss HEENT: no eye pain, no hearing loss, no oral lesion, no scleral icterus Heart: no chest pain, no chest pressure Lung: no cough, no dyspnea with exertion Abdomen: see HPI Physical exam: General: NAD, AAOX3 Chest: lung samano clear to auscultation Heart: RRR, no murmur Abdomen: Bain-br-esjaizut epigastric to periumbilical tenderness to palpation, +BS Labs: Labs Test 04/11/24 07:04 04/11/24 06:02 04/11/24 05:00 04/10/24 21:52 Range/Units Lactic Acid Level 1.4 0.4-2.0 mmol/L White Blood Count 7.9 4.4-10.8 10^3/uL Red Blood Count 3.24 L 4.0-5.20 10^6/uL Hemoglobin 12.0 L 12.2-16.2 g/dL Hematocrit 35.0 L 36.0-46.0 % Mean Corpuscular Volume 108.0 H 80.0-100.0 fL Mean Corpuscular Hemoglobin 36.9 H 28.0-32.0 pg Mean Corpuscular Hemoglobin Concent 34.2 32.0-36.0 g/dL Red Cell Distribution Width 16.6 H 11.8-14.3 % Platelet Count 173 140-450 10^3/uL Mean Platelet Volume 7.1 6.9-10.8 fL Neutrophils (%) (Auto) 37.0-80.0 % Lymphocytes (%) (Auto) 10.0-50.0 % Monocytes (%) (Auto) 0.0-12.0 % Basophils (%) (Auto) 0.0-2.0 % Neutrophils # (Auto) 1.6-8.6 10 ^3/uL Lymphocytes # (Auto) 0.4-5.4 10 ^3/uL Monocytes # (Auto) 0-1.3 10 ^3/uL Differential Total Cells Counted 100.0 100 Neutrophils % (Manual) 88 H 37.0-80.0 Band Neutrophils % (Manual) 0 Lymphocytes % (Manual) 5 L 10.0-50.0 Monocytes % (Manual) 7 0-12 Eosinophils % (Manual) 0 0-7 Basophils % (Manual) 0 0.0-2.0 Metamyelocytes % (manual) 0 Myelocytes % (Manual) 0 Promyelocytes % (Manual) 0 Blast Cells % (Manual) 0 Reactive Lymphocytes 0 Platelet Estimate Adequate Macrocytosis Moderate Sodium Level 141 136-145 mmol/L Potassium Level 4.4 3.5-5.1 mmol/L Chloride Level 106 98-107 mmol/L Carbon Dioxide Level 21 20-31 mmol/L Anion Gap 14 5-15 Blood Urea Nitrogen 11 9-23 mg/dL Creatinine 0.73 0.550-1.02 mg/dL Glomerular Filtration Rate Calc 94 >90 mL/min BUN/Creatinine Ratio 15.1 10.0-20.0 Serum Glucose 144 H 74-106 mg/dL Calcium Level 9.2 8.7-10.4 mg/dL Total Bilirubin 0.7 0.2-1.0 mg/dL Aspartate Amino Transferase (AST) 154 H 13-40 U/L Alanine Aminotransferase (ALT) 43 H 7-40 U/L Alkaline Phosphatase 278 H 46-116 U/L Troponin I High Sensitivity 10 </=34 ng/L Total Protein 7.3 5.7-8.2 g/dL Albumin 4.4 3.2-4.8 g/dL Urine Color Yellow Yellow Urine Clarity Clear Clear Urine pH 5.5 5.0-9.0 Urine Specific [place] 1.020 1.001-1.035 Urine Protein 1+ H Negative Urine Ketones 1+ H Negative Urine Blood Negative Negative /uL Urine Nitrite Negative Negative Urine Bilirubin Negative Negative Urine Urobilinogen Normal Negative mg/dL Urine Leukocyte Esterase Negative Negative /uL Urine RBC <1 0 - 4 /hpf Urine Microscopic WBC 4 0-5 /HPF Urine Squamous Epithelial Cells Few <5 /hpf Urine Bacteria None seen None Seen /hpf Urine Hyaline Casts Few 0 - 2 /lpf Urine Glucose Normal Normal mg/dL Urine Opiates Screen Neg NEGATIVE Urine Fentanyl Screen Neg NEGATIVE Urine Barbiturates Screen Neg NEGATIVE Urine Phencyclidine Screen Neg NEGATIVE Urine Amphetamines Screen Neg NEGATIVE Urine Benzodiazepines Screen Pos NEGATIVE Urine Cocaine Screen Neg NEGATIVE Urine Cannabinoids Screen Neg NEGATIVE Erythrocyte Sedimentation Rate 33 H 0-20 mm/hr C-Reactive Protein High Sensitivity 2.44 H <1.0 mg/dL Lipase 41 12-53 U/L Carcinoembryonic Antigen 2.24 <=5.0 ng/mL Test 04/10/24 18:36 Range/Units Eosinophils (%) (Auto) 2.0 0.0-7.0 % Eosinophils # (Auto) 0.1 0-0.8 10 ^3/uL Basophils # (Auto) 0.1 0-0.2 10 ^3/uL Nucleated Red Blood Cells 0.0 % Plasma/Serum Blood Alcohol 3.5 <10 mg/dL Imaging: CT abdomen pelvis IMPRESSION: 1. Enlarged liver with heterogeneous areas of decreased attenuation in the parenchyma. This may represent focal areas of fatty infiltration or neoplasm. R ecommend CT scan of the abdomen and pelvis with IV contrast. If patient is unable to tolerate IV contrast recommend MRI. 2. 7 cm long segment in the right colon above the cecum of mucosal thickening of the wall and luminal narrowing. This may represent segmental inflammatory bowel disease other possibility such as neoplasm is in the differential. Further evaluation of this portion of the colon with contrast enema, colonoscopy, follow-up CT with oral contrast May also be helpful. Radiation optimization: Assessment: Intractable abdominal pain Transaminitis Heavy alcohol use Rule out neoplasm of colon Plan: -discussed with Dr. Wolfe CT abdomen pelvis with contrast pending Monitor labs DC alcohol discussed extensively We will monitor this patient Discussed plan with patient and RN Thank you for this consult Date of Service: Apr 11, 2024 Billing Provider: RAMSES DEL RIO Common Visit Codes: CONSULT ONLY Consultation Codes: [id number] CONSULT <60MIN RAMSES DEL RIO Apr 11, 2024 13:05
[2024-04-11 17:00] VITALS: BP 172/85; PULSE 72; RESP 18; TEMP 98.7; O2SAT 98
--- NOTE | 2024-04-11 17:11 | MEDREC ---
[facility] ASP Intervention Section I [facility] ASP Intervention: Review courses of therapy (MRSA SCREEN POSITIVE CONSIDER ADDING MUPIROCIN 2% OINTMENT 1 APPLICATION IN EACH NOSTRIL BID FOR 5 DAYS ) CAMPBELL CHRISTIAN PHARMACIST Apr 11, 2024 17:11
--- NOTE | 2024-04-11 17:12 | DVH ---
Exam: CT CT ABD PELVIS W CON-ORAL IV History: rule out neoplasm Comparison Study: Multiple prior cTs and MRI, latest on 04/10/2024 TECHNIQUE: Multidetector CT of the abdomen and pelvis with IV contrast. Axial, coronal and sagittal m ultiplanar reformats were obtained from the axial data set by the technologist. Radiation Dose Information: CT Dose: CTDI volume is 15.61 mGy. Dose-length product is 1087.96 mGy*cm FINDINGS: Bilateral dependent atelectasis. Partially visualized heart is unremarkable. There is mild of the left hepatic lobe with redemonstration of hypodensity involving the entire left hepatic lobe and part of the right hepatic lobe which measures soft tissue. There is severe fatty in filtration of the liver noted on imaging of 09/05/2023 following somewhat similar distribution. Zamora maria del rosario, the liver measures as fatty density only imaging of 09/05/2023. Spleen, gallbladder, pancreas and adrenal glands are unremarkable. Contrast is noted within the bilateral renal collecting systems. Otherwise, kidneys, ureters and uri nary bladder unremarkable. Uterus and adnexa not definitely visualized. Question hysterectomy. Mild gastric wall thickening which is most likely from inadequate distension. Small bowel loops unre markable. Appendix is unremarkable. Mild wall thickening of the ascending colon and cecum ; improved from 09/05/2023. Contrast is noted within the large bowel No evidence of intraperitoneal free air or free fluid. No evidence of aortic aneurysm. No significant lymphadenopathy. Mild subcutaneous fat edema extending from the lower abdomen to the upper thigh. No destructive osseo us lesions are noted. IMPRESSION: Enlarged liver with hypodense area involving the entire left hepatic lobe and part of the right hepat ic lobe which measures soft tissue. Severe fatty infiltration of the liver is noted on imaging of following somewhat similar distribution. Finding may represent resolving fatty infiltration o f the liver. No focal enhancing mass is visualized. Multiphase contrast-enhanced MRI may be considere d for further evaluation. MRI abdomen was done on 02/15/2024 and demonstrates no focal enhancing mass lesion. Findings suggestive of colitis of the ascending colon and cecum ; slightly improved from 09/05/2023.
--- NOTE | 2024-04-11 17:18 | MEDREC ---
[facility] ASP Intervention Section I [facility] ASP Intervention: Dose optimization(PK/PD) (PLEASE CONSIDER THE DOSE OPTIMIZATION OF CIPROFLOXACIN 400 MG IV Q12H FOR INTRA-ABDOMINAL INFECTION), Review courses of therapy (MRSA SCREEN POSITIVE CONSIDER ADDING MUPIROCIN 2% OINTMENT 1 APPLICATION IN EACH NOSTRIL BID FOR 5 DAYS ) CAMPBELL CHRISTIAN PHARMACIST Apr 11, 2024 17:18
[2024-04-11] MEDS ORDERED: THIAMINE HCL 100 MG TAB PO ONE (20:00)
[2024-04-11] MEDS: MULTIPLE VITAMIN TAB PO ONE (20:25)
[2024-04-11] MEDS: MAGNESIUM OXIDE 400 MG TAB PO ONE (20:25)
[2024-04-11] MEDS: FOLIC ACID 1 MG TAB PO ONE (20:25)
[2024-04-11 21:00] VITALS: BP 157/80; PULSE 70; RESP 18; O2SAT 96
[2024-04-12] VITALS (7 sets, daily range): BP systolic 146–192; BP diastolic 69–102; PULSE 61–74; RESP 16–18; TEMP 97.5–98.6; O2SAT 93–98
[2024-04-12 08:09] LABS: Basophils # (auto) 0 10 ^3/uL (0-0.2); Eosinophils # (auto) 0.2 10 ^3/uL (0-0.8); Monocytes # (auto) 0.5 10 ^3/uL (0-1.3); Neutrophils # (auto) 3.2 10 ^3/uL (1.6-8.6); White Blood Cell 4.3 10^3/uL (4.4-10.8)
[2024-04-12 08:11] LABS: Chloride 106 mmol/L (98-107); Sodium 139 mmol/L (136-145)
[2024-04-12 08:12] LABS: Anion Gap 6 (5-15); Carbon Dioxide 27 mmol/L (20-31)
[2024-04-12 08:18] LABS: BUN/Creatinine Ratio 9.2 (10.0-20.0)
[2024-04-12 08:19] LABS: Basophils % (auto) 0.8 % (0.0-2.0); Eosinophils % (auto) 5.4 % (0.0-7.0); Hematocrit 32.5 % (36.0-46.0); Hemoglobin 10.9 g/dL (12.2-16.2); Lymphocytes # (auto) 0.3 10 ^3/uL (0.4-5.4); Lymphocytes % (auto) 7.7 % (10.0-50.0); Mean Corpuscular Hemoglobin 36.3 pg (28.0-32.0); Mean Corpuscular Hgb Conc. 33.6 g/dL (32.0-36.0); Monocytes % (auto) 11.2 % (0.0-12.0); Neutrophils % (auto) 74.9 % (37.0-80.0); Platelet Count (auto) 116 10^3/uL (140-450); Red Cell Distribution Width 16.5 % (11.8-14.3)
[2024-04-12 08:19] LABS: Blood Urea Nitrogen 7 mg/dL (9-23); Glucose 109 mg/dL (74-106)
[2024-04-12] MEDS: MUPIROCIN 2% OINT 15gm or 22gm FOR MRSA NARES EACHNOSTRI SCH (09:19)
[2024-04-12] MEDS: FOLIC ACID 1 MG TAB PO SCH (09:24)
[2024-04-12] MEDS: MULTIPLE VITAMIN TAB PO SCH (09:25)
[2024-04-12] MEDS: MAGNESIUM OXIDE 400 MG TAB PO SCH (09:25)
[2024-04-12] MEDS ORDERED: MULTIPLE VITAMIN TAB PO SCH (10:00)
[2024-04-12] MEDS ORDERED: THIAMINE HCL 100 MG TAB PO SCH (10:00)
[2024-04-12] MEDS: CIPROFLOXACIN 400MG/200ML 200 ML IV SCH (10:02)
[2024-04-12] MEDS: LORazepam 2MG/ML-1ML VIAL IV SCH (12:31)
[2024-04-12] MEDS: SODIUM CHLORIDE 0.9% 500 ML IV ONE (12:32)
--- NOTE | 2024-04-12 13:51 | DVHPNRES ---
Progress Note Date Seen: Apr 12, 2024 Resident Creating Document: BEHZAD BAILEY RESIDENT Medical Necessity Reason Pt with a Central, PICC or Fol: No Subjective Review of Systems Patient is a 59-year-old female with past medical history of hypertension, IBS- diarrhea type, alcohol use disorder, who came in due to abdominal pain and alcohol withdrawal. According to the patient, she has been experiencing abdominal pain for the last 19 years, however, over the last few days her abdominal pain has been worsening and associated with recurrent vomiting and diarrhea episodes. Per patient, her last drink was on 04/10/2024 at 8:00 a.m.. Currently patient rates her abdominal pain as 8/10, had 6 episodes of diarrhea overnight and multiple episodes of vomiting. Per patient she had a colonoscopy 5 years ago which was unremarkable. Past surgical history: Hysterectomy, right knee surgery, bilateral shoulder surgery Home medications: Lisinopril, metoprolol Past Hospitalization: Discharged from the [facility] 10 days ago for alcohol withdrawal Social & Personal history: Patient lives in a trailer in the backyard of her sister's house. Denies smoking, drinks 1 bottle of vodka daily for the last 2 years. Denies using drugs. Allergies: Denies Patient seen and examined at bedside. Patient is alert and oriented to time, place person and responding to all questions. CIWA score this morning 11, marked improvement from prior exam, however, continues to have hallucinations. Objective vital signs Vital Sign Date Time Temp Pulse Resp B/P (MAP) Pulse Ox O2 Delivery O2 Flow Rate FiO2 04/12/24 09:51 72 167/87 04/12/24 09:00 98.0 16 95 98.0 04/12/24 07:47 Room Air* 0 21 Total Intake and Output 04/11/24 04/11/24 04/12/24 15:00 23:00 07:00 Intake Total 700 ml 540 ml Balance 700 ml 540 ml medications Current Medications Medications Dose Ordered Sig/Alena Route Start Time Stop Time Status Last Admin Dose Admin Ondansetron HCl 4 mg Q4HPRN PRN IV 04/11/24 01:00 04/12/24 05:30 4 MG Lisinopril 20 mg DAILY PO 04/11/24 03:30 04/12/24 09:50 20 MG Metoprolol Succinate 50 mg DAILY PO 04/11/24 03:30 04/12/24 09:51 50 MG Metronidazole 100 ml @ 100 mls/hr Q8HR IV 04/11/24 04:00 04/12/24 05:16 100 MLS/HR Thiamine HCl 100 mg DAILY IV 04/11/24 10:30 04/12/24 09:21 100 MG Folic Acid 1 mg DAILY PO 04/12/24 10:00 04/12/24 09:24 1 MG Multivitamins 1 tab DAILY PO 04/12/24 10:00 04/12/24 09:25 1 TAB Magnesium Oxide 400 mg DAILY PO 04/12/24 10:00 04/12/24 09:25 400 MG Mupirocin 1 applic BID EACHNOSTRI 04/12/24 10:00 04/17/24 09:59 04/12/24 09:19 1 APPLIC Ciprofloxacin 200 ml @ 200 mls/hr Q12HR IV 04/12/24 10:00 04/12/24 10:02 200 MLS/HR Lorazepam 2 mg Q6H IV 04/12/24 12:15 04/12/24 12:31 2 MG Examination General Appearance: Cooperative. Well developed. Well nourished. Head Exam: Normal inspection Neck Exam: Normal inspection. Non-tender. Normal alignment Pulmonary/Respiratory: Chest non-tender. Clear bilateral breath sounds, no crackles, no wheezing. Cardiovascular/Chest: Regular rate and rhythm. No murmurs. No JVD. Peripheral Pulses: 2+ Radial (R). 2+ Radial (L). 2+ Pedal (R). 2+ Pedal (L) Abdominal Exam: Normal bowel sounds. Soft. normal abdomen, no visible veins, g eneralized lower abdominal tenderness to palpation. No hepatospenomegaly. No masses Ankle Exam: Negative ankle edema Lower extremities: Negative lower extremity edema Neuro/Mental Status: A&O x2-3. Somewhat Coherent. Thoughts/Psych: Patient continues to have hallucinations, patient aware of her hallucinations. Reasonable insight Skin Exam: Normal inspection. Normal color. Warm. Dry laboratory and microbiology Laboratory Tests 04/12/24 07:37 04/12/24 07:18 Test 04/12/24 07:18 Range/Units Serum Glucose 109 H 74-106 mg/dL Microbiology Date/Time Source Procedure Growth Status 04/11/24 04:02 Nose MRSA Screen - Final Methicillin Resistant S.aureus Complete Labs and/or images reviewed: Labs reviewed by me, Image(s) reviewed by me Problem List/Assessment/Plan Problem List/Assessment/Plan Toxic metabolic encephalopathy secondary to alcohol Probable delirium tremens vs alcoholic hallucinosis? Alcohol withdrawal, CIWA score 11 Alcohol use disorder - IV NS 3 L - IV NS 500 cc bolus - IV lorazepam 2 mg q.6 hours scheduled - IV Zofran - IV thiamine 100 mg daily - multivitamin, folic acid, magnesium oxide Enterocolitis versus IBS-D Hepatosplenomegaly due to fatty infiltration versus neoplasm? - CT abdomen pelvis: Enlarged liver with heterogeneous areas of decreased attenuation in the parenchyma. This may represent focal areas of fatty infiltration or neoplasm. Recommend CT scan of the abdomen and pelvis with IV contrast. If patient is unable to tolerate IV contrast recommend MRI. 7 cm long segment in the right colon above the cecum of mucosal thickening of the wall and luminal narrowing. This may represent segmental inflammatory bowel disease other possibility such as neoplasm is in the differential. Further evaluation of this portion of the colon with contrast enema, colonoscopy, follow-up CT with oral contrast May also be helpful. - CT abdomen pelvis with oral and IV contrast: Enlarged liver with hypodense area involving the entire left hepatic lobe and part of the right hepatic lobe which measures soft tissue. Severe fatty infiltration of the liver is noted on imaging of 09/05/2023 following somewhat similar distribution. Finding may represent resolving fatty infiltration of the liver. No focal enhancing mass is visualized. Multiphase contrast-enhanced MRI may be considered for further evaluation. MRI abdomen was done on 02/15/2024 and demonstrates no focal enhancing mass lesion. Findings suggestive of colitis of the ascending colon and cecum ; slightly improved from 09/05/2023. - loperamide 4 mg p.o. once - IV ciprofloxacin, IV metronidazole - ordered stool occult blood, stool WBCs - consulted GI; scheduled for colonoscopy tomorrow Hypertension - resumed home medication lisinopril 20 mg daily - resumed home medication metoprolol succinate 50 mg MRSA nares positive - topical mupirocin Goals of care: Full code, discussed for >16 minutes on 04/11/2024 Plan discussed with patient Plan discussed with Dr. Pena Plan discussed with: Patient, Other (RN) My Orders My Orders Orders - BEHZAD BAILEY RESIDENT Procedure Category Date Status Time Mupirocin 2% Oint PHA 04/12/24 In Process Mrsa Nares (Bactroban 10:00 Ciprofloxacin PHA 04/12/24 In Process 400mg/200ml (Cipro Iv) 10:00 Lorazepam 2mg/Ml Inj PHA 04/12/24 In Process (Ativan Inj) 12:15 BEHZAD BAILEY RESIDENT Apr 12, 2024 13:51
--- NOTE | 2024-04-12 14:25 | DVHINCON2 ---
Date of service: Apr 12, [address] Nunn Reason for Consultation Diarrhea abdominal pain and abnormal finding right colon History of Present Illness 59-year-old female with a past medical history of hypertension, irritable bowel syndrome (IBS), and chronic alcoholism, currently on lisinopril, metoprolol, and Librium, presents with abdominal pain that started two days ago. She also reports multiple episodes of diarrhea, nausea, and vomiting. The pain is localized to the suprapubic region and is described as moderate in intensity. She denies any fever or chills. She has a history of IBS and states that these symptoms feel similar to previous flare-ups. CT abdomen and pelvis revealed an enlarged liver with a previously known hepatic lesion. However, there is new mucosal thickening and luminal narrowing in the right colon above the cecum, measuring approximately 7 cm. Prior MRI of the abdomen showed no focal liver mass, but heterogeneous liver signal, possibly due to regional fatty infiltration or chronic hepatocellular disease. Last drink was today: 4 shots of vodka GI consult was requested to evaluate the patient's abnormal finding of the colon. Patient was seen at bedside with the hospitalist team. Patient appeared to be stable with minimal withdrawal symptoms. Patient is also MRSA positive She has been having diarrhea every couple hours since last night. Past Medical History Past Medical History: Hypertension Irritable Bowel Syndrome Chronic Alcoholism Anxiety Past Surgical History Past Surgical History: Hysterectomy Family History: Cardiovascular disease G8 FATHER, , Age: 59 Chronic obstructive pulmonary disease G8 MOTHER, , Age: 98 Allergies: Coded Allergies: NO KNOWN ALLERGIES (Unverified , 04/21/23) Home Meds Active Scripts Famotidine (PEPCID TABLET) 20 Mg Tb, 1 TAB PO BID PRN for 30 Days, #60 TAB 5 Refills Prov:RICKEY ORTIZ MD 04/02/24 Ondansetron HCl (Ondansetron Hydrochloride) 8 Mg Tab, 8 MG PO Q6HP PRN for 10 Days, #40 TAB Prov:RICKEY ORTIZ MD 04/02/24 Metoprolol Succinate (Metoprolol Succinate Er) 50 Mg Tab, 1 TAB PO DAILY, #30 TAB 5 Refills Prov:ALEX CORMIER MD 03/27/24 Lisinopril (Lisinopril) 20 Mg Tab, 20 MG PO DAILY for 30 Days, #30 TAB 5 Refills Prov:ALEX CORMIER MD 03/27/24 Reported Medications Metoprolol Succinate (Metoprolol Succinate Er) 50 Mg Tab, 1 BID 03/24/24 Current Medications Current Medications Medications (Trade) Dose Ordered Sig/Alena Route PRN Reason Start Time Stop Time Status Last Admin Multivitamins (Mvi Tab) 1 tab DAILY PO 04/12/24 10:00 04/11/24 18:59 DC Folic Acid 1 mg DAILY PO 04/12/24 10:00 04/12/24 09:24 Multivitamins (Mvi Tab) 1 tab DAILY PO 04/12/24 10:00 04/12/24 09:25 Magnesium Oxide (Mag-Ox Tablet) 400 mg DAILY PO 04/12/24 10:00 04/12/24 09:25 Thiamine HCl 100 mg DAILY PO 04/12/24 10:00 04/11/24 19:00 DC Mupirocin (Bactroban 2% Ointment) 1 applic BID EACHNOSTRI 04/12/24 10:00 04/17/24 09:59 04/12/24 09:19 Ciprofloxacin 200 ml @ 200 mls/hr Q12HR IV 04/12/24 10:00 04/12/24 10:02 Lorazepam (Ativan Inj) 2 mg Q6H IV 04/12/24 12:15 04/12/24 12:31 Vital Signs Vital Signs Date Time Temp Pulse Resp B/P (MAP) Pulse Ox O2 Delivery O2 Flow Rate FiO2 04/12/24 09:51 72 167/87 04/12/24 09:00 98.0 16 95 98.0 04/12/24 07:47 Room Air* 0 21 Physical Exam General Appearance: Cooperative. Well developed. Well nourished. Head Exam: Normal inspection; [place] Pulmonary/Respiratory: Chest non-tender. Clear bilateral breath sounds, no crackles, no wheezing. Cardiovascular/Chest: Regular rate and rhythm. No murmurs. No JVD. Abdominal Exam: Normal bowel sounds. Soft. normal abdomen, no visible veins, generalized lower abdominal tenderness to palpation. No hepatospenomegaly. No masses Ankle Exam: Negative ankle edema Labs/Diagnostic Data Labs Test 04/12/24 07:37 04/12/24 07:18 04/12/24 00:50 04/11/24 07:04 Range/Units White Blood Count 4.3 #L 4.4-10.8 10^3/uL Red Blood Count 3.00 L 4.0-5.20 10^6/uL Hemoglobin 10.9 L 12.2-16.2 g/dL Hematocrit 32.5 L 36.0-46.0 % Mean Corpuscular Volume 108.0 H 80.0-100.0 fL Mean Corpuscular Hemoglobin 36.3 H 28.0-32.0 pg Mean Corpuscular Hemoglobin Concent 33.6 32.0-36.0 g/dL Red Cell Distribution Width 16.5 H 11.8-14.3 % Platelet Count 116 L 140-450 10^3/uL Mean Platelet Volume 7.2 6.9-10.8 fL Neutrophils (%) (Auto) 74.9 37.0-80.0 % Lymphocytes (%) (Auto) 7.7 L 10.0-50.0 % Monocytes (%) (Auto) 11.2 0.0-12.0 % Eosinophils (%) (Auto) 5.4 0.0-7.0 % Basophils (%) (Auto) 0.8 0.0-2.0 % Neutrophils # (Auto) 3.2 1.6-8.6 10 ^3/uL Lymphocytes # (Auto) 0.3 L 0.4-5.4 10 ^3/uL Monocytes # (Auto) 0.5 0-1.3 10 ^3/uL Eosinophils # (Auto) 0.2 0-0.8 10 ^3/uL Basophils # (Auto) 0 0-0.2 10 ^3/uL Nucleated Red Blood Cells 0.0 % Sodium Level 139 136-145 mmol/L Potassium Level 4.0 3.5-5.1 mmol/L Chloride Level 106 98-107 mmol/L Carbon Dioxide Level 27 20-31 mmol/L Anion Gap 6 5-15 Blood Urea Nitrogen 7 L 9-23 mg/dL Creatinine 0.76 0.550-1.02 mg/dL Glomerular Filtration Rate Calc 90 >90 mL/min BUN/Creatinine Ratio 9.2 L 10.0-20.0 Serum Glucose 109 H 74-106 mg/dL Calcium Level 8.0 L 8.7-10.4 mg/dL Stool Occult Blood Negative Negative Stool Occult Blood Sample #3 Negative Stool for White Cells Rare Lactic Acid Level 1.4 0.4-2.0 mmol/L Test 04/11/24 06:02 04/11/24 05:00 04/10/24 21:52 04/10/24 18:36 Range/Units Differential Total Cells Counted 100.0 100 Neutrophils % (Manual) 88 H 37.0-80.0 Band Neutrophils % (Manual) 0 Lymphocytes % (Manual) 5 L 10.0-50.0 Monocytes % (Manual) 7 0-12 Eosinophils % (Manual) 0 0-7 Basophils % (Manual) 0 0.0-2.0 Metamyelocytes % (manual) 0 Myelocytes % (Manual) 0 Promyelocytes % (Manual) 0 Blast Cells % (Manual) 0 Reactive Lymphocytes 0 Platelet Estimate Adequate Macrocytosis Moderate Total Bilirubin 0.7 0.2-1.0 mg/dL Aspartate Amino Transferase (AST) 154 H 13-40 U/L Alanine Aminotransferase (ALT) 43 H 7-40 U/L Alkaline Phosphatase 278 H 46-116 U/L Troponin I High Sensitivity 10 </=34 ng/L Total Protein 7.3 5.7-8.2 g/dL Albumin 4.4 3.2-4.8 g/dL Urine Color Yellow Yellow Urine Clarity Clear Clear Urine pH 5.5 5.0-9.0 Urine Specific [place] 1.020 1.001-1.035 Urine Protein 1+ H Negative Urine Ketones 1+ H Negative Urine Blood Negative Negative /uL Urine Nitrite Negative Negative Urine Bilirubin Negative Negative Urine Urobilinogen Normal Negative mg/dL Urine Leukocyte Esterase Negative Negative /uL Urine RBC <1 0 - 4 /hpf Urine Microscopic WBC 4 0-5 /HPF Urine Squamous Epithelial Cells Few <5 /hpf Urine Bacteria None seen None Seen /hpf Urine Hyaline Casts Few 0 - 2 /lpf Urine Glucose Normal Normal mg/dL Urine Opiates Screen Neg NEGATIVE Urine Fentanyl Screen Neg NEGATIVE Urine Barbiturates Screen Neg NEGATIVE Urine Phencyclidine Screen Neg NEGATIVE Urine Amphetamines Screen Neg NEGATIVE Urine Benzodiazepines Screen Pos NEGATIVE Urine Cocaine Screen Neg NEGATIVE Urine Cannabinoids Screen Neg NEGATIVE Erythrocyte Sedimentation Rate 33 H 0-20 mm/hr C-Reactive Protein High Sensitivity 2.44 H <1.0 mg/dL Lipase 41 12-53 U/L Tumor Marker Alpha Fetoprotein 4.5 0.0-9.2 ng/mL Carcinoembryonic Antigen 2.24 <=5.0 ng/mL CA 19-9 Antigen 116 H 0-35 U/mL Plasma/Serum Blood Alcohol 3.5 <10 mg/dL Microbiology Date/Time Source Procedure Growth Status 04/11/24 04:02 Nose MRSA Screen - Final Methicillin Resistant S.aureus Complete CT SCAN ABD PELVIS IMPRESSION: Enlarged liver with hypodense area involving the entire left hepatic lobe and part of the right hepatic lobe which measures soft tissue. Severe fatty infiltration of the liver is noted on imaging of 09/05/2023 following somewhat similar distribution. Finding may represent resolving fatty infiltration of the liver. No focal enhancing mass is visualized. Multiphase contrast-enhanced MRI may be considered for further evaluation. MRI abdomen was done on 02/15/2024 and demonstrates no focal enhancing mass lesion. Findings suggestive of colitis of the ascending colon and cecum ; slightly improved from 09/05/2023. CT SCAN ABD PELVIS IMPRESSION: 1. Enlarged liver with heterogeneous areas of decreased attenuation in the parenchyma. This may represent focal areas of fatty infiltration or neoplasm. R ecommend CT scan of the abdomen and pelvis with IV contrast. If patient is unable to tolerate IV contrast recommend MRI. 2. 7 cm long segment in the right colon above the cecum of mucosal thickening of the wall and luminal narrowing. This may represent segmental inflammatory bowel disease other possibility such as neoplasm is in the differential. Further evaluation of this portion of the colon with contrast enema, colonoscopy, follow-up CT with oral contrast May also be helpful. Problems(with codes): (1) Transaminitis (2) Diarrhea (3) Elevated lactic acid level (4) IBD (inflammatory bowel disease) (5) Abdominal pain (6) Alcohol abuse Plan/Recommendation Plan Patient is being treated for alcohol withdrawal We will check stool for bacterial culture and C diff Patient has agreed to proceed with the bowel prep and tentatively scheduled for a colonoscopy tomorrow unless patient is not able to take a bowel prep or the C diff is positive Continue supportive care, IV fluid hydration, IV antibiotics, IV ppi, Zofran and Ativan and lipid for withdrawal Plan discussed with: Patient, Other (Dr Xie) SAUNDRA PERRIN MD Apr 12, 2024 14:25
[2024-04-12] MEDS: GOLYTELY 4L KIT PO ONE (14:45)
[2024-04-12] MEDS: LORazepam 2MG/ML-1ML VIAL IV ONE (20:32)
[2024-04-12] MEDS: hydrALAZINE HCL 20 MG/ML VL IV ONE (23:13)
[2024-04-13] VITALS (10 sets, daily range): BP systolic 131–178; BP diastolic 69–95; PULSE 69–88; RESP 16–23; TEMP 97.8–98.3; O2SAT 94–98
[2024-04-13] MEDS: SODIUM CHLORIDE 0.9% 1,000 ML IV SCH (00:23)
[2024-04-13] MEDS: MAGNESIUM CITRATE SOLUTION 300 ML BTL PO ONE (05:23)
[2024-04-13] MEDS: GOLYTELY 4L KIT PO ONE ×2 (05:29→07:32)
[2024-04-13] MEDS ORDERED: GOLYTELY 4L KIT PO ONE (06:00)
[2024-04-13] MEDS ORDERED: MAGNESIUM CITRATE SOLUTION 300 ML BTL PO ONE (06:00)
[2024-04-13 06:25] LABS: Basophils # (auto) 0 10 ^3/uL (0-0.2); Eosinophils # (auto) 0.2 10 ^3/uL (0-0.8); Hemoglobin 11.6 g/dL (12.2-16.2); Monocytes # (auto) 0.5 10 ^3/uL (0-1.3); Neutrophils # (auto) 3.9 10 ^3/uL (1.6-8.6)
[2024-04-13 06:27] LABS: Basophils % (auto) 0.8 % (0.0-2.0); Eosinophils % (auto) 4.4 % (0.0-7.0); Hematocrit 34.1 % (36.0-46.0); Lymphocytes # (auto) 0.4 10 ^3/uL (0.4-5.4); Lymphocytes % (auto) 8.6 % (10.0-50.0); Mean Corpuscular Hemoglobin 36.5 pg (28.0-32.0); Mean Corpuscular Hgb Conc. 33.9 g/dL (32.0-36.0); Mean Corpuscular Volume 107.5 fL (80.0-100.0); Monocytes % (auto) 9.5 % (0.0-12.0); Neutrophils % (auto) 76.7 % (37.0-80.0); Platelet Count (auto) 118 10^3/uL (140-450); Red Blood Cells 3.17 10^6/uL (4.0-5.20); Red Cell Distribution Width 16.3 % (11.8-14.3); White Blood Cell 5.1 10^3/uL (4.4-10.8)
[2024-04-13 06:45] LABS: Anion Gap 12 (5-15); Carbon Dioxide 26 mmol/L (20-31); Chloride 100 mmol/L (98-107); Sodium 138 mmol/L (136-145)
[2024-04-13 06:46] LABS: Calcium 9.5 mg/dL (8.7-10.4)
[2024-04-13 06:51] LABS: BUN/Creatinine Ratio 7.2 (10.0-20.0); Blood Urea Nitrogen < 5 mg/dL (9-23); Glucose 86 mg/dL (74-106); Potassium 3.3 mmol/L (3.5-5.1)
[2024-04-13] MEDS: IOHEXOL 300 MG/ML 100ML BOTTLE IJ ONE ×2 (07:31→07:32)
[2024-04-13] MEDS: GASTROGRAFIN 30 ML SOL ONE (07:31)
[2024-04-13] MEDS: MVI in SODIUM CHLORIDE 0.9% 1,010 ML ONE (07:31)
[2024-04-13] MEDS: THIAMINE 100mg/ml INJ (200mg/2ml VIAL) ONE (07:31)
[2024-04-13 08:58] LABS: Magnesium 1.6 mg/dL (1.6-2.6)
[2024-04-13 09:00] LABS: Phosphorus 3.7 mg/dL (2.4-5.1)
[2024-04-13 09:06] LABS: INR 1.17 (0.9-1.15); Partial Thromboplastin Time 29.1 SEC (24.5-34.5); Prothrombin Time 12.2 sec (9.3-11.8)
[2024-04-13] MEDS ORDERED: HYDROmorphone HCL 2 MG/ML VL/or syr IV PRN (13:00)
[2024-04-13] MEDS ORDERED: GLYCOPYRROLATE 0.2 MG/ML 1ML VIAL ONE (13:13)
[2024-04-13] MEDS ORDERED: ONDANSETRON HCL 4 MG/2 ML VIAL ONE (13:13)
[2024-04-13] MEDS ORDERED: MIDAZOLAM HCL 2MG/2ML 2ml VIAL (1mg/ml) ONE (13:13)
[2024-04-13] MEDS ORDERED: PROPOFOL 10 MG/ML 20 ML IV ONE (13:13)
--- NOTE | 2024-04-13 14:07 | DVHOP2 ---
Operative Report DATE OF OPERATION: 04/13/24 PROCEDURE: Colonoscopy with cold biopsy. PREOPERATIVE INDICATION: The patient is a 59 -year-old female undergoing colonoscopy for abdominal pain diarrhea and abnormal finding GI tract imaging POSTOPERATIVE DIAGNOSES: 1. Trace internal hemorrhoids otherwise essentially a completely normal colonoscopy examination up to the cecum and terminal ileum 2. Minimal erythema of the right colon random colon biopsies obtained of the right colon to rule out microscopic colitis PROCEDURE PERFORMED BY: Saundra Wolfe M.D. SCOPE: Olympus videocolonoscope. ASA CLASS: 2. PREOPERATIVE MEDICATIONS: Ubaldo reed, Dr. Kenia Dickerson PROCEDURE IN DETAIL: After obtaining an informed consent, the patient was placed on left lateral decubitus position. She was then sedated with the above medications. A rectal examination was performed that was normal. The colonoscope was then passed through the anus into the rectosigmoid and through the descending, transverse, and ascending colon up to the cecum with visualization of the appendiceal orifice, base of the cecum and the ileocecal valve. The colonoscope was then withdrawn. The distal 5-10 cm of the terminal ileum were normal There was no evidence of active colitis ulceration or significant inflammation noted in the entire colon. There was minimal hyperemia of the right colon and random colon biopsies were obtained of the right colon to rule out microscopic colitis On retroflexion and straight on view she had trace internal hemorrhoids. There were no polyps masses or diverticular disease The patient tolerated the procedure well without difficulty. WITHDRAWAL TIME: 6 minutes QUALITY OF THE PREP: [place] Bowel Prep score: 9. COMPLICATIONS : None SPECIMENS: Random colon biopsies DISPOSITION: Transfer back to the floor Stable PLAN: 1. Repeat colonoscopy base on biopsy result likely in 5-7 years due to history of polyps 2. Resume GI soft diet advance as tolerated 3. Avoid aspirin NSAIDs smoking alcohol 4. Outpatient follow up with me in 4-6 weeks for ongoing GI management SAUNDRA WOLFE MD Apr 13, 2024 14:07
[2024-04-13] MEDS: POTASSIUM CHL 20MEQ/100ML 100 ML IV ONE (15:52)
[2024-04-13] MEDS: VANCOMYCIN HCL 125 MG CAP PO SCH (17:33)
--- NOTE | 2024-04-13 17:50 | DVHPNRES ---
Progress Note Date Seen: Apr 13, 2024 Resident Creating Document: BEHZAD BAILEY RESIDENT Medical Necessity Reason Pt with a Central, PICC or Fol: No Subjective Review of Systems Patient is a 59-year-old female with past medical history of hypertension, IBS- diarrhea type, alcohol use disorder, who came in due to abdominal pain and alcohol withdrawal. According to the patient, she has been experiencing abdominal pain for the last 19 years, however, over the last few days her abdominal pain has been worsening and associated with recurrent vomiting and diarrhea episodes. Per patient, her last drink was on 04/10/2024 at 8:00 a.m.. Currently patient rates her abdominal pain as 8/10, had 6 episodes of diarrhea overnight and multiple episodes of vomiting. Per patient she had a colonoscopy 5 years ago which was unremarkable. Past surgical history: Hysterectomy, right knee surgery, bilateral shoulder surgery Home medications: Lisinopril, metoprolol Past Hospitalization: Discharged from the [facility] 10 days ago for alcohol withdrawal Social & Personal history: Patient lives in a trailer in the backyard of her sister's house. Denies smoking, drinks 1 bottle of vodka daily for the last 2 years. Denies using drugs. Allergies: Denies Patient seen and examined at bedside. Patient is alert and oriented to time, place person and responding to all questions. CIWA score this morning 10, marked improvement from prior exam,improved hallucinations. Objective vital signs Vital Sign Date Time Temp Pulse Resp B/P (MAP) Pulse Ox O2 Delivery O2 Flow Rate FiO2 04/13/24 17:00 97.8 70 18 169/93 (118) 96 97.8 04/13/24 13:43 Room Air 0 95 Total Intake and Output 04/12/24 04/12/24 04/13/24 15:00 23:00 07:00 Intake Total 800 ml 1050 ml 2600 ml Balance 800 ml 1050 ml 2600 ml medications Current Medications Medications Dose Ordered Sig/Alena Route Start Time Stop Time Status Last Admin Dose Admin Ondansetron HCl 4 mg Q4HPRN PRN IV 04/11/24 01:00 04/12/24 05:30 4 MG Lisinopril 20 mg DAILY PO 04/11/24 03:30 04/13/24 09:12 20 MG Metoprolol Succinate 50 mg DAILY PO 04/11/24 03:30 04/13/24 09:12 50 MG Metronidazole 100 ml @ 100 mls/hr Q8HR IV 04/11/24 04:00 04/13/24 05:22 100 MLS/HR Thiamine HCl 100 mg DAILY IV 04/11/24 10:30 04/13/24 09:11 100 MG Folic Acid 1 mg DAILY PO 04/12/24 10:00 04/13/24 09:11 1 MG Multivitamins 1 tab DAILY PO 04/12/24 10:00 04/13/24 09:11 1 TAB Magnesium Oxide 400 mg DAILY PO 04/12/24 10:00 04/13/24 09:11 400 MG Mupirocin 1 applic BID EACHNOSTRI 04/12/24 10:00 04/17/24 09:59 04/13/24 09:12 1 APPLIC Ciprofloxacin 200 ml @ 200 mls/hr Q12HR IV 04/12/24 10:00 04/13/24 09:11 200 MLS/HR Sodium Chloride 1,000 ml @ 75 mls/hr [id number] IV 04/12/24 20:45 Hold 04/13/24 00:23 75 MLS/HR Lorazepam 2 mg Q12HR IV 04/13/24 22:00 Vancomycin HCl 125 mg QID PO 04/13/24 18:00 04/13/24 17:33 125 MG Saccharomyces Boulardii 250 mg DAILY PO 04/14/24 10:00 Examination General Appearance: Cooperative. Well developed. Well nourished. Head Exam: Normal inspection Neck Exam: Normal inspection. Non-tender. Normal alignment Pulmonary/Respiratory: Chest non-tender. Clear bilateral breath sounds, no crackles, no wheezing. Cardiovascular/Chest: Regular rate and rhythm. No murmurs. No JVD. Peripheral Pulses: 2+ Radial (R). 2+ Radial (L). 2+ Pedal (R). 2+ Pedal (L) Abdominal Exam: Normal bowel sounds. Soft. normal abdomen, no visible veins, g eneralized lower abdominal tenderness to palpation. No hepatospenomegaly. No masses Ankle Exam: Negative ankle edema Lower extremities: Negative lower extremity edema Neuro/Mental Status: A&O x2-3. Somewhat Coherent. Thoughts/Psych: Reasonable insight Skin Exam: Normal inspection. Normal color. Warm. Dry laboratory and microbiology Laboratory Tests 04/13/24 05:28 Test 3/5/25 05:28 Range/Units Serum Glucose 86 74-106 mg/dL Microbiology Date/Time Source Procedure Growth Status 04/12/24 17:37 Stool Clostridium difficile Toxin Assay - Final Complete 04/11/24 04:02 Nose MRSA Screen - Final Methicillin Resistant S.aureus Complete Labs and/or images reviewed: Labs reviewed by me, Image(s) reviewed by me Problem List/Assessment/Plan Problem List/Assessment/Plan Toxic metabolic encephalopathy secondary to alcohol Probable delirium tremens vs alcoholic hallucinosis? Alcohol withdrawal, CIWA score 10 Alcohol use disorder - IV NS 3 L - IV NS 500 cc bolus - IV lorazepam 2 mg q.6 hours scheduled - IV Zofran - IV thiamine 100 mg daily - multivitamin, folic acid, magnesium oxide Enterocolitis secondary to camp jejuni C diff colitis - p.o. vancomycin 125 mg q.i.d. - Florastor - p.o. azithromycin Hepatosplenomegaly due to fatty infiltration versus neoplasm? - CT abdomen pelvis: Enlarged liver with heterogeneous areas of decreased attenuation in the parenchyma. This may represent focal areas of fatty infiltration or neoplasm. Recommend CT scan of the abdomen and pelvis with IV contrast. If patient is unable to tolerate IV contrast recommend MRI. 7 cm long segment in the right colon above the cecum of mucosal thickening of the wall and luminal narrowing. This may represent segmental inflammatory bowel disease other possibility such as neoplasm is in the differential. Further evaluation of this portion of the colon with contrast enema, colonoscopy, follow-up CT with oral contrast May also be helpful. - CT abdomen pelvis with oral and IV contrast: Enlarged liver with hypodense area involving the entire left hepatic lobe and part of the right hepatic lobe which measures soft tissue. Severe fatty infiltration of the liver is noted on imaging of 09/05/2023 following somewhat similar distribution. Finding may represent resolving fatty infiltration of the liver. No focal enhancing mass is visualized. Multiphase contrast-enhanced MRI may be considered for further evaluation. MRI abdomen was done on 02/15/2024 and demonstrates no focal enhancing mass lesion. Findings suggestive of colitis of the ascending colon and cecum ; slightly improved from 09/05/2023. - loperamide 4 mg p.o. once - ordered stool occult blood, stool WBCs - consulted GI; scheduled for colonoscopy today Hypertension - resumed home medication lisinopril 20 mg daily - resumed home medication metoprolol succinate 50 mg MRSA nares positive - topical mupirocin Goals of care: Full code, discussed for >16 minutes on 04/11/2024 Plan discussed with patient Plan discussed with Dr. Pena Plan discussed with: Patient, Other (RN) My Orders My Orders Orders - BEHZAD BAILEY RESIDENT Procedure Category Date Status Time Sodium Chloride 0.9% PHA 04/12/24 In Process 20:45 Transfer Orders XFER 04/12/24 Transmitted 20:42 Lorazepam 2mg/Ml Inj PHA 04/13/24 In Process (Ativan Inj) 22:00 BEHZAD BAILEY RESIDENT Apr 13, 2024 17:50
[2024-04-13] MEDS: AZITHROMYCIN 250 MG TAB PO SCH (18:22)
[2024-04-13] MEDS: MELATONIN 5 MG TAB PO ONE (22:01)
[2024-04-13] MEDS: LORazepam 2MG/ML-1ML VIAL IV SCH (22:01)
[2024-04-14 01:00] VITALS: BP 162/87; PULSE 70; RESP 18; TEMP 97.8; O2SAT 97
[2024-04-14 05:00] VITALS: BP 149/75; PULSE 74; RESP 18; TEMP 98.3; O2SAT 95
[2024-04-14 07:03] LABS: Anion Gap 8 (5-15); Carbon Dioxide 23 mmol/L (20-31); Chloride 104 mmol/L (98-107)
[2024-04-14 07:05] LABS: Calcium 9.2 mg/dL (8.7-10.4)
[2024-04-14 07:07] LABS: Potassium 3.3 mmol/L (3.5-5.1); Sodium 135 mmol/L (136-145)
[2024-04-14 07:09] LABS: Glucose 95 mg/dL (74-106)
[2024-04-14 07:15] LABS: BUN/Creatinine Ratio 6.9 (10.0-20.0); Blood Urea Nitrogen < 5 mg/dL (9-23); Eosinophils # (auto) 0.2 10 ^3/uL (0-0.8); Hemoglobin 10.9 g/dL (12.2-16.2); Lymphocytes # (auto) 0.5 10 ^3/uL (0.4-5.4); Monocytes # (auto) 0.6 10 ^3/uL (0-1.3); White Blood Cell 6.4 10^3/uL (4.4-10.8)
[2024-04-14 07:18] LABS: Basophils # (auto) 0.1 10 ^3/uL (0-0.2); Basophils % (auto) 0.9 % (0.0-2.0); Eosinophils % (auto) 3.2 % (0.0-7.0); Hematocrit 30.7 % (36.0-46.0); Lymphocytes % (auto) 7.5 % (10.0-50.0); Mean Corpuscular Hemoglobin 38.4 pg (28.0-32.0); Mean Corpuscular Hgb Conc. 35.5 g/dL (32.0-36.0); Mean Corpuscular Volume 108.4 fL (80.0-100.0); Monocytes % (auto) 9.3 % (0.0-12.0); Neutrophils % (auto) 79.1 % (37.0-80.0); Nucleated Red Blood Cells % 0.1 %; Platelet Count (auto) 105 10^3/uL (140-450); Red Blood Cells 2.83 10^6/uL (4.0-5.20); Red Cell Distribution Width 16.6 % (11.8-14.3)
[2024-04-14 08:00] VITALS: PULSE 64; PULSE 68; RESP 20; O2SAT 96
[2024-04-14 08:57] VITALS: BP 169/88; PULSE 68; RESP 16; TEMP 97.4; O2SAT 94
[2024-04-14] MEDS: FLORASTOR (S. BOULARDII) 250 MG CAP PO SCH (10:00)
[2024-04-14 10:20] LABS: Hepatitis B Core Total AB Negative (Negative)
[2024-04-14 11:35] LABS: Hepatitis A Total Antibody Negative (Negative); Hepatitis B Surface Antibody Negative (Negative); Hepatitis B Surface Antigen Negative (Negative); Hepatitis C Antibody Negative (Negative)
[2024-04-14] MEDS ORDERED: VANC125C3 PO (12:10)
[2024-04-14] MEDS ORDERED: MUPI2OIN2 EACHNOSTRI (12:10)
[2024-04-14] MEDS ORDERED: MULTTAB99 PO (12:10)
[2024-04-14] MEDS ORDERED: AZIT-43 PO (12:10)
[2024-04-14] MEDS ORDERED: SACC250C PO (12:10)
[2024-04-14] MEDS ORDERED: CHLO25CA10 PO (12:10)
--- NOTE | 2024-04-14 12:19 | DVHDSRES ---
Discharge Summary Date of Admission Resident Creating Document: BEHZAD BAILEY RESIDENT Apr 10, 2024 at 21:26 Date of Discharge: Apr 14, 2024 Admitting Diagnosis Abdominal pain and alcohol withdrawal Labs/Diagnostic Data: Laboratory Results Test 04/14/24 05:40 04/13/24 08:03 04/13/24 06:33 04/12/24 07:37 White Blood Count 6.4 10^3/uL (4.4-10.8) Red Blood Count 2.83 10^6/uL (4.0-5.20) Hemoglobin 10.9 g/dL (12.2-16.2) Hematocrit 30.7 % (36.0-46.0) Mean Corpuscular Volume 108.4 fL (80.0-100.0) Mean Corpuscular Hemoglobin 38.4 pg (28.0-32.0) Mean Corpuscular Hemoglobin Concent 35.5 g/dL (32.0-36.0) Red Cell Distribution Width 16.6 % (11.8-14.3) Platelet Count 105 10^3/uL (140-450) Mean Platelet Volume 7.6 fL (6.9-10.8) Neutrophils (%) (Auto) 79.1 % (37.0-80.0) Lymphocytes (%) (Auto) 7.5 % (10.0-50.0) Monocytes (%) (Auto) 9.3 % (0.0-12.0) Eosinophils (%) (Auto) 3.2 % (0.0-7.0) Basophils (%) (Auto) 0.9 % (0.0-2.0) Neutrophils # (Auto) 5.0 10 ^3/uL (1.6-8.6) Lymphocytes # (Auto) 0.5 10 ^3/uL (0.4-5.4) Monocytes # (Auto) 0.6 10 ^3/uL (0-1.3) Eosinophils # (Auto) 0.2 10 ^3/uL (0-0.8) Basophils # (Auto) 0.1 10 ^3/uL (0-0.2) Nucleated Red Blood Cells 0.1 % Sodium Level 135 mmol/L (136-145) Potassium Level 3.3 mmol/L (3.5-5.1) Chloride Level 104 mmol/L (98-107) Carbon Dioxide Level 23 mmol/L (20-31) Anion Gap 8 (5-15) Blood Urea Nitrogen < 5 mg/dL (9-23) Creatinine 0.72 mg/dL (0.550-1.02) Glomerular Filtration Rate Calc 96 mL/min (>90) BUN/Creatinine Ratio 6.9 (10.0-20.0) Serum Glucose 95 mg/dL (74-106) Calcium Level 9.2 mg/dL (8.7-10.4) Phosphorus Level 3.7 mg/dL (2.4-5.1) Magnesium Level 1.6 mg/dL (1.6-2.6) Creatine Kinase 56 U/L (34-145) Prothrombin Time 12.2 sec (9.3-11.8) Prothrombin Time INR 1.17 (0.9-1.15) Activated Partial Thromboplast Time 29.1 SEC (24.5-34.5) Hepatitis A Antibody Total Negative (Negative) Hepatitis B Surface Antigen Negative (Negative) Hepatitis B Surface Antibody Negative (Negative) Hepatitis B Core Total Antibody Negative (Negative) Hepatitis C Antibody Negative (Negative) Test 04/12/24 00:50 04/11/24 07:04 04/11/24 06:02 04/11/24 05:00 Stool Occult Blood Negative (Negative) Stool Occult Blood Sample #3 (Negative) Stool for White Cells Rare Lactic Acid Level 1.4 mmol/L (0.4-2.0) Differential Total Cells Counted 100.0 (100) Neutrophils % (Manual) 88 (37.0-80.0) Band Neutrophils % (Manual) 0 Lymphocytes % (Manual) 5 (10.0-50.0) Monocytes % (Manual) 7 (0-12) Eosinophils % (Manual) 0 (0-7) Basophils % (Manual) 0 (0.0-2.0) Metamyelocytes % (manual) 0 Myelocytes % (Manual) 0 Promyelocytes % (Manual) 0 Blast Cells % (Manual) 0 Reactive Lymphocytes 0 Platelet Estimate Adequate Macrocytosis Moderate Total Bilirubin 0.7 mg/dL (0.2-1.0) Aspartate Amino Transferase (AST) 154 U/L (13-40) Alanine Aminotransferase (ALT) 43 U/L (7-40) Alkaline Phosphatase 278 U/L (46-116) Troponin I High Sensitivity 10 ng/L (</=34) Total Protein 7.3 g/dL (5.7-8.2) Albumin 4.4 g/dL (3.2-4.8) Urine Color Yellow (Yellow) Urine Clarity Clear (Clear) Urine pH 5.5 (5.0-9.0) Urine Specific [employer] 1.020 (1.001-1.035) Urine Protein 1+ (Negative) Urine Ketones 1+ (Negative) Urine Blood Negative /uL (Negative) Urine Nitrite Negative (Negative) Urine Bilirubin Negative (Negative) Urine Urobilinogen Normal mg/dL (Negative) Urine Leukocyte Esterase Negative /uL (Negative) Urine RBC <1 /hpf (0 - 4) Urine Microscopic WBC 4 /HPF (0-5) Urine Squamous Epithelial Cells Few /hpf (<5) Urine Bacteria None seen /hpf (None Seen) Urine Hyaline Casts Few /lpf (0 - 2) Urine Glucose Normal mg/dL (Normal) Urine Opiates Screen Neg (NEGATIVE) Urine Fentanyl Screen Neg (NEGATIVE) Urine Barbiturates Screen Neg (NEGATIVE) Urine Phencyclidine Screen Neg (NEGATIVE) Urine Amphetamines Screen Neg (NEGATIVE) Urine Benzodiazepines Screen Pos (NEGATIVE) Urine Cocaine Screen Neg (NEGATIVE) Urine Cannabinoids Screen Neg (NEGATIVE) Test 04/10/24 21:52 04/10/24 18:36 Erythrocyte Sedimentation Rate 33 mm/hr (0-20) C-Reactive Protein High Sensitivity 2.44 mg/dL (<1.0) Lipase 41 U/L (12-53) Tumor Marker Alpha Fetoprotein 4.5 ng/mL (0.0-9.2) Carcinoembryonic Antigen 2.24 ng/mL (<=5.0) CA 19-9 Antigen 116 U/mL (0-35) Plasma/Serum Blood Alcohol 3.5 mg/dL (<10) Other Laboratory Tests 04/14/24 05:40 Brief Hx & Hospital Course: Patient is a 59-year-old female with past medical history of hypertension, IBS- diarrhea type, alcohol use disorder, who came in due to abdominal pain and alcohol withdrawal. According to the patient, she has been experiencing abdominal pain for the last 19 years, however, over the last few days her abdominal pain has been worsening and associated with recurrent vomiting and diarrhea episodes. Per patient, her last drink was on 04/10/2024 at 8:00 a.m.. Currently patient rates her abdominal pain as 8/10, had 6 episodes of diarrhea overnight and multiple episodes of vomiting. Per patient she had a colonoscopy 5 years ago which was unremarkable. Hospital course: Patient was started on alcohol withdrawal protocol with banana bag, thiamine, and folic acid, multivitamin and magnesium oxide. On the day of admission patient was noted to have a CIWA score of 23, Patient was initially placed on IV lorazepam 2 mg q.2 hours as needed and then transitioned to IV lorazepam 2 mg q.6 hours scheduled. On day 2 of hospitalization patient's symptoms had improved and her CIWA score had gone down to 11, she was subsequently started on IV Ativan 2 mg q.12 hours. Patient continued to have diarrhea stool culture grew Campylobacter as well as C diff. prior to that, patient also completed a colonoscopy due to suspicious findings on CT scan showinge nlarged liver with heterogeneous areas of decreased attenuation in the parenchyma. This may represent focal areas of fatty infiltration or neoplasm. Recommend CT scan of the abdomen and pelvis with IV contrast. If patient is unable to tolerate IV contrast recommend MRI. 7 cm long segment in the right colon above the cecum of mucosal thickening of the wall and luminal narrowing. This may represent segmental inflammatory bowel disease other possibility such as neoplasm is in the differential. Further evaluation of this portion of the colon with contrast enema, colonoscopy, follow-up CT with oral contrast May also be helpful. Patient also completed CT abdomen pelvis with oral and IV contrast which showed Enlarged liver with hypodense area involving the entire left hepatic lobe and part of the right hepatic lobe which measures soft tissue. Severe fatty infiltration of the liver is noted on imaging of 09/05/2023 following somewhat similar distribution. Finding may represent resolving fatty infiltration of the liver. No focal enhancing mass is visualized. Multiphase contrast-enhanced MRI may be considered for further evaluation. MRI abdomen was done on 02/15/2024 and demonstrates no focal enhancing mass lesion. Findings suggestive of colitis of the ascending colon and cecum ; slightly improved from 09/05/2023. Stool occult blood was negative in stool WBCs were only rare. Colonoscopy showed trace internal hemorrhoids otherwise essentially completely normal colonoscopy examination up to the cecum and terminal ileum. Minimal erythema of the right colon random colon biopsies obtained of the right colon to rule out microscopic colitis. Home medications lisinopril and metoprolol were continued for blood pressure management. Patient was also treated with p.o. vancomycin 125 mg q.i.d., Florastor and p.o. azithromycin for C diff and camp jejuni respectively. On the day of discharge, patient appeared well and had stable vital signs, CIWA score on the day of discharge ranged from 0-5 with patient reporting adequate periods of rest and sleep overnight. Patient was sent home with azithromycin 500 mg daily for 2 days, mupirocin for 2 days, vancomycin 125 mg q.i.d. for 9 days and Florastor along with Librium taper. Patient was also scheduled a follow up appointment in the [facility]. Patient was instructed to follow up with GI in the outpatient setting within 4 weeks for further evaluation and management of her hepatosplenomegaly as well as results from biopsies taken during colonoscopy, patient demonstrated understanding. Her hospital course was uncomplicated. Patient was counseled extensively about the harmful effects of alcohol on her health, options to provide resources for alcohol abstinence was also given, however, patient stated she was not ready. General Appearance: Cooperative. Well developed. Well nourished. Head Exam: Normal inspection Neck Exam: Normal inspection. Non-tender. Normal alignment Pulmonary/Respiratory: Chest non-tender. Clear bilateral breath sounds, no crackles, no wheezing. Cardiovascular/Chest: Regular rate and rhythm. No murmurs. No JVD. Peripheral Pulses: 2+ Radial (R). 2+ Radial (L). 2+ Pedal (R). 2+ Pedal (L) Abdominal Exam: Normal bowel sounds. Soft. normal abdomen, no visible veins, g eneralized lower abdominal tenderness to palpation. No hepatospenomegaly. No masses Ankle Exam: Negative ankle edema Lower extremities: Negative lower extremity edema Neuro/Mental Status: AO x4 Thoughts/Psych: Reasonable insight Skin Exam: Normal inspection. Normal color. Warm. Dry Condition at Discharge: Fair Final Diagnosis/Problems List Toxic metabolic encephalopathy secondary to alcohol Probable delirium tremens vs alcoholic hallucinosis? Alcohol withdrawal, CIWA score 23 on admission, currently CIWA 0-5 Alcohol use disorder Enterocolitis secondary to camp jejuni C diff colitis Hepatosplenomegaly due to fatty infiltration versus neoplasm? Hypertension MRSA nares positive Discharge Disposition: Home Discharge Instruct/Medications Diet: See Comment Diet comment: Continue mechanical soft diet for 5-6 days, advance as tolerated Activity: No Restrictions, As Tolerated Follow Up/Referral: Please follow up in the discharge clinic Please follow up with PCP for GI referral for further evaluation of hepatosplenomegaly Medications: Azithromycin 500 mg daily for 2 days Mupirocin topical application for 2 days Vancomycin 125 mg 4 times a day for 9 days Florastor 250 mg once daily for 9 days Discharge Statement: "Patient was advised to return to the ER or call 911 if any headaches, dizziness, shortness of breath, chest pain, abdominal pain, bleeding, fevers, or worsening of medical condition. Patient was counseled about treatment plan, medications, possible side effects, patientverbalized understanding. All questions were answered to the best of my ability. This discharge took greater then 30 minutes in planning, reviewing documentation, counseling the patient, and discussing with other team members." ASSESSMENT ASSESSMENT Assessment Toxic metabolic encephalopathy secondary to alcohol Probable delirium tremens vs alcoholic hallucinosis? Alcohol withdrawal, CIWA score 23 on admission, currently CIWA 0-5 Alcohol use disorder Enterocolitis secondary to camp jejuni C diff colitis Hepatosplenomegaly due to fatty infiltration versus neoplasm? Hypertension MRSA nares positive BEHZAD BAILEY RESIDENT Apr 14, 2024 12:19
[2024-04-14] MEDS ORDERED: CHL25C PO (12:20)
[2024-04-14 12:43] VITALS: BP 166/84; PULSE 68; RESP 17; TEMP 98; O2SAT 95
[2024-04-14 13:05] VITALS: BP 157/82; PULSE 73; RESP 17; TEMP 98; O2SAT 95
[2024-04-14] MEDS: POTASSIUM EFFERVESENT TAB 25 MEQ PO ONE (13:44)
[2024-04-14] MEDS ORDERED: KETAMINE 50mg/ML 1ml syringe IM ONE (14:19)
== END 2024-04-14 14:20 | disposition home or self-care (01) | DRG 248 ==
LOC: EDBD 17:45 → EDUNIT# 17:45 → ER 17:45 → OVERFLOW 21:26 → EAST 22:48 → TELE-EAST 04-12 21:14
PROVIDERS: ADMIT Student in an Organized Health Care Education/Training Program; ATTEND Student in an Organized Health Care Education/Training Program
PROC: 0DBE8ZX Excision of Large Intestine, Via Natural or Artificial Opening Endoscopic, Diagnostic (ICD-10-PCS; principal; 2024-04-13 13:19)
DX: A04.72 Enterocolitis due to Clostridium difficile, not specified as recurrent (principal); G92.8 Other toxic encephalopathy; E87.20 Acidosis, unspecified; K76.0 Fatty (change of) liver, not elsewhere classified; K76.9 Liver disease, unspecified; F10.229 Alcohol dependence with intoxication, unspecified; F10.239 Alcohol dependence with withdrawal, unspecified; I16.0 Hypertensive urgency; F41.9 Anxiety disorder, unspecified; Z90.710 Acquired absence of both cervix and uterus; Z82.49 Family history of ischemic heart disease and other diseases of the circulatory system; Z82.5 Family history of asthma and other chronic lower respiratory diseases; Z79.899 Other long term (current) drug therapy; Y90.0 Blood alcohol level of less than 20 mg/100 ml
CPT/HCPCS: 36415; 74176; 74177; 80048; 80053; 80307; 80320; 81001; 82105; 82270; 82378; 82550; 83605; 83690; 83735; 84100; 84484; 85007; 85025; 85027; 85048; 85610; 85652; 85730; 86141; 86301; 86704; 86706; 86708; 86803; 86850; 86900; 86901; 87045; 87081; 87340; 87427; 87493; 96365; 96375; G0378; J2250; J2405; J2704; J3480; J3490

== ENCOUNTER 2024-04-26 22:52 | Inpatient (IN) | payer MEDICAID ==
[~2024-04-26] VITALS: Ht 152.4 cm; Wt 78.8 kg
[~2024-04-26 22:52] MED LIST changes: +AZIT-43 PO; +CHL25C PO; +MULTTAB99 PO; +MUPI2OIN2 EACHNOSTRI; +SACC250C PO; +VANC125C3 PO
[2024-04-27] VITALS (7 sets, daily range): BP systolic 170–172; BP diastolic 100; PULSE 72–81; RESP 14–20; TEMP 97.9; O2SAT 94–97
--- NOTE | 2024-04-27 03:04 | ED.PDOC ---
History of Present Illness HPI Comments 59 year old female brought in by EMS presents to the ED with a chief complaint of ETOH intoxication onset yesterday (04/26/24). PMHx HTN, IBS, anxiety, depression, seizures. Patient states she was heavily drinking ETOH yesterday, was not eating or drinking water. She is currently experience tremors and diarr hea. Patient is also asking for prescription refill of Imodium and Ativan. Denies chest pain, shortness of breath, nausea, vomiting, diarrhea, fever, chills. No other symptoms or modifying factors present at this time. Chief Complaint: ETOH Time Seen by MD: 02:54 Primary Care Provider: UNKNOWN Reviewed Notes: Medications, Allergies Allergies: Coded Allergies: NO KNOWN ALLERGIES (Unverified , 04/21/23) Home Meds Active Scripts Chlordiazepoxide Hcl (Librium) 25 Mg Cp, 25 MG PO Q8HPRN PRN for 3 Days, #9 CAP Prov:ANN NUNEZ MD 04/14/24 Yeast (S. Boulardii)(S. Cerevi (Florastor) 250 Mg Cap, 250 MG PO DAILY for 30 Days, #30 CAP Prov:BEHZAD BAILEY [facility] 04/14/24 Vancomycin HCl (Vancomycin HCl) 125 Mg Cap, 125 MG PO QID for 9 Days, #40 CAP Prov:BEHZAD BAILEY [facility] 04/14/24 Mupirocin (Pseudomonas Fluores (Mupirocin) 2 % Oin, 1 APPLIC EACHNOSTRI BID for 2 Days, #1 OIN Prov:BEHZAD BAILEY [facility] 04/14/24 Multiple Vitamin (Mvi Tab) 1 Tab Tb, 1 TAB PO DAILY for 30 Days, #30 TAB Prov:BEHZAD BAILEY [facility] 04/14/24 Azithromycin (Azithromycin) 250 Mg Tab, 500 MG PO DAILY for 2 Days, #4 TAB Prov:BEHZAD BAILEY [facility] 04/14/24 Famotidine (PEPCID TABLET) 20 Mg Tb, 1 TAB PO BID PRN for 30 Days, #60 TAB 5 Refills Prov:RICKEY ORTIZ MD 04/02/24 Ondansetron HCl (Ondansetron Hydrochloride) 8 Mg Tab, 8 MG PO Q6HP PRN for 10 Days, #40 TAB Prov:RICKEY ORTIZ MD 04/02/24 Metoprolol Succinate (Metoprolol Succinate Er) 50 Mg Tab, 1 TAB PO DAILY, #30 TAB 5 Refills Prov:ALEX CORMIER MD 03/27/24 Lisinopril (Lisinopril) 20 Mg Tab, 20 MG PO DAILY for 30 Days, #30 TAB 5 Refills Prov:ALEX CORMIER MD 03/27/24 Reported Medications Metoprolol Succinate (Metoprolol Succinate Er) 50 Mg Tab, 1 BID 03/24/24 Information Source: Patient, Emergency Med Personnel Mode of Arrival: EMS Severity: Moderate Timing: Hours Duration: Since onset Prehospital treatment: None Past Medical History PAST MEDICAL HISTORY: Anxiety, Arthritis, Depression, HTN, Seizures Surgical 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 History Family History Family History: Reviewed,noncontributory to illness, Family hx of heart ellen Social History Smoker: Non-Smoker Alcohol: Heavy Drugs: Other Lives In: Home Constitutional: denies: chills, diaphoresis, fatigue, fever, malaise, sweats, weakness, others EENTM: denies: blurred vision, double vision, ear bleeding, ear discharge, ear drainage, ear pain, ear ringing, eye pain, eye redness, hearing loss, mouth pain, mouth swelling, nasal discharge, nose bleeding, nose congestion, nose pain, photophobia, tearing, throat pain, throat swelling, voice changes, others Respiratory: denies: cough, hemoptysis, orthopnea, SOB at rest, shortness of breath, SOB with excertion, stridor, wheezing, others Cardiovascular: denies: chest pain, dizzy spells, diaphoresis, Dyspnea on exertion, edema, irregular heart beat, left arm pain, lightheadedness, palpitations, PND, syncope, others Gastrointestinal: denies: abdomen distended, abdominal pain, blood streaked bowels, constipated, diarrhea, dysphagia, difficulty swallowing, hematemesis, melena, nausea, poor appetite, poor fluid intake, rectal bleeding, rectal pain, vomiting, others Genitourinary: denies: abnormal vagina bleeding, burning, dyspareunia, dysuria, flank pain, frequency, hematuria, incontinence, pain, , vagina discharge, urgency, others Neurological: reports: tremors; denies: dizziness, fainting, headache, left sided numbness, left sided weakness, numbness, paresthesia, pre-existing def icit, right sided numbness, right sided weakness, seizure, speech problems, tingling, weakness, others Musculoskeletal: denies: back pain, gout, joint pain, joint swelling, muscle pain, muscle stiffness, neck pain, others Integumetry: denies: bruises, change in color, change in hair/nails, dryness, laceration, lesions, lumps, rash, wounds, others Allergic/Immunocompromised: denies: Difficulty Healing, Frequent Infections, Hives, Itching, others Hematologic/Lymphatic: denies: anemia, blood clots, easy bleeding, easy bruising, swollen glands, others Endocrine: denies: excessive hunger, excessive sweating, excessive thirst, excessive urination, flushing, intolerance to cold, intolerance to heat, unexplained weight gain, unexplained weight loss, others Psychiatric: denies: anxiety, bipolar disorder, depression, hopeless, panic disorder, schizophrenia, sleepless, suicidal, others All Other Systems: Reviewed and Negative Physical Exam General Appearance: No Apparent Distress, Normal HEENT: Normal ENT Inspection, Pharynx Normal, TMs Normal Neck: Full Range of Motion, Non-Tender, Normal, Normal Inspection Respiratory: Chest Non-Tender, Lungs Clear, No Accessory Muscle Use, No Respiratory Distress, Normal Breath Sounds Cardiovascular: No Edema, No JVD, No Murmur, No Gallop, Normal Peripheral Pulses, Regular Rate/Rhythm Breast Exam: Deferred Gastrointestinal: No Organomegaly, Non Tender, No Pulsatile Mass, Normal Bowel Sounds, Soft Genitalia: Deferred Pelvic: Deferred Rectal: Deferred Extremities: No calf tenderness, Normal capillary refill, Normal inspection, Normal range of motion, Non-tender, No pedal edema Musculoskeletal : Apperance: Normal Neurologic: Alert, data recovery planner II-XII nml as Tested, Other (tremulous) Cerebellar Function: Normal Reflexes: Normal Skin: Dry, Normal Color, Warm Lymphatic: No Adenopathy Was a procedure done? Was a procedure done?: No Differential Dx Considerations may include: Alcohol withdrawal, anxiety, alcohol intoxication, X-Ray, Labs, Meds, VS Vital Signs Date Time Temp Pulse Resp B/P (MAP) Pulse Ox O2 Delivery O2 Flow Rate FiO2 04/27/24 04:35 97.7 64 16 157/67 (97) 95 97.7 04/27/24 03:51 16 96 Room Air* 0 21 21 04/26/24 23:04 98.1 59 18 183/75 (111) 97 98.1 Lab Test 04/27/24 03:08 Range/Units White Blood Count 6.3 4.4-10.8 10^3/uL Red Blood Count 3.91 L 4.0-5.20 10^6/uL Hemoglobin 14.3 12.2-16.2 g/dL Hematocrit 41.9 36.0-46.0 % Mean Corpuscular Volume 107.1 H 80.0-100.0 fL Mean Corpuscular Hemoglobin 36.5 H 28.0-32.0 pg Mean Corpuscular Hemoglobin Concent 34.1 32.0-36.0 g/dL Red Cell Distribution Width 16.1 H 11.8-14.3 % Platelet Count 222 140-450 10^3/uL Mean Platelet Volume 6.8 L 6.9-10.8 fL Neutrophils (%) (Auto) 78.8 37.0-80.0 % Lymphocytes (%) (Auto) 15.7 10.0-50.0 % Monocytes (%) (Auto) 4.0 0.0-12.0 % Eosinophils (%) (Auto) 0.4 0.0-7.0 % Basophils (%) (Auto) 1.1 0.0-2.0 % Neutrophils # (Auto) 5.0 1.6-8.6 10 ^3/uL Lymphocytes # (Auto) 1.0 0.4-5.4 10 ^3/uL Monocytes # (Auto) 0.3 0-1.3 10 ^3/uL Eosinophils # (Auto) 0 0-0.8 10 ^3/uL Basophils # (Auto) 0.1 0-0.2 10 ^3/uL Nucleated Red Blood Cells 0.1 % Sodium Level 141 136-145 mmol/L Potassium Level 3.8 3.5-5.1 mmol/L Chloride Level 106 98-107 mmol/L Carbon Dioxide Level 22 20-31 mmol/L Anion Gap 13 5-15 Blood Urea Nitrogen 7 L 9-23 mg/dL Creatinine 0.76 0.550-1.02 mg/dL Glomerular Filtration Rate Calc 90 >90 mL/min BUN/Creatinine Ratio 9.2 L 10.0-20.0 Serum Glucose 77 74-106 mg/dL Calcium Level 9.5 8.7-10.4 mg/dL Plasma/Serum Blood Alcohol 271.4 H <10 mg/dL Current Medications Medications (Trade) Dose Ordered Sig/Alena Route Start Time Stop Time Status Last Admin Sodium Chloride 1,000 ml @ 1,000 mls/hr Q1H ONCE IV 04/27/24 03:00 04/27/24 03:59 DC 04/27/24 03:51 Ondansetron HCl (Zofran) 4 mg ONCE ONCE IV 04/27/24 03:00 04/27/24 03:03 DC 04/27/24 03:51 Pantoprazole Sodium (Protonix) 80 mg ONCE ONCE IV 04/27/24 03:00 04/27/24 03:03 DC 04/27/24 03:51 Lorazepam (Ativan Inj) 2 mg ONCE ONCE IV 04/27/24 03:00 04/27/24 03:03 DC 04/27/24 03:51 Chlordiazepoxide HCl (Librium Capsule) 50 mg ONCE ONCE PO 04/27/24 03:00 04/27/24 03:03 DC 04/27/24 03:51 Time of 1ST Reevaluation: 03:24 Reevaluation 1ST: Unchanged Patient Education/Counseling: Diagnosis, Treatment, Prognosis Family Education/Counseling: No Family Present Additional Information The following tests were ordered, and results were reviewed by me: BMP, CBC, BLOOD ALCOHOL, XY CHEST, UA, UDS Additional Information was gathered from interviewing the following independent historians: EMS I reviewed and agreed with the following test results read by other providers: XY CHEST I discussed treatment and results with medical personnel and: Patient Departure 1 Departure Time of Disposition: 04:42 (Patient with signs of alcohol withdrawal. We will empirically cover patient with Ativan and Librium and admit patient for further workup) Impression: Primary Impression: Alcohol withdrawal Qualified Codes: F10.930 - Alcohol use, unspecified with withdrawal, uncomplicated Disposition: 09 ADMITTED INPATIENT Admit to: Med Surg Condition: Serious Critical Care Note Critical Care Time?: No Stability Stability form required: No I personally scribed for JON RUBY MD ([email or web address]) on 04/27/24 at 03:04. Electronically submitted by Ritu Sagastume ([email or web address]). I personally scribed for JON RUBY MD ([email or web address]) on 04/27/24 at 03:05. Electronically submitted by Ritu Sagastume ([email or web address]). JON RUBY MD Apr 27, 2024 03:04
[2024-04-27 03:16] LABS: Basophils # (auto) 0.1 10 ^3/uL (0-0.2); Eosinophils # (auto) 0 10 ^3/uL (0-0.8); Eosinophils % (auto) 0.4 % (0.0-7.0); Mean Corpuscular Hemoglobin 36.5 pg (28.0-32.0); Monocytes # (auto) 0.3 10 ^3/uL (0-1.3); White Blood Cell 6.3 10^3/uL (4.4-10.8)
[2024-04-27 03:18] LABS: Basophils % (auto) 1.1 % (0.0-2.0); Hematocrit 41.9 % (36.0-46.0); Hemoglobin 14.3 g/dL (12.2-16.2); Lymphocytes % (auto) 15.7 % (10.0-50.0); Mean Corpuscular Hgb Conc. 34.1 g/dL (32.0-36.0); Mean Corpuscular Volume 107.1 fL (80.0-100.0); Neutrophils % (auto) 78.8 % (37.0-80.0); Nucleated Red Blood Cells % 0.1 %; Platelet Count (auto) 222 10^3/uL (140-450); Red Blood Cells 3.91 10^6/uL (4.0-5.20); Red Cell Distribution Width 16.1 % (11.8-14.3)
[2024-04-27 03:28] LABS: Chloride 106 mmol/L (98-107); Potassium 3.8 mmol/L (3.5-5.1); Sodium 141 mmol/L (136-145)
[2024-04-27 03:29] LABS: Anion Gap 13 (5-15); Calcium 9.5 mg/dL (8.7-10.4); Carbon Dioxide 22 mmol/L (20-31)
[2024-04-27 03:34] LABS: BUN/Creatinine Ratio 9.2 (10.0-20.0); Glucose 77 mg/dL (74-106)
[2024-04-27 03:37] LABS: Blood Urea Nitrogen 7 mg/dL (9-23)
[2024-04-27] MEDS: LORazepam 2MG/ML-1ML VIAL IV ONE (03:51)
[2024-04-27] MEDS: SODIUM CHLORIDE 0.9% 1,000 ML IV ONE ×2 (03:51→06:17)
[2024-04-27] MEDS: ONDANSETRON HCL 4 MG/2 ML VIAL IV ONE (03:51)
[2024-04-27] MEDS: chlordiazePOXIDE HCL 25 MG CAP PO ONE (03:51)
[2024-04-27] MEDS: PANTOPRAZOLE 40 MG/10 ML VIAL INJ IV ONE (03:51)
[2024-04-27 03:58] LABS: Blood Alcohol 271.4 mg/dL (<10)
[2024-04-27] MEDS: LOPERAMIDE HCL 2 MG CAP/TAB PO ONE (05:22)
[2024-04-27] MEDS ORDERED: LORazepam 0.5 MG TAB PO PRN (05:30)
[2024-04-27] MEDS: MAGNESIUM SULFATE 1GM/100ML 200 ML IV ONE (05:33)
[2024-04-27] MEDS: FOLIC ACID 1 mg/0.2ml INJECTION INJ ONE (05:46)
[2024-04-27] MEDS: MAGNESIUM SULFATE 1GM/100ML 100 ML IV ONE (05:46)
[2024-04-27] MEDS: MVI in SODIUM CHLORIDE 0.9% 1,000 ML IVB ONE (05:46)
[2024-04-27] MEDS: THIAMINE 100mg/ml INJ (200mg/2ml VIAL) IV ONE (05:46)
--- NOTE | 2024-04-27 05:46 | DVHHPRES ---
History of Present Illness Resident Creating Document: JASON CROSS RESDIENT History of Present Illness Patient is a 59-year-old female with past medical history of hypertension, IBS- diarrhea type, C diff and Campylobacter colitis, alcohol use disorder, who came in due alcohol withdrawal. According to the patient, she has been feeling more anxious and dizzy since yesterday. she also has been experiencing abdominal pain for the last 19 years, however, over the last few days her abdominal pain has been mildly and associated with diarrhea. Per patient, her last drink was on 04/26 at 10:00 a.m.. She also reports dizziness, instability during mobilization, and body shaking. She denies fever, vomiting, chest pain, or any bladder habit changes. She was also discharged on 04/14/2024 from [facility], had admitted due to alcohol with drawal and was also found to have C diff and Campylobacter jejuni. Past surgical history: Hysterectomy, right knee surgery, bilateral shoulder surgery, completed colonoscopy which showed no abnormalities one month ago Home medications: Lisinopril, metoprolol Social & Personal history: Patient lives in a trailer in the backyard of her sister's house. Denies smoking, drinks 1 bottle of vodka daily for the last 2 years. Denies using drugs. Review of Systems Review of Systems General: patient denies fever, fatigue, weaknes, sweating, any recent changes in appetite and weight HEENT: Reports flushing light on visual fluid Cardiovascular: Denies chest pain, palpitations, dyspnea on exertion, orthopnea, or claudication. Respiratory: No cough, and wheezing. Gastrointestinal: Reports abdominal pain and diarrhea Genitourinary: No dysuria, hematuria, discharge, frequency, urgency, nocturia, incontinence, and urinary retention. Endocrine: No heat or cold intolerance, polydipsia, polyuria, and polyphagia. Neurological: Reports dizziness and ataxia Psychiatric: Denies depression, anxiety,or insomnia. Musculoskeletal: Denies neck pain, stiffness and swelling, back pain, muscle weakness, joint pain, stiffness, swelling, or limited range of motion. Skin: No rashes, itching, skin lesion, changes in hair, nail, skin texture and breast. Hematologic/Lymphatic: Denies easy bruising, bleeding tendencies, or lymph node enlargement. Allergies: Coded Allergies: NO KNOWN ALLERGIES (Unverified , 04/21/23) Medications Current Medications Medications Dose Ordered Sig/Alena Route Start Time Stop Time Status Last Admin Dose Admin Lorazepam 0.5 mg Q6HP PRN PO 04/27/24 05:30 Ondansetron HCl 4 mg Q4HP PRN IV 04/27/24 05:30 Enoxaparin Sodium 40 mg DAILY SC 04/27/24 10:00 Chlordiazepoxide HCl 10 mg Q4HPRN PRN PO 04/27/24 05:30 Lorazepam 0.5 mg Q6HP PRN IV 04/27/24 05:30 Exam Vital Signs Vital Signs Date Time Temp Pulse Resp B/P (MAP) Pulse Ox O2 Delivery O2 Flow Rate FiO2 04/27/24 04:35 97.7 64 16 157/67 (97) 95 97.7 04/27/24 03:51 Room Air* 0 21 21 Exam General Appearance: Alert, Oriented X3, Cooperative, No acute distress HEENT: Atraumatic, PERRLA, EOMI, Mucous membrane moist/pink Respiratory: Clear to auscultation, Normal air movement Cardiovascular: Regular rate, Normal S1, Normal S2, No murmurs, no chest wall tenderness Abdominal: Mild abdominal tenderness Extremities: Resting tremor with flapping tremor upon hand extension Skin: No rashes, No breakdown, No significant lesion Neuro: Ataxia upon walking Psych/Mental Status: Mental status NL, Mood NL Labs/Xrays Labs Test 04/27/24 05:40 04/27/24 03:08 Range/Units Eosinophils (%) (Auto) 0.4 0.0-7.0 % Eosinophils # (Auto) 0 0-0.8 10 ^3/uL Basophils # (Auto) 0.1 0-0.2 10 ^3/uL Nucleated Red Blood Cells 0.1 % Sodium Level 141 136-145 mmol/L Potassium Level 3.8 3.5-5.1 mmol/L Chloride Level 106 98-107 mmol/L Carbon Dioxide Level 22 20-31 mmol/L Anion Gap 13 5-15 Blood Urea Nitrogen 7 L 9-23 mg/dL Creatinine 0.76 0.550-1.02 mg/dL Glomerular Filtration Rate Calc 90 >90 mL/min BUN/Creatinine Ratio 9.2 L 10.0-20.0 Serum Glucose 77 74-106 mg/dL Calcium Level 9.5 8.7-10.4 mg/dL Plasma/Serum Blood Alcohol 271.4 H <10 mg/dL Assessment/Plan Assessment/Plan Alcoholic withdrawal hallucinosis? Alcohol withdrawal, CIWA score 19 Alcohol use disorder Normal saline Ativan Librium Multivitamin ? Enterocolitis versus IBS-D Stool study including bacterial culture and C diff Hypertension, probably secondary to alcohol withdrawal Continue home meds DIET: NPO DVT PROPHYLAXIS: Lovenox CODE STATUS: Goal of care discussed for more than 18 minutes, full code DISPOSITION: Telemetry Patient's status and plan discussed with the patient. Case discussed with Dr. Mota. Plan discussed with: Patient, Other (RN) My Orders Orders - JASON CROSS RESESTHER Procedure Category Date Status Time Stool Wbc LAB 04/27/24 Verified 05:44 Stool Bacterial KAROLINE 04/27/24 Verified Culture 05:44 Clostridium Difficile KAROLINE 04/27/24 Verified Toxin 05:44 Ova & Parasite Exam KAROLINE 04/27/24 Verified 05:44 Date of Service: Apr 27, 2024 Billing Provider: BEATRIZ MOTA MD Common Visit Codes: [id number] INP/OBS CARE (HIGH) JASON CROSS RESDIENT Apr 27, 2024 05:46 MARY CARMEN [place] RESIDENT Apr 27, 2024 06:18 BEATRIZ MOTA MD Apr 27, 2024 17:25
--- NOTE | 2024-04-27 05:46 | DVH ---
EXAM: XR Chest, 1 View CLINICAL INDICATION: Tremors TECHNIQUE: Frontal view of the chest. COMPARISON: XY CHEST PORTABLE on DOS: 10/28/23, XY CHEST PORTABLE on DOS: 05/27/23, XY CHEST PORTABLE on DOS: 05/06/23 FINDINGS: LUNGS AND PLEURAL SPACES: Mild pulmonary congestion. No consolidation. No pneumothorax. HEART: Unremarkable. No cardiomegaly. MEDIASTINUM: Unremarkable. Normal mediastinal contour. BONES/JOINTS: Unremarkable. No acute fracture. OTHER FINDINGS: . IMPRESSION: Mild pulmonary congestion.
[2024-04-27 06:19] LABS: INR 1.11 (0.9-1.15); Partial Thromboplastin Time 29.9 SEC (24.5-34.5); Prothrombin Time 11.6 sec (9.3-11.8)
[2024-04-27 06:39] LABS: Basophils # (auto) 0.1 10 ^3/uL (0-0.2); Basophils % (auto) 0.9 % (0.0-2.0); Eosinophils # (auto) 0.1 10 ^3/uL (0-0.8); Eosinophils % (auto) 1.5 % (0.0-7.0); Hematocrit 39.4 % (36.0-46.0); Hemoglobin 13.3 g/dL (12.2-16.2); Lymphocytes # (auto) 1.2 10 ^3/uL (0.4-5.4); Lymphocytes % (auto) 21.7 % (10.0-50.0); Mean Corpuscular Hemoglobin 30.5 pg (28.0-32.0); Mean Corpuscular Hgb Conc. 33.8 g/dL (32.0-36.0); Mean Corpuscular Volume 90.4 fL (80.0-100.0); Monocytes # (auto) 0.3 10 ^3/uL (0-1.3); Monocytes % (auto) 5.9 % (0.0-12.0); Nucleated Red Blood Cells % 0.3 %; Platelet Count (auto) 195 10^3/uL (140-450); Red Blood Cells 4.36 10^6/uL (4.0-5.20); White Blood Cell 5.8 10^3/uL (4.4-10.8)
[2024-04-27 06:55] LABS: Albumin 4.7 g/dL (3.2-4.8); Magnesium 2.2 mg/dL (1.6-2.6); Phosphorus 3.8 mg/dL (2.4-5.1)
[2024-04-27 06:56] LABS: Bilirubin, Total 1.1 mg/dL (0.2-1.0)
[2024-04-27 07:00] LABS: Bilirubin, Direct 0.3 mg/dL (<0.3)
[2024-04-27 07:31] LABS: Total Protein 7.5 g/dL (5.7-8.2)
[2024-04-27] MEDS: ENOXAPARIN SOD 40 MG/0.4 ML SYRINGE SC SCH (10:04)
[2024-04-27] MEDS: METOPROLOL SUCCINATE XL 50 MG TAB PO SCH (10:05)
[2024-04-27] MEDS: LISINOPRIL 20 MG TAB PO SCH (10:05)
[2024-04-27] MEDS: LORazepam 2MG/ML-1ML VIAL IV PRN ×2 (10:12→12:45)
[2024-04-27] MEDS: chlordiazePOXIDE HCL 5 MG CAP PO PRN (10:12)
[2024-04-27] MEDS ORDERED: LORazepam 2MG/ML-1ML VIAL IV PRN (12:15)
--- NOTE | 2024-04-27 18:06 | DVHPNRES ---
Progress Note Date Seen: Apr 27, 2024 Resident Creating Document: CHINAEllenTAIARTANGE RESIDENT Medical Necessity Reason Pt with a Central, PICC or Fol: No Subjective Review of Systems Patient is a 59-year-old female with a past medical history of hypertension, irritable bowel syndrome, history of C diff colitis, alcohol use disorder came to the hospital in alcohol withdrawal. According to the patient, she has been feeling more anxious and dizzy since yesterday. she also has been experiencing abdominal pain for the last 19 years, however, over the last few days her abdominal pain has been mildly and associated with diarrhea. Per patient, her last drink was on 04/26 at 10:00 a.m.. She also reports dizziness, instability during mobilization, and body shaking. She denies fever, vomiting, chest pain, or any bladder habit changes. She was also discharged on 04/14/2024 from [facility], had admitted due to alcohol withdrawal and was also found to have C diff and Campylobacter jejuni. Past surgical history: Hysterectomy, right knee surgery, bilateral shoulder surgery, completed colonoscopy which showed no abnormalities one month ago Home medications: Lisinopril, metoprolol Social & Personal history: Patient lives in a trailer in the backyard of her sister's house. Denies smoking, drinks 1 bottle of vodka daily for the last 2 years. Denies using drugs. Review of systems Patient is seen and examined at the bedside In the afternoon patient wants anxious, agitated, denied nausea or vomiting, had tremors at rest, mild sensitivity to light, mild hoarseness of voice, could do serial additions, mild headache, no tactile hallucination CIWA score was calculated at 20 Patient had hypertension and tachycardia Reports passing multiple watery stools Patient has instability on walking Objective vital signs Vital Sign Date Time Temp Pulse Resp B/P (MAP) Pulse Ox O2 Delivery O2 Flow Rate FiO2 04/27/24 14:00 73 12 169/86 (113) 92 04/27/24 08:00 Room Air* 0 21 04/27/24 08:00 98.0 98.0 Total Intake and Output 04/26/24 04/26/24 04/27/24 14:59 22:59 06:59 Intake Total 2100 ml Balance 2100 ml medications Current Medications Medications Dose Ordered Sig/Alena Route Start Time Stop Time Status Last Admin Dose Admin Lorazepam 0.5 mg Q6HP PRN PO 04/27/24 05:30 Ondansetron HCl 4 mg Q4HP PRN IV 04/27/24 05:30 Enoxaparin Sodium 40 mg DAILY SC 04/27/24 10:00 04/27/24 10:04 40 MG Lisinopril 20 mg DAILY PO 04/27/24 10:00 04/27/24 10:05 20 MG Metoprolol Succinate 50 mg BID PO 04/27/24 10:00 04/27/24 10:05 50 MG Lorazepam 2 mg Q1HP PRN IV 04/27/24 12:15 04/27/24 15:49 2 MG Lorazepam 2 mg Q6HR IV 04/27/24 18:00 Examination Constitutional: Patient was a alert and oriented X 3 and appears to be in moderate distress because of alcohol withdrawal Gen - no pallor, no icterus, no cyanosis, no clubbing, no LAD, no edema . Skin - Patients skin is warm and dry. HEENT - normocephalic, atraumatic, moist mucous membranes. Neck - full ROM, no LAD Pulmonary - B/L equal air entry, no crackles , no wheezing, no stridor. cardiovascular - variable S1,S2 heard. No added sounds no murmurs heard. GI - soft abdomen without tenderness to palpation. no hepatospleenomegaly. Bowel sounds normoactive Neurological - Bilateral upper extremity strength 5/5, bilateral lower extremity strength 5/5, no facial droop, normal speech, no tremor, no sensory deficiets. laboratory and microbiology Laboratory Tests 04/27/24 06:13 04/27/24 03:08 Test 04/27/24 03:08 Range/Units Serum Glucose 77 74-106 mg/dL Problem List/Assessment/Plan Problem List/Assessment/Plan # Alcohol withdrawal # alcohol use disorder - CIWA 20 - given thiamine and folic acid - IV fluids - lorazepam 2 mg IV q.6 hours - on telemetry # acute intractable diarrhea # suspected enterocolitis # ? C diff colitis # history of C diff colitis # history of irritable bowel syndrome - stool cultures and C diff pending - patient given IV fluids - on telemetry - currently supportive management until cultures are back # Vitamin-D deficiency # hypertensive heart disease with diastolic dysfunction - continued on lisinopril 20 mg - metoprolol succinate 50 mg PUD prophylaxis: Protonix 40 mg po daily DVT prophylaxis: enoxaparin 40 mg sc daily Goals of care discussed with the patient for over 25 mins. Full code Plan discussed with the Dr. Nunez Plan discussed with: Patient My Orders My Orders Orders - ISAIAH BLACKWELL Procedure Category Date Status Time Lorazepam 2mg/Ml Inj PHA 04/27/24 In Process (Ativan Inj) 12:15 Full Liq Diet DIET 04/27/24 Transmitted Dinner Lorazepam 2mg/Ml Inj PHA 04/27/24 In Process (Ativan Inj) 18:00 Date of Service: Apr 27, 2024 Billing Provider: ANN NUNEZ MD Common Visit Codes: [id number] INP/OBS CARE(HIGH) ISAIAH BLACKWELL RESIDENT Apr 27, 2024 18:06 ANN NUNEZ MD Apr 28, 2024 08:44
[2024-04-27] MEDS: LORazepam 2MG/ML-1ML VIAL IV SCH (18:14)
[2024-04-27] MEDS: SODIUM CHLORIDE 0.9% 1,000 ML IV SCH (18:30)
[2024-04-27 22:33] LABS: Urine Bacteria None Seen /hpf (None Seen)
[2024-04-27 22:41] LABS: Urine Blood Negative /uL (Negative); Urine Clarity Clear (Clear); Urine Color Colorless (Yellow); Urine Protein, UAD Negative (Negative); Urine Specific Gravity 1.007 (1.001-1.035); Urine Squamous Epithelial Cell FEW /hpf (<5); Urine Urobilinogen Normal (Negative); Urine WBC 1 /HPF (0-5); Urine pH 7.5 (5.0-9.0)
[2024-04-27 22:53] LABS: Benzodiazephine Screen, Urine Pos (NEGATIVE)
[2024-04-27 23:04] LABS: Amphetamine Screen, Urine Neg (NEGATIVE); Barbiturate Scree,Urine Neg (NEGATIVE); Opiate Scree,Urine Neg (NEGATIVE); Phencyclidine Screen, Urine Neg (NEGATIVE)
[2024-04-27 23:05] LABS: Cannabinoid Screen, Urine Neg (NEGATIVE); Cocaine Screen, Urine Neg (NEGATIVE)
[2024-04-27] MEDS: amLODIPine BESYLATE 5 MG TAB PO ONE (23:28)
[2024-04-28] VITALS (8 sets, daily range): BP systolic 150–181; BP diastolic 72–91; PULSE 66–73; RESP 16–20; TEMP 97.3–98.4; O2SAT 93–97
[2024-04-28 05:19] LABS: Basophils # (auto) 0.1 10 ^3/uL (0-0.2); Basophils % (auto) 1.2 % (0.0-2.0); Eosinophils # (auto) 0.1 10 ^3/uL (0-0.8); Eosinophils % (auto) 1.4 % (0.0-7.0); Hematocrit 34.5 % (36.0-46.0); Hemoglobin 12.1 g/dL (12.2-16.2); Lymphocytes # (auto) 0.8 10 ^3/uL (0.4-5.4); Lymphocytes % (auto) 14.1 % (10.0-50.0); Mean Corpuscular Hgb Conc. 35.1 g/dL (32.0-36.0); Mean Corpuscular Volume 105.5 fL (80.0-100.0); Monocytes # (auto) 0.5 10 ^3/uL (0-1.3); Monocytes % (auto) 8.5 % (0.0-12.0); Neutrophils % (auto) 74.8 % (37.0-80.0); Nucleated Red Blood Cells % 0.1 %; Platelet Count (auto) 132 10^3/uL (140-450); Red Blood Cells 3.27 10^6/uL (4.0-5.20); Red Cell Distribution Width 15.9 % (11.8-14.3); White Blood Cell 5.3 10^3/uL (4.4-10.8)
[2024-04-28 05:38] LABS: Carbon Dioxide 27 mmol/L (20-31)
[2024-04-28 05:39] LABS: Anion Gap 11 (5-15)
[2024-04-28 05:40] LABS: Calcium 10.2 mg/dL (8.7-10.4)
[2024-04-28 05:44] LABS: Glucose 79 mg/dL (74-106)
[2024-04-28 05:45] LABS: BUN/Creatinine Ratio 10.9 (10.0-20.0); Blood Urea Nitrogen 7 mg/dL (9-23); Chloride 98 mmol/L (98-107); Magnesium 1.9 mg/dL (1.6-2.6); Potassium 3.6 mmol/L (3.5-5.1); Sodium 136 mmol/L (136-145)
[2024-04-28 05:47] LABS: Phosphorus 3.9 mg/dL (2.4-5.1)
--- NOTE | 2024-04-28 06:51 | DVH ---
EXAM: XR Chest, 1 View CLINICAL INDICATION: Rule out aspiration pneumonia TECHNIQUE: Frontal view of the chest. COMPARISON: XY CHEST PORTABLE on DOS: 04/27/24, XY CHEST PORTABLE on DOS: 10/28/23, XY CHEST PORTABLE on DOS: 05/27/23, XY CHEST PORTABLE on DOS: 05/06/23 FINDINGS: LUNGS AND PLEURAL SPACES: See below. HEART: Cardiomegaly with mild congestion. MEDIASTINUM: Unremarkable. Normal mediastinal contour. BONES/JOINTS: Unremarkable. No acute fracture. OTHER FINDINGS: . IMPRESSION: Cardiomegaly with mild congestion.
[2024-04-28] MEDS: METOPROLOL SUCCINATE XL 50 MG TAB PO SCH (10:53)
[2024-04-28] MEDS: ERGOCALCIFEROL 50,000 UNIT(1.25MG) CAP PO SCH (10:53)
--- NOTE | 2024-04-28 18:03 | DVHPNRES ---
Progress Note Date Seen: Apr 28, 2024 Resident Creating Document: JHEllenJART JansenANGE RESIDENT Medical Necessity Reason Pt with a Central, PICC or Fol: No Subjective Review of Systems Patient is seen and examined at the bedside CIWA score followed in the morning at 18 Patient had hypertension and tachycardia Reports passing 6 watery stools in the last 24 hours Patient reports feeling better than yesterday Objective vital signs Vital Sign Date Time Temp Pulse Resp B/P (MAP) Pulse Ox O2 Delivery O2 Flow Rate FiO2 04/28/24 16:33 98.4 68 20 164/83 (110) 94 98.4 04/28/24 08:00 Room Air* 0 21 Total Intake and Output 04/27/24 04/27/24 04/28/24 15:00 23:00 07:00 Intake Total 200 ml Balance 200 ml medications Current Medications Medications Dose Ordered Sig/Alena Route Start Time Stop Time Status Last Admin Dose Admin Ondansetron HCl 4 mg Q4HP PRN IV 04/27/24 05:30 Enoxaparin Sodium 40 mg DAILY SC 04/27/24 10:00 04/28/24 10:00 40 MG Lisinopril 20 mg DAILY PO 04/27/24 10:00 04/28/24 10:54 20 MG Lorazepam 2 mg Q1HP PRN IV 04/27/24 12:15 04/27/24 21:10 2 MG Lorazepam 2 mg Q6HR IV 04/27/24 18:00 04/28/24 17:57 2 MG Metoprolol Succinate 50 mg DAILY PO 04/28/24 10:00 04/28/24 10:53 50 MG Ergocalciferol 50,000 unit Q7D PO 04/28/24 10:00 04/28/24 10:53 50,000 UNIT Sodium Chloride 1,000 ml @ 110 mls/hr Q9H6M IV 04/27/24 18:30 Examination Constitutional: Patient was a alert and oriented X 3 and appears to be in moderate distress because of alcohol withdrawal Gen - no pallor, no icterus, no cyanosis, no clubbing, no LAD, no edema . Skin - Patients skin is warm and dry. HEENT - normocephalic, atraumatic, moist mucous membranes. Neck - full ROM, no LAD Pulmonary - B/L equal air entry, no crackles , no wheezing, no stridor. cardiovascular - variable S1,S2 heard. No added sounds no murmurs heard. GI - soft abdomen without tenderness to palpation. no hepatospleenomegaly. Bowel sounds normoactive Neurological - Bilateral upper extremity strength 5/5, bilateral lower extremity strength 5/5, no facial droop, normal speech, no tremor, no sensory deficiets. laboratory and microbiology Laboratory Tests 04/28/24 05:00 Test 04/28/24 05:00 Range/Units Serum Glucose 79 74-106 mg/dL Microbiology Date/Time Source Procedure Growth Status 04/27/24 15:34 Nose MRSA Screen - Final Complete 04/27/24 15:05 Stool Stool Culture - Preliminary Resulted 04/27/24 15:05 Stool Shiga Toxin I & II - Final Resulted 04/27/24 15:05 Stool Clostridium difficile Toxin Assay - Final Resulted Problem List/Assessment/Plan Problem List/Assessment/Plan # Alcohol withdrawal # alcohol use disorder - CIWA 20 - given thiamine and folic acid - IV fluids - lorazepam 2 mg IV q.6 hours - on telemetry # acute intractable diarrhea # C diff colitis # history of irritable bowel syndrome - stool cultures negative for shiga toxin, no Campylobacter antigen - C diff toxin positive - patient given IV fluids - on telemetry - started on vancomycin 125mg q.i.d. p.o. # Vitamin-D deficiency # hypertensive heart disease with diastolic dysfunction - continued on lisinopril 20 mg - metoprolol succinate 50 mg PUD prophylaxis: Protonix 40 mg po daily DVT prophylaxis: enoxaparin 40 mg sc daily Goals of care discussed with the patient for over 25 mins. Full code Plan discussed with the Dr. Nunez Plan discussed with: Patient My Orders My Orders Orders - ISAIAH BLACKWELL Procedure Category Date Status Time Metoprolol Xl PHA 04/28/24 In Process Succinate (Toprol Xl) 10:00 Ergocalciferol PHA 04/28/24 In Process (Vitamin D 50,000 10:00 Sodium Chloride 0.9% PHA 04/27/24 In Process 18:30 Vancomycin Po PHA 04/28/24 Transmitted 18:00 Date of Service: Apr 28, 2024 Billing Provider: ANN NUNEZ MD Common Visit Codes: [id number] INP/OBS CARE(HIGH) ISAIAH BLACKWELL RESIDENT Apr 28, 2024 18:03 ANN NUNEZ MD Apr 29, 2024 12:09
[2024-04-28] MEDS: VANCOMYCIN HCL 125 MG CAP PO SCH (19:10)
[2024-04-28] MEDS: ACETAMINOPHEN 325 MG TAB PO PRN (20:35)
[2024-04-29] VITALS (8 sets, daily range): BP systolic 140–170; BP diastolic 71–85; PULSE 61–73; RESP 16–20; TEMP 97.8–98.9; O2SAT 90–98
[2024-04-29 06:55] LABS: Basophils # (auto) 0 10 ^3/uL (0-0.2); Eosinophils # (auto) 0.2 10 ^3/uL (0-0.8); Hemoglobin 11.5 g/dL (12.2-16.2); Lymphocytes # (auto) 0.7 10 ^3/uL (0.4-5.4); Mean Corpuscular Hemoglobin 36.5 pg (28.0-32.0); Monocytes # (auto) 0.3 10 ^3/uL (0-1.3); Neutrophils # (auto) 3.2 10 ^3/uL (1.6-8.6); Nucleated Red Blood Cells % 0.1 %
[2024-04-29 06:57] LABS: Basophils % (auto) 0.8 % (0.0-2.0); Eosinophils % (auto) 3.6 % (0.0-7.0); Hematocrit 33.1 % (36.0-46.0); Lymphocytes % (auto) 14.7 % (10.0-50.0); Mean Corpuscular Hgb Conc. 34.8 g/dL (32.0-36.0); Mean Corpuscular Volume 104.9 fL (80.0-100.0); Monocytes % (auto) 7.9 % (0.0-12.0); Platelet Count (auto) 100 10^3/uL (140-450); Red Blood Cells 3.16 10^6/uL (4.0-5.20); Red Cell Distribution Width 15.9 % (11.8-14.3); White Blood Cell 4.4 10^3/uL (4.4-10.8)
[2024-04-29 07:03] LABS: Chloride 100 mmol/L (98-107); Potassium 3.5 mmol/L (3.5-5.1); Sodium 136 mmol/L (136-145)
[2024-04-29 07:04] LABS: Anion Gap 8 (5-15); Carbon Dioxide 28 mmol/L (20-31)
[2024-04-29 07:05] LABS: Calcium 9.8 mg/dL (8.7-10.4)
[2024-04-29 07:09] LABS: Glucose 104 mg/dL (74-106)
[2024-04-29 07:11] LABS: Blood Urea Nitrogen 6 mg/dL (9-23)
[2024-04-29] MEDS: LORazepam 2MG/ML-1ML VIAL IV SCH (11:46)
--- NOTE | 2024-04-29 13:03 | DVHPNRES ---
Progress Note Date Seen: Apr 29, 2024 Resident Creating Document: JHAJJARTANGE RESIDENT Medical Necessity Reason Pt with a Central, PICC or Fol: No Subjective Review of Systems Patient seen and examined at the bedside reports she is feeling better than yesterday in terms of anxiety, restlessness, headache has improved minimal fine tremors on extended arms no visual or auditory hallucinations over last 24 hours patient did not have any bowel movement Objective vital signs Vital Sign Date Time Temp Pulse Resp B/P (MAP) Pulse Ox O2 Delivery O2 Flow Rate FiO2 04/29/24 10:57 156/73 04/29/24 10:56 64 04/29/24 09:00 98.9 18 94 98.9 04/29/24 08:00 Room Air* 0 21 Total Intake and Output 04/28/24 04/28/24 04/29/24 15:00 23:00 07:00 Intake Total 1200 ml 700 ml Output Total 800 ml Balance 1200 ml -100 ml medications Current Medications Medications Dose Ordered Sig/Alena Route Start Time Stop Time Status Last Admin Dose Admin Ondansetron HCl 4 mg Q4HP PRN IV 04/27/24 05:30 Enoxaparin Sodium 40 mg DAILY SC 04/27/24 10:00 04/29/24 10:00 40 MG Lisinopril 20 mg DAILY PO 04/27/24 10:00 04/29/24 10:57 20 MG Lorazepam 2 mg Q1HP PRN IV 04/27/24 12:15 04/27/24 21:10 2 MG Metoprolol Succinate 50 mg DAILY PO 04/28/24 10:00 04/29/24 10:56 50 MG Ergocalciferol 50,000 unit Q7D PO 04/28/24 10:00 04/28/24 10:53 50,000 UNIT Sodium Chloride 1,000 ml @ 110 mls/hr Q9H6M IV 04/27/24 18:30 04/29/24 05:37 110 MLS/HR Acetaminophen 650 mg Q8HPRN PRN PO 04/28/24 19:15 04/29/24 10:58 650 MG Lorazepam 1 mg Q6HR IV 04/29/24 12:00 04/29/24 11:46 1 MG Examination Constitutional: Patient was a alert and oriented X 3 and appears to be in mild distress because of alcohol withdrawal Gen - no pallor, no icterus, no cyanosis, no clubbing, no LAD, no edema . Skin - Patients skin is warm and dry. HEENT - normocephalic, atraumatic, moist mucous membranes. Neck - full ROM, no LAD Pulmonary - B/L equal air entry, no crackles , no wheezing, no stridor. cardiovascular - variable S1,S2 heard. No added sounds no murmurs heard. GI - soft abdomen without tenderness to palpation. no hepatospleenomegaly. Bowel sounds normoactive Neurological - Bilateral upper extremity strength 5/5, bilateral lower extremity strength 5/5, no facial droop, normal speech, no tremor, no sensory deficiets. laboratory and microbiology Laboratory Tests 04/29/24 06:16 Test 04/29/24 06:16 Range/Units Serum Glucose 104 74-106 mg/dL Microbiology Date/Time Source Procedure Growth Status 04/27/24 15:34 Nose MRSA Screen - Final Complete 04/27/24 15:05 Stool Stool Culture - Preliminary Resulted 04/27/24 15:05 Stool Shiga Toxin I & II - Final Resulted 04/27/24 15:05 Stool Clostridium difficile Toxin Assay - Final Resulted Problem List/Assessment/Plan Problem List/Assessment/Plan # Alcohol withdrawal # alcohol use disorder - CIWA - given thiamine and folic acid - IV fluids - lorazepam 2 mg IV q.6 hours, 04/29 dose decreased to 1mg q 6 hrs - on telemetry # acute intractable diarrhea # C diff colitis # history of irritable bowel syndrome - stool cultures negative for shiga toxin, no Campylobacter antigen - C diff toxin positive - patient given IV fluids - on telemetry - started on vancomycin 125mg q.i.d. p.o., stopped on 04/29 - patient has had previous episodes of c.diff colitis and has been treated with oral vancomycin. 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 Full code Plan discussed with the Dr. Nunez Plan discussed with: Patient My Orders My Orders Orders - ISAIAH BLACKWELL Procedure Category Date Status Time Acetaminophen Tablet PHA 04/28/24 In Process (Tylenol Tablet) 19:15 Lorazepam 2mg/Ml Inj PHA 04/29/24 In Process (Ativan Inj) 12:00 Date of Service: Apr 29, 2024 Billing Provider: ANN NUNEZ MD Common Visit Codes: [id number] INP/OBS CARE(HIGH) ISAIAH BLACKWELL RESIDENT Apr 29, 2024 13:03 ANN NUNEZ MD Apr 29, 2024 15:29
[2024-04-29] MEDS ORDERED: ERGOCALCIFEROL 50,000 UNIT(1.25MG) CAP PO SCH (13:15)
[2024-04-30] VITALS (9 sets, daily range): BP systolic 154–177; BP diastolic 74–98; PULSE 55–78; RESP 16–19; TEMP 97.9–98.8; O2SAT 93–96
[2024-04-30] MEDS: MELATONIN 5 MG TAB PO PRN (01:59)
[2024-04-30 06:15] LABS: Basophils # (auto) 0 10 ^3/uL (0-0.2); Basophils % (auto) 0.6 % (0.0-2.0); Eosinophils # (auto) 0.2 10 ^3/uL (0-0.8); Eosinophils % (auto) 4.4 % (0.0-7.0); Hematocrit 32.8 % (36.0-46.0); Hemoglobin 11.5 g/dL (12.2-16.2); Lymphocytes # (auto) 0.9 10 ^3/uL (0.4-5.4); Lymphocytes % (auto) 16.6 % (10.0-50.0); Mean Corpuscular Hemoglobin 37.1 pg (28.0-32.0); Mean Corpuscular Hgb Conc. 35.2 g/dL (32.0-36.0); Mean Corpuscular Volume 105.4 fL (80.0-100.0); Monocytes # (auto) 0.4 10 ^3/uL (0-1.3); Monocytes % (auto) 7.8 % (0.0-12.0); Neutrophils # (auto) 3.9 10 ^3/uL (1.6-8.6); Neutrophils % (auto) 70.6 % (37.0-80.0); Nucleated Red Blood Cells % 0.1 %; Platelet Count (auto) 100 10^3/uL (140-450); Red Blood Cells 3.11 10^6/uL (4.0-5.20); Red Cell Distribution Width 15.6 % (11.8-14.3); White Blood Cell 5.5 10^3/uL (4.4-10.8)
[2024-04-30 06:29] LABS: Calcium 10.2 mg/dL (8.7-10.4); Chloride 101 mmol/L (98-107); Potassium 3.6 mmol/L (3.5-5.1); Sodium 137 mmol/L (136-145)
[2024-04-30 06:30] LABS: Anion Gap 9 (5-15); Carbon Dioxide 27 mmol/L (20-31)
[2024-04-30 06:35] LABS: BUN/Creatinine Ratio 10.4 (10.0-20.0); Glucose 91 mg/dL (74-106)
[2024-04-30 06:36] LABS: Blood Urea Nitrogen 7 mg/dL (9-23)
[2024-04-30] MEDS: chlordiazePOXIDE HCL 25 MG CAP PO ONE (13:23)
[2024-04-30] MEDS: hydrALAZINE HCL 20 MG/ML VL IV PRN (19:00)
--- NOTE | 2024-04-30 21:05 | DVHPNRES ---
Progress Note Date Seen: Apr 30, 2024 Resident Creating Document: JHAJJISAIAH RESIDENT Medical Necessity Reason Pt with a Central, PICC or Fol: No Subjective Review of Systems Patient seen and examined at the bedside reports she is feeling better than yesterday in terms of anxiety, restlessness, headache has improved no tremors no visual or auditory hallucinations over last 24 hours patient did not have any bowel movement Objective vital signs Vital Sign Date Time Temp Pulse Resp B/P (MAP) Pulse Ox O2 Delivery O2 Flow Rate FiO2 04/30/24 19:00 177/91 04/30/24 17:00 98.8 55 16 93 98.8 04/30/24 08:30 Room Air* 0 21 Total Intake and Output 04/29/24 04/29/24 04/30/24 15:00 23:00 07:00 Intake Total 1060 ml 400 ml Balance 1060 ml 400 ml medications Current Medications Medications Dose Ordered Sig/Alena Route Start Time Stop Time Status Last Admin Dose Admin Ondansetron HCl 4 mg Q4HP PRN IV 04/27/24 05:30 Enoxaparin Sodium 40 mg DAILY SC 04/27/24 10:00 04/29/24 10:00 40 MG Lisinopril 20 mg DAILY PO 04/27/24 10:00 04/30/24 10:25 20 MG Lorazepam 2 mg Q1HP PRN IV 04/27/24 12:15 04/30/24 10:31 2 MG Metoprolol Succinate 50 mg DAILY PO 04/28/24 10:00 04/30/24 10:24 50 MG Ergocalciferol 50,000 unit Q7D PO 04/28/24 10:00 04/28/24 10:53 50,000 UNIT Sodium Chloride 1,000 ml @ 110 mls/hr Q9H6M IV 04/27/24 18:30 04/29/24 05:37 110 MLS/HR Acetaminophen 650 mg Q8HPRN PRN PO 04/28/24 19:15 04/29/24 10:58 650 MG Melatonin 5 mg HS PRN PO 04/30/24 01:54 04/30/24 01:59 5 MG Chlordiazepoxide HCl 25 mg BID PO 04/30/24 22:00 Hydralazine HCl 10 mg Q6HP PRN IV 04/30/24 18:30 04/30/24 19:00 10 MG Examination Constitutional: Patient was a alert and oriented X 3 and appears to be in mild distress because of alcohol withdrawal Gen - no pallor, no icterus, no cyanosis, no clubbing, no LAD, no edema . Skin - Patients skin is warm and dry. HEENT - normocephalic, atraumatic, moist mucous membranes. Neck - full ROM, no LAD Pulmonary - B/L equal air entry, no crackles , no wheezing, no stridor. cardiovascular - variable S1,S2 heard. No added sounds no murmurs heard. GI - soft abdomen without tenderness to palpation. no hepatospleenomegaly. Bowel sounds normoactive Neurological - Bilateral upper extremity strength 5/5, bilateral lower extremity strength 5/5, no facial droop, normal speech, no tremor, no sensory deficiets. laboratory and microbiology Laboratory Tests 04/30/24 05:13 Test 04/30/24 05:13 Range/Units Serum Glucose 91 74-106 mg/dL Microbiology Date/Time Source Procedure Growth Status 04/27/24 15:34 Nose MRSA Screen - Final Complete 04/27/24 15:05 Stool Stool Culture - Final Complete 04/27/24 15:05 Stool Shiga Toxin I & II - Final Complete 04/27/24 15:05 Stool Clostridium difficile Toxin Assay - Final Complete Problem List/Assessment/Plan Problem List/Assessment/Plan # Alcohol withdrawal # alcohol use disorder - CIWA 10 - given thiamine and folic acid - IV fluids - lorazepam stopped - patient on chlordiazepoxide - on telemetry # acute intractable diarrhea # C diff colitis # history of irritable bowel syndrome - stool cultures negative for shiga toxin, no Campylobacter antigen - C diff toxin positive - patient given IV fluids - on telemetry - started on vancomycin 125mg q.i.d. p.o., stopped on 04/29 - patient has had previous episodes of c.diff colitis and has been treated with oral vancomycin. 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 Full code Plan discussed with the Dr. Nunez Plan discussed with: Patient My Orders My Orders Orders - ISAIAH BLACKWELL Procedure Category Date Status Time Chlordiazepoxide Hcl PHA 04/30/24 In Process Capsule (Librium Ca 22:00 Dietary Evaluation Review Recommendations by RD: Dietary education by RD Comments: 1) Continue to encourage optimal PO intake 2) Refer to outpatient RD for IBS education and weight management 3) Consider soluble fiber supplement 4) Encourage patient to refrain from ETOH Expected Outcomes/Goals: 1) appetite and labs to improve; weight gain may be unrealistic d/t patient's advanced age 2) f/u in 3-5 days Date of Service: Apr 30, 2024 Billing Provider: ANN NUNEZ MD Common Visit Codes: [id number] INP/OBS CARE(HIGH) ISAIAH BLACKWELL RESIDENT Apr 30, 2024 21:05 ANN NUNEZ MD May 02, 2024 10:10
[2024-04-30] MEDS: ONDANSETRON HCL 4 MG/2 ML VIAL IV PRN (22:42)
[2024-04-30] MEDS: chlordiazePOXIDE HCL 25 MG CAP PO SCH (22:45)
[2024-05-01] VITALS (11 sets, daily range): BP systolic 126–171; BP diastolic 70–98; PULSE 57–74; RESP 17–19; TEMP 97.8–98.9; O2SAT 91–97
[2024-05-01 05:36] LABS: Basophils # (auto) 0 10 ^3/uL (0-0.2); Basophils % (auto) 0.8 % (0.0-2.0); Eosinophils # (auto) 0.2 10 ^3/uL (0-0.8); Eosinophils % (auto) 3.6 % (0.0-7.0); Hematocrit 35.8 % (36.0-46.0); Lymphocytes # (auto) 0.7 10 ^3/uL (0.4-5.4); Lymphocytes % (auto) 10.5 % (10.0-50.0); Mean Corpuscular Hemoglobin 35.3 pg (28.0-32.0); Mean Corpuscular Hgb Conc. 33.4 g/dL (32.0-36.0); Mean Corpuscular Volume 105.7 fL (80.0-100.0); Monocytes # (auto) 0.6 10 ^3/uL (0-1.3); Monocytes % (auto) 8.8 % (0.0-12.0); Neutrophils # (auto) 4.9 10 ^3/uL (1.6-8.6); Neutrophils % (auto) 76.3 % (37.0-80.0); Platelet Count (auto) 103 10^3/uL (140-450); Red Blood Cells 3.39 10^6/uL (4.0-5.20); White Blood Cell 6.4 10^3/uL (4.4-10.8)
[2024-05-01] MEDS: LISINOPRIL 20 MG TAB PO SCH (09:12)
--- NOTE | 2024-05-01 15:15 | DVHDSRES ---
Discharge Summary Date of Admission Resident Creating Document: KRISHNA VELEZ RESIDENT Apr 27, 2024 at 05:20 Date of Discharge: May 01, 2024 Admitting Diagnosis alcohol withdrawal Labs/Diagnostic Data: Laboratory Results Test 05/01/24 05:06 04/30/24 05:13 04/28/24 05:00 04/27/24 22:00 White Blood Count 6.4 10^3/uL (4.4-10.8) Red Blood Count 3.39 10^6/uL (4.0-5.20) Hemoglobin 12.0 g/dL (12.2-16.2) Hematocrit 35.8 % (36.0-46.0) Mean Corpuscular Volume 105.7 fL (80.0-100.0) Mean Corpuscular Hemoglobin 35.3 pg (28.0-32.0) Mean Corpuscular Hemoglobin Concent 33.4 g/dL (32.0-36.0) Red Cell Distribution Width 16.0 % (11.8-14.3) Platelet Count 103 10^3/uL (140-450) Mean Platelet Volume 8.1 fL (6.9-10.8) Neutrophils (%) (Auto) 76.3 % (37.0-80.0) Lymphocytes (%) (Auto) 10.5 % (10.0-50.0) Monocytes (%) (Auto) 8.8 % (0.0-12.0) Eosinophils (%) (Auto) 3.6 % (0.0-7.0) Basophils (%) (Auto) 0.8 % (0.0-2.0) Neutrophils # (Auto) 4.9 10 ^3/uL (1.6-8.6) Lymphocytes # (Auto) 0.7 10 ^3/uL (0.4-5.4) Monocytes # (Auto) 0.6 10 ^3/uL (0-1.3) Eosinophils # (Auto) 0.2 10 ^3/uL (0-0.8) Basophils # (Auto) 0 10 ^3/uL (0-0.2) Nucleated Red Blood Cells 0.0 % Sodium Level 137 mmol/L (136-145) Potassium Level 3.6 mmol/L (3.5-5.1) Chloride Level 101 mmol/L (98-107) Carbon Dioxide Level 27 mmol/L (20-31) Anion Gap 9 (5-15) Blood Urea Nitrogen 7 mg/dL (9-23) Creatinine 0.67 mg/dL (0.550-1.02) Glomerular Filtration Rate Calc 100 mL/min (>90) BUN/Creatinine Ratio 10.4 (10.0-20.0) Serum Glucose 91 mg/dL (74-106) Calcium Level 10.2 mg/dL (8.7-10.4) Phosphorus Level 3.9 mg/dL (2.4-5.1) Magnesium Level 1.9 mg/dL (1.6-2.6) Urine Color Colorless (Yellow) Urine Clarity Clear (Clear) Urine pH 7.5 (5.0-9.0) Urine Specific [place] 1.007 (1.001-1.035) Urine Protein Negative (Negative) Urine Ketones Negative (Negative) Urine Blood Negative /uL (Negative) Urine Nitrite Negative (Negative) Urine Bilirubin Negative (Negative) Urine Urobilinogen Normal mg/dL (Negative) Urine Leukocyte Esterase Negative /uL (Negative) Urine RBC <1 /hpf (0 - 4) Urine Microscopic WBC 1 /HPF (0-5) Urine Squamous Epithelial Cells Few /hpf (<5) Urine Bacteria None seen /hpf (None Seen) Urine Glucose Normal mg/dL (Normal) Urine Opiates Screen Neg (NEGATIVE) Urine Fentanyl Screen Neg (NEGATIVE) Urine Barbiturates Screen Neg (NEGATIVE) Urine Phencyclidine Screen Neg (NEGATIVE) Urine Amphetamines Screen Neg (NEGATIVE) Urine Benzodiazepines Screen Pos (NEGATIVE) Urine Cocaine Screen Neg (NEGATIVE) Urine Cannabinoids Screen Neg (NEGATIVE) Test 04/27/24 15:05 04/27/24 07:25 04/27/24 06:13 04/27/24 03:08 Stool for White Cells None seen Vitamin B12 Level 781 pg/mL (211-911) Vitamin D 25-Hydroxy 25.3 ng/mL (30.0-100) Lactic Acid Level 2.0 mmol/L (0.4-2.0) Total Bilirubin 1.1 mg/dL (0.2-1.0) Direct Bilirubin 0.3 mg/dL (<0.3) Aspartate Amino Transferase (AST) 51 U/L (13-40) Alanine Aminotransferase (ALT) 49 U/L (7-40) Alkaline Phosphatase 117 U/L (46-116) Ammonia < 10 umol/L (11-32) Creatine Kinase 142 U/L (34-145) Total Protein 7.5 g/dL (5.7-8.2) Albumin 4.7 g/dL (3.2-4.8) Triglycerides Level 80 mg/dL (< 150) Cholesterol Level 261 mg/dL (< 200) LDL Cholesterol 151 mg/dL (< 100) HDL Cholesterol 93 mg/dL (40-59) Thyroid Stimulating Hormone (TSH) 2.28 uIU/mL (0.55-4.78) Prothrombin Time 11.6 sec (9.3-11.8) Prothrombin Time INR 1.11 (0.9-1.15) Activated Partial Thromboplast Time 29.9 SEC (24.5-34.5) Hemoglobin A1c 4.7 % A1C (<5.7) Plasma/Serum Blood Alcohol 271.4 mg/dL (<10) Other Laboratory Tests 05/01/24 05:06 04/30/24 05:13 Brief Hx & Hospital Course: ALFA Hale Case, a 59-year-old female with a complex history including chronic alcohol use (1 bottle of vodka daily), hypertension, IBS with diarrhea, and previous C. difficile and Campylobacter infections, presented to the ED with alcohol withdrawal symptoms, mild abdominal pain, and dizziness. She reported ongoing anxiety, tremors, instability with mobilization, and nausea. Her last drink was the morning of admission. During hospitalization: The patient was monitored closely for alcohol withdrawal, she was managed supportively and demonstrated gradual improvement in symptoms such as anxiety, restlessness, tremors, and headache.She reported visual or auditory hallucinations, but she denied signs of infection, fever, or acute illness were observed,no electrolyte abnormalities persisted by discharge. Patient was managed with clonidine spokes a lorazepam during her stay. He was recommended to follow-up with the primary care doctor, she was recommended also to try to cut down the consumed of alcohol. This is not the 1st episode of alcohol withdrawal so this is a patient with high risk of relapse. 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 Disposition Cleared for discharge home with follow-up Follow-up Recommendations: Primary Care Provider: Within 1 week for general follow-up and chronic disease management Gastroenterology (if ongoing abdominal pain or diarrhea recurs) patient was offered outpatient rehab for alcohol dependence support Monitor for return of withdrawal symptoms, bowel irregularity, or worsening abdominal pain Operations or Procedures [place] [id number] Ph: [phone] DIAGNOSTIC IMAGING Diagnostic Imaging Report : [id number] Signed PATIENT: СЕРГЕЙ RAMIREZ ACCT: [id number] UNIT: [id number] : 1965 LOC: ER ROOM / BED: / AGE / SEX: 59 / F ADM STATUS: REG ER SERVICE 025 ORDERING PHYSICIAN: JON RUBY MD PROCEDURE(s): CXRP - CHEST PORTABLE REASON: Tremors ORDER NUMBER(s): [id number], ACCESSION NUMBER(s): [id number] EXAM: XR Chest, 1 View CLINICAL INDICATION: Tremors TECHNIQUE: Frontal view of the chest. COMPARISON: XY CHEST PORTABLE on DOS: 10/28/23, XY CHEST PORTABLE on DOS: 05/27/23, XY CHEST PORTABLE on DOS: 05/06/23 FINDINGS: LUNGS AND PLEURAL SPACES: Mild pulmonary congestion. No consolidation. No pneumothorax. HEART: Unremarkable. No cardiomegaly. MEDIASTINUM: Unremarkable. Normal mediastinal contour. BONES/JOINTS: Unremarkable. No acute fracture. OTHER FINDINGS: . IMPRESSION: Mild pulmonary congestion. ATED BY: ALEXIS SUMMERS MD DICTATED DATE/TIME: 04/27/24542 SIGNED BY: ALEXIS SUMMERS MD SIGNED DATE/TIME: 04/27/24542 CC: Condition at Discharge: Fair Final Diagnosis/Problems List # Alcohol withdrawal # alcohol use disorder # acute intractable diarrhea # C diff colitis # history of irritable bowel syndrome # Vitamin-D deficiency # hypertensive heart disease with diastolic dysfunction Discharge Disposition: Home SNF Discharge Will this Physician continue t: No Discharge Instruct/Medications Diet: Consistent carbohydrate Activity: No Restrictions, As Tolerated Follow Up/Referral: follow up with pcp within 2 weeks Medications: script to pharmacy Discharge Statement: "Patient was advised to return to the ER or call 911 if any headaches, dizziness, shortness of breath, chest pain, abdominal pain, bleeding, fevers, or worsening of medical condition. Patient was counseled about treatment plan, medications, possible side effects, patientverbalized understanding. All questions were answered to the best of my ability. This discharge took greater then 30 minutes in planning, reviewing documentation, counseling the patient, and discussing with other team members." ASSESSMENT ASSESSMENT Assessment alcohol withdrawal Date of Service: May 01, 2024 Billing Provider: ANN NUNEZ MD Common Visit Codes: [id number] DISCH DAY >30min KRISHNA VELEZ RESIDENT May 01, 2024 15:15 ANN NUNEZ MD May 02, 2024 10:14
[2024-05-01] MEDS ORDERED: METO-6 PO (17:04)
[2024-05-01] MEDS ORDERED: LISI20TA56 PO (17:04)
[2024-05-01] MEDS ORDERED: CHL25C PO (18:05)
[2024-05-02 01:00] VITALS: BP 143/76; PULSE 78; RESP 18; TEMP 79.9; TEMP 97.9; O2SAT 96
[2024-05-02 05:00] VITALS: BP 139/68; PULSE 79; RESP 19; TEMP 97.8; O2SAT 97
[2024-05-02 08:00] VITALS: PULSE 60; PULSE 63; RESP 18; O2SAT 95
--- NOTE | 2024-05-02 11:40 | DVHPNRES ---
Progress Note Date Seen: May 02, 2024 Resident Creating Document: CHINAEllenISAIAH LUJAN RESIDENT Medical Necessity Reason Pt with a Central, PICC or Fol: No Subjective Review of Systems Patient seen and examined at the bedside reports she is feeling much better no tremors no visual or auditory hallucinations Objective vital signs Vital Sign Date Time Temp Pulse Resp B/P (MAP) Pulse Ox O2 Delivery O2 Flow Rate FiO2 05/02/24 08:00 60 05/02/24 08:00 18 95 Room Air* 0 21 05/02/24 05:00 97.8 139/68 (91) 97.8 Total Intake and Output 05/01/24 05/01/24 05/02/24 15:00 23:00 07:00 Intake Total 750 ml 600 ml Balance 750 ml 600 ml Examination Constitutional: Patient was a alert and oriented X 3 and appears to be in mild distress because of alcohol withdrawal Gen - no pallor, no icterus, no cyanosis, no clubbing, no LAD, no edema . Skin - Patients skin is warm and dry. HEENT - normocephalic, atraumatic, moist mucous membranes. Neck - full ROM, no LAD Pulmonary - B/L equal air entry, no crackles , no wheezing, no stridor. cardiovascular - variable S1,S2 heard. No added sounds no murmurs heard. GI - soft abdomen without tenderness to palpation. no hepatospleenomegaly. Bowel sounds normoactive Neurological - Bilateral upper extremity strength 5/5, bilateral lower extremity strength 5/5, no facial droop, normal speech, no tremor, no sensory deficiets. laboratory and microbiology Laboratory Tests 05/01/24 05:06 04/30/24 05:13 Test 04/30/24 05:13 Range/Units Serum Glucose 91 74-106 mg/dL Microbiology Date/Time Source Procedure Growth Status 04/27/24 15:34 Nose MRSA Screen - Final Complete 04/27/24 15:05 Stool Stool Culture - Final Complete 04/27/24 15:05 Stool Shiga Toxin I & II - Final Complete 04/27/24 15:05 Stool Clostridium difficile Toxin Assay - Final Complete Problem List/Assessment/Plan Problem List/Assessment/Plan # Alcohol withdrawal # alcohol use disorder - CIWA 10 - given thiamine and folic acid - IV fluids - lorazepam stopped - patient on chlordiazepoxide - on telemetry # acute intractable diarrhea # C diff colitis # history of irritable bowel syndrome - stool cultures negative for shiga toxin, no Campylobacter antigen - C diff toxin positive - patient given IV fluids - on telemetry - started on vancomycin 125mg q.i.d. p.o., stopped on 04/29 - patient has had previous episodes of c.diff colitis and has been treated with oral vancomycin. 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 No distress PUD prophylaxis: Protonix 40 mg po daily DVT prophylaxis: enoxaparin 40 mg sc daily Goals of care discussed with the patient for over 25 mins. Full code Plan discussed with the Dr. Nunez Plan discussed with: Patient Dietary Evaluation Review Recommendations by RD: Dietary education by RD Comments: 1) Continue to encourage optimal PO intake 2) Refer to outpatient RD for IBS education and weight management 3) Consider soluble fiber supplement 4) Encourage patient to refrain from ETOH Expected Outcomes/Goals: 1) appetite and labs to improve; weight gain may be unrealistic d/t patient's advanced age 2) f/u in 3-5 days Date of Service: May 02, 2024 Billing Provider: ANN NUNEZ MD Common Visit Codes: [id number] INP/OBS CARE(HIGH) ISAIAH BLACKWELL RESIDENT May 02, 2024 11:40 ANN NUNEZ MD May 03, 2024 14:44
== END 2024-05-02 09:44 | disposition home or self-care (01) | DRG 816 ==
LOC: EDBD 22:52 → ER 22:52 → OVERFLOW 04-27 05:20 → TELE-EAST 04-27 20:50
PROVIDERS: ADMIT Student in an Organized Health Care Education/Training Program; ATTEND Student in an Organized Health Care Education/Training Program
DX: T51.91XA Toxic effect of unspecified alcohol, accidental (unintentional), initial encounter (principal); A04.72 Enterocolitis due to Clostridium difficile, not specified as recurrent; I11.0 Hypertensive heart disease with heart failure; I50.32 Chronic diastolic (congestive) heart failure; E55.9 Vitamin D deficiency, unspecified; F10.930 Alcohol use, unspecified with withdrawal, uncomplicated; K58.0 Irritable bowel syndrome with diarrhea; F10.920 Alcohol use, unspecified with intoxication, uncomplicated; R25.1 Tremor, unspecified; Z79.899 Other long term (current) drug therapy; Z90.710 Acquired absence of both cervix and uterus
CPT/HCPCS: 36415; 71045; 80048; 80061; 80076; 80307; 80320; 81001; 82140; 82306; 82550; 82607; 83036; 83605; 83735; 84100; 84443; 85025; 85048; 85610; 85730; 87045; 87081; 97116; 97163; 97530; G0378; J2405; J2470

== ENCOUNTER 2024-05-04 15:58 | Emergency (ER) | payer MEDICAID ==
[~2024-05-04] VITALS: Ht 170.2 cm; Wt 72.0 kg
[~2024-05-04 15:58] MED LIST changes: +METO-6 PO
--- NOTE | 2024-05-04 16:14 | ED.PDOC ---
Altered Mental Status HPI Comments 59-year-old female brought in by EMS presents with a chief complaint of ALOC s/p alcohol intake. Per EMS, son called EMS after patient has been "drinking all day in her trailer". Patient is well-known to this ER for similar episodes before in the past. Patient was hypotensive at 82/42 and was given 500cc of IV fluids. Blood sugar was 118 per EMS. Chief Complaint: ETOH Time Seen by MD: 16:09 Primary Care Provider: UNKNOWN Reviewed Notes: Medications, Allergies Allergies: Coded Allergies: NO KNOWN ALLERGIES (Unverified , 04/21/23) Home Meds Active Scripts Chlordiazepoxide Hcl (Librium) 25 Mg Cp, 25 MG PO Q6HPRN PRN for 7 Days, #23 CAP take 2 tablets every 6 hours for 1 day, followed by 2 tablets every 8 hours for 1 day, followed by 2 tablets every 12 hours for 1 day, followed by 1 tablets every 12 hours for 1 day, followed by 1 tablet every day as needed for 3 days Prov:ANN NUNEZ MD 05/01/24 Metoprolol Succinate (Toprol Xl) 50 Mg Tab, 50 MG PO DAILY for 60 Days, #60 TAB Prov:KRISHNA VELEZ RESIDENT 05/01/24 Lisinopril (Lisinopril) 20 Mg Tab, 40 MG PO DAILY for 60 Days, #120 TAB Prov:KRISHNA VELEZ RESIDENT 05/01/24 Chlordiazepoxide Hcl (Librium) 25 Mg Cp, 25 MG PO Q8HPRN PRN for 3 Days, #9 CAP Prov:ANN NUNEZ MD 04/14/24 Yeast (S. Boulardii)(S. Cerevi (Florastor) 250 Mg Cap, 250 MG PO DAILY for 30 Days, #30 CAP Prov:BEHZAD BAILEY 04/14/24 Vancomycin HCl (Vancomycin HCl) 125 Mg Cap, 125 MG PO QID for 9 Days, #40 CAP Prov:BEHZAD BAILEY 04/14/24 Mupirocin (Pseudomonas Fluores (Mupirocin) 2 % Oin, 1 APPLIC EACHNOSTRI BID for 2 Days, #1 OIN Prov:BEHZAD BAILEY 04/14/24 Multiple Vitamin (Mvi Tab) 1 Tab Tb, 1 TAB PO DAILY for 30 Days, #30 TAB Prov:BEHZAD BAILEY 04/14/24 Azithromycin (Azithromycin) 250 Mg Tab, 500 MG PO DAILY for 2 Days, #4 TAB Prov:BEHZAD BAILEY RESIDENT 04/14/24 Famotidine (PEPCID TABLET) 20 Mg Tb, 1 TAB PO BID PRN for 30 Days, #60 TAB 5 Refills Prov:RICKEY ORTIZ MD 04/02/24 Ondansetron HCl (Ondansetron Hydrochloride) 8 Mg Tab, 8 MG PO Q6HP PRN for 10 Days, #40 TAB Prov:RICKEY ORTIZ MD 04/02/24 Metoprolol Succinate (Metoprolol Succinate Er) 50 Mg Tab, 1 TAB PO DAILY, #30 TAB 5 Refills Prov:ALEX CORMIER MD 03/27/24 Lisinopril (Lisinopril) 20 Mg Tab, 20 MG PO DAILY for 30 Days, #30 TAB 5 Refills Prov:ALEX CORMIER MD 03/27/24 Reported Medications Metoprolol Succinate (Metoprolol Succinate Er) 50 Mg Tab, 1 BID 03/24/24 Information Source: Emergency Med Personnel Mode of Arrival: EMS Severity: Unable to Care for Self Timing: Minutes Duration: Since onset Prehospital treatment: Accucheck (118), IVF (500cc) Quality: Decreased Alertness Recent: Other (ALCOHOL) History of: None Past Medical History PAST MEDICAL HISTORY: Anxiety, Arthritis, Depression, HTN, Seizures Surgical History: Hysterectomy CADDY History: No Pertinent CADDY History Family History Family History: Reviewed,noncontributory to illness, Family hx of heart ellen Social History Smoker: Non-Smoker Alcohol: Heavy Drugs: Other Lives In: Home Constitutional: denies: chills, diaphoresis, fatigue, fever, malaise, sweats, weakness, others EENTM: denies: blurred vision, double vision, ear bleeding, ear discharge, ear drainage, ear pain, ear ringing, eye pain, eye redness, hearing loss, mouth pain, mouth swelling, nasal discharge, nose bleeding, nose congestion, nose pain, photophobia, tearing, throat pain, throat swelling, voice changes, others Respiratory: denies: cough, hemoptysis, orthopnea, SOB at rest, shortness of breath, SOB with excertion, stridor, wheezing, others Cardiovascular: reports: others (Hypotension); denies: chest pain, dizzy spells, diaphoresis, Dyspnea on exertion, edema, irregular heart beat, left arm pain, lightheadedness, palpitations, PND, syncope Gastrointestinal: denies: abdomen distended, abdominal pain, blood streaked bowels, constipated, diarrhea, dysphagia, difficulty swallowing, hematemesis, melena, nausea, poor appetite, poor fluid intake, rectal bleeding, rectal pain, vomiting, others Genitourinary: denies: abnormal vagina bleeding, burning, dyspareunia, dysuria, flank pain, frequency, hematuria, incontinence, pain, , vagina discharge, urgency, others Neurological: denies: dizziness, fainting, headache, left sided numbness, left sided weakness, numbness, paresthesia, pre-existing deficit, right sided numbness, right sided weakness, seizure, speech problems, tingling, tremors, weakness, others Musculoskeletal: denies: back pain, gout, joint pain, joint swelling, muscle pain, muscle stiffness, neck pain, others Integumetry: denies: bruises, change in color, change in hair/nails, dryness, laceration, lesions, lumps, rash, wounds, others Allergic/Immunocompromised: denies: Difficulty Healing, Frequent Infections, Hives, Itching, others Hematologic/Lymphatic: denies: anemia, blood clots, easy bleeding, easy bruising, swollen glands, others Endocrine: denies: excessive hunger, excessive sweating, excessive thirst, excessive urination, flushing, intolerance to cold, intolerance to heat, unexplained weight gain, unexplained weight loss, others Psychiatric: denies: anxiety, bipolar disorder, depression, hopeless, panic disorder, schizophrenia, sleepless, suicidal, others Unable to Obtain due to: Altered Mental Status All Other Systems: Reviewed and Negative Physical Exam General Appearance: Moderate Distress HEENT: Normal ENT Inspection, Pharynx Normal, TMs Normal Neck: Full Range of Motion, Non-Tender, Normal, Normal Inspection Respiratory: Chest Non-Tender, Lungs Clear, No Accessory Muscle Use, No Respiratory Distress, Normal Breath Sounds Cardiovascular: No Edema, No JVD, No Murmur, No Gallop, Normal Peripheral Pulses, Regular Rate/Rhythm Breast Exam: Deferred Gastrointestinal: No Organomegaly, Non Tender, No Pulsatile Mass, Normal Bowel Sounds, Soft Genitalia: Deferred Pelvic: Deferred Rectal: Deferred Extremities: No calf tenderness, Normal capillary refill, Normal inspection, Normal range of motion, Non-tender, No pedal edema Musculoskeletal : Apperance: Normal Neurologic: business mgr II-XII nml as Tested, Motor Weakness, No Sensory Deficits, Other (Alcohol intoxication with lethargy) Cerebellar Function: Unable to Test Reflexes: Normal Skin: Dry, Normal Color, Warm Lymphatic: No Adenopathy Was a procedure done? Was a procedure done?: No Differential Diagnosis (ALOC) Differential Diagnosis: Dehydration, Encephalopathy, Hypoxemia, CVA, Drug Overdose X-Ray, Labs, Meds, VS Vital Signs Date Time Temp Pulse Resp B/P (MAP) Pulse Ox O2 Delivery O2 Flow Rate FiO2 05/04/24 19:00 68 12 91/48 (62) 99 05/04/24 18:00 62 12 101/55 (70) 99 05/04/24 17:00 61 12 93/51 (65) 98 05/04/24 16:30 60 12 92 Nasal Cannula 2.0 05/04/24 16:30 60 12 92 Nasal Cannula* 2 28 05/04/24 16:30 97.7 60 12 93/53 (66) 92 97.7 05/04/24 16:08 96.6 58 15 82/42 (55) 96 96.6 Lab Test 05/04/24 16:57 05/04/24 16:38 Range/Units Urine Color Light-yellow Yellow Urine Clarity Clear Clear Urine pH 5.5 5.0-9.0 Urine Specific [place] 1.006 1.001-1.035 Urine Protein Trace H Negative Urine Ketones Negative Negative Urine Blood Negative Negative /uL Urine Nitrite Negative Negative Urine Bilirubin Negative Negative Urine Urobilinogen Normal Negative mg/dL Urine Leukocyte Esterase Negative Negative /uL Urine RBC 1 0 - 4 /hpf Urine Microscopic WBC 3 0-5 /HPF Urine Squamous Epithelial Cells None seen <5 /hpf Urine Bacteria None seen None Seen /hpf Urine Glucose Normal Normal mg/dL Urine Opiates Screen Neg NEGATIVE Urine Fentanyl Screen Neg NEGATIVE Urine Barbiturates Screen Neg NEGATIVE Urine Phencyclidine Screen Neg NEGATIVE Urine Amphetamines Screen Neg NEGATIVE Urine Benzodiazepines Screen Pos NEGATIVE Urine Cocaine Screen Neg NEGATIVE Urine Cannabinoids Screen Neg NEGATIVE White Blood Count 6.6 4.4-10.8 10^3/uL Red Blood Count 3.36 L 4.0-5.20 10^6/uL Hemoglobin 11.9 L 12.2-16.2 g/dL Hematocrit 36.3 36.0-46.0 % Mean Corpuscular Volume 108.2 H 80.0-100.0 fL Mean Corpuscular Hemoglobin 35.4 H 28.0-32.0 pg Mean Corpuscular Hemoglobin Concent 32.7 32.0-36.0 g/dL Red Cell Distribution Width 16.0 H 11.8-14.3 % Platelet Count 166 140-450 10^3/uL Mean Platelet Volume 8.4 6.9-10.8 fL Neutrophils (%) (Auto) 37.0-80.0 % Lymphocytes (%) (Auto) 10.0-50.0 % Monocytes (%) (Auto) 0.0-12.0 % Basophils (%) (Auto) 0.0-2.0 % Neutrophils # (Auto) 1.6-8.6 10 ^3/uL Lymphocytes # (Auto) 0.4-5.4 10 ^3/uL Monocytes # (Auto) 0-1.3 10 ^3/uL Differential Total Cells Counted 100.0 100 Neutrophils % (Manual) 70 37.0-80.0 Band Neutrophils % (Manual) 0 Lymphocytes % (Manual) 10 10.0-50.0 Monocytes % (Manual) 19 H 0-12 Eosinophils % (Manual) 1 0-7 Basophils % (Manual) 0 0.0-2.0 Metamyelocytes % (manual) 0 Myelocytes % (Manual) 0 Promyelocytes % (Manual) 0 Blast Cells % (Manual) 0 Reactive Lymphocytes 0 Platelet Estimate Adequate Anisocytosis (manual) Slight Macrocytosis Moderate Sodium Level 135 L 136-145 mmol/L Potassium Level 3.0 L 3.5-5.1 mmol/L Chloride Level 101 98-107 mmol/L Carbon Dioxide Level 20 20-31 mmol/L Anion Gap 14 5-15 Blood Urea Nitrogen 8 L 9-23 mg/dL Creatinine 1.51 #H 0.550-1.02 mg/dL Glomerular Filtration Rate Calc 39 >90 mL/min BUN/Creatinine Ratio 5.3 L 10.0-20.0 Serum Glucose 90 74-106 mg/dL Calcium Level 8.9 8.7-10.4 mg/dL Plasma/Serum Blood Alcohol 290.4 H <10 mg/dL Current Medications Medications (Trade) Dose Ordered Sig/Alena Route Start Time Stop Time Status Last Admin Sodium Chloride 1,000 ml @ 1,000 mls/hr Q1H ONCE IVB 05/04/24 16:15 05/04/24 17:14 DC 05/04/24 16:40 Sodium Chloride 1,000 ml @ 1,000 mls/hr Q1H ONCE IV 05/04/24 18:15 05/04/24 19:14 DC 05/04/24 18:24 Potassium Chloride 50 ml @ 25 mls/hr ONCE ONCE IV 05/04/24 18:15 05/04/24 20:14 DC 05/04/24 19:01 Sodium Chloride 100 ml @ 50 mls/hr ONCE ONCE IV 05/04/24 18:15 05/04/24 20:14 DC 05/04/24 19:03 IV Hep-Lock was established The patient was given a 1 L bolus of normal saline The patient was somewhat hypotensive so was given another L of normal saline The patient was hypokalemic so given potassium At this time the patient's alcohol level was 290.4 The patient was potassium is only 3.0 and the sodium is 135 The patient was being admitted to the hospitalist with toxic encephalopathy The urine tox is positive for benzodiazepines The patient was admitted Time of 1ST Reevaluation: 16:39 Reevaluation 1ST: Unchanged Patient Education/Counseling: Other (The patient was somewhat altered) Family Education/Counseling: No Family Present Departure 1 Departure Time of Disposition: 20:22 Impression: Primary Impression: Alcohol intoxication Qualified Codes: F10.920 - Alcohol use, unspecified with intoxication, uncomplicated Additional Impression: Toxic encephalopathy Qualified Codes: G92.9 - Unspecified toxic encephalopathy Disposition: 09 ADMITTED INPATIENT Admit to: [facility] Condition: Fair Critical Care Note Critical Care Time?: No Stability Stability form required: Yes Unstable for transfer: Telemetry monitoring (Telemetry monitoring required), ED Physician Assesment (Clinical assesment) Heart Score Heart Score: Heart Score Response (Comments) Value History N/A 0 EKG N/A 0 Age N/A 0 Risk Factors N/A 0 Troponin N/A 0 Total 0 I personally scribed for CHOLO ROMERO MD ([email or web address]) on 05/04/24 at 16:14. Electronically submitted by Farhat Higgins ([email or web address]). CHOLO ROMERO MD May 04, 2024 16:14
[2024-05-04 16:30] VITALS: PULSE 60; RESP 12; O2SAT 92
[2024-05-04] MEDS: SODIUM CHLORIDE 0.9% 1,000 ML IVB ONE (16:40)
[2024-05-04 17:05] LABS: Urine Bacteria None Seen /hpf (None Seen)
[2024-05-04 17:07] LABS: Hemoglobin 11.9 g/dL (12.2-16.2)
[2024-05-04 17:10] LABS: Hematocrit 36.3 % (36.0-46.0); Mean Corpuscular Hemoglobin 35.4 pg (28.0-32.0); Mean Corpuscular Hgb Conc. 32.7 g/dL (32.0-36.0); Mean Corpuscular Volume 108.2 fL (80.0-100.0); Platelet Count (auto) 166 10^3/uL (140-450); Red Blood Cells 3.36 10^6/uL (4.0-5.20); White Blood Cell 6.6 10^3/uL (4.4-10.8)
[2024-05-04 17:15] LABS: Chloride 101 mmol/L (98-107)
[2024-05-04 17:16] LABS: Urine Blood Negative /uL (Negative); Urine Clarity Clear (Clear); Urine Color Light-Yellow (Yellow); Urine Protein, UAD TRACE (Negative); Urine Specific Gravity 1.006 (1.001-1.035); Urine Squamous Epithelial Cell None Seen /hpf (<5); Urine Urobilinogen Normal (Negative); Urine WBC 3 /HPF (0-5); Urine pH 5.5 (5.0-9.0)
[2024-05-04 17:16] LABS: Anion Gap 14 (5-15); Carbon Dioxide 20 mmol/L (20-31)
[2024-05-04 17:17] LABS: Calcium 8.9 mg/dL (8.7-10.4)
[2024-05-04 17:21] LABS: Glucose 90 mg/dL (74-106)
[2024-05-04 17:22] LABS: BUN/Creatinine Ratio 5.3 (10.0-20.0); Blood Alcohol 290.4 mg/dL (<10)
[2024-05-04 17:34] LABS: Band Neutrophils % (manual) 0; Basophils % (manual) 0 (0.0-2.0); Blast Cells 0; Metamyelocytes % 0; Myelocytes % 0; Promyelocytes % 0; Reactive Lymphocytes 0
[2024-05-04 17:35] LABS: Amphetamine Screen, Urine Neg (NEGATIVE); Barbiturate Scree,Urine Neg (NEGATIVE); Benzodiazephine Screen, Urine Pos (NEGATIVE); Cannabinoid Screen, Urine Neg (NEGATIVE); Cocaine Screen, Urine Neg (NEGATIVE); Opiate Scree,Urine Neg (NEGATIVE); Phencyclidine Screen, Urine Neg (NEGATIVE)
[2024-05-04 17:35] LABS: Blood Urea Nitrogen 8 mg/dL (9-23); Sodium 135 mmol/L (136-145)
[2024-05-04 17:53] LABS: Eosinophils % (manual) 1 (0-7); Lymphocytes % (manual) 10 (10.0-50.0); Monocytes % (manual) 19 (0-12); Platelet Estimate Adequate
[2024-05-04 17:54] LABS: Anisocytosis Slight; Macrocytosis Moderate
[2024-05-04] MEDS ORDERED: POTASSIUM CHL 20MEQ/100ML 100 ML IV ONE (18:15)
[2024-05-04] MEDS: SODIUM CHLORIDE 0.9% 1,000 ML IV ONE (18:24)
[2024-05-04] MEDS: POTASSIUM CHL 20MEQ/50ML 50 ML IV ONE (19:01)
[2024-05-04] MEDS: SODIUM CHL 0.9% 100 ML IV ONE (19:03)
[2024-05-04 19:50] VITALS: TEMP 98
[2024-05-05] MEDS: ACETAMINOPHEN 325 MG TAB PO ONE (03:45)
--- NOTE | 2024-05-05 04:00 | ED.PDOC ---
Departure 1 Departure Time of Disposition: 03:59 (Patient is now clinically sober and we would like to leave. We will discharge patient home with outpatient follow up) Impression: Primary Impression: Alcohol intoxication Qualified Codes: F10.920 - Alcohol use, unspecified with intoxication, uncomplicated Additional Impression: Toxic encephalopathy Qualified Codes: G92.9 - Unspecified toxic encephalopathy Disposition: 01 HOME / SELF CARE / HOMELESS Condition: Stable Additional Instructions: You were intoxicated. It is important to only drink in moderation. If you need help quitting you can call (HELP). If your symptoms worsen or you have any other concerns then please return to the ER. JON RUBY MD May 05, 2024 04:00
[2024-05-05 04:25] VITALS: BP 106/88; PULSE 65; RESP 12; O2SAT 97
== END 2024-05-05 04:49 | disposition home or self-care (01) ==
LOC: ER 15:58 → EDBD 15:58 → ER 05-05 04:49
DX: F10.129 Alcohol abuse with intoxication, unspecified (principal); G92.9 Unspecified toxic encephalopathy; F41.9 Anxiety disorder, unspecified; I10 Essential (primary) hypertension; M19.90 Unspecified osteoarthritis, unspecified site; F32.A Depression, unspecified; Z86.69 Personal history of other diseases of the nervous system and sense organs; Z90.710 Acquired absence of both cervix and uterus; Z79.899 Other long term (current) drug therapy; Y90.9 Presence of alcohol in blood, level not specified
CPT/HCPCS: 36415; 80048; 80307; 80320; 81001; 82947; 85007; 85027; 96361; 96365; 96366; 99285; J3480; J7030

== ENCOUNTER 2024-05-17 11:47 | Inpatient (IN) | payer MEDICAID ==
[~2024-05-17] VITALS: Ht 152.4 cm; Wt 70.5 kg
[~2024-05-17 11:47] MED LIST changes: +CHLO25CA9 PO; +FLUO40CA PO; +FOLI-119 PO; -METO-289; +PANT40T PO
--- NOTE | 2024-05-17 11:57 | ED.PDOC ---
History of Present Illness HPI Comments 59 year old female NICHOLE presents to the ED with chief complaint of ETOH withdrawals. EMS reports that the patient was recently released from [facility] at 8am after an overnight stay. EMS relays that the patient has been experiencing DTs with tremors, nausea, vomiting, abdominal pain, and being "unable to walk" since this morning. EMS states that the patient was given 4mg of Zofran sublingual on route to the ED. Patient notes that she drank the "wrong kind of vodka" yesterday, drinking 99 banana vodka. Patient denies any chest pain, SOB, dizziness, headache, diarrhea, or fever. Time Seen by MD: 11:54 Primary Care Provider: UNKNOWN Reviewed Notes: Nurses Notes, Concrete Finishing Machine Operator Notes, Medications, Allergies Allergies: Coded Allergies: NO KNOWN ALLERGIES (Unverified , 04/21/23) Home Meds Active Scripts Chlordiazepoxide Hcl (Librium) 25 Mg Cp, 25 MG PO Q6HPRN PRN for 7 Days, #23 CAP take 2 tablets every 6 hours for 1 day, followed by 2 tablets every 8 hours for 1 day, followed by 2 tablets every 12 hours for 1 day, followed by 1 tablets every 12 hours for 1 day, followed by 1 tablet every day as needed for 3 days Prov:ANN NUNEZ MD 05/01/24 Metoprolol Succinate (Toprol Xl) 50 Mg Tab, 50 MG PO DAILY for 60 Days, #60 TAB Prov:KRISHNA VELEZ RESIDENT 05/01/24 Lisinopril (Lisinopril) 20 Mg Tab, 40 MG PO DAILY for 60 Days, #120 TAB Prov:KRISHNA VELEZ RESIDENT 05/01/24 Chlordiazepoxide Hcl (Librium) 25 Mg Cp, 25 MG PO Q8HPRN PRN for 3 Days, #9 CAP Prov:ANN NUNEZ MD 04/14/24 Yeast (S. Boulardii)(S. Cerevi (Florastor) 250 Mg Cap, 250 MG PO DAILY for 30 Days, #30 CAP Prov:BEHZAD BAILEY 04/14/24 Vancomycin HCl (Vancomycin HCl) 125 Mg Cap, 125 MG PO QID for 9 Days, #40 CAP Prov:BEHZAD BAILEY 04/14/24 Mupirocin (Pseudomonas Fluores (Mupirocin) 2 % Oin, 1 APPLIC EACHNOSTRI BID for 2 Days, #1 OIN Prov:BEHZAD BAILEY RESIDENT 04/14/24 Multiple Vitamin (Mvi Tab) 1 Tab Tb, 1 TAB PO DAILY for 30 Days, #30 TAB Prov:BEHZAD BAILEY [facility] 04/14/24 Azithromycin (Azithromycin) 250 Mg Tab, 500 MG PO DAILY for 2 Days, #4 TAB Prov:BEHZAD BAILEY [facility] 04/14/24 Famotidine (PEPCID TABLET) 20 Mg Tb, 1 TAB PO BID PRN for 30 Days, #60 TAB 5 Refills Prov:RICKEY ORTIZ MD 04/02/24 Ondansetron HCl (Ondansetron Hydrochloride) 8 Mg Tab, 8 MG PO Q6HP PRN for 10 Days, #40 TAB Prov:RICKEY ORTIZ MD 04/02/24 Metoprolol Succinate (Metoprolol Succinate Er) 50 Mg Tab, 1 TAB PO DAILY, #30 TAB 5 Refills Prov:ALEX CORMIER MD 03/27/24 Lisinopril (Lisinopril) 20 Mg Tab, 20 MG PO DAILY for 30 Days, #30 TAB 5 Refills Prov:ALEX CORMIER MD 03/27/24 Reported Medications Metoprolol Succinate (Metoprolol Succinate Er) 50 Mg Tab, 1 BID 03/24/24 Information Source: Patient, Emergency Med Personnel Mode of Arrival: EMS Severity: Moderate Timing: Hours Duration: Since onset Prehospital treatment: Other (Zofran 4mg) Past Medical History PAST MEDICAL HISTORY: Anxiety, Arthritis, Depression, HTN, Seizures Surgical History: Hysterectomy AREA FORESTER History: No Pertinent AREA FORESTER History Family History Family History: Reviewed,noncontributory to illness, Family hx of heart ellen Social History Smoker: Non-Smoker Alcohol: Heavy Drugs: Other Lives In: Home Constitutional: reports: weakness; denies: chills, diaphoresis, fatigue, fever, malaise, sweats, others EENTM: denies: blurred vision, double vision, ear bleeding, ear discharge, ear drainage, ear pain, ear ringing, eye pain, eye redness, hearing loss, mouth pain, mouth swelling, nasal discharge, nose bleeding, nose congestion, nose pain, photophobia, tearing, throat pain, throat swelling, voice changes, others Respiratory: denies: cough, hemoptysis, orthopnea, SOB at rest, shortness of breath, SOB with excertion, stridor, wheezing, others Cardiovascular: denies: chest pain, dizzy spells, diaphoresis, Dyspnea on exertion, edema, irregular heart beat, left arm pain, lightheadedness, palpitations, PND, syncope, others Gastrointestinal: reports: abdominal pain, nausea, vomiting; denies: abdomen distended, blood streaked bowels, constipated, diarrhea, dysphagia, difficulty swallowing, hematemesis, melena, poor appetite, poor fluid intake, rectal bleeding, rectal pain, others Genitourinary: denies: abnormal vagina bleeding, burning, dyspareunia, dysuria, flank pain, frequency, hematuria, incontinence, pain, , vagina discharge, urgency, others Neurological: reports: tremors; denies: dizziness, fainting, headache, left sided numbness, left sided weakness, numbness, paresthesia, pre-existing deficit, right sided numbness, right sided weakness, seizure, speech problems, tingling, weakness, others Musculoskeletal: denies: back pain, gout, joint pain, joint swelling, muscle pain, muscle stiffness, neck pain, others Integumetry: denies: bruises, change in color, change in hair/nails, dryness, laceration, lesions, lumps, rash, wounds, others Allergic/Immunocompromised: denies: Difficulty Healing, Frequent Infections, Hives, Itching, others Hematologic/Lymphatic: denies: anemia, blood clots, easy bleeding, easy bruising, swollen glands, others Endocrine: denies: excessive hunger, excessive sweating, excessive thirst, excessive urination, flushing, intolerance to cold, intolerance to heat, unexplained weight gain, unexplained weight loss, others Psychiatric: denies: anxiety, bipolar disorder, depression, hopeless, panic disorder, schizophrenia, sleepless, suicidal, others All Other Systems: Reviewed and Negative Physical Exam General Appearance: Moderate Distress, Other (Tremors) HEENT: Normal ENT Inspection, Pharynx Normal, TMs Normal Neck: Full Range of Motion, Non-Tender, Normal, Normal Inspection Respiratory: Chest Non-Tender, Lungs Clear, No Accessory Muscle Use, No Respiratory Distress, Normal Breath Sounds Cardiovascular: No Edema, No JVD, No Murmur, No Gallop, Normal Peripheral Pulses, Regular Rate/Rhythm Breast Exam: Deferred Gastrointestinal: No Organomegaly, Non Tender, No Pulsatile Mass, Normal Bowel Sounds, Soft Genitalia: Deferred Pelvic: Deferred Rectal: Deferred Extremities: No calf tenderness, Normal capillary refill, Normal inspection, Normal range of motion, Non-tender, No pedal edema Musculoskeletal : Apperance: Normal Neurologic: Alert, blow off worker II-XII nml as Tested, Motor Weakness, Normal Affect, Normal Mood, No Sensory Deficits, Other (The patient has significant tremors consistent with possible delirium tremens) Cerebellar Function: Tremor Reflexes: Normal Skin: Dry, Normal Color, Warm Lymphatic: No Adenopathy Was a procedure done? Was a procedure done?: No EKG EKG : Pulse Rate (adult): 79 Bryan: LAD Cardiac Rhythm: NSR Block: None Hypertrophy: LAE ST: Normal Differential Dx Considerations may include: Delirium tremens, anxiety, alcohol abuse X-Ray, Labs, Meds, VS Vital Signs Date Time Temp Pulse Resp B/P (MAP) Pulse Ox O2 Delivery O2 Flow Rate FiO2 05/17/24 12:03 99.4 76 18 184/96 (125) 96 99.4 05/17/24 11:57 79 05/17/24 11:50 79 Lab Test 05/17/24 14:47 05/17/24 12:42 Range/Units Urine Color Light-orange Yellow Urine Clarity Ex.turbid Clear Urine pH 6.5 5.0-9.0 Urine Specific [place] 1.021 1.001-1.035 Urine Protein 2+ H Negative Urine Ketones Trace Negative Urine Blood 1+ H Negative /uL Urine Nitrite Negative Negative Urine Bilirubin Negative Negative Urine Urobilinogen 2 H Negative mg/dL Urine Leukocyte Esterase 3+ Negative /uL Urine RBC 34 0 - 4 /hpf Urine Microscopic WBC 896 H 0-5 /HPF Urine Squamous Epithelial Cells Few <5 /hpf Urine Bacteria Few H None Seen /hpf Urine Mucus Few None Seen Urine Glucose Normal Normal mg/dL White Blood Count 8.6 4.4-10.8 10^3/uL Red Blood Count 4.01 4.0-5.20 10^6/uL Hemoglobin 13.8 12.2-16.2 g/dL Hematocrit 41.9 36.0-46.0 % Mean Corpuscular Volume 104.6 H 80.0-100.0 fL Mean Corpuscular Hemoglobin 34.4 H 28.0-32.0 pg Mean Corpuscular Hemoglobin Concent 32.9 32.0-36.0 g/dL Red Cell Distribution Width 16.9 H 11.8-14.3 % Platelet Count 189 140-450 10^3/uL Mean Platelet Volume 7.0 6.9-10.8 fL Neutrophils (%) (Auto) 88.8 H 37.0-80.0 % Lymphocytes (%) (Auto) 4.7 L 10.0-50.0 % Monocytes (%) (Auto) 5.5 0.0-12.0 % Eosinophils (%) (Auto) 0.0 0.0-7.0 % Basophils (%) (Auto) 1.0 0.0-2.0 % Neutrophils # (Auto) 7.6 1.6-8.6 10 ^3/uL Lymphocytes # (Auto) 0.4 0.4-5.4 10 ^3/uL Monocytes # (Auto) 0.5 0-1.3 10 ^3/uL Eosinophils # (Auto) 0 0-0.8 10 ^3/uL Basophils # (Auto) 0.1 0-0.2 10 ^3/uL Nucleated Red Blood Cells 0.1 % Sodium Level 141 136-145 mmol/L Potassium Level 4.3 3.5-5.1 mmol/L Chloride Level 100 98-107 mmol/L Carbon Dioxide Level 28 20-31 mmol/L Anion Gap 13 5-15 Blood Urea Nitrogen 10 9-23 mg/dL Creatinine 0.78 0.550-1.02 mg/dL Glomerular Filtration Rate Calc 87 >90 mL/min BUN/Creatinine Ratio 12.8 10.0-20.0 Serum Glucose 122 H 74-106 mg/dL Calcium Level 10.0 8.7-10.4 mg/dL Current Medications Medications (Trade) Dose Ordered Sig/Alena Route Start Time Stop Time Status Last Admin Sodium Chloride 1,000 ml @ 1,000 mls/hr Q1H ONCE IV 05/17/24 12:00 05/17/24 12:59 DC 05/17/24 14:52 Lorazepam (Ativan Inj) 1 mg ONCE ONCE IV 05/17/24 12:00 05/17/24 12:01 DC 05/17/24 14:52 IV Hep-Lock was established The patient was given a 1 L bolus of normal saline The patient was given Ativan 1 mg IV push The chemistry panel is within normal limits The CBC is within normal limits The urine test is positive for a significant UTI The patient was given Rocephin 1 g IV piggyback The patient was being admitted at this time Time of 1ST Reevaluation: 17:50 Reevaluation 1ST: Unchanged Patient Education/Counseling: Diagnosis, Treatment, Prognosis Family Education/Counseling: No Family Present Additional Information -Reviewed patient's previous visit(s): 05/04/24 for hypotension - The following tests were ordered, and results were reviewed by me: CBC, BMP, UA, EKG - Additional information was gathered from interviewing the following independent Historian: EMS - I reviewed and agreed with the following test results read by other provider: None - I discussed treatments and results with medical personnel and: patient Comprehensive systems review obtained and negative except for what is stated in the HPI. Departure 1 Departure Time of Disposition: 17:51 Impression: Primary Impression: Alcohol withdrawal syndrome Qualified Codes: F10.930 - Alcohol use, unspecified with withdrawal, uncomplicated Additional Impression: UTI (urinary tract infection) Qualified Codes: N30.00 - Acute cystitis without hematuria Disposition: ADMITTED INPATIENT Admit to: Tele Condition: Fair Critical Care Note Critical Care Time?: No Stability Stability form required: Yes Unstable for transfer: Telemetry monitoring (Telemetry monitoring required), ED Physician Assesment (Clinical assesment) Heart Score Heart Score: Heart Score Response (Comments) Value History N/A 0 EKG N/A 0 Age N/A 0 Risk Factors N/A 0 Troponin N/A 0 Total 0 I personally scribed for CHOLO ROMERO MD ([email or web address]) on 05/17/24 at 11:57. Electronically submitted by Miah Wheatley ([email or web address]). I personally scribed for CHOLO ROMERO MD ([email or web address]) on 05/17/24 at 11:58. Electronically submitted by Miah Wheatley ([email or web address]). CHOLO ROMERO MD May 17, 2024 11:57
[2024-05-17 13:30] LABS: Basophils # (auto) 0.1 10 ^3/uL (0-0.2); Eosinophils # (auto) 0 10 ^3/uL (0-0.8); Hematocrit 41.9 % (36.0-46.0); Hemoglobin 13.8 g/dL (12.2-16.2); Lymphocytes # (auto) 0.4 10 ^3/uL (0.4-5.4); Lymphocytes % (auto) 4.7 % (10.0-50.0); Mean Corpuscular Hemoglobin 34.4 pg (28.0-32.0); Mean Corpuscular Hgb Conc. 32.9 g/dL (32.0-36.0); Mean Corpuscular Volume 104.6 fL (80.0-100.0); Monocytes # (auto) 0.5 10 ^3/uL (0-1.3); Monocytes % (auto) 5.5 % (0.0-12.0); Neutrophils # (auto) 7.6 10 ^3/uL (1.6-8.6); Neutrophils % (auto) 88.8 % (37.0-80.0); Nucleated Red Blood Cells % 0.1 %; Platelet Count (auto) 189 10^3/uL (140-450); Red Blood Cells 4.01 10^6/uL (4.0-5.20); Red Cell Distribution Width 16.9 % (11.8-14.3); White Blood Cell 8.6 10^3/uL (4.4-10.8)
[2024-05-17 13:45] LABS: Chloride 100 mmol/L (98-107); Potassium 4.3 mmol/L (3.5-5.1); Sodium 141 mmol/L (136-145)
[2024-05-17 13:46] LABS: Anion Gap 13 (5-15); Carbon Dioxide 28 mmol/L (20-31)
[2024-05-17 13:51] LABS: BUN/Creatinine Ratio 12.8 (10.0-20.0); Blood Urea Nitrogen 10 mg/dL (9-23)
[2024-05-17 13:53] LABS: Glucose 122 mg/dL (74-106)
[2024-05-17] MEDS: LORazepam 2MG/ML-1ML VIAL IV ONE (14:52)
[2024-05-17] MEDS: SODIUM CHLORIDE 0.9% 1,000 ML IV ONE (14:52)
[2024-05-17 16:11] LABS: Urine Bacteria FEW /hpf (None Seen); Urine Blood 1+ /uL (Negative); Urine Clarity Ex.Turbid (Clear); Urine Color Light-Orange (Yellow); Urine Mucus FEW (None Seen); Urine Protein, UAD 2+ (Negative); Urine Specific Gravity 1.021 (1.001-1.035); Urine Squamous Epithelial Cell FEW /hpf (<5); Urine Urobilinogen 2 mg/dL (Negative); Urine WBC 896 /HPF (0-5); Urine pH 6.5 (5.0-9.0)
[2024-05-17 19:44] VITALS: PULSE 70; RESP 16; O2SAT 96
[2024-05-17] MEDS: cefTRIAXone 1GM/50ML D5W 50 ML IV ONE (19:50)
--- NOTE | 2024-05-17 23:18 | DVHHPRES ---
History of Present Illness Resident Creating Document: BEHZAD BAILEY RESIDENT History of Present Illness Patient is a 59-year-old female with past medical history of hypertension, IBS, chronic diarrhea, alcohol use disorder a C diff colitis, Campylobacter, came to the hospital for alcohol withdrawal symptoms. According to the patient, she took Librium the previous night and then had a few drinks of 99% vodka on 05/16/2024 at 10:00 a.m., she says the next thing she knows she woke up to a police service technician arresting her for being intoxicated in public. Patient is unable to recall correctly but states she did have a fall and hit the back of her head which currently feels sore. Per patient, [facility] at [facility] a.m. and came to the hospital, she also notes multiple episodes of bilious vomiting greenish in color. At the time of my assessment patient had CIWA score of 20. Patient was discharged from the [facility] on 05/04/2024 after being treated for alcohol withdrawal. Past Medical History hypertension, IBS, chronic diarrhea, alcohol use disorder a C diff colitis, Campylobacter Past Surgical History Atherectomy, right knee surgery, bilateral shoulder surgery Past Social History Smoking: Denies Alcohol: Drinks 1 bottle of vodka daily for the last 2 years Drugs: Denies Patient lives in a trailer in the backyard of her sister's house Review of Systems Constitutional: Yes: Chills; No: Fever, Sweats, Weakness, Malaise, Other Eyes: No: Pain, Vision change, Conjunctivae inflammation, Eyelid inflammation, Other, Redness ENT: Nose discharge; No: Ear pain, Ear discharge, Nose pain, Nose congestion, Mouth pain, Mouth swelling, Throat pain, Throat swelling, Other Respiratory: No: Cough, Dry, Shortness of breath, SOB with excertion, Wheezing, Hemoptysis, Pleuritic Pain, Sputum, Wheezing, Other Cardiovascular: No: Chest Pain, Palpitations, Orthopnea, Paroxysmal Noc. Dyspnea, Edema, Lt Headedness, Other Gastrointestinal: Nausea, Vomiting, Diarrhea; No: Abdominal Pain, Constipation, Melena, Hematochezia, Other Genitourinary: Dysuria; No Frequency, No Incontinence, No Hematuria, No Retention, No Other Musculoskeletal: hand pain; No: other, neck pain, shoulder pain, arm pain, back pain, leg pain, foot pain Skin: No: Rash, Lesions, Jaundice, Bruising, Other Neurological: No: Weakness, Numbness, Incoordination, Change in speech, Confusion, Seizures, Other Allergies: Coded Allergies: NO KNOWN ALLERGIES (Unverified , 04/21/23) Medications Current Medications Medications Dose Ordered Sig/Alena Route Start Time Stop Time Status Last Admin Dose Admin Lorazepam 2 mg Q1HP IV 05/18/24 06:00 UNV Ceftriaxone Sodium 50 ml @ 100 mls/hr DAILY@09 IV 05/18/24 09:00 UNV Exam Vital Signs Vital Signs Date Time Temp Pulse Resp B/P (MAP) Pulse Ox O2 Delivery O2 Flow Rate FiO2 05/17/24 19:44 98.2 70 16 166/98 (120) 96 98.2 05/17/24 19:44 Room Air* 0 21 General Appearance: Alert, Oriented X3, Cooperative, mild distress HEENT: Atraumatic, PERRLA, EOMI, Other (White patches noted on tongue, tenderness to palpation in the occipital area) Respiratory: Clear to auscultation, Normal air movement Cardiovascular: Normal S1, Normal S2, No murmurs Abdominal: Normal bowel sounds, Soft, No tenderness Extremities: Other (Trace lower extremity edema, bruising noted on left 5th digit) Neuro: Normal speech Psych/Mental Status: Mental status NL, Mood NL, Other (Patient is A&O X4) Labs/Xrays Labs Test 05/17/24 14:47 05/17/24 12:42 Range/Units Urine Color Light-orange Yellow Urine Clarity Ex.turbid Clear Urine pH 6.5 5.0-9.0 Urine Specific [place] 1.021 1.001-1.035 Urine Protein 2+ H Negative Urine Ketones Trace Negative Urine Blood 1+ H Negative /uL Urine Nitrite Negative Negative Urine Bilirubin Negative Negative Urine Urobilinogen 2 H Negative mg/dL Urine Leukocyte Esterase 3+ Negative /uL Urine RBC 34 0 - 4 /hpf Urine Microscopic WBC 896 H 0-5 /HPF Urine Squamous Epithelial Cells Few <5 /hpf Urine Bacteria Few H None Seen /hpf Urine Mucus Few None Seen Urine Glucose Normal Normal mg/dL White Blood Count 8.6 4.4-10.8 10^3/uL Red Blood Count 4.01 4.0-5.20 10^6/uL Hemoglobin 13.8 12.2-16.2 g/dL Hematocrit 41.9 36.0-46.0 % Mean Corpuscular Volume 104.6 H 80.0-100.0 fL Mean Corpuscular Hemoglobin 34.4 H 28.0-32.0 pg Mean Corpuscular Hemoglobin Concent 32.9 32.0-36.0 g/dL Red Cell Distribution Width 16.9 H 11.8-14.3 % Platelet Count 189 140-450 10^3/uL Mean Platelet Volume 7.0 6.9-10.8 fL Neutrophils (%) (Auto) 88.8 H 37.0-80.0 % Lymphocytes (%) (Auto) 4.7 L 10.0-50.0 % Monocytes (%) (Auto) 5.5 0.0-12.0 % Eosinophils (%) (Auto) 0.0 0.0-7.0 % Basophils (%) (Auto) 1.0 0.0-2.0 % Neutrophils # (Auto) 7.6 1.6-8.6 10 ^3/uL Lymphocytes # (Auto) 0.4 0.4-5.4 10 ^3/uL Monocytes # (Auto) 0.5 0-1.3 10 ^3/uL Eosinophils # (Auto) 0 0-0.8 10 ^3/uL Basophils # (Auto) 0.1 0-0.2 10 ^3/uL Nucleated Red Blood Cells 0.1 % Sodium Level 141 136-145 mmol/L Potassium Level 4.3 3.5-5.1 mmol/L Chloride Level 100 98-107 mmol/L Carbon Dioxide Level 28 20-31 mmol/L Anion Gap 13 5-15 Blood Urea Nitrogen 10 9-23 mg/dL Creatinine 0.78 0.550-1.02 mg/dL Glomerular Filtration Rate Calc 87 >90 mL/min BUN/Creatinine Ratio 12.8 10.0-20.0 Serum Glucose 122 H 74-106 mg/dL Calcium Level 10.0 8.7-10.4 mg/dL Assessment/Plan Assessment/Plan Alcohol withdrawal, CIWA score 20 Alcoholic hallucinosis Alcohol use disorder - IV NS 1 L bolus - IV thiamine 100 mg - banana bag - IV lorazepam 2 mg Q1hr - NPO - counseled extensively Acute Complicated UTI - IV ceftriaxone S/p fall while intoxicated - finger x-ray: Evidence of nondisplaced fracture of the midshaft of the 5th distal phalanx. No additional osseous abnormality identified. - head CT: No hemorrhage or other acute intracranial abnormality. Hypertension Hypertensive heart disease with diastolic dysfunction - resumed home medication lisinopril 20 mg and metoprolol 50 mg b.i.d. - monitor Chronic diarrhea likely due to IBS and alcohol use disorder History of C diff colitis History of camp jejuni - monitor PUD prophylaxis: Pepcid 20 mg Goals of care: Full code, discussed for >16 minutes on 05/18/2024 Plan discussed with patient Plan discussed with Dr. Mota Plan discussed with: Patient, Other (RN) My Orders Orders - BEHZAD BAILEY RESIDENT Procedure Category Date Status Time Admit ADMIT 05/17/24 Transmitted 23:08 Allergies PABLO 05/17/24 In Process 23:08 Code Status CODE 05/17/24 Transmitted 23:08 Complete Blood Count LAB 05/18/24 Verified 04:00 Comprehensive LAB 05/18/24 Verified Metabolic Panel 04:00 Npo (Nothing By DIET 05/18/24 Transmitted Mouth) Diet Breakfast Condition: Unstable PABLO 05/17/24 In Process 23:08 Notify Of Changes PABLO 05/17/24 In Process From Base 23:08 Thiamine Inj PHA 05/17/24 Transmitted 23:15 Folic Acid Ivpb PHA 05/17/24 Transmitted 23:15 Lorazepam 2mg/Ml Inj PHA 05/18/24 Transmitted (Ativan Inj) 06:[address] 05/17/24 Logged 23:08 L 5th Finger Xray XY 05/17/24 Logged 23:08 Accucheck BD 05/17/24 Transmitted 23:08 Vitamin B12 LAB 05/17/24 In Process 23:08 Folate (Folic Acid) LAB 05/17/24 In Process 23:08 Ceftriaxone Ivpb PHA 05/18/24 Transmitted Rocephin 09:00 Banana Bag D5w PHA 05/18/24 Verified 18:00 Date of Service: May 17, 2024 Billing Provider: BEATRIZ MOTA MD Common Visit Codes: [id number] INP/OBS CARE (HIGH) BEHZAD BAILEY May 17, 2024 23:17 BEATRIZ MOTA MD May 18, 2024 10:32
[2024-05-17] MEDS: THIAMINE 100mg/ml INJ (200mg/2ml VIAL) IV ONE (23:49)
[2024-05-17] MEDS: FOLIC ACID 1 MG in D5W 5% 50 ML INJ ONE (23:51)
[2024-05-17 23:58] LABS: Folate (Folic Acid) 13.97 ng/mL (>5.38)
--- NOTE | 2024-05-17 23:59 | DVH ---
CT HEAD WITHOUT CONTRAST INDICATION: s/p fall while intoxicated COMPARISON: CT HEAD WITHOUT CONTRAST on DOS: 02/27/24, CT HEAD WITHOUT CONTRAST on DOS: 02/26/24, CT HE AD WITHOUT CONTRAST on DOS: 09/05/23, CT HEAD WITHOUT CONTRAST on DOS: 05/27/23, CT HEAD WITHOUT CONTRA ST on DOS: 05/19/23 TECHNIQUE: CT of the head without intravenous contrast. RADIATION DOSE: CTDIvol: mGy, DLP: mGy*cm FINDINGS: There is no evidence of intracranial hemorrhage, infarct, extra-axial collection, mass effect, midli ne shift, herniation or hydrocephalus. Mild ventricular enlargement related to mild cerebral volume l oss. The jacinto-white differentiation is normal. Visualized paranasal sinuses and mastoid air cells are clear. Soft tissues and osseous structures are unremarkable. IMPRESSION: No hemorrhage or other acute intracranial abnormality. No change compared to the prior CT scan from [facility] 2024.
[2024-05-18] MEDS: FOLIC ACID 1 MG, MULTIPLE VITAMIN 10 ML, MAGNESIUM SULF SDV 50% 8 MEQ, THIAMINE INJ 100... INJ SCH (00:35)
[2024-05-18] MEDS: MVI in SODIUM CHLORIDE 0.9% 1,010 ML ONE (00:36)
[2024-05-18] MEDS: LORazepam 2MG/ML-1ML VIAL IV PRN ×2 (00:53→14:14)
--- NOTE | 2024-05-18 01:22 | DVH ---
CLINICAL INDICATION: fall TECHNIQUE: XY L 5TH FINGER XRAY Comparison: None FINDINGS / IMPRESSION: Evidence of non displaced fracture of the mid shaft of the 5th distal phalanx. No additional oseous a bnormality identified. Mild degenerative changes in DIP/PIP joints.
[2024-05-18 04:34] LABS: Eosinophils # (auto) 0 10 ^3/uL (0-0.8); Eosinophils % (auto) 0.2 % (0.0-7.0); Lymphocytes # (auto) 1.1 10 ^3/uL (0.4-5.4); Monocytes # (auto) 0.6 10 ^3/uL (0-1.3)
[2024-05-18 04:38] LABS: Basophils # (auto) 0 10 ^3/uL (0-0.2); Basophils % (auto) 0.6 % (0.0-2.0); Hematocrit 34.4 % (36.0-46.0); Hemoglobin 11.9 g/dL (12.2-16.2); Mean Corpuscular Hemoglobin 35.9 pg (28.0-32.0); Mean Corpuscular Hgb Conc. 34.6 g/dL (32.0-36.0); Mean Corpuscular Volume 103.6 fL (80.0-100.0); Monocytes % (auto) 7.6 % (0.0-12.0); Neutrophils % (auto) 77.6 % (37.0-80.0); Nucleated Red Blood Cells % 0.1 %; Platelet Count (auto) 114 10^3/uL (140-450); Red Blood Cells 3.32 10^6/uL (4.0-5.20); Red Cell Distribution Width 16.9 % (11.8-14.3); White Blood Cell 7.7 10^3/uL (4.4-10.8)
[2024-05-18 04:56] LABS: Alanine Aminotransferase 28 U/L (7-40); Albumin 4.2 g/dL (3.2-4.8); Anion Gap 10 (5-15); BUN/Creatinine Ratio 12.8 (10.0-20.0); Blood Urea Nitrogen 10 mg/dL (9-23); Calcium 9.8 mg/dL (8.7-10.4); Carbon Dioxide 29 mmol/L (20-31); Chloride 102 mmol/L (98-107); Glucose 92 mg/dL (74-106); Sodium 141 mmol/L (136-145); Total Protein 7.4 g/dL (5.7-8.2)
[2024-05-18 05:04] LABS: Alkaline Phosphatase 300 U/L (46-116); Aspartate Aminotransferase 104 U/L (13-40); Bilirubin, Total 1.2 mg/dL (0.2-1.0); Potassium 3.3 mmol/L (3.5-5.1)
[2024-05-18] MEDS ORDERED: LORazepam 2MG/ML-1ML VIAL IV SCH ×2 (06:00→16:30)
--- NOTE | 2024-05-18 06:46 | ECG ---
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
[2024-05-18 07:20] VITALS: PULSE 62; RESP 16; O2SAT 97
[2024-05-18] MEDS: POTASSIUM CHLORIDE 40 MEQ, LIDOCAINE 1% (LOCAL ANESTH.) 4 ML in SODIUM CHL 0.9% 250 ML IV ONE (08:15)
[2024-05-18] MEDS: METOPROLOL SUCCINATE XL 50 MG TAB PO SCH (10:00)
[2024-05-18] MEDS: FAMOTIDINE (10MG/ML) 2ML VL IV SCH (10:21)
[2024-05-18] MEDS: LISINOPRIL 20 MG TAB PO SCH (10:24)
[2024-05-18] MEDS: LORazepam 2MG/ML-1ML VIAL IV SCH (17:05)
[2024-05-18] MEDS ORDERED: FOLIC ACID 1 MG, MULTIPLE VITAMIN 10 ML, MAGNESIUM SULF SDV 50% 8 MEQ, THIAMINE INJ 100... INJ SCH (18:00)
[2024-05-18] MEDS: FOLIC ACID 1 MG TAB PO ONE (18:12)
[2024-05-18] MEDS: MULTIPLE VITAMIN TAB PO ONE (18:13)
[2024-05-18] MEDS: THIAMINE HCL 100 MG TAB PO ONE (18:13)
[2024-05-18] MEDS: MAGNESIUM OXIDE 400 MG TAB PO ONE (18:13)
--- NOTE | 2024-05-18 19:13 | DVHPNRES ---
Progress Note Date Seen: May 18, 2024 Resident Creating Document: MAK KUO RESIDENT Has the PT tested + for MRSA If YES, has PT been informed?: No Medical Necessity Reason Pt with a Central, PICC or Fol: No Medical Necessity Reason Patient is a 59-year-old female with past medical history of hypertension, IBS, chronic diarrhea, alcohol use disorder a C diff colitis, Campylobacter, came to the hospital for alcohol withdrawal symptoms. According to the patient, she took Librium the previous night and then had a few drinks of 99% vodka on 05/16/2024 at 10:00 a.m., she says the next thing she knows she woke up to a mounted police officer arresting her for being intoxicated in public. Patient is unable to recall correctly but states she did have a fall and hit the back of her head which currently feels sore. Per patient, she was released from the [facility] on 05/17/2024 at 10:00 a.m. and came to the hospital, she also notes multiple episodes of bilious vomiting greenish in color. At the time of my assessment patient had CIWA score of 20. Patient was discharged from [facility] on 05/04/2024 after being treated for alcohol withdrawal. Past Medical History: hypertension, IBS, chronic diarrhea, alcohol use disorder a C diff colitis, Campylobacter Past Surgical History:Atherectomy, right knee surgery, bilateral shoulder surgery Past Social History:Smoking: Denies,Alcohol: Drinks 1 bottle of vodka daily for the last 2 years Drugs: Denies,Patient lives in a trailer in the backyard of her sister's house PN: 05/18/2024 Patient is a known alcohol dependent individual who has had multiple withdrawal episodes bringing her to the hospital. Per the patient, he drank 2 pint of 99% vodak. Patient said she does not remember much,but remembered the mounted police officer arresting her for being intoxicated in public. AT the time of interacting, patient aox4. She mentioned that she started drinking since her 6 months ago. Denies nausea, vomiting, tremors,tactile hallucination, auditory hallucination, agitation, but she said she is always anxious. No hematemesis, melena stool. Subjective Review of Systems Constitutional: Denies fever no chills no feeling of malaise, Mild tremors HEENT: Denies headache, ear pain, ear discharges, conjunctivitis, nasal discharge throat pain Cardiovascular: Denies chest pain, palpitation, orthopnea, PND, or pedal edema Respiratory: Denies shortness of breath, cough cough, sputum production, hemoptysis, GI: Denies abdominal pain, nausea, vomiting, diarrhea, hematemesis, hematochezia, : Denies frequency, urgency, hematuria, Endocrine: Denies unintentional weight gain or weight loss, feeling of hot flashes, Karl: Denies easy bruising, bleeding disorders, epistaxis Musculoskeletal: Denies joint pains, muscle aches Psych: No evidence of depression, kun, suicidal ideation Objective vital signs Vital Sign Date Time Temp Pulse Resp B/P (MAP) Pulse Ox O2 Delivery O2 Flow Rate FiO2 05/18/24 18:00 58 20 147/71 (96) 98 05/18/24 12:00 98.7 98.7 05/18/24 07:20 Room Air* 0 21 Total Intake and Output 05/17/24 05/17/24 05/18/24 15:00 23:00 07:00 Intake Total 50 ml 750 ml Balance 50 ml 750 ml medications Current Medications Medications Dose Ordered Sig/Alena Route Start Time Stop Time Status Last Admin Dose Admin Ceftriaxone Sodium 50 ml @ 100 mls/hr Q24H IV 05/18/24 21:00 Famotidine 20 mg DAILY IV 05/18/24 10:00 05/18/24 10:21 20 MG Lisinopril 20 mg DAILY PO 05/18/24 10:00 05/18/24 10:24 20 MG Metoprolol Succinate 50 mg BID PO 05/18/24 10:00 Folic Acid 1 mg DAILY PO 05/19/24 10:00 Multivitamins 1 tab DAILY PO 05/19/24 10:00 Magnesium Oxide 400 mg DAILY PO 05/19/24 10:00 Thiamine HCl 100 mg DAILY PO 05/19/24 10:00 Lorazepam 2 mg Q2H IV 05/18/24 17:00 05/18/24 17:05 2 MG Examination General Appearance: Alert, Oriented X3, Cooperative, No acute distress HEENT: Atraumatic, PERRLA, EOMI, Mucous membrane moist/pink Respiratory: Clear to auscultation, Normal air movement Cardiovascular: Regular rate, Normal S1, Normal S2, No murmurs, no chest wall tenderness Abdominal: NO distention, no tenderness, bowel sounds present, no scars noted Extremities: No clubbing, No cyanosis, No edema, Normal pulses, No tenderness/swelling Skin: No rashes, No breakdown, No significant lesion Neuro: Normal gait, Normal speech, Strength at 5/5 X4 ext, Normal tone, Sensation intact, Cranial nerves 3-12 NL, Reflexes 2+ Psych/Mental Status: Mental status NL, Mood NL CIWA score laboratory and microbiology Laboratory Tests 05/18/24 04:14 Test 05/18/24 04:14 Range/Units Serum Glucose 92 74-106 mg/dL Problem List/Assessment/Plan Problem List/Assessment/Plan Alcohol withdrawal, CIWA score 16 Alcoholic hallucinosis Alcohol use disorder, dependence - IV NS 1 L bolus - IV thiamine 100 mg - banana bag - IV lorazepam 2 mg Q2hr - NPO - counseled extensively Acute Complicated UTI - IV ceftriaxone S/p fall while intoxicated - finger x-ray: Evidence of nondisplaced fracture of the midshaft of the 5th distal phalanx. No additional osseous abnormality identified. - head CT: No hemorrhage or other acute intracranial abnormality. Hypertension Hypertensive heart disease with diastolic dysfunction - resumed home medication lisinopril 20 mg and metoprolol 50 mg b.i.d. - monitor Overweight, BMI: 29.9 Hypokalemia, secondary to alcohol dependency --> K: 3.3 --> replaced Chronic diarrhea likely due to IBS and alcohol use disorder History of C diff colitis History of camp jejuni Goal of care discussed for more than 20 minutes; full code Case and plan discussed + Dr. Nunez Plan discussed with: Patient My Orders My Orders Orders - MAK KUO Procedure Category Date Status Time Cardiac DIET 05/18/24 Transmitted Diet-2gna,Lofat,Lochol Dinner Transfer Orders XFER 05/18/24 Transmitted 13:39 Lorazepam 2mg/Ml Inj PHA 05/18/24 In Process (Ativan Inj) 17:00 Date of Service: May 18, 2024 Billing Provider: ANN NUNEZ MD Common Visit Codes: [id number] INP/OBS CARE(HIGH) MAK KUO May 18, 2024 19:13 ANN NUNEZ MD May 24, 2024 21:23
[2024-05-18 23:58] VITALS: BP 165/81; PULSE 61; RESP 19; TEMP 98.8; O2SAT 96
[2024-05-19] VITALS (10 sets, daily range): BP systolic 143–165; BP diastolic 74–87; PULSE 59–86; RESP 17–20; TEMP 97.5–98.2; O2SAT 96–98
[2024-05-19] MEDS: cefTRIAXone 1GM/50ML D5W 50 ML IV SCH (00:06)
[2024-05-19 06:17] LABS: Eosinophils # (auto) 0.1 10 ^3/uL (0-0.8); Monocytes # (auto) 0.3 10 ^3/uL (0-1.3)
[2024-05-19 06:20] LABS: Basophils # (auto) 0 10 ^3/uL (0-0.2); Basophils % (auto) 0.6 % (0.0-2.0); Eosinophils % (auto) 1.3 % (0.0-7.0); Hematocrit 33.5 % (36.0-46.0); Hemoglobin 11.6 g/dL (12.2-16.2); Lymphocytes # (auto) 1.1 10 ^3/uL (0.4-5.4); Lymphocytes % (auto) 17.2 % (10.0-50.0); Mean Corpuscular Hemoglobin 35.8 pg (28.0-32.0); Mean Corpuscular Hgb Conc. 34.6 g/dL (32.0-36.0); Mean Corpuscular Volume 103.7 fL (80.0-100.0); Monocytes % (auto) 5.3 % (0.0-12.0); Neutrophils # (auto) 4.7 10 ^3/uL (1.6-8.6); Neutrophils % (auto) 75.6 % (37.0-80.0); Platelet Count (auto) 83 10^3/uL (140-450); Red Blood Cells 3.23 10^6/uL (4.0-5.20); White Blood Cell 6.3 10^3/uL (4.4-10.8)
[2024-05-19 06:21] LABS: Chloride 100 mmol/L (98-107)
[2024-05-19 06:22] LABS: Anion Gap 10 (5-15); Carbon Dioxide 26 mmol/L (20-31)
[2024-05-19 06:23] LABS: Calcium 9.3 mg/dL (8.7-10.4)
[2024-05-19 06:27] LABS: Glucose 80 mg/dL (74-106)
[2024-05-19 06:28] LABS: BUN/Creatinine Ratio 10.7 (10.0-20.0); Blood Urea Nitrogen 8 mg/dL (9-23); Potassium 3.4 mmol/L (3.5-5.1); Sodium 136 mmol/L (136-145)
[2024-05-19] MEDS: FOLIC ACID 1 MG TAB PO SCH (08:33)
[2024-05-19] MEDS: MULTIPLE VITAMIN TAB PO SCH (08:33)
[2024-05-19] MEDS: THIAMINE HCL 100 MG TAB PO SCH (08:33)
[2024-05-19] MEDS: LORazepam 2MG/ML-1ML VIAL IV SCH (08:33)
[2024-05-19] MEDS: MAGNESIUM OXIDE 400 MG TAB PO SCH (08:33)
[2024-05-19] MEDS: POTASSIUM EFFERVESENT TAB 25 MEQ PO ONE (09:09)
--- NOTE | 2024-05-19 19:37 | DVHPNRES ---
Progress Note Date Seen: May 19, 2024 Resident Creating Document: MAK KUO RESIDENT Has the PT tested + for MRSA If YES, has PT been informed?: No Medical Necessity Reason Pt with a Central, PICC or Fol: No Medical Necessity Reason History and physical Patient is a 59-year-old female with past medical history of hypertension, IBS, chronic diarrhea, alcohol use disorder a C diff colitis, Campylobacter, came to the hospital for alcohol withdrawal symptoms. According to the patient, she took Librium the previous night and then had a few drinks of 99% vodka on 05/16/2024 at 10:00 a.m., she says the next thing she knows she woke up to a police inspector arresting her for being intoxicated in public. Patient is unable to recall correctly but states she did have a fall and hit the back of her head which currently feels sore. Per patient, she was released from the [facility] on 05/17/2024 at 10:00 a.m. and came to the hospital, she also notes multiple episodes of bilious vomiting greenish in color. At the time of my assessment patient had CIWA score of 20. Patient was discharged from the [facility] on 05/04/2024 after being treated for alcohol withdrawal. Past Medical History: hypertension, IBS, chronic diarrhea, alcohol use disorder a C diff colitis, Campylobacter Past Surgical History:Atherectomy, right knee surgery, bilateral shoulder surgery Past Social History:Smoking: Denies,Alcohol: Drinks 1 bottle of vodka daily for the last 2 years Drugs: Denies,Patient lives in a trailer in the backyard of her sister's house PN: 05/18/2024 Patient is a known alcohol dependent individual who has had multiple withdrawal episodes bringing her to the hospital. Per the patient, he drank 2 pint of 99% vodak. Patient said she does not remember much,but remembered the police inspector arresting her for being intoxicated in public. AT the time of interacting, patient aox4. She mentioned that she started drinking since her 6 months ago. Denies nausea, vomiting, tremors,tactile hallucination, auditory hallucination, agitation, but she said she is always anxious. No hematemesis, melena stool. PN: 05/19/2024 Patient feeling much better today. She is not in any signs of alcohol withdrawal. However she is complaining of diarrhea,stool sample collected. Patient is currently on Ativan 2 mg q6 hours. Denies nausea, vomiting, tremors,tactile hallucination, auditory hallucination, agitation, but she said she is always anxious. No hematemesis, melena stool. Patient was counselled extensively against alcohol dependency. She is will to speak with social media senior associate about receiving help. Subjective Review of Systems Constitutional: Denies fever no chills no feeling of malaise, Not in any distress HEENT: Denies headache, ear pain, ear discharges, conjunctivitis, nasal discharge throat pain Cardiovascular: Denies chest pain, palpitation, orthopnea, PND, or pedal edema Respiratory: Denies shortness of breath, cough cough, sputum production, hemoptysis, GI: Denies abdominal pain, nausea, vomiting;+diarrhea, hematemesis, hematochezia, : Denies frequency, urgency, hematuria, Endocrine: Denies unintentional weight gain or weight loss, feeling of hot flashes, Karl: Denies easy bruising, bleeding disorders, epistaxis Musculoskeletal: Denies joint pains, muscle aches Psych: No evidence of depression, kun, suicidal ideation Objective vital signs Vital Sign Date Time Temp Pulse Resp B/P (MAP) Pulse Ox O2 Delivery O2 Flow Rate FiO2 05/19/24 16:52 98.1 86 20 152/86 (108) 98 98.1 05/19/24 08:00 Room Air* 0 21 Total Intake and Output 05/18/24 05/18/24 05/19/24 15:00 23:00 07:00 Intake Total 524.0 ml 300 ml Balance 524.0 ml 300 ml medications Current Medications Medications Dose Ordered Sig/Alena Route Start Time Stop Time Status Last Admin Dose Admin Ceftriaxone Sodium 50 ml @ 100 mls/hr Q24H IV 05/18/24 21:00 05/19/24 00:06 100 MLS/HR Famotidine 20 mg DAILY IV 05/18/24 10:00 05/19/24 08:32 20 MG Lisinopril 20 mg DAILY PO 05/18/24 10:00 05/19/24 08:34 20 MG Metoprolol Succinate 50 mg BID PO 05/18/24 10:00 05/19/24 08:34 50 MG Folic Acid 1 mg DAILY PO 05/19/24 10:00 05/19/24 08:33 1 MG Multivitamins 1 tab DAILY PO 05/19/24 10:00 05/19/24 08:33 1 TAB Magnesium Oxide 400 mg DAILY PO 05/19/24 10:00 05/19/24 08:33 400 MG Thiamine HCl 100 mg DAILY PO 05/19/24 10:00 05/19/24 08:33 100 MG Lorazepam 2 mg Q6HP IV 05/20/24 00:00 Examination General Appearance: Alert, Oriented X3, Cooperative, No acute distress HEENT: Atraumatic, PERRLA, EOMI, Mucous membrane moist/pink Respiratory: Clear to auscultation, Normal air movement Cardiovascular: Regular rate, Normal S1, Normal S2, No murmurs, no chest wall tenderness Abdominal: NO distention, no tenderness, bowel sounds present, no scars noted Extremities: No clubbing, No cyanosis, No edema, Normal pulses, No tenderness/swelling Skin: No rashes, No breakdown, No significant lesion Neuro: Normal gait, Normal speech, Strength at 5/5 X4 ext, Normal tone, Sensation intact, Cranial nerves 3-12 NL, Reflexes 2+ Psych/Mental Status: Mental status NL, Mood NL laboratory and microbiology Laboratory Tests 05/19/24 05:10 Test 05/19/24 05:10 Range/Units Serum Glucose 80 74-106 mg/dL Problem List/Assessment/Plan Problem List/Assessment/Plan Alcohol withdrawal, CIWA score <9 Alcoholic hallucinosis Alcohol use disorder, dependence - IV NS 1 L bolus - IV lorazepam 2 mg QID - counseled extensively Acute Complicated UTI - IV ceftriaxone Evidence of non displaced fracture of the mid shaft of the 5th distal phalanx --> orthopedic consult S/p fall while intoxicated - finger x-ray: Evidence of nondisplaced fracture of the midshaft of the 5th distal phalanx. No additional osseous abnormality identified. - head CT: No hemorrhage or other acute intracranial abnormality. Hypertension Hypertensive heart disease with diastolic dysfunction - resumed home medication lisinopril 20 mg and metoprolol 50 mg b.i.d. - monitor Overweight, BMI: 29.9 Hypokalemia, secondary to alcohol dependency --> K: 3.3 --> replaced Chronic diarrhea likely due to IBS and alcohol use disorder History of C diff colitis History of camp jejuni Goal of care discussed for more than 20 minutes; full code Case and plan discussed + Dr. Nunez Plan discussed with: Patient My Orders My Orders Orders - MAK KUO Procedure Category Date Status Time Mrsa Screen KAROLINE 05/19/24 In Process 01:00 Clostridium Difficile KAROLINE 05/19/24 In Process Toxin 15:33 Lorazepam 2mg/Ml Inj PHA 05/20/24 In Process (Ativan Inj) 00:00 Date of Service: May 19, 2024 Billing Provider: ANN NUNEZ MD Common Visit Codes: [id number] INP/OBS CARE(HIGH) MAK KUO May 19, 2024 19:37 ANN NUNEZ MD May 25, 2024 21:49
[2024-05-20] VITALS (10 sets, daily range): BP systolic 130–175; BP diastolic 68–95; PULSE 59–76; RESP 18–20; TEMP 97.9–98.7; O2SAT 95–98
[2024-05-20] MEDS: LORazepam 2MG/ML-1ML VIAL IV SCH ×2 (00:15→13:30)
[2024-05-20 07:00] LABS: Basophils # (auto) 0 10 ^3/uL (0-0.2); Basophils % (auto) 0.7 % (0.0-2.0); Eosinophils # (auto) 0.2 10 ^3/uL (0-0.8); Eosinophils % (auto) 2.5 % (0.0-7.0); Hematocrit 33.2 % (36.0-46.0); Hemoglobin 11.3 g/dL (12.2-16.2); Lymphocytes # (auto) 0.8 10 ^3/uL (0.4-5.4); Mean Corpuscular Hemoglobin 34.7 pg (28.0-32.0); Mean Corpuscular Hgb Conc. 33.9 g/dL (32.0-36.0); Mean Corpuscular Volume 102.3 fL (80.0-100.0); Monocytes # (auto) 0.3 10 ^3/uL (0-1.3); Monocytes % (auto) 5.8 % (0.0-12.0); Neutrophils # (auto) 4.6 10 ^3/uL (1.6-8.6); Nucleated Red Blood Cells % 0.1 %; Platelet Count (auto) 74 10^3/uL (140-450); Red Blood Cells 3.24 10^6/uL (4.0-5.20); Red Cell Distribution Width 17.2 % (11.8-14.3)
[2024-05-20 07:06] LABS: Chloride 99 mmol/L (98-107)
[2024-05-20 07:07] LABS: Anion Gap 9 (5-15); Calcium 9.6 mg/dL (8.7-10.4)
[2024-05-20 07:11] LABS: Potassium 3.5 mmol/L (3.5-5.1); Sodium 134 mmol/L (136-145)
[2024-05-20 07:12] LABS: BUN/Creatinine Ratio 11.1 (10.0-20.0); Glucose 80 mg/dL (74-106)
[2024-05-20 07:15] LABS: Blood Urea Nitrogen 8 mg/dL (9-23); Carbon Dioxide 26 mmol/L (20-31)
[2024-05-20] MEDS: POTASSIUM CHL 20 Meq TABLET PO ONE (09:30)
--- NOTE | 2024-05-20 11:52 | DVHINCON2 ---
Date of service: May 20, 2024 Reason for Consultation Left hand fracture History of Present Illness 59 yo F with pmhx of hypertension, IBS, chronic diarrhea, alcohol use disorder sp coming in due to intoxication. Patient is unsure of any falls or trauma but says she doesnt recollect. Pain with motion at left hand - able to do full motion but has pain. Family History: Cardiovascular disease G8 FATHER, , Age: 59 Chronic obstructive pulmonary disease G8 MOTHER, , Age: 98 Allergies: Coded Allergies: NO KNOWN ALLERGIES (Unverified , 04/21/23) Home Meds Active Scripts Lisinopril (Lisinopril) 20 Mg Tab, 40 MG PO DAILY for 60 Days, #120 TAB Prov:KRISHNA VELEZ RESIDENT 05/01/24 Yeast (S. Boulardii)(S. Cerevi (Florastor) 250 Mg Cap, 250 MG PO DAILY for 30 Days, #30 CAP Prov:BAILEYBEHZAD RESIDENT 04/14/24 Multiple Vitamin (Mvi Tab) 1 Tab Tb, 1 TAB PO DAILY for 30 Days, #30 TAB Prov:BAILEY,[facility] RESIDENT 04/14/24 Famotidine (PEPCID TABLET) 20 Mg Tb, 1 TAB PO BID PRN for 30 Days, #60 TAB 5 Refills Prov:RICKEY ORTIZ MD 04/02/24 Reported Medications Folic Acid (Folic Acid) 1 Mg Tab, 1 TAB PO DAILY for 30 Days, #30 05/18/24 Pantoprazole Sodium Sesquihydr (Pantoprazole Sodium) 40 Mg Tab, 1 TAB PO DAILY for 30 Days, #30 05/18/24 Chlordiazepoxide Hcl (Ni-1) (I (Chlordiazepoxide Hcl) 25 Mg Cap, CAP PO UD for 12 Days, #23 05/18/24 Fluoxetine Hcl (Fluoxetine Hcl) 40 Mg Cap, 1 CAP PO DAILY for 30 Days, #30 05/18/24 Metoprolol Succinate (Metoprolol Succinate Er) 50 Mg Tab, 1 TAB PO DAILY for 60 Days, #60 03/24/24 Current Medications Current Medications Medications (Trade) Dose Ordered Sig/Alena Route PRN Reason Start Time Stop Time Status Last Admin Lorazepam (Ativan Inj) 2 mg Q6HP IV 05/20/24 00:00 05/20/24 06:10 Review of Systems 10 point ROS as per HPI Vital Signs Vital Signs Date Time Temp Pulse Resp B/P (MAP) Pulse Ox O2 Delivery O2 Flow Rate FiO2 05/20/24 09:31 61 143/74 05/20/24 08:30 98.3 20 98 98.3 05/20/24 08:05 Room Air* 0 21 Physical Exam NAD LUE: +TTP at hand with swelling FROM at hand SILT m/r/u RP 2+ Labs/Diagnostic Data Labs Test 05/20/24 05:27 05/19/24 05:10 05/18/24 04:14 05/17/24 23:30 Range/Units White Blood Count 6.0 4.4-10.8 10^3/uL Red Blood Count 3.24 L 4.0-5.20 10^6/uL Hemoglobin 11.3 L 12.2-16.2 g/dL Hematocrit 33.2 L 36.0-46.0 % Mean Corpuscular Volume 102.3 H 80.0-100.0 fL Mean Corpuscular Hemoglobin 34.7 H 28.0-32.0 pg Mean Corpuscular Hemoglobin Concent 33.9 32.0-36.0 g/dL Red Cell Distribution Width 17.2 H 11.8-14.3 % Platelet Count 74 L 140-450 10^3/uL Mean Platelet Volume 8.2 6.9-10.8 fL Neutrophils (%) (Auto) 77.0 37.0-80.0 % Lymphocytes (%) (Auto) 14.0 10.0-50.0 % Monocytes (%) (Auto) 5.8 0.0-12.0 % Eosinophils (%) (Auto) 2.5 0.0-7.0 % Basophils (%) (Auto) 0.7 0.0-2.0 % Neutrophils # (Auto) 4.6 1.6-8.6 10 ^3/uL Lymphocytes # (Auto) 0.8 0.4-5.4 10 ^3/uL Monocytes # (Auto) 0.3 0-1.3 10 ^3/uL Eosinophils # (Auto) 0.2 0-0.8 10 ^3/uL Basophils # (Auto) 0 0-0.2 10 ^3/uL Nucleated Red Blood Cells 0.1 % Sodium Level 134 L 136-145 mmol/L Potassium Level 3.5 3.5-5.1 mmol/L Chloride Level 99 98-107 mmol/L Carbon Dioxide Level 26 20-31 mmol/L Anion Gap 9 5-15 Blood Urea Nitrogen 8 L 9-23 mg/dL Creatinine 0.72 0.550-1.02 mg/dL Glomerular Filtration Rate Calc 96 >90 mL/min BUN/Creatinine Ratio 11.1 10.0-20.0 Serum Glucose 80 74-106 mg/dL Calcium Level 9.6 8.7-10.4 mg/dL Magnesium Level 1.7 1.6-2.6 mg/dL Total Bilirubin 1.2 H 0.2-1.0 mg/dL Aspartate Amino Transferase (AST) 104 H 13-40 U/L Alanine Aminotransferase (ALT) 28 7-40 U/L Alkaline Phosphatase 300 H 46-116 U/L Total Protein 7.4 5.7-8.2 g/dL Albumin 4.2 3.2-4.8 g/dL Vitamin B12 Level 534 211-911 pg/mL Folic Acid 13.97 >5.38 ng/mL Test 05/17/24 14:47 Range/Units Urine Color Light-orange Yellow Urine Clarity Ex.turbid Clear Urine pH 6.5 5.0-9.0 Urine Specific [place] 1.021 1.001-1.035 Urine Protein 2+ H Negative Urine Ketones Trace Negative Urine Blood 1+ H Negative /uL Urine Nitrite Negative Negative Urine Bilirubin Negative Negative Urine Urobilinogen 2 H Negative mg/dL Urine Leukocyte Esterase 3+ Negative /uL Urine RBC 34 0 - 4 /hpf Urine Microscopic WBC 896 H 0-5 /HPF Urine Squamous Epithelial Cells Few <5 /hpf Urine Bacteria Few H None Seen /hpf Urine Mucus Few None Seen Urine Glucose Normal Normal mg/dL Microbiology Date/Time Source Procedure Growth Status 05/19/24 01:00 Nose MRSA Screen - Final Complete Plan/Recommendation 59 yo F with left distal phalanx small finger fracture 1. I had a long and through discussion with patient. We can continue to treat nonop 2. Left boxers fracture brace 3. NWB LUE 4. fu in ortho clinic in 2 weeks Plan discussed with: Patient VEL HERNANDEZ MD May 20, 2024 11:51
--- NOTE | 2024-05-20 13:24 | DVHPNRES ---
Progress Note Date Seen: May 20, 2024 Resident Creating Document: MAK KUO RESIDENT Has the PT tested + for MRSA If YES, has PT been informed?: No Medical Necessity Reason Pt with a Central, PICC or Fol: No Medical Necessity Reason Patient is a 59-year-old female with past medical history of hypertension, IBS, chronic diarrhea, alcohol use disorder a C diff colitis, Campylobacter, came to the hospital for alcohol withdrawal symptoms. According to the patient, she took Librium the previous night and then had a few drinks of 99% vodka on 05/16/2024 at 10:00 a.m., she says the next thing she knows she woke up to a police aide arresting her for being intoxicated in public. Patient is unable to recall correctly but states she did have a fall and hit the back of her head which currently feels sore. Per patient, she was released from the [facility] on 05/17/2024 at 10:00 a.m. and came to the hospital, she also notes multiple episodes of bilious vomiting greenish in color. At the time of my assessment patient had CIWA score of 20. Patient was discharged from the [facility] [place] on 05/04/2024 after being treated for alcohol withdrawal. Past Medical History: hypertension, IBS, chronic diarrhea, alcohol use disorder a C diff colitis, Campylobacter Past Surgical History:Atherectomy, right knee surgery, bilateral shoulder surgery Past Social History:Smoking: Denies,Alcohol: Drinks 1 bottle of vodka daily for the last 2 years Drugs: Denies,Patient lives in a trailer in the backyard of her sister's house PN: 05/18/2024 Patient is a known alcohol dependent individual who has had multiple withdrawal episodes bringing her to the hospital. Per the patient, he drank 2 pint of 99% vodak. Patient said she does not remember much,but remembered the police aide arresting her for being intoxicated in public. AT the time of interacting, patient aox4. She mentioned that she started drinking since her 6 months ago. Denies nausea, vomiting, tremors,tactile hallucination, auditory hallucination, agitation, but she said she is always anxious. No hematemesis, melena stool. PN: 05/19/2024 Patient feeling much better today. She is not in any signs of alcohol withdrawal. However she is complaining of diarrhea,stool sample collected. Patient is currently on Ativan 2 mg q6 hours. Denies nausea, vomiting, tremors,tactile hallucination, auditory hallucination, agitation, but she said she is always anxious. No hematemesis, melena stool. Patient was counselled extensively against alcohol dependency. She is will to speak with social professionals about receiving help. PN: 05/20/2024 Patient is feeling better. Not in withdrawal. She is currently on ativan 2mg q6hrs without any complications. Patient was seen by the orthopedics today for left distal phalanx small finger fracture and their plan is " Left boxers fracture brace". Patient is negative for MRSA. Pending stool test Subjective Review of Systems Constitutional: Denies fever no chills no feeling of malaise HEENT: Denies headache, ear pain, ear discharges, conjunctivitis, nasal discharge throat pain Cardiovascular: Denies chest pain, palpitation, orthopnea, PND, or pedal edema Respiratory: Denies shortness of breath, cough cough, sputum production, hemoptysis, GI: Denies abdominal pain, nausea, vomiting, diarrhea, hematemesis, hematochezia, : Denies frequency, urgency, hematuria, Endocrine: Denies unintentional weight gain or weight loss, feeling of hot flashes, Karl: Denies easy bruising, bleeding disorders, epistaxis Musculoskeletal: Denies joint pains, muscle aches Psych: No evidence of depression, kun, suicidal ideation Objective vital signs Vital Sign Date Time Temp Pulse Resp B/P (MAP) Pulse Ox O2 Delivery O2 Flow Rate FiO2 05/20/24 09:31 61 143/74 05/20/24 08:30 98.3 20 98 98.3 05/20/24 08:05 Room Air* 0 21 Total Intake and Output 05/19/24 05/19/24 05/20/24 15:00 23:00 07:00 Intake Total 710 ml 800 ml Balance 710 ml 800 ml medications Current Medications Medications Dose Ordered Sig/Alena Route Start Time Stop Time Status Last Admin Dose Admin Ceftriaxone Sodium 50 ml @ 100 mls/hr Q24H IV 05/18/24 21:00 05/19/24 20:34 100 MLS/HR Famotidine 20 mg DAILY IV 05/18/24 10:00 05/20/24 09:30 20 MG Lisinopril 20 mg DAILY PO 05/18/24 10:00 05/20/24 09:31 20 MG Metoprolol Succinate 50 mg BID PO 05/18/24 10:00 05/20/24 09:31 50 MG Folic Acid 1 mg DAILY PO 05/19/24 10:00 05/20/24 09:30 1 MG Multivitamins 1 tab DAILY PO 05/19/24 10:00 05/20/24 09:30 1 TAB Magnesium Oxide 400 mg DAILY PO 05/19/24 10:00 05/20/24 09:30 400 MG Thiamine HCl 100 mg DAILY PO 05/19/24 10:00 05/20/24 09:30 100 MG Lorazepam 2 mg Q6HP IV 05/20/24 00:00 05/20/24 12:04 2 MG Examination General Appearance: Alert, Oriented X3, Cooperative, No acute distress HEENT: Atraumatic, PERRLA, EOMI, Mucous membrane moist/pink Respiratory: Clear to auscultation, Normal air movement Cardiovascular: Regular rate, Normal S1, Normal S2, No murmurs, no chest wall tenderness Abdominal: NO distention, no tenderness, bowel sounds present, no scars noted Extremities: No clubbing, No cyanosis, No edema, Normal pulses, No tenderness/swelling Skin: No rashes, No breakdown, No significant lesion Neuro: Normal gait, Normal speech, Strength at 5/5 X4 ext, Normal tone, Sensation intact, Cranial nerves 3-12 NL, Reflexes 2+ Psych/Mental Status: Mental status NL, Mood NL laboratory and microbiology Laboratory Tests 05/20/24 05:27 Test 05/20/24 05:27 Range/Units Serum Glucose 80 74-106 mg/dL Microbiology Date/Time Source Procedure Growth Status 05/19/24 01:00 Nose MRSA Screen - Final Complete Problem List/Assessment/Plan Problem List/Assessment/Plan Alcohol withdrawal, CIWA score <9 Alcoholic hallucinosis Alcohol use disorder, dependence - IV lorazepam 2 mg BID --> Librium 50mg q6hrs - counseled extensively Acute Complicated UTI - IV ceftriaxone Evidence of non displaced fracture of the mid shaft of the 5th distal phalanx --> orthopedic consult Acute Anemia --> Hb : 13.8--> 11.3 Thrombocytopenia likely alcohol induced --> Platelets: 74 S/p fall while intoxicated - finger x-ray: Evidence of nondisplaced fracture of the midshaft of the 5th distal phalanx. No additional osseous abnormality identified. - head CT: No hemorrhage or other acute intracranial abnormality. Hypertension Hypertensive heart disease with diastolic dysfunction - resumed home medication lisinopril 20 mg and metoprolol 50 mg b.i.d. - monitor Overweight, BMI: 29.9 Hypokalemia, secondary to alcohol dependency --> IMPROVED Chronic diarrhea likely due to IBS and alcohol use disorder History of C diff colitis History of camp jejuni Goal of care discussed for more than 20 minutes; full code Case and plan discussed + Dr. Nunez Plan discussed with: Patient My Orders My Orders Orders - MAK KUO RESIDENT Procedure Category Date Status Time Clostridium Difficile KAROLINE 05/19/24 In Process Toxin 15:33 Lorazepam 2mg/Ml Inj PHA 05/20/24 In Process (Ativan Inj) 00:00 * Display Designer CONS 05/19/24 Transmitted Consult Splints ED NURSING 05/19/24 Transmitted * Orthopedic Consult CONS 05/19/24 Transmitted 19:33 Date of Service: May 20, 2024 Billing Provider: ANN NUNEZ MD Common Visit Codes: [id number] INP/OBS CARE(HIGH) MAK KUO May 20, 2024 13:24 ANN NUNEZ MD May 25, 2024 21:53
[2024-05-20] MEDS ORDERED: chlordiazePOXIDE HCL 25 MG CAP PO PRN (16:00)
[2024-05-20] MEDS: chlordiazePOXIDE HCL 25 MG CAP PO SCH (17:05)
[2024-05-20] MEDS: LACTATED RINGER'S 1,000 ML IV ONE (18:15)
[2024-05-20 19:47] LABS: Basophils # (auto) 0 10 ^3/uL (0-0.2); Basophils % (auto) 0.3 % (0.0-2.0); Lymphocytes # (auto) 0.6 10 ^3/uL (0.4-5.4); Monocytes # (auto) 0.4 10 ^3/uL (0-1.3); Red Blood Cells 3.35 10^6/uL (4.0-5.20)
[2024-05-20 19:49] LABS: Eosinophils # (auto) 0.1 10 ^3/uL (0-0.8); Hematocrit 34.7 % (36.0-46.0); Hemoglobin 11.8 g/dL (12.2-16.2); Mean Corpuscular Hemoglobin 35.3 pg (28.0-32.0); Mean Corpuscular Volume 103.8 fL (80.0-100.0); Neutrophils # (auto) 5.9 10 ^3/uL (1.6-8.6); Neutrophils % (auto) 82.7 % (37.0-80.0); Nucleated Red Blood Cells % 0.1 %; Platelet Count (auto) 78 10^3/uL (140-450); Red Cell Distribution Width 17.3 % (11.8-14.3); White Blood Cell 7.1 10^3/uL (4.4-10.8)
[2024-05-21] VITALS (7 sets, daily range): BP systolic 144–188; BP diastolic 74–93; PULSE 62–73; RESP 14–18; TEMP 97.1–98.7; O2SAT 95–100
[2024-05-21 07:32] LABS: Anion Gap 10 (5-15); Carbon Dioxide 26 mmol/L (20-31); Chloride 98 mmol/L (98-107); Potassium 3.5 mmol/L (3.5-5.1)
[2024-05-21 07:33] LABS: Calcium 9.8 mg/dL (8.7-10.4)
[2024-05-21 07:38] LABS: Blood Urea Nitrogen 10 mg/dL (9-23); Glucose 84 mg/dL (74-106)
[2024-05-21 07:48] LABS: Sodium 134 mmol/L (136-145)
[2024-05-21 13:07] LABS: Basophils # (auto) 0.1 10 ^3/uL (0-0.2); Basophils % (auto) 0.9 % (0.0-2.0); Eosinophils # (auto) 0.2 10 ^3/uL (0-0.8); Eosinophils % (auto) 2.5 % (0.0-7.0); Hematocrit 35.9 % (36.0-46.0); Hemoglobin 12.4 g/dL (12.2-16.2); Lymphocytes # (auto) 0.6 10 ^3/uL (0.4-5.4); Lymphocytes % (auto) 6.1 % (10.0-50.0); Mean Corpuscular Hemoglobin 35.2 pg (28.0-32.0); Mean Corpuscular Hgb Conc. 34.4 g/dL (32.0-36.0); Mean Corpuscular Volume 102.2 fL (80.0-100.0); Monocytes # (auto) 0.6 10 ^3/uL (0-1.3); Monocytes % (auto) 6.1 % (0.0-12.0); Neutrophils # (auto) 8.2 10 ^3/uL (1.6-8.6); Neutrophils % (auto) 84.4 % (37.0-80.0); Nucleated Red Blood Cells % 0.1 %; Platelet Count (auto) 91 10^3/uL (140-450); Red Blood Cells 3.51 10^6/uL (4.0-5.20); Red Cell Distribution Width 16.9 % (11.8-14.3); White Blood Cell 9.7 10^3/uL (4.4-10.8)
[2024-05-21 13:20] LABS: Potassium 4.5 mmol/L (3.5-5.1)
[2024-05-21 13:21] LABS: Anion Gap 9 (5-15); Carbon Dioxide 26 mmol/L (20-31)
[2024-05-21 13:22] LABS: Calcium 10.1 mg/dL (8.7-10.4)
[2024-05-21 13:26] LABS: Glucose 106 mg/dL (74-106)
[2024-05-21 13:27] LABS: BUN/Creatinine Ratio 11.7 (10.0-20.0); Blood Urea Nitrogen 9 mg/dL (9-23); Chloride 98 mmol/L (98-107); Sodium 133 mmol/L (136-145)
[2024-05-21] MEDS: LOPERAMIDE HCL 2 MG CAP/TAB PO ONE (14:26)
--- NOTE | 2024-05-21 19:53 | DVHPNRES ---
Progress Note Date Seen: May 21, 2024 Resident Creating Document: MAK KUO RESIDENT Has the PT tested + for MRSA If YES, has PT been informed?: No Medical Necessity Reason Pt with a Central, PICC or Fol: No Medical Necessity Reason Patient is a 59-year-old female with past medical history of hypertension, IBS, chronic diarrhea, alcohol use disorder a C diff colitis, Campylobacter, came to the hospital for alcohol withdrawal symptoms. According to the patient, she took Librium the previous night and then had a few drinks of 99% vodka on 05/16/2024 at 10:00 a.m., she says the next thing she knows she woke up to a [place] police [place] arresting her for being intoxicated in public. Patient is unable to recall correctly but states she did have a fall and hit the back of her head which currently feels sore. Per patient, she was released from the [facility] on 05/17/2024 at 10:00 a.m. and came to the hospital, she also notes multiple episodes of bilious vomiting greenish in color. At the time of my assessment patient had CIWA score of 20. Patient was discharged from the [facility] on 05/04/2024 after being treated for alcohol withdrawal. Past Medical History: hypertension, IBS, chronic diarrhea, alcohol use disorder a C diff colitis, Campylobacter Past Surgical History:Atherectomy, right knee surgery, bilateral shoulder surgery Past Social History:Smoking: Denies,Alcohol: Drinks 1 bottle of vodka daily for the last 2 years Drugs: Denies,Patient lives in a trailer in the backyard of her sister's house PN: 05/18/2024 Patient is a known alcohol dependent individual who has had multiple withdrawal episodes bringing her to the hospital. Per the patient, he drank 2 pint of 99% vodak. Patient said she does not remember much,but remembered the [place] police [place] arresting her for being intoxicated in public. AT the time of interacting, patient aox4. She mentioned that she started drinking since her 6 months ago. Denies nausea, vomiting, tremors,tactile hallucination, auditory hallucination, agitation, but she said she is always anxious. No hematemesis, melena stool. PN: 05/19/2024 Patient feeling much better today. She is not in any signs of alcohol withdrawal. However she is complaining of diarrhea,stool sample collected. Patient is currently on Ativan 2 mg q6 hours. Denies nausea, vomiting, tremors,tactile hallucination, auditory hallucination, agitation, but she said she is always anxious. No hematemesis, melena stool. Patient was counselled extensively against alcohol dependency. She is will to speak with psych social worker about receiving help. PN: 05/20/2024 Patient is feeling better. Not in withdrawal. She is currently on ativan 2mg q6hrs without any complications. Patient was seen by the orthopedics today for left distal phalanx small finger fracture and their plan is " Left boxers fracture brace". Patient is negative for MRSA. Pending stool test PN: 05/21/2024 Patient seen slightly confused today. She thinks she is home and having auditory hallucination. Will hold the librium and continue her on ativan 2mg q1hr prn. She is a C.diff colonizer and needs to follow up with the GI for fecal transplantation. Subjective Review of Systems Constitutional: Denies fever no chills, slightly confused, words not making sense HEENT: Denies headache, ear pain, ear discharges, conjunctivitis, nasal discharge throat pain, auditory hallucination Cardiovascular: Denies chest pain, palpitation, orthopnea, PND, or pedal edema Respiratory: Denies shortness of breath, cough cough, sputum production, hemoptysis, GI: Denies abdominal pain, nausea, vomiting, diarrhea, hematemesis, hematochezia, : Denies frequency, urgency, hematuria, Endocrine: Denies unintentional weight gain or weight loss, feeling of hot flashes, Karl: Denies easy bruising, bleeding disorders, epistaxis Musculoskeletal: Denies joint pains, muscle aches Psych: No evidence of depression, kun, suicidal ideation Objective vital signs Vital Sign Date Time Temp Pulse Resp B/P (MAP) Pulse Ox O2 Delivery O2 Flow Rate FiO2 05/21/24 17:00 98.7 62 16 153/76 (101) 96 98.7 05/21/24 08:00 Room Air* 0 21 Total Intake and Output 05/20/24 05/20/24 05/21/24 15:00 23:00 07:00 Intake Total 930 ml 480 ml Balance 930 ml 480 ml medications Current Medications Medications Dose Ordered Sig/Alena Route Start Time Stop Time Status Last Admin Dose Admin Ceftriaxone Sodium 50 ml @ 100 mls/hr Q24H IV 05/18/24 21:00 05/20/24 20:31 100 MLS/HR Famotidine 20 mg DAILY IV 05/18/24 10:00 05/21/24 10:11 20 MG Lisinopril 20 mg DAILY PO 05/18/24 10:00 05/21/24 10:13 20 MG Metoprolol Succinate 50 mg BID PO 05/18/24 10:00 05/21/24 10:12 50 MG Folic Acid 1 mg DAILY PO 05/19/24 10:00 05/21/24 10:11 1 MG Multivitamins 1 tab DAILY PO 05/19/24 10:00 05/21/24 10:12 1 TAB Magnesium Oxide 400 mg DAILY PO 05/19/24 10:00 05/21/24 10:12 400 MG Thiamine HCl 100 mg DAILY PO 05/19/24 10:00 05/21/24 10:12 100 MG Lorazepam 2 mg Q12HP IV 05/20/24 13:30 05/21/24 10:11 2 MG Chlordiazepoxide HCl 50 mg Q6HP PO 05/20/24 16:00 05/21/24 17:55 50 MG Examination General Appearance: Alert, Oriented X3, Cooperative, No acute distress HEENT: Atraumatic, PERRLA, EOMI, Mucous membrane moist/pink Respiratory: Clear to auscultation, Normal air movement Cardiovascular: Regular rate, Normal S1, Normal S2, No murmurs, no chest wall tenderness Abdominal: NO distention, no tenderness, bowel sounds present, no scars noted Extremities: No clubbing, No cyanosis, No edema, Normal pulses, No tenderness/swelling Skin: No rashes, No breakdown, No significant lesion Neuro: Normal gait, Normal speech, Strength at 5/5 X4 ext, Normal tone, Sensation intact, Cranial nerves 3-12 NL, Reflexes 2+, mild confusion Psych/Mental Status: no mental clarify. laboratory and microbiology Laboratory Tests 05/21/24 12:58 Test 05/21/24 12:58 Range/Units Serum Glucose 106 74-106 mg/dL Microbiology Date/Time Source Procedure Growth Status 05/19/24 08:48 Stool Clostridium difficile Toxin Assay - Final Complete 05/19/24 01:00 Nose MRSA Screen - Final Complete Problem List/Assessment/Plan Problem List/Assessment/Plan Alcohol withdrawal, CIWA score 12 Alcoholic hallucinosis Alcohol use disorder, dependence --> Ativan 2mg bid --> New auditory hallucination, thus - IV lorazepam 2 mg Q2hr --> counseled extensively Acute Complicated UTI - IV ceftriaxone Evidence of non displaced fracture of the mid shaft of the 5th distal phalanx --> orthopedic consult Acute Anemia --> Hb : 13.8--> 11.3 Thrombocytopenia likely alcohol induced --> Platelets: 74 S/p fall while intoxicated - finger x-ray: Evidence of nondisplaced fracture of the midshaft of the 5th distal phalanx. No additional osseous abnormality identified. - head CT: No hemorrhage or other acute intracranial abnormality. Hypertension Hypertensive heart disease with diastolic dysfunction - resumed home medication lisinopril 20 mg and metoprolol 50 mg b.i.d. - monitor Overweight, BMI: 29.9 Hypokalemiasecondary to alcohol dependency --> resolved Chronic diarrhea likely due to IBS and alcohol use disorder History of C diff colitis, C.Diff colonizer--> GI follow up for fecal transplantation. History of camp jejuni Goal of care discussed for more than 20 minutes; full code Case and plan discussed + Dr. Nunez Plan discussed with: Patient Dietary Evaluation Review Comments: 1) Benefiber 1 pk BID 2) Continue current plan of care Expected Outcomes/Goals: To meet >75% estimated needs Fu 3-5 days Date of Service: May 21, 2024 Billing Provider: ANN NUNEZ MD Common Visit Codes: [id number] INP/OBS CARE(HIGH) MAK KUO RESIDENT May 21, 2024 19:53 ANN NUNEZ MD May 25, 2024 22:07
[2024-05-21] MEDS: LORazepam 2MG/ML-1ML VIAL IV PRN (20:56)
[2024-05-22 05:00] VITALS: BP 146/76; PULSE 63; RESP 18; TEMP 97.5; O2SAT 98
[2024-05-22 05:14] LABS: Basophils # (auto) 0.1 10 ^3/uL (0-0.2); Eosinophils # (auto) 0.3 10 ^3/uL (0-0.8); Eosinophils % (auto) 3.1 % (0.0-7.0); Hemoglobin 12.1 g/dL (12.2-16.2); Lymphocytes # (auto) 0.7 10 ^3/uL (0.4-5.4); Mean Corpuscular Hemoglobin 34.7 pg (28.0-32.0); Neutrophils # (auto) 6.9 10 ^3/uL (1.6-8.6); Red Cell Distribution Width 17.3 % (11.8-14.3); White Blood Cell 8.6 10^3/uL (4.4-10.8)
[2024-05-22 05:16] LABS: Basophils % (auto) 0.7 % (0.0-2.0); Hematocrit 35.9 % (36.0-46.0); Lymphocytes % (auto) 7.5 % (10.0-50.0); Mean Corpuscular Hgb Conc. 33.6 g/dL (32.0-36.0); Mean Corpuscular Volume 103.3 fL (80.0-100.0); Monocytes # (auto) 0.8 10 ^3/uL (0-1.3); Neutrophils % (auto) 79.7 % (37.0-80.0); Nucleated Red Blood Cells % 0.1 %; Platelet Count (auto) 91 10^3/uL (140-450); Red Blood Cells 3.47 10^6/uL (4.0-5.20)
[2024-05-22 05:17] LABS: Anion Gap 9 (5-15); Carbon Dioxide 26 mmol/L (20-31); Chloride 99 mmol/L (98-107); Potassium 3.8 mmol/L (3.5-5.1)
[2024-05-22 05:18] LABS: Calcium 9.9 mg/dL (8.7-10.4)
[2024-05-22 05:23] LABS: BUN/Creatinine Ratio 15.2 (10.0-20.0); Blood Urea Nitrogen 12 mg/dL (9-23); Glucose 93 mg/dL (74-106)
[2024-05-22 05:24] LABS: Sodium 134 mmol/L (136-145)
[2024-05-22 09:00] VITALS: BP 135/67; PULSE 65; RESP 17; TEMP 97.8; O2SAT 94
[2024-05-22] MEDS ORDERED: LORazepam 2MG/ML-1ML VIAL IV PRN (10:30)
[2024-05-22] MEDS: LORazepam 0.5 MG TAB PO SCH (10:46)
[2024-05-22 10:57] LABS: Urine Bacteria None Seen /hpf (None Seen)
[2024-05-22 11:18] LABS: Urine Blood Negative /uL (Negative); Urine Clarity Clear (Clear); Urine Color Light-Yellow (Yellow); Urine Protein, UAD Negative (Negative); Urine Squamous Epithelial Cell FEW /hpf (<5); Urine Urobilinogen Normal (Negative); Urine WBC 4 /HPF (0-5); Urine pH 7.5 (5.0-9.0)
[2024-05-22 13:00] VITALS: BP 153/75; PULSE 64; RESP 17; TEMP 97.8; O2SAT 98
--- NOTE | 2024-05-22 16:41 | DVHPN2 ---
Assessment/Plan Assessment/Plan Progress note Patient is a 59-year-old female with past medical history of hypertension, IBS, chronic diarrhea, alcohol use disorder a C diff colitis, Campylobacter, came to the hospital for alcohol withdrawal symptoms. According to the patient, she took Librium the previous night and then had a few drinks of 99% vodka on 05/16/2024 at 10:00 a.m., she says the next thing she knows she woke up to [place] police arresting her for being intoxicated in public. Patient is unable to recall correctly but states she did have a fall and hit the back of her head which currently feels sore. Per patient, she was released from the [facility] on 05/17/2024 at 10:00 a.m. and came to the hospital, she also notes multiple episodes of bilious vomiting greenish in color. At the time of my assessment patient had CIWA score of 20. Patient was discharged from the [facility] on 05/04/2024 after being treated for alcohol withdrawal. seen today, well known to my service, restarted scheduled ativanm physical exam aox4 PERRLA MMM s1 s2 RRR abdomen tender no le edema labs ekg imaging reviwed assessment and plan Alcohol withdrawal, CIWA score 12 Alcoholic hallucinosis Alcohol use disorder, dependence --> Ativan 2mg bid --> New auditory hallucination, thus - IV lorazepam 2 mg Q2hr --> counseled extensively Acute Complicated UTI - IV ceftriaxone Evidence of non displaced fracture of the mid shaft of the 5th distal phalanx --> orthopedic consult Acute Anemia --> Hb : 13.8--> 11.3 Thrombocytopenia likely alcohol induced --> Platelets: 74 S/p fall while intoxicated - finger x-ray: Evidence of nondisplaced fracture of the midshaft of the 5th distal phalanx. No additional osseous abnormality identified. - head CT: No hemorrhage or other acute intracranial abnormality. Hypertension Hypertensive heart disease with diastolic dysfunction - resumed home medication lisinopril 20 mg and metoprolol 50 mg b.i.d. - monitor Overweight, BMI: 29.9 Hypokalemiasecondary to alcohol dependency --> resolved Chronic diarrhea likely due to IBS and alcohol use disorder History of C diff colitis, C.Diff colonizer--> GI follow up for fecal transplantation. History of camp jejuni dvt ppx ambul diet reg Plan discussed with: Patient My Orders Orders - ANN NUNEZ MD Procedure Category Date Status Time Lorazepam Tablet PHA 05/22/24 In Process (Ativan Tablet) 10:30 Lorazepam 2mg/Ml Inj PHA 05/22/24 In Process (Ativan Inj) 10:30 Date of Service: May 22, 2024 Billing Provider: ANN NUNEZ MD Common Visit Codes: [id number] INP/OBS CARE(HIGH) ANN NUNEZ MD May 22, 2024 16:41
[2024-05-22 17:00] VITALS: BP 162/92; PULSE 67; RESP 18; TEMP 96.3; O2SAT 96
[2024-05-22 20:00] VITALS: PULSE 65; RESP 16; O2SAT 98
[2024-05-22 21:00] VITALS: BP 165/84; PULSE 65; RESP 16; TEMP 98.2; O2SAT 98
[2024-05-23] VITALS (8 sets, daily range): BP systolic 118–155; BP diastolic 54–81; PULSE 58–70; RESP 17–18; TEMP 97.6–98.6; O2SAT 95–99
[2024-05-23 06:00] LABS: Eosinophils # (auto) 0.3 10 ^3/uL (0-0.8); Hematocrit 34.6 % (36.0-46.0); Hemoglobin 11.5 g/dL (12.2-16.2); Lymphocytes # (auto) 0.8 10 ^3/uL (0.4-5.4); Mean Corpuscular Hemoglobin 34.5 pg (28.0-32.0); Nucleated Red Blood Cells % 0.1 %
[2024-05-23 06:03] LABS: Basophils # (auto) 0 10 ^3/uL (0-0.2); Basophils % (auto) 0.4 % (0.0-2.0); Eosinophils % (auto) 3.3 % (0.0-7.0); Lymphocytes % (auto) 9.1 % (10.0-50.0); Mean Corpuscular Hgb Conc. 33.2 g/dL (32.0-36.0); Mean Corpuscular Volume 103.9 fL (80.0-100.0); Neutrophils # (auto) 6.6 10 ^3/uL (1.6-8.6); Neutrophils % (auto) 76.2 % (37.0-80.0); Platelet Count (auto) 112 10^3/uL (140-450); Red Blood Cells 3.33 10^6/uL (4.0-5.20); Red Cell Distribution Width 17.7 % (11.8-14.3); White Blood Cell 8.7 10^3/uL (4.4-10.8)
[2024-05-23 06:09] LABS: Chloride 100 mmol/L (98-107)
[2024-05-23 06:10] LABS: Anion Gap 10 (5-15); Carbon Dioxide 25 mmol/L (20-31)
[2024-05-23 06:16] LABS: BUN/Creatinine Ratio 12.2 (10.0-20.0); Glucose 96 mg/dL (74-106)
[2024-05-23 06:20] LABS: Blood Urea Nitrogen 9 mg/dL (9-23); Sodium 135 mmol/L (136-145)
--- NOTE | 2024-05-23 18:17 | DVHPNRES ---
Progress Note Date Seen: May 23, 2024 Resident Creating Document: MAK KUO RESIDENT Has the PT tested + for MRSA If YES, has PT been informed?: No Medical Necessity Reason Pt with a Central, PICC or Fol: No Medical Necessity Reason Medical Necessity Reason Patient is a 59-year-old female with past medical history of hypertension, IBS, chronic diarrhea, alcohol use disorder a C diff colitis, Campylobacter, came to the hospital for alcohol withdrawal symptoms. According to the patient, she took Librium the previous night and then had a few drinks of 99% vodka on 05/16/2024 at 10:00 a.m., she says the next thing she knows she woke up to a police patrol lieutenant arresting her for being intoxicated in public. Patient is unable to recall correctly but states she did have a fall and hit the back of her head which currently feels sore. Per patient, she was released from the [facility] on 05/17/2024 at 10:00 a.m. and came to the hospital, she also notes multiple episodes of bilious vomiting greenish in color. At the time of my assessment patient had CIWA score of 20. Patient was discharged from the [facility] on 05/04/2024 after being treated for alcohol withdrawal. Past Medical History: hypertension, IBS, chronic diarrhea, alcohol use disorder a C diff colitis, Campylobacter Past Surgical History:Atherectomy, right knee surgery, bilateral shoulder surgery Past Social History:Smoking: Denies,Alcohol: Drinks 1 bottle of vodka daily for the last 2 years Drugs: Denies,Patient lives in a trailer in the backyard of her sister's house PN: 05/18/2024 Patient is a known alcohol dependent individual who has had multiple withdrawal episodes bringing her to the hospital. Per the patient, he drank 2 pint of 99% vodak. Patient said she does not remember much,but remembered the police patrol lieutenant arresting her for being intoxicated in public. AT the time of interacting, patient aox4. She mentioned that she started drinking since her 6 months ago. Denies nausea, vomiting, tremors,tactile hallucination, auditory hallucination, agitation, but she said she is always anxious. No hematemesis, melena stool. PN: 05/19/2024 Patient feeling much better today. She is not in any signs of alcohol withdrawal. However she is complaining of diarrhea,stool sample collected. Patient is currently on Ativan 2 mg q6 hours. Denies nausea, vomiting, tremors,tactile hallucination, auditory hallucination, agitation, but she said she is always anxious. No hematemesis, melena stool. Patient was counselled extensively against alcohol dependency. She is will to speak with child welfare social worker about receiving help. PN: 05/20/2024 Patient is feeling better. Not in withdrawal. She is currently on ativan 2mg q6hrs without any complications. Patient was seen by the orthopedics today for left distal phalanx small finger fracture and their plan is " Left boxers fracture brace". Patient is negative for MRSA. Pending stool test PN: 05/21/2024 Patient seen slightly confused today. She thinks she is home and having auditory hallucination. Will hold the librium and continue her on ativan 2mg q1hr prn. She is a C.diff colonizer and needs to follow up with the GI for fecal transplantation. PM: 05/22/2024: See Jean PN: 05/23/2024: Patient doing much. No more visual or auditory hallucination. Restarted the librium with a long taper. She is a C.diff colonizer and needs to follow up with the GI for fecal transplantation. Subjective Review of Systems Constitutional: Denies fever no chills no feeling of malaise HEENT: Denies headache, ear pain, ear discharges, conjunctivitis, nasal discharge throat pain Cardiovascular: Denies chest pain, palpitation, orthopnea, PND, or pedal edema Respiratory: Denies shortness of breath, cough cough, sputum production, hemoptysis, GI: Denies abdominal pain, nausea, vomiting, diarrhea, hematemesis, hematochezia, : Denies frequency, urgency, hematuria, Endocrine: Denies unintentional weight gain or weight loss, feeling of hot flashes, Karl: Denies easy bruising, bleeding disorders, epistaxis Musculoskeletal: Denies joint pains, muscle aches Psych: No evidence of depression, kun, suicidal ideation Objective vital signs Vital Sign Date Time Temp Pulse Resp B/P (MAP) Pulse Ox O2 Delivery O2 Flow Rate FiO2 05/23/24 17:00 98.6 65 18 118/76 (90) 99 98.6 05/23/24 08:00 Room Air* 0 21 Total Intake and Output 05/22/24 05/22/24 05/23/24 15:00 23:00 07:00 Intake Total 945 ml 850 ml Balance 945 ml 850 ml medications Current Medications Medications Dose Ordered Sig/Alena Route Start Time Stop Time Status Last Admin Dose Admin Ceftriaxone Sodium 50 ml @ 100 mls/hr Q24H IV 05/18/24 21:00 05/22/24 22:35 100 MLS/HR Famotidine 20 mg DAILY IV 05/18/24 10:00 05/23/24 09:33 20 MG Lisinopril 20 mg DAILY PO 05/18/24 10:00 05/23/24 09:34 20 MG Metoprolol Succinate 50 mg BID PO 05/18/24 10:00 05/22/24 22:34 50 MG Folic Acid 1 mg DAILY PO 05/19/24 10:00 05/23/24 09:33 1 MG Multivitamins 1 tab DAILY PO 05/19/24 10:00 05/23/24 09:33 1 TAB Magnesium Oxide 400 mg DAILY PO 05/19/24 10:00 05/23/24 09:33 400 MG Thiamine HCl 100 mg DAILY PO 05/19/24 10:00 05/23/24 09:33 100 MG Lorazepam 2 mg Q12HR PO 05/22/24 10:30 05/23/24 09:35 2 MG Lorazepam 1 mg Q12HP PRN IV 05/22/24 10:30 Chlordiazepoxide HCl 50 mg Q6HR PO 05/24/24 00:00 UNV Examination General Appearance: Alert, Oriented X3, Cooperative, No acute distress HEENT: Atraumatic, PERRLA, EOMI, Mucous membrane moist/pink Respiratory: Clear to auscultation, Normal air movement Cardiovascular: Regular rate, Normal S1, Normal S2, No murmurs, no chest wall tenderness Abdominal: NO distention, no tenderness, bowel sounds present, no scars noted Extremities: No clubbing, No cyanosis, No edema, Normal pulses, No tenderness/swelling Skin: No rashes, No breakdown, No significant lesion Neuro: Normal gait, Normal speech, Strength at 5/5 X4 ext, Normal tone, Sensation intact, Cranial nerves 3-12 NL, Reflexes 2+ Psych/Mental Status: Mental status NL, Mood NL laboratory and microbiology Laboratory Tests 05/23/24 05:17 Test 05/23/24 05:17 Range/Units Serum Glucose 96 74-106 mg/dL Microbiology Date/Time Source Procedure Growth Status 05/19/24 08:48 Stool Clostridium difficile Toxin Assay - Final Complete 05/19/24 01:00 Nose MRSA Screen - Final Complete Problem List/Assessment/Plan Problem List/Assessment/Plan Alcohol withdrawal, CIWA score <9 Alcoholic hallucinosis Alcohol use disorder, dependence - IV NS 1 L bolus - IV lorazepam 2 mg QID - counseled extensively --> resumed the librium with a long taper --> Likely discharge tomorrow Acute Complicated UTI - IV ceftriaxone Evidence of non displaced fracture of the mid shaft of the 5th distal phalanx --> orthopedic consult S/p fall while intoxicated - finger x-ray: Evidence of nondisplaced fracture of the midshaft of the 5th distal phalanx. No additional osseous abnormality identified. - head CT: No hemorrhage or other acute intracranial abnormality. Hypertension Hypertensive heart disease with diastolic dysfunction - resumed home medication lisinopril 20 mg and metoprolol 50 mg b.i.d. - monitor Overweight, BMI: 29.9 Hypokalemia, secondary to alcohol dependency --> K: 3.3 --> replaced Chronic diarrhea likely due to IBS and alcohol use disorder History of C diff colitis History of camp jejuni Goal of care discussed for more than 15 minutes; full code Case and plan discussed + Dr. Nunez Plan discussed with: Patient My Orders My Orders Orders - MAK KUO Procedure Category Date Status Time Chlordiazepoxide Hcl PHA 05/24/24 Logged Capsule (Librium Ca 00:00 Dietary Evaluation Review Comments: 1) Benefiber 1 pk BID 2) Continue current plan of care Expected Outcomes/Goals: To meet >75% estimated needs Fu 3-5 days Date of Service: May 23, 2024 Billing Provider: ANN NUNEZ MD Common Visit Codes: [id number] INP/OBS CARE(HIGH) MAK KUO May 23, 2024 18:17 ANN NUNEZ MD May 25, 2024 22:19
[2024-05-23] MEDS: chlordiazePOXIDE HCL 25 MG CAP PO SCH (23:32)
[2024-05-24 01:00] VITALS: BP 146/71; PULSE 65; RESP 18; TEMP 98.1; O2SAT 95
[2024-05-24 05:00] VITALS: BP 116/59; PULSE 62; RESP 18; TEMP 98.1; O2SAT 97
[2024-05-24 08:00] VITALS: PULSE 66; RESP 18; O2SAT 97
[2024-05-24 09:00] VITALS: BP 133/66; PULSE 63; RESP 18; TEMP 97.8; O2SAT 97
[2024-05-24 12:54] VITALS: BP 128/65; PULSE 64; RESP 16; TEMP 97.7; O2SAT 97
[2024-05-24] MEDS ORDERED: CHL25C PO (13:52)
--- NOTE | 2024-05-24 20:21 | DVHDSRES ---
Discharge Summary Date of Admission Resident Creating Document: MAK KUO May 17, 2024 at 23:08 Date of Discharge: May 24, 2024 Admitting Diagnosis Alcohol withdrawal Labs/Diagnostic Data: PATIENT: СЕРГЕЙ RAMIREZ ACCT: [id number] UNIT: [id number] : 1965 LOC: OVERFLOW ROOM / BED: [address] [place] [address] AGE / SEX: 59 / F ADM STATUS: ADM IN SERVICE 07 ORDERING PHYSICIAN: BEHZAD BAILEY PROCEDURE(s): LFIN5 - L 5TH FINGER XRAY REASON: fall ORDER NUMBER(s): [id number], ACCESSION NUMBER(s): [id number] CLINICAL INDICATION: fall TECHNIQUE: XY L 5TH FINGER XRAY Comparison: None FINDINGS / IMPRESSION: Evidence of non displaced fracture of the mid shaft of the 5th distal phalanx. No additional oseous abnormality identified. Mild degenerative changes in DIP/PIP joints. ATED BY: MACARIO ANDERSON MD DICTATED DATE/TIME: 05/18/24 0119 PATIENT: СЕРГЕЙ RAMIREZ ACCT: [id number] UNIT: [id number] : 1965 LOC: OVERFLOW ROOM / BED: [address] [place] [address] AGE / SEX: 59 / F ADM STATUS: ADM IN SERVICE 07 ORDERING PHYSICIAN: BEHZAD BAILEY PROCEDURE(s): HWOCT - HEAD WITHOUT CONTRAST REASON: s/p fall while intoxicated ORDER NUMBER(s): [id number], ACCESSION NUMBER(s): [id number] CT HEAD WITHOUT CONTRAST INDICATION: s/p fall while intoxicated COMPARISON: CT HEAD WITHOUT CONTRAST on DOS: 02/27/24, CT HEAD WITHOUT CONTRAST on DOS: 02/26/24, CT HEAD WITHOUT CONTRAST on DOS: 09/05/23, CT HEAD WITHOUT CONTRAST on DOS: 05/27/23, CT HEAD WITHOUT CONTRAST on DOS: 05/19/23 TECHNIQUE: CT of the head without intravenous contrast. RADIATION DOSE: CTDIvol: mGy, DLP: mGy*cm FINDINGS: There is no evidence of intracranial hemorrhage, infarct, extra-axial collection, mass effect, midline shift, herniation or hydrocephalus. Mild ventricular enlargement related to mild cerebral volume loss. The jacinto-white differentiation is normal. Visualized paranasal sinuses and mastoid air cells are clear. Soft tissues and osseous structures are unremarkable. IMPRESSION: No hemorrhage or other acute intracranial abnormality. No change compared to the prior CT scan from February 2024. ATED BY: MACARIO ANDERSON MD DICTATED DATE/TIME: 05/17/24 0519 Laboratory Results Test 05/23/24 05:17 05/22/24 10:30 05/19/24 05:10 05/18/24 04:14 White Blood Count 8.7 10^3/uL (4.4-10.8) Red Blood Count 3.33 10^6/uL (4.0-5.20) Hemoglobin 11.5 g/dL (12.2-16.2) Hematocrit 34.6 % (36.0-46.0) Mean Corpuscular Volume 103.9 fL (80.0-100.0) Mean Corpuscular Hemoglobin 34.5 pg (28.0-32.0) Mean Corpuscular Hemoglobin Concent 33.2 g/dL (32.0-36.0) Red Cell Distribution Width 17.7 % (11.8-14.3) Platelet Count 112 10^3/uL (140-450) Mean Platelet Volume 9.3 fL (6.9-10.8) Neutrophils (%) (Auto) 76.2 % (37.0-80.0) Lymphocytes (%) (Auto) 9.1 % (10.0-50.0) Monocytes (%) (Auto) 11.0 % (0.0-12.0) Eosinophils (%) (Auto) 3.3 % (0.0-7.0) Basophils (%) (Auto) 0.4 % (0.0-2.0) Neutrophils # (Auto) 6.6 10 ^3/uL (1.6-8.6) Lymphocytes # (Auto) 0.8 10 ^3/uL (0.4-5.4) Monocytes # (Auto) 1.0 10 ^3/uL (0-1.3) Eosinophils # (Auto) 0.3 10 ^3/uL (0-0.8) Basophils # (Auto) 0 10 ^3/uL (0-0.2) Nucleated Red Blood Cells 0.1 % Sodium Level 135 mmol/L (136-145) Potassium Level 4.0 mmol/L (3.5-5.1) Chloride Level 100 mmol/L (98-107) Carbon Dioxide Level 25 mmol/L (20-31) Anion Gap 10 (5-15) Blood Urea Nitrogen 9 mg/dL (9-23) Creatinine 0.74 mg/dL (0.550-1.02) Glomerular Filtration Rate Calc 93 mL/min (>90) BUN/Creatinine Ratio 12.2 (10.0-20.0) Serum Glucose 96 mg/dL (74-106) Calcium Level 10.0 mg/dL (8.7-10.4) Urine Color Light-yellow (Yellow) Urine Clarity Clear (Clear) Urine pH 7.5 (5.0-9.0) Urine Specific Marion 1.010 (1.001-1.035) Urine Protein Negative (Negative) Urine Ketones Negative (Negative) Urine Blood Negative /uL (Negative) Urine Nitrite Negative (Negative) Urine Bilirubin Negative (Negative) Urine Urobilinogen Normal mg/dL (Negative) Urine Leukocyte Esterase Negative /uL (Negative) Urine RBC <1 /hpf (0 - 4) Urine Microscopic WBC 4 /HPF (0-5) Urine Squamous Epithelial Cells Few /hpf (<5) Urine Bacteria None seen /hpf (None Seen) Urine Glucose Normal mg/dL (Normal) Magnesium Level 1.7 mg/dL (1.6-2.6) Total Bilirubin 1.2 mg/dL (0.2-1.0) Aspartate Amino Transferase (AST) 104 U/L (13-40) Alanine Aminotransferase (ALT) 28 U/L (7-40) Alkaline Phosphatase 300 U/L (46-116) Total Protein 7.4 g/dL (5.7-8.2) Albumin 4.2 g/dL (3.2-4.8) Test 05/17/24 23:30 05/17/24 14:47 Vitamin B12 Level 534 pg/mL (211-911) Folic Acid 13.97 ng/mL (>5.38) Urine Mucus Few (None Seen) Other Laboratory Tests 05/23/24 05:17 Brief Hx & Hospital Course: History of Presenting illness Patient is a 59-year-old female with past medical history of hypertension, IBS, chronic diarrhea, alcohol use disorder a C diff colitis, Campylobacter, came to the hospital for alcohol withdrawal symptoms. According to the patient, she took Librium the previous night and then had a few drinks of 99% vodka on 05/16/2024 at 10:00 a.m., she says the next thing she knows she woke up to a fisheries enforcement officer arresting her for being intoxicated in public. Patient is unable to recall correctly but states she did have a fall and hit the back of her head which currently feels sore. Per patient, she was released from the [facility] on 05/17/2024 at 10:00 a.m. and came to the hospital, she also notes multiple episodes of bilious vomiting greenish in color. At the time of my assessment patient had CIWA score of 20. Patient was discharged from the [facility] on 05/04/2024 after being treated for alcohol withdrawal. Past Medical History: hypertension, IBS, chronic diarrhea, alcohol use disorder a C diff colitis, Campylobacter Past Surgical History: Atherectomy, right knee surgery, bilateral shoulder surgery Past Social History:Smoking: Alcohol: Drinks 1 bottle of vodka daily for the last 2 years Drugs: Denies,Patient lives in a trailer in the backyard of her sister's house Brief Hospital course Patient is a known alcohol dependent individual who has had multiple withdrawal episodes bringing her to the hospital. Per the patient,she drank 2 pint of 99% vodak. Patient said she does not remember much, but remembered the fisheries enforcement officer arresting her for being intoxicated in public. AT the time of interacting, patient AOx4. Denies nausea, vomiting, tremors,tactile hallucination, auditory hallucination, agitation, but she said she is always anxious. No hematemesis, melena stool. Patient started on banana bag with vitamins, Ativan 2mg q2hrs and adjusted per her medical improvement daily. She also had UTI and was managed with antibiotics. She had a left lateral finger pain. X-ray showed evidence of non displaced fracture of the mid shaft of the 5th distal phalanx. No additional oseous abnormality identified. Mild degenerative changes in DIP/PIP joints.She was seen by the orthopedic and the advised Left boxers fracture brace and follow up in ortho clinic in 2 weeks. Prior to discharge, patient was started on Librium with a long taper. Patient was extensively counselled on alcohol cessation. Also, patient is a chronic C.diff colonizer and needs to follow up with the GI for fecal transplantation. Today, patient is looking better. She is more alert oriented and agreed with the plan to seek help at the [facility] Alcohol recovery center or facility. Examination General Appearance: Alert, Oriented X3, Cooperative, No acute distress HEENT: Atraumatic, PERRLA, EOMI, Mucous membrane moist/pink Respiratory: Clear to auscultation, Normal air movement Cardiovascular: Regular rate, Normal S1, Normal S2, No murmurs, no chest wall tenderness Abdominal: NO distention, no tenderness, bowel sounds present, no scars noted Extremities: No clubbing, No cyanosis, No edema, Normal pulses, No tenderness/swelling Skin: No rashes, No breakdown, No significant lesion Neuro: Normal gait, Normal speech, Strength at 5/5 X4 ext, Normal tone, Sensation intact, Cranial nerves 3-12 NL, Reflexes 2+ Psych/Mental Status: Mental status NL, Mood NL Diagnoses Alcohol withdrawal--> Improved Alcoholic hallucinosis Alcohol use disorder, dependence Acute Complicated UTI Evidence of non displaced fracture of the mid shaft of the 5th distal phalanx S/p fall while intoxicated - finger x-ray: Evidence of nondisplaced fracture of the midshaft of the 5th distal phalanx. No additional osseous abnormality identified. Hypertension Hypertensive heart disease with diastolic dysfunction Overweight, BMI: 29.9 Hypokalemia, secondary to alcohol dependency Chronic diarrhea likely due to IBS and alcohol use disorder History of C diff colitis History of camp jejuni Discharge plan Home with Librium with long taper Advised medication adherence Follow up at the Discharge clinic in 7 days Advised to call [facility] Follow up with GI for possible fecal transplantation Discharge plan discussed + Dr. Pena Consults/Reason for consult Reason for Consultation: Left hand fracture Condition at Discharge: Stable Final Diagnosis/Problems List Alcohol withdrawal Alcoholic hallucinosis Alcohol use disorder, dependence Acute Complicated UTI Evidence of non displaced fracture of the mid shaft of the 5th distal phalanx Hypertension Hypertensive heart disease with diastolic dysfunction Overweight, BMI: 29.9 Hypokalemia, secondary to alcohol dependency Chronic diarrhea likely due to IBS and alcohol use disorder History of C diff colitis History of camp jejuni Discharge Disposition: Home Discharge Instruct/Medications Diet: Regular Activity: No Restrictions, As Tolerated Follow Up/Referral: 7 week Medications: Librium lisinoprils Discharge Statement: "Patient was advised to return to the ER or call 911 if any headaches, dizziness, shortness of breath, chest pain, abdominal pain, bleeding, fevers, or worsening of medical condition. Patient was counseled about treatment plan, medications, possible side effects, patientverbalized understanding. All questions were answered to the best of my ability. This discharge took greater then 30 minutes in planning, reviewing documentation, counseling the patient, and discussing with other team members." ASSESSMENT ASSESSMENT Assessment ALCOHOL WITHDRAWL ALCOHOL USE DISORDER Date of Service: May 24, 2024 Billing Provider: ANN PENA MD Common Visit Codes: 25549-QMT/OBS DISCH DAY >30min MAK KUO RESIDENT May 24, 2024 20:21 ANN PENA MD May 25, 2024 22:35
== END 2024-05-24 16:50 | disposition home or self-care (01) | DRG 775 ==
LOC: EDBD 11:47 → ER 11:47 → OVERFLOW 23:08 → TELE-WESTW 05-18 23:51 → WEST WING 05-21 02:04
PROVIDERS: ADMIT Student in an Organized Health Care Education/Training Program; ATTEND Student in an Organized Health Care Education/Training Program
DX: F10.230 Alcohol dependence with withdrawal, uncomplicated (principal); D69.6 Thrombocytopenia, unspecified; I50.32 Chronic diastolic (congestive) heart failure; E87.6 Hypokalemia; D64.9 Anemia, unspecified; E66.3 Overweight; S62.637A Displaced fracture of distal phalanx of left little finger, initial encounter for closed fracture; I11.0 Hypertensive heart disease with heart failure; K58.9 Irritable bowel syndrome, unspecified; N39.0 Urinary tract infection, site not specified; F41.9 Anxiety disorder, unspecified; R44.0 Auditory hallucinations; F32.A Depression, unspecified; Z86.19 Personal history of other infectious and parasitic diseases; Z79.2 Long term (current) use of antibiotics; Z90.710 Acquired absence of both cervix and uterus; Z68.29 Body mass index [BMI] 29.0-29.9, adult; Z82.5 Family history of asthma and other chronic lower respiratory diseases; Z82.49 Family history of ischemic heart disease and other diseases of the circulatory system; W18.39XA Other fall on same level, initial encounter; Y92.89 Other specified places as the place of occurrence of the external cause; Y99.8 Other external cause status; Y93.89 Activity, other specified; Y90.9 Presence of alcohol in blood, level not specified
CPT/HCPCS: 36415; 70450; 73140; 80048; 80053; 81001; 82607; 82746; 83735; 85025; 87081; 87493; 93005; 96365; 96375; G0378; J2003; J3490; J7060

== ENCOUNTER 2024-06-05 23:07 | Inpatient (IN) | payer MEDICAID ==
[~2024-06-05] VITALS: Ht 160 cm; Wt 68.0 kg
[~2024-06-05 23:07] MED LIST changes: -AZIT-43 PO; -CHLO25CA9 PO; -METO-6 PO; -MUPI2OIN2 EACHNOSTRI; -ONDA-180 PO; -VANC125C3 PO
[2024-06-05] MEDS: SODIUM CHLORIDE 0.9% 1,000 ML IVB ONE (23:30)
[2024-06-05 23:55] VITALS: TEMP 98.6
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
[2024-06-06 00:15] VITALS: PULSE 68; RESP 14; O2SAT 96
[2024-06-06 00:19] LABS: Basophils # (auto) 0.1 10 ^3/uL (0-0.2); Eosinophils # (auto) 0.1 10 ^3/uL (0-0.8); Hemoglobin 13.6 g/dL (12.2-16.2); Lymphocytes # (auto) 1.5 10 ^3/uL (0.4-5.4); Monocytes # (auto) 0.5 10 ^3/uL (0-1.3); Nucleated Red Blood Cells % 0.1 %
[2024-06-06 00:20] LABS: Basophils % (auto) 0.9 % (0.0-2.0); Hematocrit 41.2 % (36.0-46.0); Lymphocytes % (auto) 16.4 % (10.0-50.0); Mean Corpuscular Hemoglobin 33.9 pg (28.0-32.0); Mean Corpuscular Hgb Conc. 32.9 g/dL (32.0-36.0); Monocytes % (auto) 5.7 % (0.0-12.0); Neutrophils # (auto) 7.1 10 ^3/uL (1.6-8.6); Platelet Count (auto) 268 10^3/uL (140-450); Red Cell Distribution Width 18.5 % (11.8-14.3); White Blood Cell 9.3 10^3/uL (4.4-10.8)
[2024-06-06 00:36] LABS: Albumin 4.4 g/dL (3.2-4.8); Anion Gap 13 (5-15); BUN/Creatinine Ratio 17.8 (10.0-20.0); Bilirubin, Total 0.4 mg/dL (0.2-1.0); Blood Urea Nitrogen 13 mg/dL (9-23); Calcium 9.4 mg/dL (8.7-10.4); Carbon Dioxide 21 mmol/L (20-31); Chloride 103 mmol/L (98-107); Glucose 92 mg/dL (74-106); Potassium 4.2 mmol/L (3.5-5.1); Sodium 137 mmol/L (136-145); Total Protein 8.1 g/dL (5.7-8.2)
[2024-06-06 00:43] LABS: Alkaline Phosphatase 281 U/L (46-116); Aspartate Aminotransferase 131 U/L (13-40)
[2024-06-06 00:44] LABS: Alanine Aminotransferase 46 U/L (7-40)
[2024-06-06] MEDS: LORazepam 2MG/ML-1ML VIAL IV ONE (02:45)
[2024-06-06] MEDS: LOPERAMIDE HCL 2 MG CAP/TAB PO ONE (02:45)
[2024-06-06] MEDS: THIAMINE 100mg/ml INJ (200mg/2ml VIAL) IV ONE (03:30)
[2024-06-06] MEDS: SODIUM CHLORIDE 0.9% 1,000 ML IVB ONE (03:30)
[2024-06-06] MEDS ORDERED: ONDANSETRON HCL 4 MG/2 ML VIAL IV PRN (03:30)
--- NOTE | 2024-06-06 03:48 | DVHHPRES ---
History of Present Illness Resident Creating Document: BEHZAD BAILEY RESIDENT History of Present Illness Patient is a 59-year-old female with past medical history of hypertension, IBS, chronic diarrhea, alcohol use disorder, C diff colitis, Campylobacter, who comes in due to alcohol withdrawal symptoms. According to the patient, she recently switched from vodka to wine. Yesterday she found out that her son who was in the and she continued to drink wine, last drink was on 06/05/2024 at midnight. Per patient, her last meal was 3-4 days ago. Patient reports feeling depressed, however, denies any suicidal or homicidal ideation. At the time of my assessment patient was AO x3 with a CIWA score of 13. Of note, this is patient's 6th visit in the last 6 months for alcohol withdrawal. Patient was given IV fluids, banana bag and p.o. chlordiazepoxide 50 mg Q 1 hour for a total of 3 doses. Past Medical History hypertension, IBS, chronic diarrhea, alcohol use disorder a C diff colitis, Campylobacter Past Surgical History Atherectomy, right knee surgery, bilateral shoulder surgery Past Social History Smoking: Denies Alcohol: Drinks 1 bottle of vodka daily for the last 2 years Drugs: Denies Patient lives in a trailer in the backyard of her sister's house Review of Systems Constitutional: Yes: Chills; No: Fever, Sweats, Weakness, Malaise, Other Eyes: No: Pain, Vision change, Conjunctivae inflammation, Eyelid inflammation, Other, Redness ENT: Nose discharge; No: Ear pain, Ear discharge, Nose pain, Nose congestion, Mouth pain, Mouth swelling, Throat pain, Throat swelling, Other Respiratory: No: Cough, Dry, Shortness of breath, SOB with excertion, Wheezing, Hemoptysis, Pleuritic Pain, Sputum, Wheezing, Other Cardiovascular: No: Chest Pain, Palpitations, Orthopnea, Paroxysmal Noc. Dyspnea, Edema, Lt Headedness, Other Gastrointestinal: Nausea, Vomiting, Abdominal Pain; No: Diarrhea, Constipation, Melena, Hematochezia, Other Genitourinary: Dysuria; No Frequency, No Incontinence, No Hematuria, No Retention, No Other Musculoskeletal: back pain; No: other, neck pain, shoulder pain, arm pain, hand pain, leg pain, foot pain Skin: No: Rash, Lesions, Jaundice, Bruising, Other Neurological: No: Weakness, Numbness, Incoordination, Change in speech, Confusion, Seizures, Other Allergies: Coded Allergies: NO KNOWN ALLERGIES (Unverified , 04/21/23) Exam Vital Signs Vital Signs Date Time Temp Pulse Resp B/P (MAP) Pulse Ox O2 Delivery O2 Flow Rate FiO2 06/05/24 23:17 98.0 85 24 172/99 (123) 95 98.0 General Appearance: Alert, Oriented X3, Cooperative, moderate distress HEENT: Atraumatic, PERRLA, EOMI, Other (Dry mucous membranes) Respiratory: Normal air movement Cardiovascular: Normal S1, Normal S2, Other (Tachycardic) Abdominal: Normal bowel sounds, Soft, No tenderness Extremities: Other (Trace lower extremity edema) Neuro: Normal speech, Strength at 5/5 X4 ext, Sensation intact Psych/Mental Status: Mood NL Labs/Xrays Labs Test 06/05/24 23:30 Range/Units White Blood Count 9.3 4.4-10.8 10^3/uL Red Blood Count 4.00 4.0-5.20 10^6/uL Hemoglobin 13.6 12.2-16.2 g/dL Hematocrit 41.2 36.0-46.0 % Mean Corpuscular Volume 103.0 H 80.0-100.0 fL Mean Corpuscular Hemoglobin 33.9 H 28.0-32.0 pg Mean Corpuscular Hemoglobin Concent 32.9 32.0-36.0 g/dL Red Cell Distribution Width 18.5 H 11.8-14.3 % Platelet Count 268 140-450 10^3/uL Mean Platelet Volume 6.6 L 6.9-10.8 fL Neutrophils (%) (Auto) 76.0 37.0-80.0 % Lymphocytes (%) (Auto) 16.4 10.0-50.0 % Monocytes (%) (Auto) 5.7 0.0-12.0 % Eosinophils (%) (Auto) 1.0 0.0-7.0 % Basophils (%) (Auto) 0.9 0.0-2.0 % Neutrophils # (Auto) 7.1 1.6-8.6 10 ^3/uL Lymphocytes # (Auto) 1.5 0.4-5.4 10 ^3/uL Monocytes # (Auto) 0.5 0-1.3 10 ^3/uL Eosinophils # (Auto) 0.1 0-0.8 10 ^3/uL Basophils # (Auto) 0.1 0-0.2 10 ^3/uL Nucleated Red Blood Cells 0.1 % Sodium Level 137 136-145 mmol/L Potassium Level 4.2 3.5-5.1 mmol/L Chloride Level 103 98-107 mmol/L Carbon Dioxide Level 21 20-31 mmol/L Anion Gap 13 5-15 Blood Urea Nitrogen 13 9-23 mg/dL Creatinine 0.73 0.550-1.02 mg/dL Glomerular Filtration Rate Calc 94 >90 mL/min BUN/Creatinine Ratio 17.8 10.0-20.0 Serum Glucose 92 74-106 mg/dL Calcium Level 9.4 8.7-10.4 mg/dL Total Bilirubin 0.4 0.2-1.0 mg/dL Aspartate Amino Transferase (AST) 131 H 13-40 U/L Alanine Aminotransferase (ALT) 46 H 7-40 U/L Alkaline Phosphatase 281 H 46-116 U/L Total Protein 8.1 5.7-8.2 g/dL Albumin 4.4 3.2-4.8 g/dL Plasma/Serum Blood Alcohol 314.0 H <10 mg/dL Assessment/Plan Assessment/Plan Alcohol withdrawal, CIWA 13 Alcoholic hallucinosis Alcohol use disorder - plasma alcohol 314 - IV NS 1 L bolus x2 - IV thiamine 100 mg - banana bag - chlordiazepoxide 50 mg Q 1 hour for a total of 3 doses - NPO - counseled extensively Chronic diarrhea likely due to IBS and alcohol use disorder History of C diff colitis History of camp jejuni - ordered stool culture, stool C diff - monitor Transaminitis, likely alcohol induced - AST 131, ALT 46, alkaline phosphatase 281 - monitor DVT prophylaxis: Lovenox 40 mg subcutaneous PUD prophylaxis: IV Protonix 40 mg daily Goals of care: Full code, discussed for >16 minutes on 06/06/2024 Plan discussed with patient Plan discussed with Dr. Mota Plan discussed with: Patient, Other (RN) My Orders Orders - BEHZAD BAILEY RESIDENT Procedure Category Date Status Time Admit ADMIT 06/06/24 Verified 03:29 Allergies PABLO 06/06/24 Verified 03:29 Code Status CODE 06/06/24 Verified 03:29 Ondansetron Hcl PHA 06/06/24 Verified (Zofran) 03:30 Enoxaparin Sodium PHA 06/06/24 Verified (Lovenox) 10:00 Npo (Nothing By DIET 06/06/24 Verified Mouth) Diet Breakfast Condition: Unstable PABLO 06/06/24 Verified 03:29 Notify Md Of Changes PABLO 06/06/24 Verified From Base 03:29 Drug Screen LAB 06/06/24 Verified 03:29 Urinalysis LAB 06/06/24 Verified 03:29 0.9% Nacl 1 Liter PHA 06/06/24 Verified Bolus 03:30 Magnesium LAB 06/06/24 Verified 03:29 Chest Two Views XY 06/06/24 Verified Routine 03:29 Thiamine 100mg Po PHA 06/06/24 Verified Daily 10:00 Folic Acid 1mg Po PHA 06/06/24 Verified Daily 10:00 Mvi Tablet Po Daily PHA 06/06/24 Verified 10:00 Thiamine 100mg Iv Now PHA 06/06/24 Verified 03:30 Etoh Withdrawal PABLO 06/06/24 Verified Assessment 03:29 Pantoprazole PHA 06/06/24 Verified (Protonix) 10:00 Phosphorus LAB 06/06/24 Verified 03:29 Banana Bag Ns PHA 06/06/24 Verified 18:00 Chlordiazepoxide Hcl PHA 06/06/24 Verified Capsule (Librium Ca 04:00 Complete Blood Count LAB 06/06/24 Verified 03:29 Comprehensive LAB 06/06/24 Verified Metabolic Panel 03:29 Hiv 1&2 Antibody LAB 06/06/24 Verified 03:29 Treponema Pallidum LAB 06/06/24 Verified Antibody 03:29 Stool Wbc LAB 06/06/24 Verified 03:29 Stool Bacterial KAROLINE 06/06/24 Verified Culture 03:29 Stool Occult Blood LAB 06/06/24 Verified 03:29 Clostridium Difficile KAROLINE 06/06/24 Verified Toxin 03:29 Creatine Kinase LAB 06/06/24 Verified 03:29 Lisinopril Tablet PHA 06/06/24 Verified (Zestril Tablet) 10:00 Metoprolol Xl PHA 06/06/24 Verified Succinate (Toprol Xl) 10:00 Florastor (S. PHA 06/06/24 Verified Boulardii) (Florastor) 10:00 (Nf) Fluoxetine Hcl PHA 06/06/24 Verified 10:00 * Wool Puller CONS 4/28/25 Verified Consult Date of Service: Jun 06, 2024 Billing Provider: BEATRIZ MOTA MD Common Visit Codes: [id number] INP/OBS CARE (HIGH) BEHZAD BAILEY RESIDENT Jun 06, 2024 03:48
[2024-06-06 03:55] VITALS: BP 126/84; PULSE 69; RESP 16; O2SAT 98
[2024-06-06] MEDS: chlordiazePOXIDE HCL 25 MG CAP PO SCH (04:15)
--- NOTE | 2024-06-06 04:39 | DVH ---
CHEST RADIOGRAPH Indication: alcoholic, r/o aspiration Technique: Single frontal view of the chest was obtained Comparison: XY CHEST XRAY 1 VIEW on DOS: 04/28/24 FINDINGS: Lines and Tubes: None Lungs: Bilateral pulmonary opacities. Pleura: No effusion. No pneumothorax. Cardiomediastinal contours: Cardiomegaly. Bones: No acute osseous abnormality. IMPRESSION: 1. Bilateral pulmonary opacities which may reflect edema in the appropriate clinical setting. 2. Cardiomegaly.
[2024-06-06] MEDS ORDERED: chlordiazePOXIDE HCL 25 MG CAP PO PRN (06:30)
[2024-06-06] MEDS ORDERED: FLUoxetine HCL 20 MG CAP PO SCH (10:00)
[2024-06-06] MEDS ORDERED: THIAMINE HCL 100 MG TAB PO SCH (10:00)
[2024-06-06] MEDS ORDERED: MULTIPLE VITAMIN TAB PO SCH (10:00)
[2024-06-06] MEDS ORDERED: LISINOPRIL 20 MG TAB PO SCH (10:00)
[2024-06-06] MEDS ORDERED: PANTOPRAZOLE 40 MG/10 ML VIAL INJ IV SCH (10:00)
[2024-06-06] MEDS ORDERED: ENOXAPARIN SOD 40 MG/0.4 ML SYRINGE SC SCH (10:00)
[2024-06-06] MEDS ORDERED: FOLIC ACID 1 MG TAB PO SCH (10:00)
[2024-06-06] MEDS ORDERED: FLORASTOR (S. BOULARDII) 250 MG CAP PO SCH (10:00)
[2024-06-06] MEDS ORDERED: METOPROLOL SUCCINATE XL 50 MG TAB PO SCH (10:00)
[2024-06-06] MEDS ORDERED: FOLIC ACID 1 MG, MAGNESIUM SULF SDV 50% 8 MEQ, MULTIPLE VITAMIN 10 ML, THIAMINE INJ 100... INJ SCH (18:00)
== END 2024-06-06 05:49 | disposition left against medical advice (07) | DRG 770 ==
LOC: EDBD 23:07 → ER 23:11 → OVERFLOW 06-06 03:29
PROVIDERS: ADMIT Student in an Organized Health Care Education/Training Program; ATTEND Emergency Medicine
DX: F10.139 Alcohol abuse with withdrawal, unspecified (principal); R56.9 Unspecified convulsions; F10.129 Alcohol abuse with intoxication, unspecified; K58.0 Irritable bowel syndrome with diarrhea; F32.A Depression, unspecified; F41.9 Anxiety disorder, unspecified; Y90.9 Presence of alcohol in blood, level not specified; I10 Essential (primary) hypertension; Z53.29 Procedure and treatment not carried out because of patient's decision for other reasons; R74.01 Elevation of levels of liver transaminase levels; Z90.710 Acquired absence of both cervix and uterus; Z79.899 Other long term (current) drug therapy
CPT/HCPCS: 36415; 71045; 80053; 80320; 85025; 86703; 86780; 96361; 96374; 96375; G0378

== ENCOUNTER 2024-08-13 19:09 | Emergency (ER) | payer MEDICAID ==
[~2024-08-13] VITALS: Ht 162.6 cm; Wt 63.6 kg
--- NOTE | 2024-08-13 19:21 | ED.PDOC ---
History of Present Illness HPI Comments This is a 59 year old female BIBA presenting to the ED with chief complaint of ETOH abuse and generalized weakness. Patient reports that she has been feeling generally weak today and admits to drinking ETOH heavily today. EMS relays that the inside of the patient's trailer where she lives was hot inside. Patient denies any N/V/D, abdominal pain, syncope, headache, chest pain, or SOB. Time Seen by MD: 19:19 Primary Care Provider: none Reviewed Notes: Nurses Notes, Licensed Club Manager Notes, Medications, Allergies Allergies: Coded Allergies: NO KNOWN ALLERGIES (Unverified , 04/21/23) Home Meds Active Scripts Chlordiazepoxide Hcl (Librium) 25 Mg Cp, 25 MG PO UD for 6 Days, #14 CAP take 2 pills twice a day for 2 days, followed by 1 pill twice a day for 2 days, followed by 1 pill once daily for 2 days Prov:ANN NUNEZ MD 05/24/24 Lisinopril (Lisinopril) 20 Mg Tab, 40 MG PO DAILY for 60 Days, #120 TAB Prov:KRISHNA VELEZ RESIDENT 05/01/24 Yeast (S. Boulardii)(S. Cerevi (Florastor) 250 Mg Cap, 250 MG PO DAILY for 30 Days, #30 CAP Prov:BEHZAD BAILEY RESIDENT 04/14/24 Multiple Vitamin (Mvi Tab) 1 Tab Tb, 1 TAB PO DAILY for 30 Days, #30 TAB Prov:BEHZAD BAILEY RESIDENT 04/14/24 Famotidine (PEPCID TABLET) 20 Mg Tb, 1 TAB PO BID PRN for 30 Days, #60 TAB 5 Refills Prov:RICKEY ORTIZ MD 04/02/24 Reported Medications Folic Acid (Folic Acid) 1 Mg Tab, 1 TAB PO DAILY for 30 Days, #30 05/18/24 Pantoprazole Sodium Sesquihydr (Pantoprazole Sodium) 40 Mg Tab, 1 TAB PO DAILY for 30 Days, #30 05/18/24 Fluoxetine Hcl (Fluoxetine Hcl) 40 Mg Cap, 1 CAP PO DAILY for 30 Days, #30 05/18/24 Metoprolol Succinate (Metoprolol Succinate Er) 50 Mg Tab, 1 TAB PO DAILY for 60 Days, #60 03/24/24 Information Source: Patient, Emergency Med Personnel Mode of Arrival: EMS Severity: Moderate Timing: Hours Duration: Since onset Prehospital treatment: None Past Medical History PAST MEDICAL HISTORY: Anxiety, Arthritis, Depression, HTN, Seizures Surgical History: Hysterectomy UPHOLSTERY TECHNICIAN History: No Pertinent UPHOLSTERY TECHNICIAN History Family History Family History: Reviewed,noncontributory to illness, Family hx of heart ellen Social History Smoker: Non-Smoker Alcohol: Heavy Drugs: Other Lives In: Home Constitutional: reports: weakness; denies: chills, diaphoresis, fatigue, fever, malaise, sweats, others EENTM: denies: blurred vision, double vision, ear bleeding, ear discharge, ear drainage, ear pain, ear ringing, eye pain, eye redness, hearing loss, mouth pain, mouth swelling, nasal discharge, nose bleeding, nose congestion, nose pain, photophobia, tearing, throat pain, throat swelling, voice changes, others Respiratory: denies: cough, hemoptysis, orthopnea, SOB at rest, shortness of breath, SOB with excertion, stridor, wheezing, others Cardiovascular: denies: chest pain, dizzy spells, diaphoresis, Dyspnea on exertion, edema, irregular heart beat, left arm pain, lightheadedness, palpitations, PND, syncope, others Gastrointestinal: denies: abdomen distended, abdominal pain, blood streaked bowels, constipated, diarrhea, dysphagia, difficulty swallowing, hematemesis, melena, nausea, poor appetite, poor fluid intake, rectal bleeding, rectal pain, vomiting, others Genitourinary: denies: abnormal vagina bleeding, burning, dyspareunia, dysuria, flank pain, frequency, hematuria, incontinence, pain, , vagina discharge, urgency, others Neurological: denies: dizziness, fainting, headache, left sided numbness, left sided weakness, numbness, paresthesia, pre-existing deficit, right sided n umbness, right sided weakness, seizure, speech problems, tingling, tremors, weakness, others Musculoskeletal: denies: back pain, gout, joint pain, joint swelling, muscle pain, muscle stiffness, neck pain, others Integumetry: denies: bruises, change in color, change in hair/nails, dryness, laceration, lesions, lumps, rash, wounds, others Allergic/Immunocompromised: denies: Difficulty Healing, Frequent Infections, Hives, Itching, others Hematologic/Lymphatic: denies: anemia, blood clots, easy bleeding, easy bruising, swollen glands, others Endocrine: denies: excessive hunger, excessive sweating, excessive thirst, excessive urination, flushing, intolerance to cold, intolerance to heat, unexplained weight gain, unexplained weight loss, others Psychiatric: denies: anxiety, bipolar disorder, depression, hopeless, panic disorder, schizophrenia, sleepless, suicidal, others All Other Systems: Reviewed and Negative Was a procedure done? Was a procedure done?: No Differential Dx Considerations may include: ETOH intoxication X-Ray, Labs, Meds, VS Vital Signs Date Time Temp Pulse Resp B/P (MAP) Pulse Ox O2 Delivery O2 Flow Rate FiO2 08/13/24 19:10 75 Time of 1ST Reevaluation: 20:19 Reevaluation 1ST: Unchanged Patient Education/Counseling: Diagnosis, Treatment Family Education/Counseling: No Family Present SEPSIS Sepsis Screen Physician Orders Electrocardigram (08/13/24 19:13) Vital Signs Date Time Temp Pulse Resp B/P (MAP) Pulse Ox O2 Delivery O2 Flow Rate FiO2 08/13/24 19:10 75 Critical Care Note Critical Care Time?: No Stability Stability form required: No Heart Score Heart Score: Heart Score Response (Comments) Value History N/A 0 EKG N/A 0 Age N/A 0 Risk Factors N/A 0 Troponin N/A 0 Total 0 I personally scribed for ALEXIS BERUMEN PAC ([email or web address]) on 08/13/24 at 19:21. Electronically submitted by Miah Wheatley ([email or web address]). ALEXIS BERUMEN PAC Aug 13, 2024 19:21
[2024-08-13 19:29] VITALS: BP 124/86; PULSE 84; RESP 16; TEMP 98.3; O2SAT 100
[2024-08-13] MEDS ORDERED: THIAMINE 100mg/ml INJ (200mg/2ml VIAL) IV ONE (19:30)
[2024-08-13] MEDS ORDERED: ONDANSETRON HCL 4 MG/2 ML VIAL IV ONE (19:30)
[2024-08-13] MEDS ORDERED: SODIUM CHLORIDE 0.9% 1,000 ML IV ONE (19:30)
--- NOTE | 2024-08-14 06:05 | ECG ---
[facility] Test Date: 2024-08-13 Test Time: 19:10:48 Pat Name: СЕРГЕЙ CASE Department: ED Room: Gender: F Corporate Travel Counselor: jordan : 1965 Requested By: BERTRAND ESTRADA Order Number: [id number] Reading MD: Stan Christianson Measurements Intervals Supply Rate: 75 P: 61 NV: 174 QRS: -24 QRSD: 95 T: 10 QT: 394 QTc: 441 Interpretive Statements Sinus rhythm Borderline left axis deviation Probable anteroseptal infarct, old Electronically Signed On 08-18-2024 18:52:13 PDT by Stan Christianson Please click the below link to view image of tracing.
== END 2024-08-13 20:30 | disposition left against medical advice (07) ==
LOC: EDBD 19:09 → EDUNIT# 19:09 → ER 19:15
DX: F10.10 Alcohol abuse, uncomplicated (principal); F41.9 Anxiety disorder, unspecified; M19.90 Unspecified osteoarthritis, unspecified site; F32.A Depression, unspecified; I10 Essential (primary) hypertension; Z90.710 Acquired absence of both cervix and uterus; Z79.899 Other long term (current) drug therapy; Y90.9 Presence of alcohol in blood, level not specified
CPT/HCPCS: 93005